=== PATIENT | male | born 1960 | race Caucasian/White ===

== ENCOUNTER → 2020-02-27 11:36 | Outpatient (BNVA) | payer OTHER, SELFPAY | PROVIDERS: PCP Physician Assistant; Visit Provider Urology | DX: N52.01 Erectile dysfunction due to arterial insufficiency (principal); N40.1 Benign prostatic hyperplasia with lower urinary tract symptoms; R39.12 Poor urinary stream; R35.1 Nocturia; N13.8 Other obstructive and reflux uropathy | CPT/HCPCS: Q3014 ==

== ENCOUNTER → 2020-10-22 10:08 | Outpatient (BNVA) | payer OTHER, SELFPAY | PROVIDERS: PCP Physician Assistant; Visit Provider Urology | DX: R35.1 Nocturia (principal); N40.1 Benign prostatic hyperplasia with lower urinary tract symptoms; N13.8 Other obstructive and reflux uropathy; E11.69 Type 2 diabetes mellitus with other specified complication | CPT/HCPCS: 51798; 99212 ==

== ENCOUNTER 2020-12-02 07:22 | Outpatient (REF) | payer OTHER, SELFPAY ==
--- NOTE | ~2020-12-02 | US_ITS ---
EXAMINATION: US ABDOMEN LIMITED CLINICAL INFORMATION: Right lower quadrant pain, rule out hernia. COMPARISON: Abdominal ultrasound of 01/16/2014 TECHNIQUE: Real-time imaging of the right upper quadrant abdominal viscera. FINDINGS: No hernia is appreciated by ultrasound. There are small right lower quadrant lymph nodes measuring 0.9 x 1 0.5 x 1 cm and 2.2 x 0.6 x 1.1 cm. Lymph nodes demonstrate normal ultrasound morphology and flow. No ascites is seen. US/US abdomen limited IMPRESSION: No hernia appreciated by ultrasound.
[2020-12-02 08:18] LABS: Hematocrit 42.1 % (42-52); Hemoglobin 14.2 g/dl (14.0-18.0); Mean Corpuscular HGB Conc 33.7 g/dl (31.0-36.0); Mean Corpuscular Hemoglobin 29.4 pg (27.0-33.0); Mean Corpuscular Volume 87.2 fL (80-98); Mean Platelet Volume 10.1 fL (9.4-12.4); Platelet Count 196 X10*3/uL (160-400); Red Blood Count 4.83 X10*6/uL (4.60-5.80); Red Cell Distribution Width 11.9 % (11.0-16.0); White Blood Count 8.6 X10*3/uL (4.8-10.8)
[2020-12-02 08:24] LABS: Estimated Average Glucose 126 mg/dL
[2020-12-02 08:48] LABS: Alanine Aminotransferase 22 U/L (0-40); Albumin Level 4.4 g/dL (3.5-5.0); Alkaline Phosphatase 70 U/L (39-117); Anion Gap 10 (12-20); Aspartate Amino Transferase 24 U/L (5-37); Bilirubin Total 0.6 mg/dL (0.0-1.0); Blood Urea Nitrogen 14 mg/dL (9-16); Calcium 9.3 mg/dL (8.4-10.2); Carbon Dioxide 28 mmol/L (22-29); Chloride 106 mmol/L (96-108); Cholesterol 217 mg/dL; Estimated Glomerular Filt Rate > 60; Glucose Fasting 116 mg/dL (60-99); HDL Cholesterol 28 mg/dL; LDL Cholesterol Calculated 159 mg/dl; Potassium 4.4 mmol/L (3.3-5.1); Sodium 140 mmol/L (135-145); Total Protein 7.4 g/dL (6.5-8.0); Triglycerides 154 mg/dL
[2020-12-02 09:09] LABS: TSH reflex Free T4 2.78 uIU/mL (0.32-4.0)
[2020-12-02 10:05] LABS: Prostate Specific Antigen Scr 0.46 ng/mL (<0.05-4.0)
== END 2020-12-02 07:23 | disposition home or self-care (01) ==
LOC: HO.US 07:22
PROVIDERS: PCP Physician Assistant; Visit Provider Physician Assistant
DX: Z12.5 Encounter for screening for malignant neoplasm of prostate (principal); R10.31 Right lower quadrant pain; I10 Essential (primary) hypertension
CPT/HCPCS: 36415; 76705; 80053; 80061; 83036; 84153; 84443; 85027

== ENCOUNTER 2021-03-16 09:27 | Emergency (ER) | payer OTHER, SELFPAY ==
[2021-03-16 09:55] VITALS: BP 164/95; PULSE 98; RESP 14; TEMP 37.1; O2SAT 94; BMI 29.0
--- NOTE | 2021-03-16 10:10 | ED_ITS ---
HPI - Dental/Oral General Chief complaint: Dental/Oral <Radha Little NP - Last Filed: 03/16/21 10:50> Stated complaint: Dental pain <Radha Little NP - Last Filed: 03/16/21 10:50> Time Seen by Provider: 03/16/21 10:02 <Radha Little NP - Last Filed: 03/16/21 10:50> Source: patient <Radha Little NP - Last Filed: 03/16/21 10:50> Mode of arrival: ambulatory <Radha Little NP - Last Filed: 03/16/21 10:50> Limitations: no limitations <Radha Little NP - Last Filed: 03/16/21 10:50> History of Present Illness HPI Narrative: 61-year-old male with a history of multiple sclerosis, hypertension, anxiety here with reports of left upper dental pain for 2 days after breaking a tooth. Patient tells me he has pain radiates up into the left side of his face. He denies any fevers, chills, difficulty breathing or swallowing. <Radha Little NP - Last Filed: 03/16/21 10:50> Related Data Home medications: Home Medications Medication Instructions Recorded Confirmed glatiramer 40 mg/mL subcutaneous 40 mg SUBCUT 3XW 01/04/20 12/16/20 syringe tizanidine 2 mg tablet 2 mg PO TID 10/22/20 12/16/20 hydroxyzine HCl 25 mg tablet 25 mg PO BEDTIME PRN tab 12/16/20 Previous Rx's Medication Instructions Recorded tadalafil 10 mg tablet 10 mg PO DAILY PRN 90 Days #30 tab 02/27/20 lisinopril 20 mg tablet 20 mg PO DAILY #90 tab 10/08/20 alfuzosin 10 mg tablet,extended 10 mg PO DAILY 90 Days #90 tab 10/23/20 release 24 hr amoxicillin 500 mg tablet 500 mg PO BID #20 tab 03/16/21 ibuprofen 600 mg tablet 600 mg PO Q8H PRN #20 tab 03/16/21 oxycodone 5 mg tablet 5 mg PO Q8H PRN #5 tab 03/16/21 <Radha Little NP - Last Filed: 03/16/21 10:50> Allergies/adverse reactions: Allergies Allergy/AdvReac Type Severity Reaction Status Date / Time Sulfa (Sulfonamide Allergy Unknown RASH Verified 12/16/20 14:11 Antibiotics) [Sulfa (Sulfonamides)] Sulfacet-R Allergy Unknown hives Verified 12/16/20 14:11 <Radha Little NP - Last Filed: 03/16/21 10:50> Review of Systems Review of Systems: Yes all other systems are reviewed and are negative <Radha Little NP - Last Filed: 03/16/21 10:50> Constitutional: Constitutional: Reports no additional constitutional compl aints, Denies body ache(s), Denies chills, Denies fever(s), Denies headache(s) and Denies weakness <Radha Little NP - Last Filed: 03/16/21 10:50> Eyes: Eyes: Reports no additional eye complaints and Denies change in vision <Radha Little NP - Last Filed: 03/16/21 10:50> ENT: Reports system reviewed and no additional complaints, except as documented, Reports dental pain, Denies dizziness, Denies headache(s), Denies nasal congestion, Denies nasal discharge and Denies neck pain <Radha Little NP - Last Filed: 03/16/21 10:50> Cardiovascular: Cardiovascular: Reports no additional cardiovascular complaints, Denies chest pain, Denies leg edema and Denies dyspnea <Radha Little NP - Last Filed: 03/16/21 10:50> Respiratory: Respiratory: Reports no additional respiratory complaints, Denies cough and Denies dyspnea <Radha Little NP - Last Filed: 03/16/21 10:50> Gastrointestinal: Gastrointestinal: Reports no additional gastrointestinal complaints, Denies abdominal pain, Denies diarrhea, Denies nausea and Denies vomiting <Radha Little NP - Last Filed: 03/16/21 10:50> Genitourinary: Genitourinary: Denies urinary incontinence <Radha Little NP - Last Filed: 03/16/21 10:50> Musculoskeletal: Musculoskeletal: Reports no additional musculoskeletal complaints, Denies back pain, Denies arthralgias, Denies joint swelling, Denies neck pain, Denies numbness and Denies tingling <Radha Little NP - Last Filed: 03/16/21 10:50> Integumentary/Breasts: Skin/Breast: Reports system reviewed and no additional complaints, except as docu and Denies rash <Radha Little NP - Last Filed: 03/16/21 10:50> Neurologic: Reports system reviewed and no additional complaints, except as documented, Denies Abnormal speech present, Denies dizziness, Denies headache(s), Denies numbness, Denies tingling and Denies weakness <Radha Little NP - Last Filed: 03/16/21 10:50> [facility]LY [facility] Past Medical History Attestation statement: The following information was validated with the patient. <Radha Little NP - Last Filed: 03/16/21 10:50> Source: old records reviewed and nursing notes reviewed <Radha Little NP - Last Filed: 03/16/21 10:50> Medical History: Medical History Bladder outlet obstruction BPH (benign prostatic hyperplasia) Diabetes mellitus Dysuria HTN (hypertension) Hyperlipidemia Nocturia Stress incontinence, male Weak urinary stream <Radha Little NP - Last Filed: 03/16/21 10:50> Surgical History: Surgical History History of appendectomy History of hernia repair History of removal of cyst <Radha Little NP - Last Filed: 03/16/21 10:50> Family History Family History: Family History Father Diabetes Mother No problems noted. Maternal Uncle Myocardial infarction Sister No problems noted. Son No problems noted. Son No problems noted. Daughter No problems noted. Brother No problems noted. Brother No problems noted. Brother No problems noted. 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 <Radha Little NP - Last Filed: 03/16/21 10:50> Physical Exam Vital Signs: Vital Signs: Last Vital Signs Temp 98.8 F 03/16/21 09:55 Pulse 98 03/16/21 09:55 Resp 14 03/16/21 09:55 BP 164/95 H 03/16/21 09:55 Pulse Ox 94 03/16/21 09:55 BMI result Body Mass Index 29.0 <Radha Little NP - Last Filed: 03/16/21 10:50> Vital Signs: Last Vital Signs Temp 98.8 F 03/16/21 09:55 Pulse 98 03/16/21 09:55 Resp 14 03/16/21 09:55 BP 164/95 H 03/16/21 09:55 Pulse Ox 94 03/16/21 09:55 BMI result Body Mass Index 29.0 <Jossue Funes MD - Last Filed: 03/18/21 06:48> Const: General: cooperative, healthy appearing, comfortable and no acute distress <Radha Little NP - Last Filed: 03/16/21 10:50> Orientation/consciousness: patient oriented x3 <Radha Little NP - Last Filed: 03/16/21 10:50> Limitations: no limitations <Radha Little NP - Last Filed: 03/16/21 10:50> HENMT: Other: No trismus <Radha Little NP - Last Filed: 03/16/21 10:50> Head: Yes normal to inspection <Radha Little NP - Last Filed: 03/16/21 10:50> Ears: hearing grossly normal bilaterally and TM's normal bilaterally <Radha Little NP - Last Filed: 03/16/21 10:50> General nose exam: Normal external nose present <Radha Little NP - Last Filed: 03/16/21 10:50> Face and sinus: Yes normal facial exam <Radha Little NP - Last Filed: 03/16/21 10:50> Mouth: Normal oral and palatal mucosa present <Radha Little NP - Last Filed: 03/16/21 10:50> Teeth image: 1. Broken tooth with exposed root Gum with erythema/swelling and tenderness. no fluctuance or induration <Radha Little NP - Last Filed: 03/16/21 10:50> Throat: Yes posterior oropharynx normal, Yes tonsils normal and Yes uvula midline <Radha Little NP - Last Filed: 03/16/21 10:50> Eyes: General: appearance normal, both eyes and all related structures <Radha Little NP - Last Filed: 03/16/21 10:50> Pupils: Equal, round and reactive pupils present <Radha Little NP - Last Filed: 03/16/21 10:50> Neck: Neck: Yes normal visual inspection, Yes full ROM, Yes no lymphadenopathy and Yes no meningeal signs <Radha Little NP - Last Filed: 03/16/21 10:50> Chest: Chest palpation & inspection: normal inspection of the chest <Radha Little NP - Last Filed: 03/16/21 10:50> Resp: Effort & Inspection: normal respiratory effort <Radha Little NP - Last Filed: 03/16/21 10:50> Auscultation: clear to auscultation bilaterally <Radha Little NP - Last Filed: 03/16/21 10:50> Cardio: Rate: regular rate <Radha Little NP - Last Filed: 03/16/21 10:50> Rhythm: regular rhythm <Radha Little NP - Last Filed: 03/16/21 10:50> Peripheral pulses: Peripheral pulses 2+ throughout <Radha Little NP - Last Filed: 03/16/21 10:50> GI: Inspection: Yes normal to inspection <Radha Little NP - Last Filed: 03/16/21 10:50> Palpation (GI): Soft to palpation and nontender <Radha Little NP - Last Filed: 03/16/21 10:50> Auscultation: normal bowel sounds <Radha Little NP - Last Filed: 03/16/21 10:50> Back/Spine/Pelvis: Thoracic/Lumbar Spine: thoracic and lumbar spine normal to inspection <Radha Little NP - Last Filed: 03/16/21 10:50> Skin: General skin exam: no rashes or lesions noted <Radha Little NP - Last Filed: 03/16/21 10:50> Neuro: General: patient oriented x3, no meningeal signs, no focal motor deficits and normal sensation to monofilament <Radha Little NP - Last Filed: 03/16/21 10:50> Cranial nerves: Yes Equal, round and reactive pupils present <Radha Little NP - Last Filed: 03/16/21 10:50> Cognition (Neuro): normal cognition <Radha Little NP - Last Filed: 03/16/21 10:50> Speech: No Abnormal speech present <Radha Little NP - Last Filed: 03/16/21 10:50> Gait exam (Neuro): Normal gait present <Radha Little NP - Last Filed: 03/16/21 10:50> Motor exam (neuro): 5/5 motor strength present throughout <Radha Little NP - Last Filed: 03/16/21 10:50> Extrem: General: Yes normal to inspection <Radha Little NP - Last Filed: 03/16/21 10:50> Course Course Course Narrative: 61-year-old here with reports of left upper dental pain after breaking a tooth 2 days ago. There is local swelling, erythema and tenderness to the gumline with no obvious abscess. No trismus. Will start patient on oral antibiotics and provide analgesia for home. Reviewed worrisome signs and symptoms of when to return to the emergency department. Comfortable discharge home. <Radha Little NP - Last Filed: 03/16/21 10:50> MDM - Dental/Oral Medical Records Attestation: I reviewed the patient's medical records. <Radha Little NP - Last Filed: 03/16/21 10:50> Lab Data Attestation: I reviewed the patient's lab results. <Radha Little NP - Last Filed: 03/16/21 10:50> Discharge Plan Discharge Clinical Impression: Toothache <Radha Little NP - Last Filed: 03/16/21 10:50> Patient Disposition: Home, Self-Care <Radha Little NP - Last Filed: 03/16/21 10:50> Instructions: Toothache (ED) <Radha Little NP - Last Filed: 03/16/21 10:50> Additional Instructions: Saltwater gargle Topical Orajel to the affected tooth Call your dentist for follow-up <Radha Little NP - Last Filed: 03/16/21 10:50> Prescriptions: New amoxicillin 500 mg tablet 500 mg PO BID Qty: 20 RF: 0 ibuprofen 600 mg tablet 600 mg PO Q8H PRN (Reason: pain) Qty: 20 RF: 0 oxycodone 5 mg tablet 5 mg PO Q8H PRN (Reason: pain) Qty: 5 RF: 0 No Action glatiramer 40 mg/mL syringe 40 mg subcut 3XW RF: 0 alfuzosin 10 mg tablet extended release 24 hr 10 mg PO DAILY 90 Days Qty: 90 RF: 2 lisinopril 20 mg tablet 20 mg PO DAILY Qty: 90 RF: 2 hydroxyzine HCl 25 mg tablet 25 mg PO BEDTIME PRN (Reason: for itch) RF: 0 tadalafil 10 mg tablet 10 mg PO DAILY PRN (Reason: sexual activity) 90 Days Qty: 30 RF: 0 tizanidine 2 mg tablet 2 mg PO TID RF: 0 <Radha Little NP - Last Filed: 03/16/21 10:50> Referrals: Simeon Sarkar PA-C [Primary Care Provider] - 2 days <Radha Little NP - Last Filed: 03/16/21 10:50> Interventions: ED Discharge Assessment Last Done: 03/16/21 10:27 <Radha Little NP - Last Filed: 03/16/21 10:50> Discharge Date/Time: 03/16/21 10:28 <Radha Little NP - Last Filed: 03/16/21 10:50>
== END 2021-03-16 10:28 | disposition home or self-care (01) ==
PROVIDERS: Emergency Provider Emergency Medicine; PCP Physician Assistant
DX: K08.89 Other specified disorders of teeth and supporting structures (principal); Z79.899 Other long term (current) drug therapy
CPT/HCPCS: 99283

== ENCOUNTER 2021-04-13 16:52 | Emergency (ER) | payer OTHER, SELFPAY ==
[2021-04-13 17:07] VITALS: BP 195/87; PULSE 80; RESP 18; TEMP 36.9; O2SAT 99; BMI 29.0
--- NOTE | 2021-04-13 18:07 | ED.DENTAL ---
HPI - Dental/Oral General Chief complaint: General Medical Stated complaint: tooth pain Time Seen by Provider: 04/13/21 18:04 Source: patient Mode of arrival: ambulatory Limitations: language barrier ([place]ican-speaking) History of Present Illness HPI Narrative: 61-year-old male with a past medical history of multiple sclerosis, hypertension, anxiety presenting here with left upper dental pain for the past few days worse today. Reports that he was seen here approximately 3 weeks ago and given some antibiotics and symptomatic treatment which helped his pain. 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 He has a follow-up appointment. He reports that he was given amoxicillin/ibuprofen oxycodone and that that provided symptomatic relief. He denies any other injuries complaints or concerns at this time. MD Complaint: tooth pain Onset (ago): day(s) Duration: worsening Severity: moderate Relieving factors: nothing Exacerbating factors: nothing Context: history of dental caries, trauma (mechanism) and poor dental care Treatment prior to arrival: other (See above) Related Data Home Medications Medication Instructions Recorded Confirmed glatiramer 40 mg/mL subcutaneous 40 mg SUBCUT 3XW 01/04/20 12/16/20 syringe tizanidine 2 mg tablet 2 mg PO TID 10/22/20 12/16/20 hydroxyzine HCl 25 mg tablet 25 mg PO BEDTIME PRN tab 12/16/20 Previous Rx's Medication Instructions Recorded tadalafil 10 mg tablet 10 mg PO DAILY PRN 90 Days #30 tab 02/27/20 lisinopril 20 mg tablet 20 mg PO DAILY #90 tab 10/08/20 alfuzosin 10 mg tablet,extended 10 mg PO DAILY 90 Days #90 tab 10/23/20 release 24 hr amoxicillin 500 mg tablet 500 mg PO BID #20 tab 03/16/21 ibuprofen 600 mg tablet 600 mg PO Q8H PRN #20 tab 03/16/21 oxycodone 5 mg tablet 5 mg PO Q8H PRN #5 tab 03/16/21 acetaminophen 500 mg tablet 1,000 mg PO QID PRN #14 tab 04/13/21 (Tylenol Extra Strength) amoxicillin 875 mg-potassium 1 tab PO BID 10 Days #20 tab 04/13/21 clavulanate 125 mg tablet chlorhexidine gluconate 0.12 % 15 ml BUCCAL BID #118 ml 04/13/21 mouthwash ibuprofen 800 mg tablet 800 mg PO Q8H PRN #14 tab 04/13/21 oxycodone 5 mg tablet 5 mg PO Q6H PRN #14 tab 04/13/21 Allergies Allergy/AdvReac Type Severity Reaction Status Date / Time Sulfa (Sulfonamide Allergy Unknown RASH Verified 12/16/20 14:11 Antibiotics) [Sulfa (Sulfonamides)] Sulfacet-R Allergy Unknown hives Verified 12/16/20 14:11 Review of Systems Review of Systems: Constitutional : No Fever, No Chills, No changes in PO intake, No difficulty speaking, no recent dental procedure, no heat or cold intolerance while eating, no recent face trauma, ENT/Mouth : + Dental pain, No Sore throat, No Jaw pain, No throat swelling, No swallowing difficulty, no change in voice, No facial swelling, no drooling, no trismus, no bleeding, no lacerations, no tongue swelling, gum swelling, Eyes: No Eye Pain, No periorbital Swelling Cardiovascular : No Chest Pain, No SOB Respiratory : No Cough, No Sputum, No Wheezing, No Smoke Exposure, No Dyspnea Gastrointestinal : No Nausea, No Vomiting, No Diarrhea Genitourinary : No Dysuria Musculoskeletal : No Myalgias Skin : No rash, no facial swelling or redness, Neuro : No Weakness, No Numbness, No Headache Yes all other systems are reviewed and are negative PMFSH Past Medical History Attestation statement: The following information was validated with the patient. Medical History Bladder outlet obstruction BPH (benign prostatic hyperplasia) Diabetes mellitus Dysuria HTN (hypertension) Hyperlipidemia Nocturia Stress incontinence, male Weak urinary stream Surgical History History of appendectomy History of hernia repair History of removal of cyst Family History Family History Father Diabetes Mother No problems noted. Maternal Uncle Myocardial infarction Sister No problems noted. Son No problems noted. Son No problems noted. Daughter No problems noted. Brother No problems noted. Brother No problems noted. Brother No problems noted. 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 Physical Exam Vital Signs: Vital Signs: Last Vital Signs Temp 98.5 F 04/13/21 17:07 Pulse 80 04/13/21 17:07 Resp 18 04/13/21 17:07 BP 195/87 H 04/13/21 17:07 Pulse Ox 99 04/13/21 17:07 BMI result Body Mass Index 29.0 vital signs have been reviewed as normal and appeared to be correct. Blood pressure normal. Heart rate normal. Respiration rate normal. Temperature normal. Oxygen saturation normal. Appearance: Alert. Oriented X3. No acute distress. Head: Normal external exam. Normocephalic. Atraumatic. Eyes: PERRLA. EOMI. Conjunctiva and sclera normal. Eyelids normal. ENT: EAC normal. TM's Normal. Pharynx normal. Uvula midline. Moist mucous membranes. No trismus noted. No drooling noted. No muffled voice noted. Dentition: Patient with poor dentition throughout with multiple old fractured teeth with multiple dental caries. Gingival within normal limits. No fluctuance. Not consistent with peritonsillar abscess. Not consistent with dental abscess. No salivary duct obstruction noted. Neck: Normal inspection. Neck supple. FROM. No adenopathy. Thyroid Normal. No meningeal signs. No neck mass noted. Trachea midline. CVS: Normal heart rate and rhythm. Heart sound normal. No murmurs noted. Pulses normal throughout. Respiratory: No respiratory distress. Painless inspiration. Breath sounds normal. No wheezes/rales/rhonchi noted. Chest nontender. No accessory muscle usage noted or decreased air movement noted. Back: Full range of motion noted. Skin: Skin warm and dry. Normal skin color. Normal skin turgor. No rashes/lesions/lacerations noted. Extremities:Extremities exhibit normal range of motion. Extremities nontender. Neuro: Oriented X 3. No motor deficit. No sensory deficit. Reflexes normal. Course Course Course Narrative: Patient with poor dentition. No obvious dental abscesses. Not consistent with peritonsillar abscess. Not consistent with pharyngeal abscess. Patient tolerating secretions well. No trismus/drooling/muffled voice. No stridor is noted. Will DC home with symptomatic treatment and antibiotics and instructions to follow-up with his dentist and to return if any new or worsening symptoms. Patient understands agrees with this plan. MDM - Dental/Oral Medical Records Attestation: I reviewed the patient's medical records. Discharge Plan Discharge Clinical Impression: Pain, dental Patient Disposition: Home, Self-Care Instructions: Toothache (ED) Prescriptions: New amoxicillin-pot clavulanate 875-125 mg tablet 1 tab PO BID 10 Days Qty: 20 0RF ibuprofen 800 mg tablet 800 mg PO Q8H PRN (Reason: pain) Qty: 14 0RF oxycodone 5 mg tablet 5 mg PO Q6H PRN (Reason: pain) Qty: 14 0RF chlorhexidine gluconate 0.12 % mouthwash 15 ml buccal BID Qty: 118 0RF Rx Instructions: Rinse and spit daily acetaminophen [Tylenol Extra Strength] 500 mg tablet 1,000 mg PO QID PRN (Reason: fever or pain) Qty: 14 0RF No Action glatiramer 40 mg/mL syringe 40 mg subcut 3XW 0RF Rx Instructions: administer doses at least 48 hours apart alfuzosin 10 mg tablet extended release 24 hr 10 mg PO DAILY 90 Days Qty: 90 2RF Rx Instructions: administer after the same meal each day amoxicillin 500 mg tablet 500 mg PO BID Qty: 20 0RF ibuprofen 600 mg tablet 600 mg PO Q8H PRN (Reason: pain) Qty: 20 0RF oxycodone 5 mg tablet 5 mg PO Q8H PRN (Reason: pain) Qty: 5 0RF lisinopril 20 mg tablet 20 mg PO DAILY Qty: 90 2RF hydroxyzine HCl 25 mg tablet 25 mg PO BEDTIME PRN (Reason: for itch) 0RF tadalafil 10 mg tablet 10 mg PO DAILY PRN (Reason: sexual activity) 90 Days Qty: 30 0RF Rx Instructions: use 60 min prior to activity tizanidine 2 mg tablet 2 mg PO TID 0RF Referrals: Simeon Sarkar PA-C [Primary Care Provider] - 2 days Print Language: [place]
== END 2021-04-13 18:20 | disposition home or self-care (01) ==
PROVIDERS: Emergency Provider Internal Medicine; PCP Physician Assistant
DX: K02.9 Dental caries, unspecified (principal); Z79.899 Other long term (current) drug therapy
CPT/HCPCS: 99283

== ENCOUNTER → 2021-04-25 08:35 | Outpatient (BNVA) | payer OTHER, SELFPAY | PROVIDERS: PCP Physician Assistant | DX: E11.69 Type 2 diabetes mellitus with other specified complication (principal); N52.1 Erectile dysfunction due to diseases classified elsewhere; R39.12 Poor urinary stream; G35 Multiple sclerosis | CPT/HCPCS: Q3014 ==

== ENCOUNTER → 2021-05-27 12:09 | Outpatient (BNVA) | payer OTHER, SELFPAY | PROVIDERS: PCP Physician Assistant; Visit Provider Urology | DX: N40.1 Benign prostatic hyperplasia with lower urinary tract symptoms (principal); N13.8 Other obstructive and reflux uropathy; E11.69 Type 2 diabetes mellitus with other specified complication; N52.1 Erectile dysfunction due to diseases classified elsewhere; Z79.899 Other long term (current) drug therapy | CPT/HCPCS: Q3014 ==

== ENCOUNTER → 2021-10-31 12:54 | Outpatient (BNVA) | payer OTHER, SELFPAY | PROVIDERS: PCP Physician Assistant; Visit Provider Urology | DX: D29.4 Benign neoplasm of scrotum (principal); E11.69 Type 2 diabetes mellitus with other specified complication; N52.1 Erectile dysfunction due to diseases classified elsewhere | CPT/HCPCS: 99212 ==

== ENCOUNTER 2022-04-26 09:48 | Emergency (ER) | payer OTHER, SELFPAY ==
[2022-04-26 09:59] VITALS: BP 188/72; PULSE 83; RESP 18; TEMP 36.8; O2SAT 98; BMI 29.0
--- NOTE | 2022-04-26 10:47 | ED.GENADULT ---
HPI - General Adult General Chief complaint: Back Pain/Injury Stated complaint: back pain, no inj Time Seen by Provider: 04/26/22 10:25 Source: patient Mode of arrival: ambulatory Limitations: no limitations History of Present Illness HPI narrative: 62 yold with pmh of MS, DM, HTN male presents to the ED lower back pain that is worse on movement. patient states having this back pain ever since he had a deep tissue massage of his back. patient states having symptoms for the past two weeks. patient denies any abdominal pain, nausa, vomitting, dysuria, hemautria, flank pain, urnary/bowel incontinencne, IV drug use, chest pain, shortness of breath, fever, or chills. patient denies any recent trauma. Related Data Home Medications Medication Instructions Recorded Confirmed glatiramer 40 mg/mL subcutaneous 40 mg subcut 3XW 01/04/20 10/31/21 syringe tizanidine 2 mg tablet 2 mg PO TID 10/22/20 10/31/21 meclizine 25 mg tablet 25 mg PO TID PRN dizziness 08/13/21 10/31/21 tadalafil 10 mg tablet 10 mg PO DAILY PRN 10/31/21 10/31/21 Previous Rx's Medication Instructions Recorded acetaminophen 500 mg tablet 1,000 mg PO QID PRN fever or pain 04/13/21 (Tylenol Extra Strength) #14 tabs chlorhexidine gluconate 0.12 % 15 ml buccal BID #118 mL 04/13/21 mouthwash ibuprofen 800 mg tablet 800 mg PO Q8H PRN pain #14 tabs 04/13/21 oxycodone 5 mg tablet 5 mg PO Q6H PRN pain #14 tabs 04/13/21 alfuzosin 10 mg tablet,extended 10 mg PO DAILY 90 days #90 tabs 05/27/21 release 24 hr amoxicillin 500 mg capsule 500 mg PO Q8H 7 days #21 caps 08/13/21 fluticasone propionate 50 1 spray intranasal BID 30 days #16 08/13/21 mcg/actuation nasal grams spray,suspension (Flonase Allergy Relief) sildenafil 100 mg tablet 100 mg PO DAILY 15 days #15 tabs 08/13/21 hydroxyzine HCl 25 mg tablet 25 mg PO BEDTIME PRN for itch #90 11/19/21 tabs lisinopril 20 mg tablet 20 mg PO DAILY #90 tabs 11/19/21 cetirizine 10 mg tablet 10 mg PO DAILY #30 tabs 02/13/22 cyclobenzaprine 10 mg tablet 10 mg PO BEDTIME PRN muscle spasm 04/26/22 10 days #10 tabs naproxen 500 mg tablet 500 mg PO BID PRN pain 7 days #14 04/26/22 tabs prednisone 20 mg tablet 40 mg PO DAILY 5 days #10 tabs 04/26/22 Allergies Allergy/AdvReac Type Severity Reaction Status Date / Time Sulfa (Sulfonamide Allergy Unknown RASH Verified 01/05/22 13:31 Antibiotics) [Sulfa (Sulfonamides)] sulfacetamide Allergy Unknown Hives Verified 03/20/22 12:53 [From Sulfacet-R] sulfur [From Sulfacet-R] Allergy Unknown Hives Verified 03/20/22 12:53 Review of Systems Review of Systems: back pain Yes all other systems are reviewed and are negative [facility] Past Medical History Medical History Bladder outlet obstruction BPH (benign prostatic hyperplasia) Diabetes mellitus Dysuria HTN (hypertension) Hyperlipidemia Nocturia Stress incontinence, male Weak urinary stream Surgical History History of appendectomy History of hernia repair History of removal of cyst Family History Family History Father Diabetes Mother No problems noted. Maternal Uncle Myocardial infarction Sister No problems noted. Son No problems noted. Son No problems noted. Daughter No problems noted. Brother No problems noted. Brother No problems noted. Brother No problems noted. 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 Cognitive needs: No Hearing needs: No Vision needs: No Physical Exam ED Vital Signs: Vital Signs - 24 hr 04/26/22 09:59 Temperature 98.2 F Pulse Rate 83 Respiratory Rate 18 Blood Pressure 188/72 H Pulse Oximetry 98 Oxygen Delivery Method Room Air BMI result Body Mass Index 29.0 Const General: cooperative, healthy appearing, comfortable, no acute distress, well developed, alert and awake Orientation/consciousness: oriented to place, oriented to time and patient oriented x3 [facility] Head: Yes normal to inspection, Yes No palpable skull fracture present, Yes normocephalic, Yes atraumatic and No abrasion Eyes General: appearance normal, both eyes and all related structures Neck Neck: Yes normal visual inspection, Yes full ROM, Yes no lymphadenopathy, Yes no meningeal signs, Yes trachea midline, Yes supple, No anterior neck swelling and No tender Chest Chest palpation & inspection: normal inspection of the chest and normal palpation of entire chest wall Resp Effort & Inspection: normal respiratory effort and able to speak in complete sentences Auscultation: clear to auscultation bilaterally Cardio Jugular venous distension: no JVD Heart sounds: S1 normal heart sound present and S2 normal heart sound present GI Inspection: Yes normal to inspection and No abdominal wall ecchymosis Palpation (GI): Soft to palpation, not firm, nontender, no guarding and not rigid General: No CVA tenderness and Yes no CVA tenderness Back/Spine/Pelvis Other: positive for back pain on range of motion. Back: no CVA tenderness, No CVA tenderness and back tenderness (negative for spine tenderness. positive for muscular lower back tenderness.) Skin General skin exam: no rashes or lesions noted and elasticity normal Neuro General: oriented to place, oriented to time, patient oriented x3, gait normal, tone normal, moves all extremities, Normal light touch and pain sensation, no meningeal signs, no focal motor deficits, CN's II-XI intact bilaterally and normal sensation to monofilament Extrem General: Yes normal to inspection and Yes full ROM Psych Appearance: grossly normal, well kempt and not disheveled Course Course Course Narrative: Patient well-appearing. Reevaluation(s) Reevaluation #1: Back pain is muscular no need for imaging. Patient denies any trauma and does not have any concerning symptoms for epidural abscess or cauda equinus syndrome. Patient has no or abdominal complaints. Patient is safe for discharge. Blood pressure elevated patient has history of high blood pressure. Patient does not have any neuro deficits. Patient will be discharged with steroids, pain medication, and muscle relaxer. Time: 10:56 Medical Decision Making Medical Decision Making MDM Narrative: 62-year-old male presents to ED for muscular back pain. Patient denies any recent trauma, urinary symptoms, abdominal symptoms, IV drug use, any urinary/bowel incontinence. Back pain is muscular will be discharged with pain meds, muscle relaxers steroids. Differential Diagnosis Differential Diagnoses: The differential diagnosis associated with the presentation includes (UTI, arthritis, fracture,) Prescription Management I considered prescription management with: Pain Medication Discharge Plan Discharge Clinical Impression: Back pain, Muscle spasm Patient Disposition: Home, Self-Care Instructions: Muscle Spasm (ED), Back Pain (ED), Heat Pack Application (ED) Additional Instructions: Return to ED for any dysuria, hematuria, fever, chills, worsening back pain, abdominal pain, nausea, vomiting, fever, chills, inability to walk, urinary/bowel incontinence, flank pain, or any other concerning symptoms. Please follow up wt PCP. Prescriptions: New prednisone 20 mg tablet 40 mg PO DAILY 5 Days Qty: 10 0RF naproxen 500 mg tablet 500 mg PO BID PRN (Reason: pain) 7 Days Qty: 14 0RF cyclobenzaprine 10 mg tablet 10 mg PO BEDTIME PRN (Reason: muscle spasm) 10 Days Qty: 10 0RF Rx Instructions: side effect is drowsiness. Do not take at work or while driving. No Action glatiramer 40 mg/mL syringe 40 mg subcut 3XW Rx Instructions: administer doses at least 48 hours apart alfuzosin 10 mg tablet extended release 24 hr 10 mg PO DAILY 90 Days Qty: 90 3RF Rx Instructions: administer after the same meal each day lisinopril 20 mg tablet 20 mg PO DAILY Qty: 90 2RF hydroxyzine HCl 25 mg tablet 25 mg PO BEDTIME PRN (Reason: for itch) Qty: 90 1RF cetirizine 10 mg tablet 10 mg PO DAILY Qty: 30 2RF ibuprofen 800 mg tablet 800 mg PO Q8H PRN (Reason: pain) Qty: 14 0RF oxycodone 5 mg tablet 5 mg PO Q6H PRN (Reason: pain) Qty: 14 0RF chlorhexidine gluconate 0.12 % mouthwash 15 ml buccal BID Qty: 118 0RF Rx Instructions: Rinse and spit daily acetaminophen [Tylenol Extra Strength] 500 mg tablet 1,000 mg PO QID PRN (Reason: fever or pain) Qty: 14 0RF meclizine 25 mg tablet 25 mg PO TID PRN (Reason: dizziness) fluticasone propionate [Flonase Allergy Relief] 50 mcg/actuation spray,suspension 1 spray intranasal BID 30 Days Qty: 16 1RF Rx Instructions: administer into each nostril amoxicillin 500 mg capsule 500 mg PO Q8H 7 Days Qty: 21 0RF sildenafil 100 mg tablet 100 mg PO DAILY 15 Days Qty: 15 0RF tizanidine 2 mg tablet 2 mg PO TID tadalafil 10 mg tablet 10 mg PO DAILY PRN Stand Alone Forms: Work/School Release Interventions: ED Discharge Assessment Last Done: 04/26/22 11:24 Discharge Date/Time: 04/26/22 11:24 Print Language: Azerbaijani
== END 2022-04-26 11:24 | disposition home or self-care (01) ==
PROVIDERS: Emergency Provider Emergency Medicine; PCP Physician Assistant
DX: M54.50 Low back pain, unspecified (principal); M62.838 Other muscle spasm; Z79.899 Other long term (current) drug therapy
CPT/HCPCS: 99282

== ENCOUNTER 2022-05-19 06:39 | Outpatient (REF) | payer OTHER, SELFPAY ==
[2022-05-19 08:07] LABS: Hematocrit 42.5 % (42.0-52.0); Hemoglobin 13.9 g/dl (14.0-18.0); Mean Corpuscular HGB Conc 32.7 g/dl (31.0-36.0); Mean Corpuscular Hemoglobin 28.7 pg (27.0-33.0); Mean Corpuscular Volume 87.8 fL (80.0-98.0); Mean Platelet Volume 10.2 fL (9.4-12.4); Platelet Count 196 X10*3/uL (160-400); Red Blood Count 4.84 X10*6/uL (4.60-5.80); Red Cell Distribution Width 12.3 % (11.0-16.0); White Blood Count 14.3 X10*3/uL (4.8-10.8)
[2022-05-19 09:46] LABS: Alanine Aminotransferase 41 U/L (0-40); Albumin Level 4.2 g/dL (3.5-5.0); Alkaline Phosphatase 84 U/L (39-117); Anion Gap 13 (12-20); Aspartate Amino Transferase 31 U/L (5-37); Bilirubin Total 0.3 mg/dL (0.0-1.0); Blood Urea Nitrogen 13 mg/dL (9-16); Carbon Dioxide 25 mmol/L (22-29); Chloride 107 mmol/L (96-108); Cholesterol 177 mg/dL; Estimated Glomerular Filt Rate > 60; Glucose Fasting 124 mg/dL (60-99); HDL Cholesterol 26 mg/dL; LDL Cholesterol Calculated 124 mg/dl; Potassium 4.3 mmol/L (3.3-5.1); Sodium 141 mmol/L (135-145); Total Protein 6.8 g/dL (6.5-8.0); Triglycerides 137 mg/dL
[2022-05-19 09:48] LABS: Prostate Specific Antigen Scr 1.28 ng/mL (<0.05-4.0); TSH reflex Free T4 2.56 uIU/mL (0.32-4.0)
[2022-05-19 09:59] LABS: Creatinine Urine 178.35 mg/dL
== END 2022-05-19 06:40 | disposition home or self-care (01) ==
LOC: HO.LAB 06:39
PROVIDERS: PCP Physician Assistant; Visit Provider Physician Assistant
DX: Z12.5 Encounter for screening for malignant neoplasm of prostate (principal); I10 Essential (primary) hypertension
CPT/HCPCS: 36415; 80053; 80061; 82043; 84153; 84443; 85027

== ENCOUNTER 2022-05-28 18:47 | Inpatient (IN) | payer OTHER, SELFPAY ==
--- NOTE | ~2022-05-28 | CT_ITS ---
EXAMINATION: CT ABDOMEN AND PELVIS WITHOUT CONTRAST CLINICAL INFORMATION: Lower abdominal pain COMPARISON: Abdominal ultrasound 12/02/2020 TECHNIQUE: Multidetector volumetric imaging was performed from the superior aspect of the liver through the pubic symphysis. Sagittal and coronal reformatted images were obtained on the technologist's workstation. This CT examination was performed using dose optimization techniques as appropriate, variously including the following: *Automated exposure control *Adjustment of mA and/or kV according to patient size (this includes techniques or standardized protocols for targeted exams where dose is matched to indication/reason for exam; i.e. extremities or head) *Use of iterative reconstruction technique DLP: 577 mGy-cm FINDINGS: LUNG BASES: Unremarkable. ABDOMINAL AND PELVIC WALL: Unremarkable. LIVER AND BILIARY TREE: Unremarkable. GALLBLADDER: Unremarkable. PANCREAS: Unremarkable. SPLEEN: Unremarkable. ADRENAL GLANDS: Unremarkable. KIDNEYS AND URETERS: Unremarkable. GASTROINTESTINAL TRACT: Small hiatal hernia. Colonic diverticulosis with colonic wall thickening and pericolonic inflammatory fat stranding surrounding the junctions of the sigmoid and descending colon compatible with acute diverticulitis. No extraluminal air to suggest perforation or pericolonic fluid collection to suggest abscess. Status post appendectomy. VASCULAR: Infrarenal abdominal aortic aneurysm measuring 3.5 cm x 2.8 cm. Atherosclerosis of the abdominal aorta. LYMPH NODES/PERITONEUM: No lymphadenopathy. FREE FLUID: None. BLADDER: Unremarkable. PELVIC VISCERA: Unremarkable. OSSEOUS STRUCTURES: Unremarkable. CT/CT abdomen pelvis wo IV con IMPRESSION: Acute uncomplicated diverticulitis involving the junction of the sigmoid and descending colon. Infrarenal abdominal aortic aneurysm measuring 3.5 cm. For abdominal aortic aneurysms measuring 3.5 cm to 3.9 cm recommend every 2 year follow-up imaging to assess stability.
[2022-05-28 19:07] VITALS: BP 150/81; PULSE 72; RESP 18; TEMP 36.8; O2SAT 97; BMI 29.0
--- NOTE | 2022-05-28 19:10 | ED_ITS ---
HPI - Abdominal Pain General Chief Complaint: Abdominal Pain <LINDSAY Beard - Last Filed: 05/28/22 19:11> Stated Complaint: abd pain x1 wk <LINDSAY Beard - Last Filed: 05/28/22 19:11> Time Seen by Provider: 05/28/22 20:23 <LINDSAY Beard - Last Filed: 05/28/22 19:11> Source: patient <Kelly Rodriguez MD - Last Filed: 05/28/22 21:15> Mode of arrival: ambulatory <Kelly Rodriguez MD - Last Filed: 05/28/22 21:15> History of Present Illness HPI narrative: 62-year-old male with history MS and he reports borderline diabetes who is had abdominal discomfort for approximately 1 week associated with nausea but he has continued to have flatus and bowel movements and reports chills. <Kelly Rodriguez MD - Last Filed: 05/28/22 21:15> Related Data Home Medications: Home Medications Medication Instructions Recorded Confirmed glatiramer 40 mg/mL subcutaneous 40 mg subcut 3XW 01/04/20 05/11/22 syringe tadalafil 10 mg tablet 10 mg PO DAILY PRN 10/31/21 05/11/22 Previous Rx's Medication Instructions Recorded alfuzosin 10 mg tablet,extended 10 mg PO DAILY 90 days #90 tabs 05/27/21 release 24 hr lisinopril 20 mg tablet 20 mg PO DAILY #90 tabs 11/19/21 naproxen 500 mg tablet 500 mg PO BID PRN pain 7 days #14 04/26/22 tabs cetirizine 10 mg tablet 10 mg PO DAILY 30 days #30 tabs 05/11/22 fluticasone propionate 50 1 spray intranasal BID 30 days #16 05/11/22 mcg/actuation nasal grams spray,suspension (Flonase Allergy Relief) hydroxyzine HCl 25 mg tablet 25 mg PO BEDTIME PRN for itch #90 05/11/22 tabs <LINDSAY Beard - Last Filed: 05/28/22 19:11> Allergies/Adverse Reactions: Allergies Allergy/AdvReac Type Severity Reaction Status Date / Time Sulfa (Sulfonamide Allergy Unknown RASH Verified 05/28/22 19:12 Antibiotics) [Sulfa (Sulfonamides)] sulfacetamide Allergy Unknown Hives Verified 05/28/22 19:12 [From Sulfacet-R] sulfur [From Sulfacet-R] Allergy Unknown Hives Verified 05/28/22 19:12 <LINDSAY Beard - Last Filed: 05/28/22 19:11> Review of Systems Review of Systems Pertinent positives and negatives as stated in HPI <Kelly Rodriguez MD - Last Filed: 05/28/22 21:15> PMFSH Past Medical History Source: nursing notes reviewed <Kelly Rodriguez MD - Last Filed: 05/28/22 21:15> Medical History: Medical History Bladder outlet obstruction BPH (benign prostatic hyperplasia) Diabetes mellitus Dysuria HTN (hypertension) Hyperlipidemia Nocturia Stress incontinence, male Weak urinary stream <LINDSAY Beard - Last Filed: 05/28/22 19:11> Surgical History: Surgical History History of appendectomy History of hernia repair History of removal of cyst <LINDSAY Beard - Last Filed: 05/28/22 19:11> Family History Family History: Family History Father Diabetes Mother No problems noted. Maternal Uncle Myocardial infarction Sister No problems noted. Son No problems noted. Son No problems noted. Daughter No problems noted. Brother No problems noted. Brother No problems noted. Brother No problems noted. 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 Cognitive needs: No Hearing needs: No Vision needs: No <LINDSAY Beard - Last Filed: 05/28/22 19:11> Physical Exam ED Vital Signs: Vital Signs - 24 hr 05/28/22 19:07 Temperature 98.2 F Pulse Rate 72 Respiratory Rate 18 Blood Pressure 150/81 H Pulse Oximetry 97 Oxygen Delivery Method Room Air BMI result Body Mass Index 29.0 <LINDSAY Beard - Last Filed: 05/28/22 19:11> Vital Signs - 24 hr 05/28/22 19:07 Temperature 98.2 F Pulse Rate 72 Respiratory Rate 18 Blood Pressure 150/81 H Pulse Oximetry 97 Oxygen Delivery Method Room Air BMI result Body Mass Index 29.0 VITAL SIGNS: Reviewed. GENERAL: Well developed, well nourished, in no acute distress. HEAD: Normocephalic/atraumatic EYES: PERRLA, EOMI EARS: Ext canals without abnormality NOSE: Nares patent bilateral OROPHARYNX: no oral lesions noted, posterior pharynx clear NECK: Supple, no adenopathy LUNGS: Normal breath sounds. No adventitious sounds or accessory muscle use. SpO2<97> CARDIOVASCULAR: Regular rate and rhythm without noted murmurs ABDOMEN: Soft, diffuse abd pain and maximal at LLQ with rebound, non-distended with bowel sounds. MUSCULOSKELETAL: No tenderness, deformities, or effusions noted on gross inspection. EXTREMITIES: No cyanosis, clubbing or edema. SKIN: Inspection of the skin reveals no rashes NEUROLOGIC: Alert and oriented x 4. Strength and sensation to light touch were grossly intact x 4. <Kelly Rodriguez MD - Last Filed: 05/28/22 21:15> Course Course Course Narrative: RME - 62 yo male with history of MS, HTN, vertigo, DM2, s/p appendectomy who presents to the ER for evaluation of lower abdominal pain x1 week. He is nauseated but not vomiting. No diarrhea or constipation. +pain with urination. No back pain. Tender LLQ in exam Plan: UA, labs, CT scan abd/pelvis <LINDSAY Beard - Last Filed: 05/28/22 19:11> Medical Decision Making Medical Decision Making [facility] Narrative: 2044: 62-year-old male with history and clinical presentation consistent with diverticulitis, will receive IV fluids, antibiotics, lactic acid and blood cultures. 2112: I discussed case with Dr. Ventura who accepts admission. <Kelly Rodriguez MD - Last Filed: 05/28/22 21:15> Differential Diagnosis Please see the discussion above <Kelly Rodriguez MD - Last Filed: 05/28/22 21:15> Lab Data Please see the discussion above <Kelly Rodriguez MD - Last Filed: 05/28/22 21:15> Result Diagrams: 05/28/22 19:38 05/28/22 19:38 <LINDSAY Beard - Last Filed: 05/28/22 19:11> Labs: Lab Results 05/28/22 05/28/22 05/28/22 Range/Units 19:36 19:38 19:38 WBC 21.0 H (4.8-10.8) X10*3/uL RBC 4.99 (4.60-5.80) X10*6/uL Hgb 14.1 (14.0-18.0) g/dl Hct 42.4 (42.0-52.0) % MCV 85.0 (80.0-98.0) fL MCH 28.3 (27.0-33.0) pg MCHC 33.3 (31.0-36.0) g/dl RDW 12.1 (11.0-16.0) % Plt Count 182 (160-400) X10*3/uL MPV 9.7 (9.4-12.4) fL Immature Gran % (Auto) 0.2 (0.0-0.4) % Neut % (Auto) 34.0 L (45-73) % Lymph % (Auto) 59.8 H (20-40) % [place] % (Auto) 4.7 (2-11) % Eos % (Auto) 1.0 (0-4) % Baso % (Auto) 0.3 (0-2) % Lymph # (Auto) 12.5 H (1.2-4.9) X10*3/uL [place] # (Auto) 1.0 (0.1-1.2) X10*3/uL Eos # (Auto) 0.2 (0.0-0.4) X10*3/uL Baso # (Auto) 0.1 (0.0-0.2) X10*3/uL Abs Immat Gran (auto) 0.04 H (0.00-0.03) X10*3/uL Absolute Neuts (auto) 7.1 (2.0-8.3) x10*3/uL Absolute Nucleated RBC 0.000 (0.0-0.012) X10*3/uL Nucleated RBC % (auto) 0.0 (0.0-0.2) /100WBC Smear Tech's Comments VERIFIED Sodium 139 (135-145) mmol/L Potassium 4.2 (3.3-5.1) mmol/L Chloride 102 (96-108) mmol/L Carbon Dioxide 27 (22-29) mmol/L Anion Gap 14 (12-20) BUN 14 (9-16) mg/dL Creatinine 0.94 (0.5-1.4) mg/dL Estim Creat Clear Calc 81.7 Estimated GFR > 60 Random Glucose 113 (60-115) mg/dL Calcium 9.3 (8.4-10.2) mg/dL Magnesium 1.9 (1.6-2.6) mg/dL Total Bilirubin 0.8 (0.0-1.0) mg/dL Direct Bilirubin 0.2 (0.0-0.5) mg/dL AST 33 (5-37) U/L ALT 33 (0-40) U/L Alkaline Phosphatase 80 (39-117) U/L Total Protein 7.3 (6.5-8.0) g/dL Albumin 4.5 (3.5-5.0) g/dL Urine Color Yellow Urine Appearance Clear Urine pH 7.0 (5.0-9.0) Ur Specific [place] 1.010 (1.005-1.025) Urine Protein Negative (Neg-Trace) mg/dL Urine Glucose (UA) Negative (Negative) mg/dL Urine Ketones Negative (Negative) mg/dL Urine Blood Negative (Negative) Urine Nitrite Negative (Negative) Ur Leukocyte Esterase Negative (Negative) <LINDSAY Beard - Last Filed: 05/28/22 19:11> Lab Results 05/28/22 05/28/22 05/28/22 Range/Units 19:36 19:38 19:38 WBC 21.0 H (4.8-10.8) X10*3/uL RBC 4.99 (4.60-5.80) X10*6/uL Hgb 14.1 (14.0-18.0) g/dl Hct 42.4 (42.0-52.0) % MCV 85.0 (80.0-98.0) fL MCH 28.3 (27.0-33.0) pg MCHC 33.3 (31.0-36.0) g/dl RDW 12.1 (11.0-16.0) % Plt Count 182 (160-400) X10*3/uL MPV 9.7 (9.4-12.4) fL Immature Gran % (Auto) 0.2 (0.0-0.4) % Neut % (Auto) 34.0 L (45-73) % Lymph % (Auto) 59.8 H (20-40) % [place] % (Auto) 4.7 (2-11) % Eos % (Auto) 1.0 (0-4) % Baso % (Auto) 0.3 (0-2) % Lymph # (Auto) 12.5 H (1.2-4.9) X10*3/uL [place] # (Auto) 1.0 (0.1-1.2) X10*3/uL Eos # (Auto) 0.2 (0.0-0.4) X10*3/uL Baso # (Auto) 0.1 (0.0-0.2) X10*3/uL Abs Immat Gran (auto) 0.04 H (0.00-0.03) X10*3/uL Absolute Neuts (auto) 7.1 (2.0-8.3) x10*3/uL Absolute Nucleated RBC 0.000 (0.0-0.012) X10*3/uL Nucleated RBC % (auto) 0.0 (0.0-0.2) /100WBC Smear Tech's Comments VERIFIED Sodium 139 (135-145) mmol/L Potassium 4.2 (3.3-5.1) mmol/L Chloride 102 (96-108) mmol/L Carbon Dioxide 27 (22-29) mmol/L Anion Gap 14 (12-20) BUN 14 (9-16) mg/dL Creatinine 0.94 (0.5-1.4) mg/dL Estim Creat Clear Calc 81.7 Estimated GFR > 60 Random Glucose 113 (60-115) mg/dL Calcium 9.3 (8.4-10.2) mg/dL Magnesium 1.9 (1.6-2.6) mg/dL Total Bilirubin 0.8 (0.0-1.0) mg/dL Direct Bilirubin 0.2 (0.0-0.5) mg/dL AST 33 (5-37) U/L ALT 33 (0-40) U/L Alkaline Phosphatase 80 (39-117) U/L Total Protein 7.3 (6.5-8.0) g/dL Albumin 4.5 (3.5-5.0) g/dL Urine Color Yellow Urine Appearance Clear Urine pH 7.0 (5.0-9.0) Ur Specific [place] 1.010 (1.005-1.025) Urine Protein Negative (Neg-Trace) mg/dL Urine Glucose (UA) Negative (Negative) mg/dL Urine Ketones Negative (Negative) mg/dL Urine Blood Negative (Negative) Urine Nitrite Negative (Negative) Ur Leukocyte Esterase Negative (Negative) <Kelly Rodriguez MD - Last Filed: 05/28/22 21:15> Radiology Impression Radiologist Impression: My interpretation is in agreement with radiology's impression of the imaging study. <Kelly Rodriguez MD - Last Filed: 05/28/22 21:15> Discharge Plan Discharge Clinical Impression: Diverticulitis <LINDSAY Beard - Last Filed: 05/28/22 19:11> Patient Disposition: Admitted As Inpatient <LINDSAY Beard - Last Filed: 05/28/22 19:11> Prescriptions: No Action glatiramer 40 mg/mL syringe 40 mg subcut 3XW Rx Instructions: administer doses at least 48 hours apart alfuzosin 10 mg tablet extended release 24 hr 10 mg PO DAILY 90 Days Qty: 90 3RF Rx Instructions: administer after the same meal each day lisinopril 20 mg tablet 20 mg PO DAILY Qty: 90 2RF naproxen 500 mg tablet 500 mg PO BID PRN (Reason: pain) 7 Days Qty: 14 0RF fluticasone propionate [Flonase Allergy Relief] 50 mcg/actuation spra y,suspension 1 spray intranasal BID 30 Days Qty: 16 1RF Rx Instructions: administer into each nostril cetirizine 10 mg tablet 10 mg PO DAILY 30 Days Qty: 30 6RF hydroxyzine HCl 25 mg tablet 25 mg PO BEDTIME PRN (Reason: for itch) Qty: 90 1RF tadalafil 10 mg tablet 10 mg PO DAILY PRN <LINDSAY Beard - Last Filed: 05/28/22 19:11>
[2022-05-28 19:44] LABS: Basophils Absolute Auto 0.1 X10*3/uL (0.0-0.2); Basophils Percent Auto 0.3 % (0-2); Eosinophils Absolute Auto 0.2 X10*3/uL (0.0-0.4); Hematocrit 42.4 % (42.0-52.0); Hemoglobin 14.1 g/dl (14.0-18.0); Imm Gran Abs Auto 0.04 X10*3/uL (0.00-0.03); Imm Gran Pct Auto 0.2 % (0.0-0.4); Lymphocytes Absolute Auto 12.5 X10*3/uL (1.2-4.9); Lymphocytes Percent Auto 59.8 % (20-40); MANUAL DIFF FLAG SCAN; Mean Corpuscular HGB Conc 33.3 g/dl (31.0-36.0); Mean Corpuscular Hemoglobin 28.3 pg (27.0-33.0); Mean Platelet Volume 9.7 fL (9.4-12.4); Monocytes Percent Auto 4.7 % (2-11); Neutrophils Absolute Auto 7.1 x10*3/uL (2.0-8.3); Platelet Count 182 X10*3/uL (160-400); Red Blood Count 4.99 X10*6/uL (4.60-5.80); Red Cell Distribution Width 12.1 % (11.0-16.0); SCAN SMEAR FLAG 1
[2022-05-28 19:45] LABS: Appearance Urine Clear; Color Urine Yellow; Glucose Urine UA Negative (Negative); Leukocyte Esterase Urine Negative (Negative); Nitrite Urine Negative (Negative); Urine Blood Negative (Negative); Urine Ketones Negative (Negative); Urine Protein Negative (Neg-Trace)
[2022-05-28 19:58] LABS: Alanine Aminotransferase 33 U/L (0-40); Albumin Level 4.5 g/dL (3.5-5.0); Alkaline Phosphatase 80 U/L (39-117); Anion Gap 14 (12-20); Aspartate Amino Transferase 33 U/L (5-37); Bilirubin Direct 0.2 mg/dL (0.0-0.5); Bilirubin Total 0.8 mg/dL (0.0-1.0); Blood Urea Nitrogen 14 mg/dL (9-16); Calcium 9.3 mg/dL (8.4-10.2); Carbon Dioxide 27 mmol/L (22-29); Chloride 102 mmol/L (96-108); Creatinine Clr Calc Pharmacy 81.7; Estimated Glomerular Filt Rate > 60; Glucose Random 113 mg/dL (60-115); Magnesium 1.9 mg/dL (1.6-2.6); Potassium 4.2 mmol/L (3.3-5.1); Sodium 139 mmol/L (135-145); Total Protein 7.3 g/dL (6.5-8.0)
[2022-05-28 20:12] LABS: SLIDE REVIEW VERIFIED
[2022-05-28] MEDS: 0.9 % Sodium Chloride 500 ML 999 ML IV (20:58)
[2022-05-28] MEDS: Piperacillin Sodium/Tazobactam 3.375 GM in 0.9 % Sodium Chloride 50 ML IV (21:36)
[2022-05-28] MEDS: fentaNYL citrate/PF 100 MCG/2 ML VIAL 25 MCG IVPUSH (21:36)
[2022-05-28 21:40] VITALS: BP 158/78; PULSE 62; RESP 18; TEMP 36.3; O2SAT 97
--- NOTE | 2022-05-28 21:45 | PHA.MEDREC ---
Pharmacy Consult ? Medication Reconciliation Pharmacy has completed the medication reconciliation. Safety Physician services used, pt with pictures of rx bottles on phone
[2022-05-28 22:20] VITALS: BP 149/73; PULSE 62; RESP 16; TEMP 36.9; O2SAT 98
[2022-05-28 22:23] LABS: COVID-19 Test Negative (Negative); IDNOW Serial# 9DB6401D
--- NOTE | 2022-05-28 22:32 | MHC.CM.PN ---
IMM 05/28. hospital staff pharmacist used as patient is Yoruba speaking. A&Ox4. Lives alone. Uses cane. Has nurse for MS injections 3 times/week. Wednesday, Wednesday and Wednesday. Thinks it's from insurance. Not sure what company. Pt has MS and gets Glatiramer Acetate injections. [employer] x3. Covid screening pending. HCP reviewed, completed, and signed. Copies given. Uploaded into [employer] and [facility] [employer]. HCP #1 Dmitry Bailey (son) [phone] and HCP #2 Elida Bailey (son ) [phone]. D/C plan is home with existing services. Pt states he will self transport. Can arrange transport if necessary. CM will follow for discharge planning needs.
--- NOTE | 2022-05-28 23:01 | PC.NURSE ---
3S called for report at this time, RN to call back this RN for reports when she is available.
--- NOTE | 2022-05-28 23:14 | PC.NURSE ---
Report given to 3S RN with no further questions at this time
[2022-05-28 23:17] VITALS: BP 157/82; PULSE 65; RESP 18; TEMP 37; O2SAT 98
[2022-05-28 23:39] VITALS: BMI 29.0
[2022-05-29] MEDS: 0.9 % Sodium Chloride 1,000 ML 100 ML IVCONT ×3 (00:04→20:34)
[2022-05-29] MEDS: 0.9 % Sodium Chloride Flush 3 ML SYRINGE IVFLUSH ×2 (00:04→15:26)
--- NOTE | 2022-05-29 00:31 | P.HPGS_ITS ---
History of Present Illness History of Present Illness Date of Service: 05/29/22 Chief complaint: abdominal pain Narrative: Chavo Bailey is a 62 year old male who has been having abdominal pain for the last week. it isn't getting better and has been getting worse. he denies any fever no nausea or vomiting. He has also been more constipated recently. He has had 2 colonoscopies in the past with polyp removed. he didnt know that he had diverticulosis. He has had pain like this before but not as severe an which has lasted one day and then better. complains of pain in his left side. no urinary symptoms. he has MS for almost 10 yrs but it is well controlled and he is followed by his doc in [facility]. Review of Systems Review of Systems: Yes all other systems are reviewed and are negative Neurologic: Denies Abnormal speech present [facility] Past Medical History Medical History Bladder outlet obstruction BPH (benign prostatic hyperplasia) Diabetes mellitus Dysuria HTN (hypertension) Hyperlipidemia Nocturia Stress incontinence, male Weak urinary stream Family History Family History Father Diabetes Mother No problems noted. Maternal Uncle Myocardial infarction Sister No problems noted. Son No problems noted. Son No problems noted. Daughter No problems noted. Brother No problems noted. Brother No problems noted. Brother No problems noted. Surgical History Surgical History History of appendectomy History of hernia repair History of removal of cyst Social History Social History Household Members: None Housing: Apartment Do you presently have visiting nurse or other home services: Yes Alcohol intake: never Patient Tobacco Use Status: Never used Tobacco Smoked in Last 30 Days: No e-Cigarette/Vaping Use: Never Used Second Hand Smoke Exposure: No Use of substances other than those prescribed or required for medical reasons: No Have you been hit, kicked, punched, or otherwise hurt by someone within the past year? If so, by whom?: No Do you feel safe in your current relationship?: Yes Is there a partner from a previous relationship who is making you feel unsafe now?: No Are you made to feel afraid or neglected: No [facility] Practices: buddhist Advance Directives: Yes Advance Directives on File: Yes Advance Directives Date on File: 05/28/22 Do you have thoughts of harming others: None Do you have a plan to hurt others: No Plan Recently lost weight without trying: No Eating poorly because of decreased appetite: No Nutrition Risks: Difficulty swallowing Poor oral hygiene: No service: No Current occupational status: retired 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 Cognitive needs: No Hearing needs: No Vision needs: No Meds Allergies Allergy/AdvReac Type Severity Reaction Status Date / Time Sulfa (Sulfonamide Allergy Unknown RASH Verified 05/28/22 19:12 Antibiotics) [Sulfa (Sulfonamides)] sulfacetamide Allergy Unknown Hives Verified 05/28/22 19:12 [From Sulfacet-R] sulfur [From Sulfacet-R] Allergy Unknown Hives Verified 05/28/22 19:12 Active Medications: Current Medications Famotidine (Famotidine/Pf 20 Mg/2 Ml Vial) 20 mg IVPUSH BID BRANDO Hydromorphone HCl (Hydromorphone Hcl 1 Mg/Ml Syringe) 1 mg IVPUSH RQ4H PRN; Protocol PRN Reason: Pain, Severe (Pain Scale 7-10) Sodium Chloride (Ns) 1,000 mls @ 100 mls/hr IVCONT .Q10H [facility] Last Admin: 05/29/22 00:04 Dose: 100 mls/hr Piperacillin Sod/Tazobactam (Sod 3.375 gm/ Sodium Chloride) 50 mls @ 100 mls/hr IV Q6H [facility]O Ondansetron HCl (Ondansetron Hcl 4 Mg/2 Ml Vial) 4 mg IVPUSH Q8H PRN PRN Reason: Nausea and Vomiting Pharmacy Consult (Consult Rx Perform Med Rec) 1 each MISCELLANE ONCE PRN PRN Reason: Consult order Sodium Chloride (0.9 % Sodium Chloride Flush 3 Ml Syringe) 3 ml IVFLUSH QSHIFT [facility] Last Admin: 05/29/22 00:04 Dose: 3 ml Home Medications Medication Instructions Recorded Confirmed Last Taken Type glatiramer 40 mg/mL subcutaneous 40 mg subcut MOWEFR 01/04/20 05/28/22 05/27/22 History syringe cholecalciferol (vitamin D3) 25 25 mcg PO DAILY 05/28/22 05/28/2205/28/23 History mcg (1,000 unit) tablet tizanidine 2 mg tablet 2 mg PO Q8H PRN muscle spasm 05/28/22 05/28/22 05/28/22 History vitamin B complex 1 cap PO DAILY 05/28/22 05/28/22 05/28/22 History Physical Exam Vital Signs: Vital Signs: Last Vital Signs Temp 98.6 F 05/28/22 23:17 Pulse 65 05/28/22 23:17 Resp 18 05/28/22 23:17 BP 157/82 H 05/28/22 23:17 Pulse Ox 98 05/28/22 23:17 O2 Del Method Room Air 05/28/22 23:17 BMI result Body Mass Index 29.0 Const: General: cooperative, healthy appearing, comfortable and no acute distress Nutritional Appearance: average body habitus Orientation/consciousness: oriented to person, oriented to place and oriented to time Limitations: no limitations HEENT: Head: Yes normal to inspection Eyes: General: appearance normal, both eyes and all related structures Chest: Chest palpation & inspection: normal inspection of the chest Resp: Effort & Inspection: normal respiratory effort and able to speak in complete sentences Auscultation: clear to auscultation bilaterally Cardio: Rate: regular rate Rhythm: regular rhythm GI: Other: soft nondistended tender with guarding left lower quadrant with mild rebound no difuse peritonitis active bowel sounds Skin: General skin exam: no rashes or lesions noted and no jaundice Neuro: General: oriented to person, oriented to place and oriented to time Cranial nerves: Yes CN's II-XII intact bilaterally Speech: No Abnormal speech present Motor exam (neuro): 5/5 motor strength present throughout Extrem: General: Yes normal to inspection and Yes full ROM Psych: Appearance: grossly normal Mental Status: mental status grossly normal Speech and movement: Normal speech and movement present Affect: normal affect Attitude: cooperative Thought process: Normal thought process present Insight: Good insight present (Psych) Judgement: Good judgement present (Psych) Results Results Labs: Short CBC 05/28/22 Range/Units 19:38 WBC 21.0 H (4.8-10.8) X10*3/uL Hgb 14.1 (14.0-18.0) g/dl Hct 42.4 (42.0-52.0) % Plt Count 182 (160-400) X10*3/uL BMP 05/28/22 19:38 Sodium 139 Potassium 4.2 Chloride 102 Carbon Dioxide 27 BUN 14 Creatinine 0.94 Calcium 9.3 Liver Function 05/28/22 Range/Units 19:38 Total Bilirubin 0.8 (0.0-1.0) mg/dL Direct Bilirubin 0.2 (0.0-0.5) mg/dL AST 33 (5-37) U/L ALT 33 (0-40) U/L Alkaline Phosphatase 80 (39-117) U/L Albumin 4.5 (3.5-5.0) g/dL Urine 05/28/22 Range/Units 19:36 Urine Color Yellow Urine Appearance Clear Urine pH 7.0 (5.0-9.0) Ur Specific Reading 1.010 (1.005-1.025) Urine Protein Negative (Neg-Trace) mg/dL Urine Glucose (UA) Negative (Negative) mg/dL Abdomen CT scan report/results: report reviewed and image reviewed CT scan - pelvis: report reviewed and image reviewed Additional studies: ct showing noncomplicated sigmoid diverticulitis Assessment and Plan (1) Diverticulitis: Status: Acute Plan 62 year old male with acute diverticulitis, left lower quad pain and elevated wbc. doing well on floor - plan to admit npo ivf iv zosyn started in er and will be continued. pt should do well conservative care and hopefully in 48 hrs be able to be dc home with po antibx bowel regimen to prevent constipation follow labs med consult in am to help with his MS meds/symptoms as needed Time Spent With Patient Time: Total time managing care of this patient today ____ minutes. Quality Stroke Does the patient have a stroke diagnosis?: No VTE Prior VTE?: No VTE Risk Level:: Surgical - low VTE Device Contraindication: N/A - Device Ordered VTE Drug Contraindication: Treatment Not Indicated Procedures Date of Service Date of Service: 05/29/22
[2022-05-29] MEDS: Famotidine/PF 20 MG/2 ML VIAL IVPUSH ×3 (00:34→20:35)
[2022-05-29] MEDS: HYDROmorphone HCl 1 MG/ML SYRINGE IVPUSH (00:38)
[2022-05-29] MEDS: Piperacillin Sodium/Tazobactam 3.375 GM in 0.9 % Sodium Chloride 50 ML IV ×4 (02:15→20:35)
[2022-05-29 03:32] VITALS: BP 148/75; PULSE 70; RESP 18; TEMP 36.5; O2SAT 97
[2022-05-29 06:04] LABS: Basophils Absolute Auto 0.1 X10*3/uL (0.0-0.2); Basophils Percent Auto 0.3 % (0-2); Eosinophils Absolute Auto 0.2 X10*3/uL (0.0-0.4); Hematocrit 40.2 % (42.0-52.0); Hemoglobin 13.3 g/dl (14.0-18.0); Imm Gran Abs Auto 0.03 X10*3/uL (0.00-0.03); Imm Gran Pct Auto 0.2 % (0.0-0.4); Lymphocytes Absolute Auto 11.3 X10*3/uL (1.2-4.9); Lymphocytes Percent Auto 61.5 % (20-40); MANUAL DIFF FLAG SCAN; Mean Corpuscular HGB Conc 33.1 g/dl (31.0-36.0); Mean Corpuscular Hemoglobin 28.5 pg (27.0-33.0); Mean Corpuscular Volume 86.1 fL (80.0-98.0); Mean Platelet Volume 10.1 fL (9.4-12.4); Monocytes Percent Auto 5.3 % (2-11); Neutrophils Absolute Auto 5.8 x10*3/uL (2.0-8.3); Neutrophils Percent Auto 31.7 % (45-73); Platelet Count 177 X10*3/uL (160-400); Red Blood Count 4.67 X10*6/uL (4.60-5.80); Red Cell Distribution Width 12.1 % (11.0-16.0); SCAN SMEAR FLAG 1; White Blood Count 18.3 X10*3/uL (4.8-10.8)
[2022-05-29 06:32] LABS: Anion Gap 13 (12-20); Blood Urea Nitrogen 13 mg/dL (9-16); Calcium 8.8 mg/dL (8.4-10.2); Carbon Dioxide 28 mmol/L (22-29); Chloride 105 mmol/L (96-108); Creatinine Clr Calc Pharmacy 77.6; Estimated Glomerular Filt Rate > 60; Glucose Random 102 mg/dL (60-115); Potassium 4.5 mmol/L (3.3-5.1); SLIDE REVIEW VERIFIED; Sodium 141 mmol/L (135-145)
--- NOTE | 2022-05-29 07:28 | PM.PNGS ---
Subjective Subjective Date of Service: 05/29/22 Interval history: Continues to have pain in the LLQ, some in the RLQ, but overall improved. No BM overnight. Physical Exam Vital Signs: Vital Signs: Last Vital Signs Temp 97.7 F 05/29/22 03:32 Pulse 70 05/29/22 03:32 Resp 18 05/29/22 03:32 BP 148/75 H 05/29/22 03:32 Pulse Ox 97 05/29/22 03:32 O2 Del Method Room Air 05/29/22 03:32 BMI result Body Mass Index 29.0 Const: General: comfortable and no acute distress Nutritional Appearance: well nourished Orientation/consciousness: patient oriented x3 Limitations: no limitations Resp: Effort & Inspection: normal respiratory effort, no audible wheezes and no cough GI: Inspection: Yes normal to inspection Palpation (GI): Soft to palpation, Tenderness to palpation present (GI) in the LLQ, no guarding and not rigid Percussion: Yes normal to percussion Auscultation: normal bowel sounds Skin: General skin exam: no rashes or lesions noted Neuro: General: patient oriented x3 Extrem: General: Yes no clubbing, cyanosis or edema Objective Data Active Medications Famotidine (Famotidine/Pf 20 Mg/2 Ml Vial) 20 mg IVPUSH BID [facility] Last Admin: 05/29/22 00:34 Dose: 20 mg Documented By: MAINE Hydromorphone HCl (Hydromorphone Hcl 1 Mg/Ml Syringe) 1 mg IVPUSH RQ4H PRN; Protocol PRN Reason: Pain, Severe (Pain Scale 7-10) Last Admin: 05/29/22 00:38 Dose: 1 mg Documented By: MAINE Sodium Chloride (Ns) 1,000 mls @ 100 mls/hr IVCONT .Q10H [facility] Last Admin: 05/29/22 00:04 Dose: 100 mls/hr Documented By: MAINE Piperacillin Sod/Tazobactam (Sod 3.375 gm/ Sodium Chloride) 50 mls @ 100 mls/hr IV Q6H [facility] Last Infusion: 05/29/22 02:46 Dose: 0 mls/hr Documented By: MAINE Lisinopril (Lisinopril 20 Mg Tablet) 20 mg PO DAILY [facility]; Protocol Ondansetron HCl (Ondansetron Hcl 4 Mg/2 Ml Vial) 4 mg IVPUSH Q8H PRN PRN Reason: Nausea and Vomiting Pharmacy Consult (Consult Rx Perform Med Rec) 1 each MISCELLANE ONCE PRN PRN Reason: Consult order Sodium Chloride (0.9 % Sodium Chloride Flush 3 Ml Syringe) 3 ml IVFLUSH QSHIFT [facility] Last Admin: 05/29/22 00:04 Dose: 3 ml Documented By: MAINE Labs 05/29/22 05:14 05/29/22 05:14 Labs: Laboratory Results - last 24 hr 05/28/22 05/28/22 05/28/22 19:36 19:38 19:38 MCV 85.0 MCH 28.3 MCHC 33.3 RDW 12.1 Plt Count 182 MPV 9.7 Immature Gran % (Auto) 0.2 Neut % (Auto) 34.0 L Lymph % (Auto) 59.8 H [place] % (Auto) 4.7 Eos % (Auto) 1.0 Baso % (Auto) 0.3 Lymph # (Auto) 12.5 H [place] # (Auto) 1.0 Eos # (Auto) 0.2 Baso # (Auto) 0.1 Abs Immat Gran (auto) 0.04 H Absolute Neuts (auto) 7.1 Absolute Nucleated RBC 0.000 Nucleated RBC % (auto) 0.0 Smear Tech's Comments VERIFIED Anion Gap 14 Estim Creat Clear Calc 81.7 Estimated GFR > 60 Random Glucose 113 Lactic Acid Calcium 9.3 Magnesium 1.9 Total Bilirubin 0.8 Direct Bilirubin 0.2 AST 33 ALT 33 Alkaline Phosphatase 80 Total Protein 7.3 Albumin 4.5 Urine Color Yellow Urine Appearance Clear Urine pH 7.0 Ur Specific [place] 1.010 Urine Protein Negative Urine Glucose (UA) Negative Urine Ketones Negative Urine Blood Negative Urine Nitrite Negative Ur Leukocyte Esterase Negative COVID-19 (ESTEFANY) COVID-19 Clin Com 05/28/22 05/28/22 05/29/22 20:56 21:57 05:14 MCV 86.1 MCH 28.5 MCHC 33.1 RDW 12.1 Plt Count 177 MPV 10.1 Immature Gran % (Auto) 0.2 Neut % (Auto) 31.7 L Lymph % (Auto) 61.5 H [place] % (Auto) 5.3 Eos % (Auto) 1.0 Baso % (Auto) 0.3 Lymph # (Auto) 11.3 H [place] # (Auto) 1.0 Eos # (Auto) 0.2 Baso # (Auto) 0.1 Abs Immat Gran (auto) 0.03 Absolute Neuts (auto) 5.8 Absolute Nucleated RBC 0.000 Nucleated RBC % (auto) 0.0 Smear Tech's Comments VERIFIED Anion Gap Estim Creat Clear Calc Estimated GFR Random Glucose Lactic Acid 1.0 Calcium Magnesium Total Bilirubin Direct Bilirubin AST ALT Alkaline Phosphatase Total Protein Albumin Urine Color Urine Appearance Urine pH Ur Specific [place] Urine Protein Urine Glucose (UA) Urine Ketones Urine Blood Urine Nitrite Ur Leukocyte Esterase COVID-19 (ESTEFANY) Negative COVID-19 Clin Com See Note 05/29/22 05:14 MCV MCH MCHC RDW Plt Count MPV Immature Gran % (Auto) Neut % (Auto) Lymph % (Auto) [place] % (Auto) Eos % (Auto) Baso % (Auto) Lymph # (Auto) [place] # (Auto) Eos # (Auto) Baso # (Auto) Abs Immat Gran (auto) Absolute Neuts (auto) Absolute Nucleated RBC Nucleated RBC % (auto) Smear Tech's Comments Anion Gap 13 Estim Creat Clear Calc 77.6 Estimated GFR > 60 Random Glucose 102 Lactic Acid Calcium 8.8 Magnesium Total Bilirubin Direct Bilirubin AST ALT Alkaline Phosphatase Total Protein Albumin Urine Color Urine Appearance Urine pH Ur Specific [place] Urine Protein Urine Glucose (UA) Urine Ketones Urine Blood Urine Nitrite Ur Leukocyte Esterase COVID-19 ([facility]ANY) COVID-19 Clin Com Procedures Date of Service Date of Service: 05/29/22 Progress Note: A&P Assessment and plan (1) Diverticulitis: Status: Acute Assessment and Plan: Patient with history of DM, MS, HTN admitted during the night with uncomplicated sigmoid diverticulitis found to have an elevated WBC of 21. This morning he is improved with decreased abdominal pain, shearing machine tender in the LLQ. WBC improved but still elevated. He reports a previous mild episode which resolved without antibiotics several years ago. Plan: clear liquid diet continue IV antibiotics Recheck labs in AM. (2) AAA (abdominal aortic aneurysm): Status: Acute Assessment and Plan: Noted to have 3.5 cm AAA, CT in 2 years recommended to document stability. Time Spent With Patient Time: Total time managing care of this patient today ____ minutes. No Severe Sepsis: No Severe Sepsis Quality Stroke Does the patient have a stroke diagnosis?: No VTE Prior VTE?: No VTE Risk Level:: Surgical - low VTE Device Contraindication: N/A - Device Ordered VTE Drug Contraindication: Treatment Not Indicated
[2022-05-29 07:42] VITALS: BP 175/90; PULSE 63; RESP 18; TEMP 37; O2SAT 97
[2022-05-29] MEDS: lisinopriL 20 MG TABLET PO (08:15)
[2022-05-29 09:28] VITALS: BP 131/78
--- NOTE | 2022-05-29 11:24 | MHC.CM.PN ---
Per MD rounds no discharge today. DP home with resumption of [facility] [employer] and SN. Patient will arrange for transportation home.
[2022-05-29 12:14] LABS: Glucose, Whole Blood 100 mg/dL (60-115)
[2022-05-29 15:35] VITALS: BP 157/75; PULSE 62; RESP 16; TEMP 36.4; O2SAT 98
[2022-05-29 16:45] LABS: Glucose, Whole Blood 135 mg/dL (60-115)
[2022-05-29 19:54] VITALS: BP 138/88; PULSE 68; RESP 16; TEMP 36.6; O2SAT 97
[2022-05-29 20:36] LABS: Glucose, Whole Blood 96 mg/dL (60-115)
[2022-05-29] MEDS: oxyCODONE HCl Immed Release 5 MG TABLET PO (20:41)
[2022-05-29] MEDS: Melatonin 3 MG TABLET 6 MG PO (21:57)
[2022-05-30] MEDS: Piperacillin Sodium/Tazobactam 3.375 GM in 0.9 % Sodium Chloride 50 ML IV ×3 (02:58→14:57)
[2022-05-30 02:59] VITALS: BP 139/70; PULSE 56; RESP 16; TEMP 35.8; O2SAT 97
[2022-05-30] MEDS: 0.9 % Sodium Chloride 1,000 ML 100 ML IVCONT (05:01)
[2022-05-30 06:07] LABS: Basophils Absolute Auto 0.1 X10*3/uL (0.0-0.2); Basophils Percent Auto 0.5 % (0-2); Eosinophils Absolute Auto 0.2 X10*3/uL (0.0-0.4); Eosinophils Percent Auto 1.7 % (0-4); Hematocrit 39.9 % (42.0-52.0); Imm Gran Abs Auto 0.03 X10*3/uL (0.00-0.03); Imm Gran Pct Auto 0.2 % (0.0-0.4); Lymphocytes Percent Auto 69.4 % (20-40); MANUAL DIFF FLAG SCAN; Mean Corpuscular HGB Conc 32.6 g/dl (31.0-36.0); Mean Corpuscular Hemoglobin 28.6 pg (27.0-33.0); Mean Corpuscular Volume 87.7 fL (80.0-98.0); Mean Platelet Volume 10.2 fL (9.4-12.4); Monocytes Absolute Auto 0.6 X10*3/uL (0.1-1.2); Monocytes Percent Auto 4.5 % (2-11); Neutrophils Absolute Auto 3.2 x10*3/uL (2.0-8.3); Neutrophils Percent Auto 23.7 % (45-73); Platelet Count 181 X10*3/uL (160-400); Red Blood Count 4.55 X10*6/uL (4.60-5.80); Red Cell Distribution Width 12.1 % (11.0-16.0); SCAN SMEAR FLAG 1; White Blood Count 13.6 X10*3/uL (4.8-10.8)
[2022-05-30 06:10] LABS: Lymphocytes Absolute Auto 9.4 X10*3/uL (1.2-4.9)
[2022-05-30 06:26] LABS: SLIDE REVIEW VERIFIED
--- NOTE | 2022-05-30 06:38 | PM.PNGS ---
Subjective Subjective Date of Service: 05/30/22 Interval history: tThe patient has marked improvement of his left lower quadrant abdominal symptoms. He tolerated liquids yesterday. Passing flatus. Out of bed and ambulated yesterday. White blood cell count down to 13 this a.m.. Physical Exam Vital Signs: Vital Signs: Last Vital Signs Temp 96.5 F L 05/30/22 02:59 Pulse 56 05/30/22 02:59 Resp 16 05/30/22 02:59 BP 139/70 05/30/22 02:59 Pulse Ox 97 05/30/22 02:59 O2 Del Method Room Air 05/30/22 02:59 BMI result Body Mass Index 29.0 GI: Other: Abdominal exam ;mild left lower quadrant localized tenderness. No evidence of guarding, rebound or rigidity. Objective Data Active Medications Famotidine (Famotidine/Pf 20 Mg/2 Ml Vial) 20 mg IVPUSH BID [facility] Last Admin: 05/29/22 20:35 Dose: 20 mg Documented By: CHARLENE Glucose (Glucose Gel 15 Gm Gel..Gram.) 15 gm PO Q15M PRN; Protocol PRN Reason: per Hypoglycemia Standing Ord. Hydromorphone HCl (Hydromorphone Hcl 1 Mg/Ml Syringe) 0.5 mg IVPUSH RQ4H PRN; Protocol PRN Reason: Pain, Severe (Pain Scale 7-10) Sodium Chloride (Ns) 1,000 mls @ 100 mls/hr IVCONT .Q10H [facility] Last Admin: 05/30/22 05:01 Dose: 100 mls/hr Documented By: CHARLENE Piperacillin Sod/Tazobactam (Sod 3.375 gm/ Sodium Chloride) 50 mls @ 100 mls/hr IV Q6H [facility] Last Infusion: 05/30/22 03:33 Dose: 0 mls/hr Documented By: CHARLENE Dextrose (D10) 250 mls @ 750 mls/hr IV Q15M PRN; Protocol PRN Reason: per Hypoglycemia Standing Ord. Insulin Human Lispro (Insulin Lispro 100 Unit/Ml 3 Ml Vial) 0 unit SUBCUT QIDACHS [facility]; Protocol Last Admin: 05/29/22 20:46 Dose: Not Given Documented By: CHARLENE Non-Admin Reason: No Insulin Coverage Lisinopril (Lisinopril 20 Mg Tablet) 20 mg PO DAILY [facility]; Protocol Last Admin: 05/29/22 08:15 Dose: 20 mg Documented By: JEANINE Melatonin (Melatonin 3 Mg Tablet) 6 mg PO BEDTIME PRN PRN Reason: Insomnia Last Admin: 05/29/22 21:57 Dose: 6 mg Documented By: CHARLENE Ondansetron HCl (Ondansetron Hcl 4 Mg/2 Ml Vial) 4 mg IVPUSH Q8H PRN PRN Reason: Nausea and Vomiting Oxycodone HCl (Oxycodone Hcl Immed Release 5 Mg Tablet) 5 mg PO Q4H PRN PRN Reason: Pain, Moderate (Pain Scale 4-6 Last Admin: 05/29/22 20:41 Dose: 5 mg Documented By: CHARLENE Oxycodone HCl (Oxycodone Hcl Immed Release 5 Mg Tablet) 10 mg PO Q4H PRN PRN Reason: Pain, Severe (Pain Scale 7-10) Pharmacy Consult (Consult Rx Perform Med Rec) 1 each MISCELLANE ONCE PRN PRN Reason: Consult order Sodium Chloride (0.9 % Sodium Chloride Flush 3 Ml Syringe) 3 ml IVFLUSH QSHIFT [facility] Last Admin: 05/29/22 20:39 Dose: Not Given Documented By: CHARLENE Non-Admin Reason: IV Running Tamsulosin HCl (Tamsulosin Hcl 0.4 Mg Capsule) 0.4 mg PO DAILY [facility] Labs 05/30/22 05:22 05/29/22 05:14 Labs: Laboratory Results - last 24 hr 05/28/22 05/29/22 05/29/22 19:38 12:09 16:25 MCV MCH MCHC RDW Plt Count MPV Immature Gran % (Auto) Neut % (Auto) Lymph % (Auto) [place] % (Auto) Eos % (Auto) Baso % (Auto) Lymph # (Auto) [place] # (Auto) Eos # (Auto) Baso # (Auto) Abs Immat Gran (auto) Absolute Neuts (auto) Absolute Nucleated RBC Nucleated RBC % (auto) Smear Tech's Comments Smear Path Review SEE NOTE POC Glucose 100 135 H 05/29/22 05/30/22 20:03 05:22 MCV 87.7 MCH 28.6 MCHC 32.6 RDW 12.1 Plt Count 181 MPV 10.2 Immature Gran % (Auto) 0.2 Neut % (Auto) 23.7 L Lymph % (Auto) 69.4 H [place] % (Auto) 4.5 Eos % (Auto) 1.7 Baso % (Auto) 0.5 Lymph # (Auto) 9.4 H [place] # (Auto) 0.6 Eos # (Auto) 0.2 Baso # (Auto) 0.1 Abs Immat Gran (auto) 0.03 Absolute Neuts (auto) 3.2 Absolute Nucleated RBC 0.000 Nucleated RBC % (auto) 0.0 Smear Tech's Comments VERIFIED Smear Path Review POC Glucose 96 Microbiology Microbiology Results: Microbiology 05/28/22 21:04 Blood Culture - Preliminary Blood - Venous No growth after 24 hours. 05/28/22 20:56 Blood Culture - Preliminary Blood - Venous No growth after 24 hours. Procedures Date of Service Date of Service: 05/30/22 Progress Note: A&P Assessment and plan (1) Diverticulitis: Status: Acute Plan Advanced diet as tolerated, encourage incentive spirometry, ambulate with assistance. If patient continues to improve, and feels up to it, consider discharge later this afternoon, With p.o. antibiotics and dietary instructions. Time Spent With Patient Time: Total time managing care of this patient today ____ minutes. Quality Stroke Does the patient have a stroke diagnosis?: No VTE Prior VTE?: No VTE Risk Level:: Surgical - low VTE Device Contraindication: N/A - Device Ordered VTE Drug Contraindication: Treatment Not Indicated
[2022-05-30 07:13] LABS: Glucose, Whole Blood 96 mg/dL (60-115)
[2022-05-30 07:17] VITALS: BP 138/76; PULSE 56; RESP 18; TEMP 36.7; O2SAT 97
[2022-05-30] MEDS: Famotidine/PF 20 MG/2 ML VIAL IVPUSH (07:36)
[2022-05-30] MEDS: lisinopriL 20 MG TABLET PO (07:36)
[2022-05-30] MEDS: 0.9 % Sodium Chloride Flush 3 ML SYRINGE IVFLUSH ×2 (07:40→14:59)
[2022-05-30 11:06] LABS: Glucose, Whole Blood 80 mg/dL (60-115)
[2022-05-30 15:08] VITALS: BP 170/88; PULSE 57; RESP 16; TEMP 36.4; O2SAT 100
[2022-05-30 16:25] VITALS: BP 167/81; PULSE 50
[2022-05-30 16:30] LABS: Glucose, Whole Blood 94 mg/dL (60-115)
--- NOTE | 2022-06-04 09:25 | PM.DS ---
DS: Providers Provider Date of Service: 05/30/22 Date of admission: 05/28/22 21:18 Primary care physician: Simeon Sarkar PA-C Attending physician on admission: Shelly Ventura Attending physician on discharge: Paul Anderson DS: Diagnosis Discharge Diagnosis (1) Diverticulitis: Status: Acute DS: Summary Hospital Course Hospital Course: HPI AT ADMISSION: Chavo Bailey is a 62 year old male who has been having abdominal pain for the last week. it isn't getting better and has been getting worse. he denies any fever no nausea or vomiting. He has also been more constipated recently. He has had 2 colonoscopies in the past with polyp removed. he didnt know that he had diverticulosis. He has had pain like this before but not as severe an which has lasted one day and then better. complains of pain in his left side. no urinary symptoms. He has MS for almost 10 yrs but it is well controlled and he is followed by his doc in [facility]. HOSPITAL COURSE: Patient was admitted to the surgical service for further treatment of acute diverticulitis, uncomplicated. He was continued on conservative measures of NPO status for bowel rest, IVF, IV zosyn and PRN analgesics for pain. Hospitalist consult was obtained for management of his medical comorbidities. He had an uncomplicated hospital course. His symptoms improved with nonoperative measures. His abdominal pain and tenderness decreased and WBC downtrended daily. His diet was advanced as tolerated. He remained afebrile. On the day of discharge, he had significant improvement of his abd pain and was tolerating a solid diet without worsening of his abd pain, nausea or vomiting. His abd was benign. He was discharged on 05/30/22 in stable condition on a course of PO Augmentin for 10 days. He is to follow up in the office with Dr. Anderson in 1 week. Of note, found to have 3.[address] abd/pelvis, CT in 2 years recommended to document stability. Status at Discharge Functional status at discharge: independent ambulation Overall status at discharge: patient is back to baseline Time Spent with Patient Time attestation: Total time managing care of this patient today ____ minutes. Discharge coordination time: Less than 30 minutes Quality: Safe Use of Opioids Does Pt have an Active Cancer Diagnosis on the Problem List?: No Quality: Stroke Does the patient have a stroke diagnosis?: No Physical Exam Vital Signs: Vital Signs: Last Vital Signs Temp 97.5 F 05/30/22 15:08 Pulse 50 05/30/22 16:25 Resp 16 05/30/22 15:08 BP 167/81 H 05/30/22 16:25 Pulse Ox 100 05/30/22 15:08 O2 Del Method Room Air 05/30/22 15:08 BMI result Body Mass Index 29.0 Const: General: comfortable, no acute distress and alert Orientation/consciousness: patient oriented x3 Resp: Effort & Inspection: normal respiratory effort GI: Inspection: No distended Palpation (GI): Soft to palpation, Tenderness to palpation present (GI) (mild localized LLQ tenderness), no guarding and not rigid Skin: General skin exam: no rashes or lesions noted Neuro: General: patient oriented x3 Discharge Plan Discharge Anticipated Discharge Date/Time: 05/31/22 12:37 Patient Disposition: Home, Self-Care Discharge Diagnosis: diverticulitis, AAA Referrals: Simeon Sarkar PA-C [Primary Care Provider] - 1 Week Paul Anderson MD [Physician] - 1 Week Discharge Medications: New amoxicillin-pot clavulanate [Augmentin] 500-125 mg tablet 1 tab PO BID Qty: 20 0RF Continued glatiramer 40 mg/mL syringe 40 mg subcut MOWEFR Rx Instructions: administer doses at least 48 hours apart alfuzosin 10 mg tablet extended release 24 hr 10 mg PO DAILY 90 Days Qty: 90 3RF Rx Instructions: administer after the same meal each day lisinopril 20 mg tablet 20 mg PO DAILY Qty: 90 2RF naproxen 500 mg tablet 500 mg PO BID PRN (Reason: pain) 7 Days Qty: 14 0RF tizanidine 2 mg tablet 2 mg PO Q8H PRN (Reason: muscle spasm) vitamin B complex Capsule 1 cap PO DAILY cholecalciferol (vitamin D3) 25 mcg (1,000 unit) Tablet 25 mcg PO DAILY cetirizine 10 mg tablet 10 mg PO DAILY 30 Days Qty: 30 6RF hydroxyzine HCl 25 mg tablet 25 mg PO BEDTIME PRN (Reason: for itch) Qty: 90 1RF No Action fluticasone propionate [Flonase Allergy Relief] 50 mcg/actuation spray,suspension 1 spray intranasal BID 30 Days Qty: 16 1RF Rx Instructions: administer into each nostril Discharge Orders: Discharge Order (Routine); Ordered 05/30/22 Ordered By: Mitul Zuniga Diet: Diabetic diet Activity on Discharge: As tolerated Stand Alone Forms: Patient Portal Discharge page Activity Restrictions/Additional Instructions: Follow up in office with Dr. Anderson in a week. ([phone]) Call Your Doctor If: ? ? -Your temperature exceeds 101.5? F? ? ? -You experience excessive pain or swelling ? ? -You have an unexpected reaction to medication ? ? -You experience continued vomiting/nausea Care Plan Goals: Resolution of abdominal pain. Return to baseline health and resume normal activities. Health Concerns: diabetes mellitus multiple sclerosis diverticulitis, uncomplicated AAA (new diagnosis) Plan of Treatment: supportive- bowel rest, IVF, IV abx transitioned to PO f/u with PCP, repeat CT scan for AAA 2 years Assessment: improved Discharge Date/Time: 05/30/22 19:15
== END 2022-05-30 19:15 | disposition home or self-care (01) | DRG 392 ==
LOC: HO.ED 21:15 → HO.EDOVER 21:34 → HO.S3 21:52
PROVIDERS: Physician Assistant; Physician Assistant Surgical; Admitting Provider Surgery; Emergency Provider Student in an Organized Health Care Education/Training Program; PCP Physician Assistant; Visit Provider Surgery
DX: K57.32 Diverticulitis of large intestine without perforation or abscess without bleeding (principal); G35 Multiple sclerosis; I71.40 Abdominal aortic aneurysm, without rupture, unspecified; I10 Essential (primary) hypertension; E11.9 Type 2 diabetes mellitus without complications; Z20.822 Contact with and (suspected) exposure to COVID-19; Z88.2 Allergy status to sulfonamides; Z79.51 Long term (current) use of inhaled steroids; Z79.899 Other long term (current) drug therapy
CPT/HCPCS: 36415; 74176; 80048; 80076; 81003; 82947; 83605; 83735; 85025; 87040; 87635; 99285; J1170; J2543; J3010

== ENCOUNTER 2022-06-04 07:46 | Outpatient (REF) | payer OTHER, SELFPAY ==
--- NOTE | ~2022-06-04 | XR_ITS ---
EXAMINATION: XR THORACOLUMBAR SPINE CLINICAL INFORMATION: Pain. COMPARISON: None available. TECHNIQUE: 3 views FINDINGS: The vertebral alignment is normal. No intrinsic bony abnormality. The disc heights and neural foramina are well maintained. The endplates and posterior elements are normal. No fracture or subluxation. There is diffuse ventral and lateral spondylosis. The surrounding prevertebral soft tissues are unremarkable. XR/XR thoracic spine 2V IMPRESSION: No compression fractures or subluxations are identified. The disc spaces are preserved. There is diffuse ventral and lateral spondylosis. The prevertebral soft tissues are normal. The foramina are patent.
== END 2022-06-04 07:47 | disposition home or self-care (01) ==
LOC: HO.XRAY 07:46
PROVIDERS: PCP Physician Assistant; Visit Provider Physician Assistant
DX: M54.6 Pain in thoracic spine (principal)
CPT/HCPCS: 72070

== ENCOUNTER → 2022-06-12 09:54 | Outpatient (BNVA) | payer OTHER, SELFPAY | PROVIDERS: PCP Physician Assistant; Visit Provider Surgery | DX: K57.92 Diverticulitis of intestine, part unspecified, without perforation or abscess without bleeding (principal) | CPT/HCPCS: 99212 ==

== ENCOUNTER 2022-08-17 20:37 | Emergency (ER) | payer OTHER, SELFPAY ==
--- NOTE | 2022-08-17 | ECG_ITS ---
Test Reason : ABD PAIN Blood Pressure : / mmHG Vent. Rate : 059 BPM Atrial Rate : 059 BPM P-R Int : 204 ms QRS Dur : 074 ms QT Int : 376 ms P-R-T Axes : 119 -25 -23 degrees QTc Int : 372 ms Sinus bradycardia Inferior infarct (cited on or before 17-AUG-2022) Abnormal ECG When compared with ECG of 24-FEB-2018 23:25, T wave inversion more evident in Inferior leads Referred By: Generic ED Physician Electronically Signed By:Giovanni Campo
--- NOTE | ~2022-08-17 | CT_ITS ---
EXAMINATION: CT ABDOMEN AND PELVIS WITH CONTRAST CLINICAL INFORMATION: History of diverticulitis and AAA now with abdominal pain COMPARISON: CT abdomen pelvis 05/28/2022 TECHNIQUE: Multidetector volumetric images were obtained from the superior aspect of the liver through the pubic symphysis following administration 85 mL of Omnipaque 350 intravenous contrast. Sagittal and coronal reformatted images were obtained on the technologist's workstation. Oral contrast: No This CT examination was performed using dose optimization techniques as appropriate, variously including the following: *Automated exposure control *Adjustment of mA and/or kV according to patient size (this includes techniques or standardized protocols for targeted exams where dose is matched to indication/reason for exam; i.e. extremities or head) *Use of iterative reconstruction technique DLP: 488 mGy-cm FINDINGS: LUNG BASES: The visualized lung bases are unremarkable. LIVER, GALLBLADDER, AND BILIARY TREE: The liver is normal in size, shape, and attenuation. No focal hepatic lesion or biliary ductal dilatation is present. The gallbladder is contracted but otherwise unremarkable with no evidence of radiopaque gallstones, gallbladder wall thickening, or obvious pericholecystic inflammatory changes. PANCREAS: Unremarkable. SPLEEN: Unremarkable. ADRENAL GLANDS: Unremarkable. KIDNEYS AND URETERS: The kidneys are normal in size, shape, and attenuation. No hydronephrosis, hydroureter, or calculi seen. No perinephric stranding. BLADDER: Unremarkable. GASTROINTESTINAL TRACT: Colonic diverticula are present. At the time of the prior study there was an area of acute diverticulitis seen at the junction of the descending colon and sigmoid which has nearly resolved. However, there is a new subtle area of diverticulitis seen with inflammatory changes surrounding a single diverticulum in the mid descending colon (3:52). The remainder of the colon is unremarkable. Small bowel is unremarkable. Patient status post appendectomy. ABDOMINAL WALL: No significant hernia is appreciated. LYMPH NODES: No retroperitoneal lymphadenopathy VASCULAR: 3.5 cm infrarenal AAA again noted and unchanged. PELVIC VISCERA: Mild to moderate BPH. Seminal vesicles normal. OSSEOUS STRUCTURES: Mild spondylitic changes are present spine. No bony destructive lesions. CT/CT abdomen pelvis w IV con IMPRESSION: 1. New area of uncomplicated diverticulitis in the mid descending colon. 2. Previously seen area of diverticulitis at the junction of the descending and sigmoid colon has nearly resolved. 3. Stable 3.5 cm infrarenal AAA. 4. Mild to moderate BPH. Fleischner guidelines were followed.
[2022-08-17 20:49] VITALS: BP 195/96; PULSE 68; RESP 18; TEMP 36.3; O2SAT 97; BMI 29.0
--- NOTE | 2022-08-17 20:49 | ED.ABDPAIN ---
HPI - Abdominal Pain General Chief Complaint: Abdominal Pain Stated Complaint: abd pain Time Seen by Provider: 08/17/22 21:17 Source: patient Mode of arrival: ambulatory Limitations: no limitations History of Present Illness HPI narrative: Patient with history of diverticulitis been having diffuse abdominal pain for last 3 days got worse today associated with nausea no vomiting does not feel hungry. Patient does have history of hypertension had not taken his medication today had a CT scan done in 06/14 which showed 3.5 cm aortic aneurysm with acute diverticulitis no fever no chills no urine symptoms Related Data Home Medications Medication Instructions Recorded Confirmed glatiramer 40 mg/mL subcutaneous 40 mg subcut MOWEFR 01/04/20 06/29/22 syringe cholecalciferol (vitamin D3) 25 25 mcg PO DAILY 05/28/22 06/29/22 mcg (1,000 unit) tablet tizanidine 2 mg tablet 2 mg PO Q8H PRN muscle spasm 05/28/22 06/29/22 vitamin B complex 1 cap PO DAILY 05/28/22 06/29/22 Previous Rx's Medication Instructions Recorded alfuzosin 10 mg tablet,extended 10 mg PO DAILY 90 days #90 tabs 05/27/21 release 24 hr cetirizine 10 mg tablet 10 mg PO DAILY 30 days #30 tabs 05/11/22 hydroxyzine HCl 25 mg tablet 25 mg PO BEDTIME PRN for itch #90 05/11/22 tabs fluticasone propionate 50 1 spray intranasal BID 30 days #16 06/03/22 mcg/actuation nasal grams spray,suspension (Flonase Allergy Relief) clotrimazole-betamethasone 1 1 appl topical BID 30 days #45 06/22/22 %-0.05 % topical cream grams lorazepam 0.5 mg tablet 0.5 mg PO DAILY PRN anxiety 5 days 06/22/22 #5 tabs naproxen 500 mg tablet,delayed 500 mg PO BID 15 days #30 tabs 06/22/22 release leg brace (Knee Support Brace) #1 ea 06/29/22 lisinopril 20 mg tablet 20 mg PO DAILY 90 days #90 tabs 06/29/22 miscellaneous medical supply 1 ea miscellaneous DAILY 99 days 06/29/22 #1 ea miscellaneous medical supply #1 ea 06/29/22 (Blood Pressure Cuff) tadalafil 20 mg tablet 20 mg PO DAILY PRN sexual activity 06/29/22 7 days #7 tabs ciprofloxacin HCl 500 mg tablet 500 mg PO BID #20 tabs 08/18/22 (Cipro) metronidazole 500 mg tablet 500 mg PO TID #30 tabs 08/18/22 tramadol 50 mg tablet 50 mg PO Q6H PRN pain #20 tabs 08/18/22 Allergies Allergy/AdvReac Type Severity Reaction Status Date / Time Sulfa (Sulfonamide Allergy Unknown RASH Verified 08/17/22 20:49 Antibiotics) [Sulfa (Sulfonamides)] sulfacetamide Allergy Unknown Hives Verified 08/17/22 20:49 [From Sulfacet-R] sulfur [From Sulfacet-R] Allergy Unknown Hives Verified 08/17/22 20:49 Review of Systems Review of Systems Yes all other systems are reviewed and are negative [facility] Past Medical History Medical History AAA (abdominal aortic aneurysm) Bladder outlet obstruction BPH (benign prostatic hyperplasia) Diabetes mellitus Dysuria HTN (hypertension) Hyperlipidemia Nocturia Stress incontinence, male Weak urinary stream Surgical History History of appendectomy History of hernia repair History of removal of cyst Family History Family History Father Diabetes Mother No problems noted. Maternal Uncle Myocardial infarction Sister No problems noted. Son No problems noted. Son No problems noted. Daughter No problems noted. Brother No problems noted. Brother No problems noted. Brother No problems noted. 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 Cognitive needs: No Hearing needs: No Vision needs: No Physical Exam ED Vital Signs: Vital Signs - 24 hr 08/17/22 20:49 08/17/22 21:18 08/17/22 21:51 Temperature 97.3 F 98.6 F 97.8 F Pulse Rate 68 66 66 Respiratory Rate 18 18 16 Blood Pressure 195/96 H 185/84 H 173/76 H Pulse Oximetry 97 97 98 Oxygen Delivery Method Room Air Room Air Room Air 08/18/22 00:00 08/18/22 02:00 Temperature 97.8 F 98.9 F Pulse Rate 74 51 Respiratory Rate 16 18 Blood Pressure 139/82 140/75 H Pulse Oximetry 97 97 Oxygen Delivery Method Room Air Room Air BMI result Body Mass Index 29.0 Appearance: Alert. Oriented X3. No acute distress. Eyes: No pallor or icterus ENT: Pharynx normal. Oral Mucosa moist Neck: Normal inspection. Neck supple. CVS: Normal heart rate and rhythm. Pulses normal. Respiratory: No respiratory distress. Equal air entry bilateral, no wheezing/rales/rhonchi Abdomen: Soft mild deep tenderness left lower quadrant without guarding or rebound tenderness Bowel sounds are present, no mass palpable, no CVA tenderness Skin: Skin warm and dry. Normal skin color. Normal skin turgor. Extremities: No lower extremity edema. No calf tenderness Neuro: Oriented X 3. No motor deficit. Course Course Course Narrative: RME - 62 y/o male with history of MS, hx appendectomy, infrarenal AAA 3.5 cm, diverticulitis in May requiring admission, DM2, vertigo, obesity, anxiety who presents to the ER for evaluation of 7/10 abdominal pain, worse in the LLQ. +nausea but no diarrhea or vomiting. BP 190s/90s in triage. Plan: lab workup, CT scan abd/pelvis w/ contrast Medical Decision Making Medical Decision Making [facility] Narrative: Patient with history of diverticulitis tenderness in left lower abdomen with leukocytosis of 21,000 likely patient has diverticulitis will get CT scan IV antibiotic and fluid Lab Data [facility] Lab Attestation statement: I reviewed the patient's lab results. 08/17/22 21:31 08/17/22 21:31 Labs: Lab Results 08/17/22 08/17/22 08/17/22 Range/Units 21:31 21:31 21:31 WBC 21.3 H (4.8-10.8) X10*3/uL RBC 4.66 (4.60-5.80) X10*6/uL Hgb 13.4 L (14.0-18.0) g/dl Hct 39.7 L (42.0-52.0) % MCV 85.2 (80.0-98.0) fL MCH 28.8 (27.0-33.0) pg MCHC 33.8 (31.0-36.0) g/dl RDW 11.9 (11.0-16.0) % Plt Count 175 (160-400) X10*3/uL MPV 9.9 (9.4-12.4) fL Immature Gran % (Auto) Cancelled Neut % (Auto) Cancelled Lymph % (Auto) Cancelled [place] % (Auto) Cancelled Eos % (Auto) Cancelled Baso % (Auto) Cancelled Lymph # (Auto) Cancelled [place] # (Auto) Cancelled Eos # (Auto) Cancelled Baso # (Auto) Cancelled Abs Immat Gran (auto) Cancelled Absolute Neuts (auto) Cancelled Absolute Nucleated RBC 0.000 (0.0-0.012) X10*3/uL Nucleated RBC % (auto) 0.0 (0.0-0.2) /100WBC Neutrophils % (Manual) 23 L (45-73) % Lymphocytes % (Manual) 71 H (20-40) % Monocytes % (Manual) 6 (2-11) % Abs Neuts (Manual) 4.9 (2.0-8.3) X10*3/uL Lymphocytes # (Manual) 15.1 H (1.2-4.9) X10*3/uL Monocytes # (Manual) 1.3 H (0.1-1.2) X10*3/uL Platelet Estimate NORMAL (NORMAL) Plt Morphology Comment NORMAL RBC Morphology NORMAL PT 12.0 (10.0-13.1) SEC INR 1.0 (0.9-1.1) APTT 29.7 (26.0-36.4) SEC Sodium 139 (135-145) mmol/L Potassium 4.1 (3.3-5.1) mmol/L Chloride 103 (96-108) mmol/L Carbon Dioxide 27 (22-29) mmol/L Anion Gap 13 (12-20) BUN 16 (9-16) mg/dL Creatinine 0.91 (0.5-1.4) mg/dL Estim Creat Clear Calc 84.4 Estimated GFR > 60 Random Glucose 116 H (60-115) mg/dL Lactic Acid (0.5-2.0) mmol/L Calcium 9.5 D (8.4-10.2) mg/dL Magnesium 2.2 (1.6-2.6) mg/dL Total Bilirubin 0.5 (0.0-1.0) mg/dL Direct Bilirubin 0.1 (0.0-0.5) mg/dL AST 20 (5-37) U/L ALT 19 (0-40) U/L Alkaline Phosphatase 77 (39-117) U/L Total Protein 7.4 (6.5-8.0) g/dL Albumin 4.5 (3.5-5.0) g/dL Urine Color Urine Appearance Urine pH (5.0-9.0) Ur Specific [place] (1.005-1.025) Urine Protein (Neg-Trace) mg/dL Urine Glucose (UA) (Negative) mg/dL Urine Ketones (Negative) mg/dL Urine Blood (Negative) Urine Nitrite (Negative) Ur Leukocyte Esterase (Negative) Urine RBC (0-2) /HPF Urine WBC (0-5) /HPF Ur Squamous Epith Cells (0-2) /HPF Urine Bacteria (None Seen) Hyaline Casts (0-2) /LPF 08/17/22 08/18/22 Range/Units 22:00 00:39 WBC (4.8-10.8) X10*3/uL RBC (4.60-5.80) X10*6/uL Hgb (14.0-18.0) g/dl Hct (42.0-52.0) % MCV (80.0-98.0) fL MCH (27.0-33.0) pg MCHC (31.0-36.0) g/dl RDW (11.0-16.0) % Plt Count (160-400) X10*3/uL MPV (9.4-12.4) fL Immature Gran % (Auto) Neut % (Auto) Lymph % (Auto) [place] % (Auto) Eos % (Auto) Baso % (Auto) Lymph # (Auto) [place] # (Auto) Eos # (Auto) Baso # (Auto) Abs Immat Gran (auto) Absolute Neuts (auto) Absolute Nucleated RBC (0.0-0.012) X10*3/uL Nucleated RBC % (auto) (0.0-0.2) /100WBC Neutrophils % (Manual) (45-73) % Lymphocytes % (Manual) (20-40) % Monocytes % (Manual) (2-11) % Abs Neuts (Manual) (2.0-8.3) X10*3/uL Lymphocytes # (Manual) (1.2-4.9) X10*3/uL Monocytes # (Manual) (0.1-1.2) X10*3/uL Platelet Estimate (NORMAL) Plt Morphology Comment RBC Morphology PT (10.0-13.1) SEC INR (0.9-1.1) APTT (26.0-36.4) SEC Sodium (135-145) mmol/L Potassium (3.3-5.1) mmol/L Chloride (96-108) mmol/L Carbon Dioxide (22-29) mmol/L Anion Gap (12-20) BUN (9-16) mg/dL Creatinine (0.5-1.4) mg/dL Estim Creat Clear Calc Estimated GFR Random Glucose (60-115) mg/dL Lactic Acid 0.7 (0.5-2.0) mmol/L Calcium (8.4-10.2) mg/dL Magnesium (1.6-2.6) mg/dL Total Bilirubin (0.0-1.0) mg/dL Direct Bilirubin (0.0-0.5) mg/dL AST (5-37) U/L ALT (0-40) U/L Alkaline Phosphatase (39-117) U/L Total Protein (6.5-8.0) g/dL Albumin (3.5-5.0) g/dL Urine Color Yellow Urine Appearance Clear Urine pH 7.0 (5.0-9.0) Ur Specific [place] 1.010 (1.005-1.025) Urine Protein Negative (Neg-Trace) mg/dL Urine Glucose (UA) Negative (Negative) mg/dL Urine Ketones Negative (Negative) mg/dL Urine Blood Negative (Negative) Urine Nitrite Negative (Negative) Ur Leukocyte Esterase Trace H (Negative) Urine RBC 0-2 (0-2) /HPF Urine WBC 0-5 (0-5) /HPF Ur Squamous Epith Cells 0-2 (0-2) /HPF Urine Bacteria None Seen (None Seen) Hyaline Casts 0-2 (0-2) /LPF Medications Administered Discontinued Medications Generic Name Dose Route Start Last Admin Trade Name Freq PRN Reason Stop Dose Admin Famotidine 20 mg 08/17/22 22:22 08/17/22 22:28 Famotidine/Pf 20 Mg/2 Ml Vial IVPUSH 08/17/22 22:23 20 mg ONCE ONE Administration Sodium Chloride 1,000 mls @ 999 mls/hr 08/17/22 22:22 08/17/22 22:28 Ns IV 08/17/22 23:22 999 mls/hr .Q1H1M ONE Administration Piperacillin Sod/Tazobactam 50 mls @ 100 mls/hr 08/17/22 23:30 08/18/22 00:43 Sod 3.375 gm/ Sodium Chloride IV 08/17/22 23:59 100 mls/hr ONCE ONE Administration Iohexol 85 ml 08/17/22 23:40 08/17/22 23:40 Iohexol 350 Mg/Ml 100 Ml Infus..Btl IV 08/17/22 23:41 85 ml ONCE ONE Administration Lisinopril 20 mg 08/17/22 22:22 08/17/22 22:28 Lisinopril 20 Mg Tablet PO 08/17/22 22:23 20 mg ONCE ONE Administration Protocol Ondansetron HCl 4 mg 08/17/22 22:22 08/17/22 22:28 Ondansetron Hcl 4 Mg/2 Ml Vial IVPUSH 08/17/22 22:23 4 mg ONCE ONE Administration Discharge Plan Discharge Clinical Impression: Acute diverticulitis Patient Disposition: Home, Self-Care Instructions: Diverticulitis (ED) Additional Instructions: Drink plenty of fluids Advance your diet slowly Antibiotic as prescribed Report to the ER if worsening the pain/vomiting/fever Beber mucho l?quido Avanza tu dieta lentamente Antibi?galo seg?n prescripci?n Informe a la rito de emergencias si empeora el dolor/v?mitos/fiebre Prescriptions: New ciprofloxacin HCl [Cipro] 500 mg tablet 500 mg PO BID Qty: 20 0RF metronidazole 500 mg tablet 500 mg PO TID Qty: 30 0RF tramadol 50 mg tablet 50 mg PO Q6H PRN (Reason: pain) Qty: 20 0RF No Action glatiramer 40 mg/mL syringe 40 mg subcut MOWEFR Rx Instructions: administer doses at least 48 hours apart alfuzosin 10 mg tablet extended release 24 hr 10 mg PO DAILY 90 Days Qty: 90 3RF Rx Instructions: administer after the same meal each day fluticasone propionate [Flonase Allergy Relief] 50 mcg/actuation spray,suspension 1 spray intranasal BID 30 Days Qty: 16 1RF Rx Instructions: administer into each nostril tizanidine 2 mg tablet 2 mg PO Q8H PRN (Reason: muscle spasm) vitamin B complex Capsule 1 cap PO DAILY cholecalciferol (vitamin D3) 25 mcg (1,000 unit) Tablet 25 mcg PO DAILY cetirizine 10 mg tablet 10 mg PO DAILY 30 Days Qty: 30 6RF hydroxyzine HCl 25 mg tablet 25 mg PO BEDTIME PRN (Reason: for itch) Qty: 90 1RF lisinopril 20 mg tablet 20 mg PO DAILY 90 Days Qty: 90 2RF (DME) [facility] See Rx Instructions .ROUTE .MEDSUPPLY Qty: 1 0RF Rx Instructions: As directed miscellaneous medical supply [facility] 1 ea miscellaneous DAILY 99 Days Qty: 1 0RF tadalafil 20 mg tablet 20 mg PO DAILY PRN (Reason: sexual activity) 7 Days Qty: 7 0RF (DME) Knee Support Brace Misc See Rx Instructions .Route Qty: 1 0RF Rx Instructions: As directed lorazepam 0.5 mg tablet 0.5 mg PO DAILY PRN (Reason: anxiety) 5 Days Qty: 5 0RF naproxen 500 mg tablet,delayed release (DR/EC) 500 mg PO BID 15 Days Qty: 30 0RF clotrimazole-betamethasone 1-0.05 % cream 1 appl topical BID 30 Days Qty: 45 0RF Interventions: ED Discharge Assessment Last Done: 08/18/22 02:54 Discharge Date/Time: 08/18/22 03:02 Print Language: Serbian
[2022-08-17 21:18] VITALS: BP 185/84; PULSE 66; RESP 18; TEMP 37; O2SAT 97
--- NOTE | 2022-08-17 21:35 | PC.NURSE ---
Patient arrived to ED from home to be evaluated for abdominal pain radiating into chest at times since yesterday. Patient also c/o nausea, no vomiting, no diarrhea. Patient has history of AAA. Patient is alert and oriented x3. Patient is able to make his needs known. Patient is afebrile, BP 185/88, P 67, RR 19, O2 Sat 97% RA. Patient reports he did not take Lisinopril 5 mg this morning. 20 G IV line established in R AC, labs drawn and sent to lab for processing. Patient placed on cardiac cath tech. Call lockhart placed within patient's reach.
[2022-08-17 21:43] LABS: Hematocrit 39.7 % (42.0-52.0); Hemoglobin 13.4 g/dl (14.0-18.0); Mean Corpuscular HGB Conc 33.8 g/dl (31.0-36.0); Mean Corpuscular Hemoglobin 28.8 pg (27.0-33.0); Mean Corpuscular Volume 85.2 fL (80.0-98.0); Mean Platelet Volume 9.9 fL (9.4-12.4); Platelet Count 175 X10*3/uL (160-400); Red Blood Count 4.66 X10*6/uL (4.60-5.80); Red Cell Distribution Width 11.9 % (11.0-16.0)
[2022-08-17 21:48] LABS: Partial Thromboplastin Time 29.7 SEC (26.0-36.4)
[2022-08-17 21:51] VITALS: BP 173/76; PULSE 66; RESP 16; TEMP 36.6; O2SAT 98
--- NOTE | 2022-08-17 22:04 | PC.NURSE ---
Patient ambulated annie the restroom independently with a steady gait. Urine specimen collected and sent to lab. Patient denies any chest pain at present. EKG performed by ELIE Mitchell. Dr. Sheikh reviewed results of EKG.
[2022-08-17 22:08] LABS: Alanine Aminotransferase 19 U/L (0-40); Albumin Level 4.5 g/dL (3.5-5.0); Alkaline Phosphatase 77 U/L (39-117); Anion Gap 13 (12-20); Aspartate Amino Transferase 20 U/L (5-37); Bilirubin Direct 0.1 mg/dL (0.0-0.5); Bilirubin Total 0.5 mg/dL (0.0-1.0); Blood Urea Nitrogen 16 mg/dL (9-16); Calcium 9.5 mg/dL (8.4-10.2); Carbon Dioxide 27 mmol/L (22-29); Chloride 103 mmol/L (96-108); Creatinine Clr Calc Pharmacy 84.4; Estimated Glomerular Filt Rate > 60; Glucose Random 116 mg/dL (60-115); Magnesium 2.2 mg/dL (1.6-2.6); Potassium 4.1 mmol/L (3.3-5.1); Sodium 139 mmol/L (135-145); Total Protein 7.4 g/dL (6.5-8.0)
[2022-08-17 22:10] LABS: Appearance Urine Clear; Color Urine Yellow; Glucose Urine UA Negative (Negative); Leukocyte Esterase Urine Trace (Negative); Nitrite Urine Negative (Negative); UMIC TRIGGER UACC YES; Urine Blood Negative (Negative); Urine Ketones Negative (Negative); Urine Protein Negative (Neg-Trace)
[2022-08-17 22:14] LABS: Bacteria Urine None Seen (None Seen); Hyaline Casts Urine 0-2 /LPF (0-2); RBC Urine 0-2 /HPF (0-2); Squamous Epithelial Cell Urine 0-2 /HPF (0-2); WBC Urine 0-5 /HPF (0-5)
[2022-08-17 22:23] LABS: WBC ABN SCTR FOR CBC 1
[2022-08-17] MEDS: Famotidine/PF 20 MG/2 ML VIAL IVPUSH (22:28)
[2022-08-17] MEDS: ondansetron HCL 4 MG/2 ML VIAL IVPUSH (22:28)
[2022-08-17] MEDS: lisinopriL 20 MG TABLET PO (22:28)
[2022-08-17] MEDS: 0.9 % Sodium Chloride 1,000 ML 999 ML IV (22:28)
[2022-08-17 23:09] LABS: Lymphocytes Percent Manual 71 % (20-40); Monocytes Percent Manual 6 % (2-11); Neutrophils Percent Manual 23 % (45-73)
[2022-08-17 23:10] LABS: Platelet Estimate NORMAL (NORMAL); RBC Morphology NORMAL
[2022-08-17 23:13] LABS: Lymphocytes Absolute Manual 15.1 X10*3/uL (1.2-4.9); Monocytes Absolute Manual 1.3 X10*3/uL (0.1-1.2); Neutrophils Absolute Manual 4.9 X10*3/uL (2.0-8.3); Platelet Morphology Comment NORMAL; White Blood Count 21.3 X10*3/uL (4.8-10.8)
[2022-08-17] MEDS: iohexoL 350 MG/ML 100 ML INFUS..BTL 85 ML IV (23:40)
[2022-08-18] VITALS: BP 139/82; PULSE 74; RESP 16; TEMP 36.6; O2SAT 97
[2022-08-18] MEDS: Piperacillin Sodium/Tazobactam 3.375 GM in 0.9 % Sodium Chloride 50 ML IV (00:43)
[2022-08-18 00:54] LABS: Lactic Acid 0.7 mmol/L (0.5-2.0)
[2022-08-18 02:00] VITALS: BP 140/75; PULSE 51; RESP 18; TEMP 37.2; O2SAT 97
== END 2022-08-18 03:02 | disposition home or self-care (01) ==
PROVIDERS: Physician Assistant; Emergency Provider Internal Medicine; PCP Physician Assistant
DX: K57.32 Diverticulitis of large intestine without perforation or abscess without bleeding (principal); E11.9 Type 2 diabetes mellitus without complications; I10 Essential (primary) hypertension; E78.5 Hyperlipidemia, unspecified
CPT/HCPCS: 36415; 74177; 80048; 80076; 81001; 83605; 83735; 85007; 85025; 85027; 85610; 85730; 87040; 93005; 96374; 96375; 99284; 99285; J2405; J2543; Q9967

== ENCOUNTER → 2022-08-27 09:10 | Outpatient (BNVA) | payer OTHER, SELFPAY | PROVIDERS: PCP Physician Assistant; Visit Provider Surgery | DX: K57.92 Diverticulitis of intestine, part unspecified, without perforation or abscess without bleeding (principal) | CPT/HCPCS: 99212 ==

== ENCOUNTER 2022-09-12 03:52 | Emergency (ER) | payer OTHER, SELFPAY ==
[2022-09-12 03:56] VITALS: BP 166/92; PULSE 74; RESP 16; TEMP 36.7; O2SAT 98; BMI 27.9
[2022-09-12 04:28] LABS: IDNOW Serial# 6674DD1D; Strep A Nucleic Acid Negative (Negative)
[2022-09-12 05:22] VITALS: BP 132/81; PULSE 68; RESP 16; TEMP 37.2; O2SAT 98
--- NOTE | 2022-09-12 06:57 | ED.GENADULT ---
HPI - General Adult General Chief complaint: General Medical Stated complaint: sore throat Time Seen by Provider: 09/12/22 06:40 Source: patient Mode of arrival: ambulatory Limitations: no limitations History of Present Illness HPI narrative: 62 year old female presents w/ sore throat, intermittent dry cough, clear rhinorrhea for over a week, patient reports he does not have any sick contacts. He denies difficulty speaking, changes in voice, trouble controlling secretions, difficulty opening mouth, chest pain, shortness of breath, nausea, vomiting, abdominal pain, fevers, chills Related Data Home Medications Medication Instructions Recorded Confirmed glatiramer 40 mg/mL subcutaneous 40 mg subcut MOWEFR 01/04/20 08/27/22 syringe cholecalciferol (vitamin D3) 25 25 mcg PO DAILY 05/28/22 08/27/22 mcg (1,000 unit) tablet tizanidine 2 mg tablet 2 mg PO Q8H PRN muscle spasm 05/28/22 08/27/22 vitamin B complex 1 cap PO DAILY 05/28/22 08/27/22 Previous Rx's Medication Instructions Recorded alfuzosin 10 mg tablet,extended 10 mg PO DAILY 90 days #90 tabs 05/27/21 release 24 hr cetirizine 10 mg tablet 10 mg PO DAILY 30 days #30 tabs 05/11/22 hydroxyzine HCl 25 mg tablet 25 mg PO BEDTIME PRN for itch #90 05/11/22 tabs fluticasone propionate 50 1 spray intranasal BID 30 days #16 06/03/22 mcg/actuation nasal grams spray,suspension (Flonase Allergy Relief) clotrimazole-betamethasone 1 1 appl topical BID 30 days #45 06/22/22 %-0.05 % topical cream grams lorazepam 0.5 mg tablet 0.5 mg PO DAILY PRN anxiety 5 days 06/22/22 #5 tabs naproxen 500 mg tablet,delayed 500 mg PO BID 15 days #30 tabs 06/22/22 release leg brace (Knee Support Brace) #1 ea 06/29/22 lisinopril 20 mg tablet 20 mg PO DAILY 90 days #90 tabs 06/29/22 miscellaneous medical supply 1 ea miscellaneous DAILY 99 days 06/29/22 #1 ea miscellaneous medical supply #1 ea 05/08/23 (Blood Pressure Cuff) tadalafil 20 mg tablet 20 mg PO DAILY PRN sexual activity 06/29/22 7 days #7 tabs ciprofloxacin HCl 500 mg tablet 500 mg PO BID #20 tabs 08/18/22 (Cipro) metronidazole 500 mg tablet 500 mg PO TID #30 tabs 08/18/22 tramadol 50 mg tablet 50 mg PO Q6H PRN pain #20 tabs 08/18/22 amoxicillin 875 mg-potassium 1 tab PO BID 10 days #20 tabs 09/12/22 clavulanate 125 mg tablet loratadine 10 mg tablet 10 mg PO DAILY 30 days #30 tabs 09/12/22 prednisone 20 mg tablet 40 mg PO DAILY 5 days #10 tabs 09/12/22 Allergies Allergy/AdvReac Type Severity Reaction Status Date / Time Sulfa (Sulfonamide Allergy Unknown RASH Verified 08/27/22 09:27 Antibiotics) [Sulfa (Sulfonamides)] sulfacetamide Allergy Unknown Hives Verified 08/27/22 09:27 [From Sulfacet-R] sulfur [From Sulfacet-R] Allergy Unknown Hives Verified 08/27/22 09:27 Review of Systems Review of Systems: Constitutional : No Weight loss, No Fever, No Chills, No Fatigue, No Malaise ENT/Mouth : + sore throat, No Rhinorrhea Eyes: No Eye Pain, No Swelling, No Redness Cardiovascular : No Chest Pain, No SOB, No Dyspnea on Exertion, No Orthopnea, No Edema, No Palpitations Respiratory : No Cough, No Sputum, No Wheezing Gastrointestinal : No Nausea, No Vomiting, No Diarrhea, No Constipation, No abdominal Pain, No Hematochezia, No Melena Genitourinary : No Dysuria, No Urinary Frequency, No Hematuria, Musculoskeletal : No joint pain, No Myalgias, No Joint Swelling Skin : No Skin Lesions, No rash Neuro : No Weakness, No Numbness, No Dizziness, No Headache Psych : No Anxiety/Panic, No Depression All other systems reviewed and are negative Yes all other systems are reviewed and are negative [facility] Past Medical History Attestation statement: The following information was validated with the patient. Source: old records reviewed and nursing notes reviewed Medical History AAA (abdominal aortic aneurysm) Bladder outlet obstruction BPH (benign prostatic hyperplasia) Diabetes mellitus Dysuria HTN (hypertension) Hyperlipidemia Nocturia Stress incontinence, male Weak urinary stream Surgical History History of appendectomy History of hernia repair History of removal of cyst Family History Family History Father Diabetes Mother No problems noted. Maternal Uncle Myocardial infarction Sister No problems noted. Son No problems noted. Son No problems noted. Daughter No problems noted. Brother No problems noted. Brother No problems noted. Brother No problems noted. 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 Cognitive needs: No Hearing needs: No Vision needs: No Physical Exam ED Vital Signs: Vital Signs - 24 hr 09/12/22 03:56 09/12/22 05:22 Temperature 98.1 F 98.9 F Pulse Rate 74 68 Respiratory Rate 16 16 Blood Pressure 166/92 H 132/81 Pulse Oximetry 98 98 Oxygen Delivery Method Room Air Room Air BMI result Body Mass Index 27.9 vss Appearance: Alert.? Oriented X3.? No acute distress.? Head: Normocephalic, atraumatic, no step-offs or deformities Eyes: Pupils equal, round and reactive to light.? ENT: Pharynx w/ errythema no edema, abscess, uvula midline, speaking in full sentences controlling secretions well. Small b/l sub mandibular adenopathy. No pain with manipulation of external ears bilaterally. No mastoid tenderness. Neck: Normal inspection.? Neck supple.? CVS: Normal heart rate and rhythm.? Pulses normal.? Respiratory: No respiratory distress.? Breath sounds normal.? Abdomen: Soft and nontender.? Skin: Skin warm and dry.? Normal skin color.? Normal skin turgor.? Extremities: No lower extremity edema.? No calf ttp. 5/5 strength to bilateral upper and lower extremities Neuro: Oriented X 3.? No motor deficit.? No sensory deficit. CN 2-12 intact Course Reevaluation(s) Reevaluation #1: Negative strep. Patient to be discharged home on Augmentin due to length of time of symptoms greater than a week. Will also send him home on loratadine for allergy like symptoms. Prednisone also be sent to the pharmacy. Educated patient on diagnosis and treatment plan, answered all question, patient verbalizes understanding. At this time patient will be discharged home, advised to return with new or worsening symptoms. Educated on worrisome signs and symptoms and when to return. At this time I feel comfortable discharge home. Time: 07:02 Medical Decision Making Medical Decision Making [facility] Narrative: 699 62 year old male presents w/ URI sx for over a week PE w/ Pharynx w/ errythema no edema, abscess, uvula midline, speaking in full sentences controlling secretions well. Small b/l sub mandibular adenopathy. No pain with manipulation of external ears bilaterally. No mastoid tenderness. Likely pharyngitis vs seasonal allergies. No signs of airway compromise, peritonsillar abscess, epiglottitis, retropharyngeal abscess. Patient well appearing. Unlikely anaphylaxis or acute allergic reaction. Plan at this time viral test. Differential Diagnosis Differential Diagnoses: The differential diagnosis associated with the presentation includes Likely pharyngitis vs seasonal allergies. No signs of airway compromise, peritonsillar abscess, epiglottitis, retropharyngeal abscess. Patient well appearing. Unlikely anaphylaxis or acute allergic reaction. Admission/Observation Consideration of admission/observation: Escalation of care including admission/observation considered not indicated Lab Data Labs: Lab Results 09/12/22 Range/Units 04:13 S. pyogenes GrpA BERENICE Negative (Negative) Core Measures AMI core measures followed: Yes Measure exclusions: not indicated Discharge Plan Discharge Clinical Impression: Pharyngitis Patient Disposition: Home, Self-Care Instructions: Pharyngitis (ED) Additional Instructions: Take your medications as prescribed. If you were prescribed antibiotics today, it is important that you take your medication to their entirety, do not skip any doses, do not finish them early. Follow-up with your primary care provider this week. Return to the emergency department with new or worsening symptoms. Such as fevers, chills, chest pain, shortness of breath, nausea, vomiting, dizziness, headache, vision changes, lethargy In case of emergency call 911 Prescriptions: New prednisone 20 mg tablet 40 mg PO DAILY 5 Days Qty: 10 0RF amoxicillin-pot clavulanate 875-125 mg tablet 1 tab PO BID 10 Days Qty: 20 0RF loratadine 10 mg tablet 10 mg PO DAILY 30 Days Qty: 30 0RF No Action glatiramer 40 mg/mL syringe 40 mg subcut MOWEFR Rx Instructions: administer doses at least 48 hours apart alfuzosin 10 mg tablet extended release 24 hr 10 mg PO DAILY 90 Days Qty: 90 3RF Rx Instructions: administer after the same meal each day fluticasone propionate [Flonase Allergy Relief] 50 mcg/actuation spray,suspension 1 spray intranasal BID 30 Days Qty: 16 1RF Rx Instructions: administer into each nostril ciprofloxacin HCl [Cipro] 500 mg tablet 500 mg PO BID Qty: 20 0RF metronidazole 500 mg tablet 500 mg PO TID Qty: 30 0RF tramadol 50 mg tablet 50 mg PO Q6H PRN (Reason: pain) Qty: 20 0RF tizanidine 2 mg tablet 2 mg PO Q8H PRN (Reason: muscle spasm) vitamin B complex Capsule 1 cap PO DAILY cholecalciferol (vitamin D3) 25 mcg (1,000 unit) Tablet 25 mcg PO DAILY cetirizine 10 mg tablet 10 mg PO DAILY 30 Days Qty: 30 6RF hydroxyzine HCl 25 mg tablet 25 mg PO BEDTIME PRN (Reason: for itch) Qty: 90 1RF lisinopril 20 mg tablet 20 mg PO DAILY 90 Days Qty: 90 2RF (DME) Blood Pressure Cuff [facility] See Rx Instructions .ROUTE .MEDSUPPLY Qty: 1 0RF Rx Instructions: As directed [facility] medical [facility] 1 ea miscellaneous DAILY 99 Days Qty: 1 0RF tadalafil 20 mg tablet 20 mg PO DAILY PRN (Reason: sexual activity) 7 Days Qty: 7 0RF (DME) Knee Support Brace Mis See Rx Instructions .Route Qty: 1 0RF Rx Instructions: As directed lorazepam 0.5 mg tablet 0.5 mg PO DAILY PRN (Reason: anxiety) 5 Days Qty: 5 0RF naproxen 500 mg tablet,delayed release (DR/EC) 500 mg PO BID 15 Days Qty: 30 0RF clotrimazole-betamethasone 1-0.05 % cream 1 appl topical BID 30 Days Qty: 45 0RF Referrals: Simeon Sarkar PA-C [Primary Care Provider] - 2 days
== END 2022-09-12 07:20 | disposition home or self-care (01) ==
PROVIDERS: Emergency Provider Emergency Medicine; PCP Physician Assistant
DX: J02.9 Acute pharyngitis, unspecified (principal); R05.9 Cough, unspecified; Z20.822 Contact with and (suspected) exposure to COVID-19
CPT/HCPCS: 87651; 99283

== ENCOUNTER 2022-10-05 12:48 | Outpatient (RCR) | payer OTHER, SELFPAY ==
--- NOTE | 2022-10-05 14:19 | MHC.PT.EP ---
[facility] [place] Office [place] Office [place] Office [address] Adrian Burnette [address] [phone] F: [phone] F: [phone] F: [phone] F: [phone] Physical Therapy Plan of Care Date of Evaluation: Date of Surgery: Diagnosis: RADICULOPATHY, THORACIC REGION Assessment: 62 YO MALE REF TO PT FOR THORACIC PAIN/ RADICULOPATHY S/P MID BACK DEEP TISSUE MASSAGE IN 05/2022. THE Pt STATES HE IS UNEMPLOYED DUE TO HAVING MS. 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 THE Pt HAS DECR POSTURE, DECR CERV AND TRUNK AROM, (+) THORACIC PS MM TISSUE TIGHTNESS, AND MID BACK PAIN. HE CURRENTLY DENIES RADICULAR SXS. FUNCTIONALLY, THE Pt STATES HE HAS PAIN WHILE PERF ALL ADLS. HE WOULD BENEFIT FROM BRIEF PT TO ADDRESS POSTURE, DEV HEP, AND ADDRESS PAIN MGMT. Frequency and Duration: The patient will be seen 2 x WK x 4 WKS Short Term Goals: *DECR Pt'S MID BACK PAIN TO 2-3/10 *IMPROVE FLEXIB IN PECTS/ ANT CHAIN *INCR Pt'S POSTURE, ESPEC W SITTING Usp Goals: *Pt INDEP HEP *Pt DEMON IMPROVED POSTURE/ BODY MECH W 3:3 SIMUL ADLs Treatment Plan: Modalities to reduce pain, spasms and effusion. Manual therapy to restore motion and function. Therapeutic exercise to improve strength and flexibility. Neuromuscular re-education for posture and balance. Therapeutic activities to return to functional activities of daily living. Electronically signed by: MERISSA WASHINGTON,PT Please sign and return to therapist. Thank you for your referral.
--- NOTE | 2022-10-22 07:21 | MHC.PT.DC ---
[facility] [place] Office [place] Office [place] Office [address] Adrian Burnette [address] [phone] F: [phone] F: [phone] F: [phone] F: [phone] Physical Therapy Discharge Report Diagnosis: RADICULOPATHY, THORACIC REGION Date of Surgery: Date of Evaluation: 10/05/22 Date of Discharge: 10/22/22 Treatments to Date: 1 Cancellations to Date: 0 No Shows to Date: 3 Discharge Status: Visit Non-compliance Discharge Summary: THE Pt DID NOT ATTEND SCHEDULED PT APPTS, AND , PER OUR DEPT ATTENDANCE POLICY, HE IS D/C THIS DATE. HE WOULD HAVE BENFITTED FROM A SHORT COURSE OF PT PER FINDINGS PER PT EVAL->62 YO MALE REF TO PT FOR THORACIC PAIN/ RADICULOPATHY S/P MID BACK DEEP TISSUE MASSAGE IN 05/2022. THE Pt STATES HE IS UNEMPLOYED DUE TO HAVING MS. 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 THE Pt HAS DECR POSTURE, DECR CERV AND TRUNK AROM, (+) THORACIC PS MM TISSUE TIGHTNESS, AND MID BACK PAIN. HE CURRENTLY DENIES RADICULAR SXS. FUNCTIONALLY, THE Pt STATES HE HAS PAIN WHILE PERF ALL ADLS. HE WOULD BENEFIT FROM BRIEF PT TO ADDRESS POSTURE, DEV HEP, AND ADDRESS PAIN MGMT. Electronically signed by: MERISSA WASHINGTON,PT Please sign and return to therapist. Thank you for your referral.
== END 2022-10-22 07:23 | disposition home or self-care (01) ==
LOC: HO.PT 12:48
PROVIDERS: PCP Physician Assistant; Visit Provider Physician Assistant
DX: M54.14 Radiculopathy, thoracic region (principal)
CPT/HCPCS: 97110; 97162

== ENCOUNTER 2022-11-06 14:04 | Outpatient (AMB) | payer OTHER, SELFPAY ==
[2022-11-06 14:05] VITALS: BP 118/68; PULSE 60; O2SAT 97; BMI 28.1
--- NOTE | 2022-11-06 14:05 | MHC.PC.OV ---
Vital Signs 11/06/22 14:05 Height 5 ft 6 in Weight 174 lb BMI 28.1 BP 118/68 Blood Pressure Location Lt brachial Position Sitting Pulse 60 Pulse Source Pulse Oximeter Temp Source Skin Pulse Oximetry (%) 97 Oxygen Delivery Method Room Air Intake Visit Reasons: testicular pain Intake Note: pt states testicular pain X5days History Teacher Required: No Allergies Sulfa (Sulfonamide Antibiotics) [Sulfa (Sulfonamides)] Allergy (Unknown, Verified 11/06/22 14:14) RASH sulfacetamide [From Sulfacet-R] Allergy (Unknown, Verified 11/06/22 14:14) Hives sulfur [From Sulfacet-R] Allergy (Unknown, Verified 11/06/22 14:14) Hives Medication List - Last Reconciled 11/06/22 by JOSE MARIA Langley alfuzosin ER 10 mg PO DAILY 90 days cetirizine 10 mg PO DAILY 30 days cholecalciferol (vitamin D3) 25 mcg PO DAILY clotrimazole-betamethasone 1-0.05 % 1 appl topical BID 30 days fluticasone propionate 50 mcg/actuation (Flonase Allergy Relief) 1 spray intranasal BID 30 days glatiramer 40 mg subcut MOWEFR hydroxyzine HCl 25 mg PO BEDTIME PRN leg brace (Knee Support Brace) As directed lisinopril 20 mg PO DAILY 90 days loratadine 10 mg PO DAILY 30 days lorazepam 0.5 mg PO DAILY PRN 5 days miscellaneous medical supply (Blood Pressure Cuff) As directed miscellaneous medical supply 1 ea miscellaneous DAILY 99 days tadalafil 20 mg PO DAILY PRN 7 days tizanidine 2 mg PO Q8H PRN tramadol 50 mg PO Q6H PRN vitamin B complex 1 cap PO DAILY Tobacco use date assessed: 11/06/22 Dental Screening Dental Screen Date: 11/06/22 HPI testicular pain HPI Details Patient is a 62-year-old male who presents today for an office visit due to left testicular pain for the past 4 days, patient of LINDSAY Sarkar. medical history significant for anxiety, BPH, hypertension, MS-followed by Neurology among others. Patient reports that he was jogging and maybe sitting for long time and then he woke up with left testicular pain. He reports that pain is better today, reports mild pain 1/10 scale left testicular pain only when moving. Does not take anything for pain. Denies STI exposure. Denies urinary symptoms. Denies testicular pain in the past. Denies right testicle pain. He is here for an evaluation. [facility] Medical History AAA (abdominal aortic aneurysm) Dysuria BPH (benign prostatic hyperplasia) HTN (hypertension) Hyperlipidemia Diabetes mellitus Bladder outlet obstruction Weak urinary stream Nocturia Stress incontinence, male Surgical History History of removal of cyst History of appendectomy History of hernia repair Family History Father Diabetes Mother No problems noted. Maternal Uncle Myocardial infarction Sister No problems noted. Son No problems noted. Son No problems noted. Daughter No problems noted. Brother No problems noted. Brother No problems noted. Brother No problems noted. 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 Cognitive needs: No Hearing needs: No Vision needs: No Questionnaire PHQ-9 Over the last 2 weeks, how often have you been bothered by any of the following problems? 1. Little interest or pleasure in doing things: not at all 2. Feeling down, depressed, or hopeless: not at all 3. Trouble falling or staying asleep, or sleeping too much: not at all 4. Feeling tired or having little energy: not at all 5. Poor appetite or overeating: not at all 6. Feeling bad about yourself - or that you are a failure or have let yourself or your family down: not at all 7. Trouble concentrating on things, such as reading the newspaper or watching television: not at all 8. Moving or speaking so slowly that other people could have noticed. Or the opposite - being so fidgety or restless that you have been moving around a lot more than usual: not at all 9. Thoughts that you would be better off or of hurting yourself in some way: not at all Total score: 0 Depression Screening Interpretation: Negative 06182 - PHQ-9 Billing: Yes Source: Developed by Drs. Kam Becker, Lucille Marsh, Trae Roy and colleagues, with an educational catalina from [facility]. Thrive Questionnaire Date Thrive assessed: 06/29/22 AUDIT C Alcohol Use Questionnaire (AUDIT-C) 1. How often do you have a drink containing alcohol?: Never Total Score: 0 Score Reviewed/Action Taken: No ADRIEN-7 AMB Questionnaire ADRIEN-7 Date ADRIEN - 7 assessed: 06/29/22 Feeling nervous, anxious, or on edge: 1 = Several days Not being able to stop or control worryin = Not at all Worrying too much about different things: 0 = Not at all Trouble relaxin = Not at all Being so restless that it is hard to sit still: 0 = Not at all Becoming easily annoyed or irritable: 0 = Not at all Feeling afraid as if something awful might happen: 0 = Not at all Total ADRIEN-7 score (0-4 normal; 5-9 mild; 10-14 moderate; 15-21 severe): 1 Source: Developed by Drs. Kam Becker, Lucille Marsh, Trae Roy and colleagues, with an educational catalina from [facility]. ADRIEN-7 Assessment Billing ADIREN-7 Assessment Tool: ADRIEN-7 Assessment 64922 Review of Systems Const Denies body aches, Denies chills, Denies fever(s) and Denies headache(s) Eyes Denies change in vision ENT Denies dizziness, Denies otalgia, Denies headache(s), Denies nasal discharge, Denies sinus pain and Denies sore throat Card Denies chest pain, Denies edema, Denies lightheadedness and Denies dyspnea Resp Denies cough, Denies dyspnea and Denies wheezing GI Denies abdominal pain, Denies constipation, Denies diarrhea, Denies nausea and Denies vomiting Reports as per HPI, Denies hematuria, Denies difficulty urinating, Denies dysuria, Denies flank pain and Reports testicular pain Musc Denies myalgias Skin/Breast Denies rash Neuro Denies dizziness and Denies headache(s) Aller/Immun Denies wheezing Physical exam (Primary Care) Vital Signs: Last Vital Signs Pulse 60 11/06/22 14:05 BP 118/68 11/06/22 14:05 Pulse Ox 97 11/06/22 14:05 Oxygen Delivery Method Room Air 11/06/22 14:05 BMI result Body Mass Index 28.1 Tobacco/Smoking Status: Tobacco use Status Tobacco use date assessed 11/06/22 11/06/22 14:07 Patient Tobacco Use Status Never used Tobacco 11/06/22 14:07 e-Cigarette/Vaping Use Never Used 11/06/22 14:07 PHQ-9: PHQ-9 Score PHQ-9: Total score 0 11/06/22 14:13 Depression Screening Interpretation: Negative Thrive Assessment: Date of Thrive Assessment Date Thrive assessed 06/29/22 11/06/22 14:07 Const General: cooperative and no acute distress Orientation/consciousness: patient oriented x3 HENMT Head: Yes normocephalic and Yes atraumatic Mouth: oropharynx normal and moist mucous membranes Throat: Yes posterior oropharynx normal Eyes General: appearance normal, both eyes and all related structures Neck Neck: Yes normal visual inspection and Yes full ROM Resp Effort & Inspection: normal respiratory effort and able to speak in complete sentences Auscultation: clear to auscultation bilaterally, no crackles, no rales, no rhonchi and no wheezes Cardio Rate: regular rate Rhythm: regular rhythm Heart sounds: S1 normal heart sound present and S2 normal heart sound present GI Auscultation: normal bowel sounds 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 Scrotum: scrotum normal, no ecchymosis, not edematous, not erythematous, testes descended bilaterally and no inguinal hernias (On left side) Testes: Testes normal, no masses, no testicular mass and no testicular tenderness Skin General skin exam: no rashes or lesions noted Neuro General: patient oriented x3 Gait exam (Neuro): Normal gait present Extrem General: Yes full ROM Assessment and Plan Assessment & Plan (1) Left testicular pain: Code(s): N50.812 - Left testicular pain Plan: Patient presents with left testicular pain for the past 4 days, pain is better today currently 1/10 scale only with movement. Physical exam with no acute findings. Will obtain urgent scrotum ultrasound. Signs and symptoms reviewed when to go to the emergency department. Patient agreed with the plan. Patient does not take anything for pain due to pain is not severe. Orders: Orders US scrotum Today N50.812 - Left testicular pain Coding Level of Care Code Est Pt Level 3 (34760) Diagnoses Left testicular pain N50.812 Additional Codes ADRIEN-7 Assessment Billing - ADRIEN-7 Assessment Tool: ADRIEN-7 Assessment [id number] ([id number])
== END 2022-11-06 14:31 | disposition home or self-care (01) ==
PROVIDERS: PCP Physician Assistant; Visit Provider Nurse Practitioner Family
DX: N50.812 Left testicular pain (principal)
CPT/HCPCS: 99213

== ENCOUNTER 2022-11-10 13:32 | Outpatient (REF) | payer OTHER, SELFPAY ==
--- NOTE | ~2022-11-10 | US_ITS ---
EXAMINATION: US SCROTUM CLINICAL INFORMATION: Left testicle pain. COMPARISON: None available. TECHNIQUE: A sonogram of the scrotum was performed assessing clark-scale appearance and color Doppler flow. Spectral Doppler analysis of the arterial and venous flow were performed in the testes bilaterally. FINDINGS: RIGHT: Right testicle measures 4.3 x 2 x 3 cm, volume 13 mL. No focal testicular parenchymal lesions are visualized. Spectral Doppler analysis of the arterial and venous flow is normal in the right testis. Right epididymal head is normal in size. 3 x 6 x 4 mm epididymal head cyst with septation. Small right hydrocele. No varicocele is seen. Right epididymal Doppler flow is normal. LEFT: Left testicle measures 4.5 x 2 x 2.6 cm, volume 12 mL. 2 x 3 x 3 cm simple appearing cyst in the superior left testicle. No other focal testicular parenchymal lesions are visualized. Spectral Doppler analysis of the arterial and venous flow is normal in the left testis. Left epididymal head is normal in size. No left hydrocele. Small left varicocele. Left epididymal Doppler flow is normal. US/US scrotum IMPRESSION: Left: 3 mm simple cyst in the superior testicle. Small varicocele. Right: Small epididymal head cyst. Small hydrocele.
== END 2022-11-10 13:33 | disposition home or self-care (01) ==
LOC: HO.US 13:32
PROVIDERS: PCP Physician Assistant; Visit Provider Nurse Practitioner Family
DX: N50.812 Left testicular pain (principal)
CPT/HCPCS: 76870

== ENCOUNTER 2023-01-29 14:01 | Outpatient (AMB) | payer OTHER, SELFPAY ==
--- NOTE | 2023-01-29 14:05 | MHC.OFFVIS ---
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 01/29/2023-- He was seen by me Dr. Wong on 10/31/2021 for LUTS. Patient has had an intermittent testicular pain. He states that his PCP has ordered a scrotal US. I have reviewed the scrotal US results from 11/10/2022 revealed a small 3 mm left testicle cyst and no testicular masses noted. Review of charts: Last visit: 10/31/21-- Chavo is a pleasant male. He is a patient Dr. Sarkar. 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 Current treatment includes alfusosin. Prior treatments include alpha blockers, flomax/tamsulosin retrograde ejaculation. Prostate Symptom Score Moderate (9-19), Bother 3. Symptoms include weak stream, nocturia (>2), and are progressing. Results from testing include renal/bladder us Yes date 02/21/2019 PVR 50 prostate size 25 Associated conditions - multiple sclerosis CAD No CVA No diabetes Yes elevated PSA No erectile dysfunction years hematuria No renal insufficiency No urge incontinence No urinary retention No urinary tract infection No psychiatric diagnosis No Testing at next visit will include bladder scan. Treatment plan continue with current medications Erectile dysfunction Good response to tadalafil daily 10 mg but had headaches Will moved to on demand 20-30 mg Background diabetes 01/29/2023: Evaluation today--UA--Leukocytes: negative; blood: negative; bladder scan PVR: 176 mL. 01/29/2023: Plan: Ordered alfusozin 10 mg. PSA screening test was ordered. Follow-up in 6 months. [facility] Medical History AAA (abdominal aortic aneurysm) Dysuria BPH (benign prostatic hyperplasia) HTN (hypertension) Hyperlipidemia Diabetes mellitus Bladder outlet obstruction Weak urinary stream Nocturia Stress incontinence, male Surgical History History of removal of cyst History of appendectomy History of hernia repair Family History Father Diabetes Mother No problems noted. Maternal Uncle Myocardial infarction Sister No problems noted. Son No problems noted. Son No problems noted. Daughter No problems noted. Brother No problems noted. Brother No problems noted. Brother No problems noted. 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 Cognitive needs: No Hearing needs: No Vision needs: No Review of Systems Const All systems reviewed & are unremarkable except as noted in HPI and below Reports no additional complaints Eyes Reports no additional complaints ENT Denies neck pain Card Denies leg edema Resp Denies cough GI Denies constipation Musc Reports no additional complaints and Denies neck pain Skin/Breast Denies rash and Denies unusual bruising Neuro Reports no additional complaints Psych Reports no additional complaints Endo Reports no additional complaints Benjamin/Lymph Reports no additional complaints Aller/Immun Reports no additional complaints Office Procedures Post Void Residual Post Residual Void Post Void Residual (PVR): 176 [id number] Void Residual by ultrasound Results AMB Urinalysis, Automated UA Leukoctes 0 Franco/uL Last Edit by CIARA Solomon on 01/29/23 14:36 UA Nitrite Negative Last Edit by CIARA Solomno on 01/29/23 14:36 UA Urobilinogen 0.2 mg/dL Last Edit by Jay Hernandez Maria C on 01/29/23 14:36 UA Protein 0 mg/dL Last Edit by Jay Hernandez [facility] on 01/29/23 14:36 UA pH 6.0 Last Edit by Jay Hernandez [facility] on 01/29/23 14:36 UA Blood 0 Obinna/uL Last Edit by Jay Hernandez [facility] on 01/29/23 14:36 UA Specific Glendo 1.010 Last Edit by Jay Hernandez A on 01/29/23 14:36 UA Ketone Negative Last Edit by Jay Hernandez [facility] on 01/29/23 14:36 UA Bilirubin 0 mg/dL Last Edit by Jay Hernandez [facility] on 01/29/23 14:36 UA Glucose 0 mg/dL Last Edit by Jay Hernandez [facility] on 01/29/23 14:36 Results Reviewed Results Reviewed: Laboratory Last Values Urine pH (Auto) 6.0 01/29/23 14:28 Specific Glendo (Auto) 1.010 01/29/23 14:28 Urine Protein (Auto) 0 mg/dL 01/29/23 14:28 Glucose (UA)(Auto) 0 mg/dL 01/29/23 14:28 Urine Ketones (Auto) Negative 01/29/23 14:28 Urine Blood (Auto) 0 Obinna/uL 01/29/23 14:28 Urine Nitrite (Auto) Negative 01/29/23 14:28 Urine Bilirubin (Auto) 0 mg/dL 01/29/23 14:28 Urine Urobilinogen (Auto) 0.2 mg/dL 01/29/23 14:28 Leukocyte Esterase (Auto) 0 Franco/uL 01/29/23 14:28 Date of Service: 11/10/22 EXAMINATION: US SCROTUM CLINICAL INFORMATION: Left testicle pain. COMPARISON: None available. FINDINGS: RIGHT: Right testicle measures 4.3 x 2 x 3 cm, volume 13 mL. No focal testicular parenchymal lesions are visualized. Spectral Doppler analysis of the arterial and venous flow is normal in the right testis. Right epididymal head is normal in size. 3 x 6 x 4 mm epididymal head cyst with septation. Small right hydrocele. No varicocele is seen. Right epididymal Doppler flow is normal. LEFT: Left testicle measures 4.5 x 2 x 2.6 cm, volume 12 mL. 2 x 3 x 3 cm simple appearing cyst in the superior left testicle. No other focal testicular parenchymal lesions are visualized. Spectral Doppler analysis of the arterial and venous flow is normal in the left testis. Left epididymal head is normal in size. No left hydrocele. Small left varicocele. Left epididymal Doppler flow is normal. IMPRESSION: Left: 3 mm simple cyst in the superior testicle. Small varicocele. Right: Small epididymal head cyst. Small hydrocele. Assessment & Plan Assessment & Plan (1) BPH w urinary obs/LUTS: Code(s): N40.1 - Benign prostatic hyperplasia with lower urinary tract symptoms; N13.8 - Other obstructive and reflux uropathy (2) BPH w urinary obs/LUTS: Code(s): N40.1 - Benign prostatic hyperplasia with lower urinary tract symptoms; N13.8 - Other obstructive and reflux uropathy Plan Ordered alfusozin 10 mg. PSA screening test was ordered. Follow-up in 6 months. Orders: Orders AMB Urinalysis Automated 01/29/23 Z13.9 - Encounter for screening, unspecified PSA,Total (Free>4and<10) 01/29/23 N40.1 - Benign prostatic hyperplasia with lower urinary tract symptoms, N13.8 - Other obstructive and reflux uropathy AMB Post Void Residual by ultrasound 01/29/23 N39.8 - Other specified disorders of urinary system Medications: Refilled alfuzosin ER administer after the same meal each day 10 mg PO DAILY 90 tabs 3RF 90 days N40.1 - Benign prostatic hyperplasia with lower urinary tract symptoms, N13.8 - Other obstructive and reflux uropathy Patient Instructions: The patient had an opportunity to ask questions regarding treatment plan. All questions were answered. Imaging, Laboratory studies and physical exam results were discussed and reviewed in detail. No major barriers to understanding were identified. The patient expressed understanding and agreement with the above treatment plan. The patient is aware they should contact our office by phone for worsening of their current condition or the appearance of new symptoms. Compliance is encouraged with any medications and followup testing that is ordered. It is a privilege to be allowed the opportunity to participate in the urologic care of your patient. If you have any questions or concerns regarding treatment for the above conditions please do not hesitate to contact me. The office telephone contact is [phone]. This note is constructed in part using voice recognition software. While every effort has been made to ensure accuracy brewery cellar worker errors may have been included. Yours sincerely, Nelda Mills MD Coding Level of Care Code Est Pt Level 4 (13918) Diagnoses BPH w urinary obs/LUTS N40.1; N13.8 CPT Codes Post Residual Void - PVR CPT Code: 47391-Mkzi Void Residual by ultrasound ([id number])
== END 2023-01-29 14:37 | disposition home or self-care (01) ==
PROVIDERS: PCP Physician Assistant; Visit Provider Urology
DX: N40.1 Benign prostatic hyperplasia with lower urinary tract symptoms (principal); N13.8 Other obstructive and reflux uropathy
CPT/HCPCS: 99214

== ENCOUNTER → 2023-01-29 14:01 | Outpatient (BNVA) | payer OTHER, SELFPAY | PROVIDERS: PCP Physician Assistant; Visit Provider Urology | DX: N40.1 Benign prostatic hyperplasia with lower urinary tract symptoms (principal); N13.8 Other obstructive and reflux uropathy | CPT/HCPCS: 51798; 81003; 99212 ==

== ENCOUNTER 2023-02-27 12:09 | Emergency (ER) | payer OTHER, SELFPAY | END 2023-02-27 13:54 | disposition left against medical advice (07) | PROVIDERS: Emergency Provider Emergency Medicine; PCP Physician Assistant | DX: M79.605 Pain in left leg (principal); Z53.21 Procedure and treatment not carried out due to patient leaving prior to being seen by health care provider ==

== ENCOUNTER 2023-03-04 10:04 | Outpatient (AMB) | payer OTHER, SELFPAY ==
[2023-03-04 10:09] VITALS: BP 116/64; PULSE 90; O2SAT 98; BMI 29.0
--- NOTE | 2023-03-04 10:09 | MHC.PC.OV ---
Vital Signs 03/04/23 10:09 Height 5 ft 6 in Weight 180 lb BMI 29.0 BP 116/64 Blood Pressure Location Lt brachial Position Sitting Pulse 90 Pulse Source Pulse Oximeter Pulse Oximetry (%) 98 Oxygen Delivery Method Room Air Intake Visit Reasons: f/u HTN Intake Note: The patient has returned for a follow-up regarding hypertension. Additionally, the patient reports experiencing sharp pain in the left leg, which hinders their ability to walk long distances. Room Service Food Server Required: No Accompanied by: Self / Same As Patient Allergies Sulfa (Sulfonamide Antibiotics) [Sulfa (Sulfonamides)] Allergy (Unknown, Verified 03/04/23 10:27) RASH sulfacetamide [From Sulfacet-R] Allergy (Unknown, Verified 03/04/23 10:27) Hives sulfur [From Sulfacet-R] Allergy (Unknown, Verified 03/04/23 10:27) Hives Medication List - Last Reconciled 03/04/23 by Simeon Sarkar PA-C alfuzosin ER 10 mg PO DAILY 90 days [bath tub seat As directed] cetirizine 10 mg PO DAILY 30 days cholecalciferol (vitamin D3) 25 mcg PO DAILY clotrimazole-betamethasone 1-0.05 % 1 appl topical BID 30 days fluticasone propionate 50 mcg/actuation (Flonase Allergy Relief) 1 spray intranasal BID 30 days food supplemt, lactose-reduced (Ensure High Protein oral liquid) 1 ea PO .daily 24 days glatiramer 40 mg subcut MOWEFR hydroxyzine HCl 25 mg PO BEDTIME PRN leg brace (Knee Support Brace) As directed lisinopril 20 mg PO DAILY 90 days loratadine 10 mg PO DAILY 30 days lorazepam 0.5 mg PO DAILY PRN 5 days miscellaneous medical supply (Blood Pressure Cuff) As directed miscellaneous medical supply 1 ea miscellaneous DAILY 99 days [shower wand As directed] tadalafil 20 mg PO DAILY PRN 7 days tizanidine 2 mg PO Q8H PRN tramadol 50 mg PO Q6H PRN vitamin B complex 1 cap PO DAILY Tobacco use date assessed: 03/04/23 Dental Screening Dental Screen Date: 03/04/23 Did you have a dental visit in the last 12 months?: Yes Did you have a dental problem in the last 6 months where you did not have access to dental care?: No Was dental information given to patient?: Patient has dentist HPI f/u HTN HPI Details Chavo is 63-year-old male here today for follow-up visit. Patient has a past medical history significant for MS, , essential hypertension, BPH, type 2 diabetes ectt.. Concerns--> he reports he has been having a sharp pain intermittently down his right leg causes him inability to walk long distances. Reports the original injury in July of 2022 while jogging felt a sharp pain in his and ankle in the right side. He now has the pain radiating from his ankle up past his knee into his lateral thigh. He has not had any evaluation till now. He continues to have pain only on exertion and lying down at night. ?CHRONIC MEDICAL CONDITIONS--> HTN: Blood pressure acceptable today in office . Has been not very compliant lisinopril.? He reports home readings have been 110s to 120 systolic.? Today blood pressure acceptable in office.? He reports he continues to be physically active jogging 3 times per week. Reports at home at home his blood pressure have been 120- 130s systolic. ? .. ? .. ? Diabetes type 2: Most recent A1c - 6.0 . Patient is currently has his diabetes diet controlled.? Most recent fasting blood sugars have been stable. He has not been taking any diabetic medication as he has been able to control his diabetes with lifestyle modifications. ? . ? .. ? M.S : Is followed by Neurology at [facility], gets a MRI- Brain q 6 month , patient does report having frustrations over at times having to work find and not being able to pronounce words. He believes this is secondary to his MS. Also reports having pain down his bilateral arms which he feels is muscular related to his MS.?? He continues on injection therapy for MS 3 times a week. [facility] Medical History AAA (abdominal aortic aneurysm) Dysuria BPH (benign prostatic hyperplasia) HTN (hypertension) Hyperlipidemia Diabetes mellitus Bladder outlet obstruction Weak urinary stream Nocturia Stress incontinence, male Surgical History History of removal of cyst History of appendectomy History of hernia repair Family History Father Diabetes Mother No problems noted. Maternal Uncle Myocardial infarction Sister No problems noted. Son No problems noted. Son No problems noted. Daughter No problems noted. Brother No problems noted. Brother No problems noted. Brother No problems noted. 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 Cognitive needs: No Hearing needs: No Vision needs: No Questionnaire PHQ-9 Over the last 2 weeks, how often have you been bothered by any of the following problems? 1. Little interest or pleasure in doing things: not at all 2. Feeling down, depressed, or hopeless: not at all 3. Trouble falling or staying asleep, or sleeping too much: not at all 4. Feeling tired or having little energy: not at all 5. Poor appetite or overeating: not at all 6. Feeling bad about yourself - or that you are a failure or have let yourself or your family down: not at all 7. Trouble concentrating on things, such as reading the newspaper or watching television: not at all 8. Moving or speaking so slowly that other people could have noticed. Or the opposite - being so fidgety or restless that you have been moving around a lot more than usual: not at all 9. Thoughts that you would be better off or of hurting yourself in some way: not at all Total score: 0 Depression Screening Interpretation: Negative Depression Screening Done: Yes 72457 - PHQ-9 Billing: Yes Source: Developed by Drs. Kam Becker, Lucille Marsh, Trae Roy and colleagues, with an educational catalina from [employer]. Thrive Questionnaire Date Thrive assessed: 03/04/23 I am a: Patient What is your living situation today?: I have a steady place to live Within the past 12 months, did the food you bought not last and you didn't have the money to get more?: Never true Within the past 12 months, did you worry whether your food would run out before you got money to buy more?: Never true Do you have trouble paying for medicines?: No Do you have trouble getting transportation to medical appointments?: No Do you have trouble paying your heating and electricity bill?: No Do you have trouble taking care of your child, family member or friend?: No Do you have trouble with day-to-day activities such as bathing, preparing meals, shopping, managing finances, etc.?: No Are you currently unemployed and looking for a job?: No Are you interested in more education?: No Please select the resources that you would like help with: None Currently or been in a relationship where the following occur: no concerns reported AUDIT C Alcohol Use Questionnaire (AUDIT-C) 1. How often do you have a drink containing alcohol?: Never Total Score: 0 Score Reviewed/Action Taken: No ADRIEN-7 AMB Questionnaire ADRIEN-7 Date ADRIEN - 7 assessed: 03/04/23 Feeling nervous, anxious, or on edge: 0 = Not at all Not being able to stop or control worryin = Not at all Worrying too much about different things: 0 = Not at all Trouble relaxin = Not at all Being so restless that it is hard to sit still: 0 = Not at all Becoming easily annoyed or irritable: 0 = Not at all Feeling afraid as if something awful might happen: 0 = Not at all Total ADRIEN-7 score (0-4 normal; 5-9 mild; 10-14 moderate; 15-21 severe): 0 Source: Developed by Drs. Kam Becker, Lucille Marsh, Trae Roy and colleagues, with an educational catalina from [employer]. ADRIEN-7 Assessment Billing ADRIEN-7 Assessment Tool: ADRIEN-7 Assessment 72455 Review of Systems Const Denies headache(s) Eyes Denies loss of vision ENT Denies vertigo, Denies dizziness, Denies headache(s) and Denies sore throat Card Denies chest pain, Denies leg edema and Denies lightheadedness Resp Denies cough, Denies hemoptysis and Denies wheezing GI Denies abdominal pain, Denies melena, Denies constipation, Denies diarrhea and Denies vomiting Denies dysuria, Denies urinary frequency and Denies urinary urgency Musc Denies arthralgias, Denies joint swelling, Denies numbness and Denies tingling Neuro Denies Abnormal speech present, Denies behavioral changes, Denies vertigo, Denies dizziness, Denies headache(s), Denies loss of vision, Denies memory loss, Denies numbness and Denies tingling Psych Denies anxiety, Denies behavioral changes, Denies depression, Denies memory loss and Denies panic attacks Benjamin/Lymph Denies easy bleeding and Denies easy bruising Aller/Immun Denies wheezing Physical exam (Primary Care) Vital Signs: Last Vital Signs Pulse 90 03/04/23 10:09 BP 116/64 03/04/23 10:09 Pulse Ox 98 03/04/23 10:09 Oxygen Delivery Method Room Air 03/04/23 10:09 BMI result Body Mass Index 29.0 Tobacco/Smoking Status: Tobacco use Status Tobacco use date assessed 03/04/23 03/04/23 10:21 Patient Tobacco Use Status Never used Tobacco 03/04/23 10:09 e-Cigarette/Vaping Use Never Used 03/04/23 10:09 PHQ-9: PHQ-9 Score PHQ-9: Total score 0 03/04/23 10:48 Depression Screening Interpretation: Negative Thrive Assessment: Date of Thrive Assessment Date Thrive assessed 03/04/23 03/04/23 10:11 Currently or been in a relationship where the following occur: no concerns reported Const General: healthy appearing, no acute distress, alert and awake Nutritional Appearance: well nourished Orientation/consciousness: oriented to person, oriented to place and oriented to time [facility] Ears: TM's normal bilaterally General nose exam: Normal nasal mucous membranes and turbinates present Eyes Conjunctivae: conjunctivae normal Sclerae: sclerae normal Pupils: Equal, round and reactive pupils present Neck Neck: Yes no lymphadenopathy and Yes no JVD Thyroid: Thyroid normal Carotids: no bruits Resp Effort & Inspection: normal respiratory effort and not tachypneic Auscultation: no crackles, no rales, no rhonchi and no wheezes Cardio Rate: regular rate Rhythm: regular rhythm Heart sounds: no murmurs and normal S1 and S2 GI Palpation (GI): Soft to palpation, nontender, no hepatomegaly and no splenomegaly Auscultation: normal bowel sounds Skin General skin exam: no rashes or lesions noted and dry skin Neuro General: oriented to person, oriented to place and oriented to time Cranial nerves: Yes Equal, round and reactive pupils present Speech: No Abnormal speech present Gait exam (Neuro): Normal gait present Motor exam (neuro): no tremor noted Extrem Right upper extremity: full ROM Left upper extremity: full ROM Right lower extremity: full ROM; no edema Left lower extremity: full ROM; no edema Psych Mental Status: mental status grossly normal Speech and movement: Normal speech and movement present Affect: normal affect Attitude: cooperative Thought process: Normal thought process present Assessment and Plan Assessment & Plan (1) HTN (hypertension): Code(s): I10 - Essential (primary) hypertension Qualifiers: Hypertension type: essential hypertension Qualified Code(s): I10 - Essential (primary) hypertension Plan: Patient's blood pressure acceptable today in office.. CONTINUE LISINOPRIL AT CURRENT DOSE. Goal blood pressure to be below 140/90 (2) ADRIEN (generalized anxiety disorder): Code(s): F41.1 - Generalized anxiety disorder Plan: Patient's ADRIEN-7 positive for mild anxiety which has been existing condition for him. Does use lorazepam on a very limited p.r.n. basis (3) Multiple sclerosis: Code(s): G35 - Multiple sclerosis Plan: Patient continues to follow MS specialist neurologist and does get treatments on a weekly basis. (4) DMII (diabetes mellitus, type 2): Code(s): E11.9 - Type 2 diabetes mellitus without complications Qualifiers: Diabetes mellitus complication status: with hyperglycemia Diabetes mellitus fci insulin use: without terminal operator use Qualified Code(s): E11.65 - Type 2 diabetes mellitus with hyperglycemia Plan: Patient's type 2 diabetes has been controlled with lifestyle modifications. Did have an A1c of 6.8 in 2019. Most recent fasting blood sugars are acceptable. Goal A1c to be below 7.0 (5) Erectile dysfunction associated with type 2 diabetes mellitus: Code(s): E11.69 - Type 2 diabetes mellitus with other specified complication; N52.1 - Erectile dysfunction due to diseases classified elsewhere Plan: Patient willing to try Cialis (6) Left Achilles tendinitis: Code(s): M76.62 - Achilles tendinitis, left leg Plan: Patient's signs and symptoms seems most consistent with a tendinitis. Physical exam fairly benign without any masses palpated- negative Anne's test. Do not believe x-ray will be helpful here Has been evident over the last 6 months and is only worse when physically active. In he will likely benefit from physical therapy. Will try for MRI of left lower extremity to evaluate for any partial tear of the Achilles tendon. (7) Strain of left quadriceps: Code(s): S76.112A - Strain of left quadriceps muscle, fascia and tendon, initial encounter Qualifiers: Encounter type: initial encounter Qualified Code(s): S76.112A - Strain of left quadriceps muscle, fascia and tendon, initial encounter (8) Allergic rhinitis: Code(s): J30.9 - Allergic rhinitis, unspecified Qualifiers: Allergic rhinitis seasonality: seasonal Allergic rhinitis trigger: other Qualified Code(s): J30.89 - Other allergic rhinitis Plan: Patient interested in trying a nasal spray. He does have allergic rhinitis during the wintertime. (9) Borderline high cholesterol: Code(s): E78.9 - Disorder of lipoprotein metabolism, unspecified Plan: Has a history of borderline high total cholesterol. Will continue to follow lipid panel with goal LDL to remain below 130 (10) Impaired glucose metabolism: Code(s): R73.09 - Other abnormal glucose Plan: Patient continues to have impaired fasting blood sugars. A1cs have been stable. Will continue to follow fasting blood sugar and A1c to ensure not in diabetic range. Orders: Orders Hemoglobin A1c Today E11.65 - Type 2 diabetes mellitus with hyperglycemia Complete Blood Count no Diff Today G35 - Multiple sclerosis Prostate Specific Antigen Scr Today G35 - Multiple sclerosis, Z12.5 - Encounter for screening for malignant neoplasm of prostate Lipid Panel Today E78.9 - Disorder of lipoprotein metabolism, unspecified Microalbumin, Random (w Creat) Today I10 - Essential (primary) hypertension Comprehensive [place]. Panel Fast Today I10 - Essential (primary) hypertension PT Evaluation and Treatment Today S76.112A - Strain of left quadriceps muscle, fascia and tendon, initial encounter MR lower leg LT wo con Today M76.62 - Achilles tendinitis, left leg Medications: New magnesium 250 mg PO DAILY 90 days 90 tabs 1RF S76.112A - Strain of left quadriceps muscle, fascia and tendon, initial encounter fluticasone propionate 50 mcg/actuation (Flonase Allergy Relief) administer into each nostril 1 spray intranasal BID 30 days 16 grams 3RF J30.89 - Other allergic rhinitis Refilled hydroxyzine HCl 25 mg PO BEDTIME PRN 90 tabs 1RF for itch F41.1 - Generalized anxiety disorder Discontinued tramadol Discontinued Reason: Doctor's Order 50 mg PO Q6H PRN 20 tabs 0RF pain Coding Level of Care Code Est Pt Level 4 (81073) Diagnoses Essential hypertension I10 Hypertension type: essential hypertension ADRIEN (generalized anxiety disorder) F41.1 Multiple sclerosis G35 Type 2 diabetes mellitus with hyperglycemia, without long-term current use of insulin E11.65 Diabetes mellitus complication status: with hyperglycemia Diabetes mellitus terminal operator insulin use: without terminal operator use Erectile dysfunction associated with type 2 diabetes mellitus E11.69; N52.1 Left Achilles tendinitis M76.62 Strain of left quadriceps, initial encounter S76.112A Encounter type: initial encounter Seasonal allergic rhinitis due to other allergic trigger J30.89 Allergic rhinitis seasonality: seasonal Allergic rhinitis trigger: other Borderline high cholesterol E78.9 Impaired glucose metabolism R73.09 Additional Codes ADRIEN-7 Assessment Billing - ADRIEN-7 Assessment Tool: ADRIEN-7 Assessment [id number] ([id number])
== END 2023-03-04 10:54 | disposition home or self-care (01) ==
PROVIDERS: PCP Physician Assistant; Visit Provider Physician Assistant
DX: I10 Essential (primary) hypertension (principal); G35 Multiple sclerosis; E11.65 Type 2 diabetes mellitus with hyperglycemia; E11.69 Type 2 diabetes mellitus with other specified complication; F41.1 Generalized anxiety disorder; N52.1 Erectile dysfunction due to diseases classified elsewhere; M76.62 Achilles tendinitis, left leg; S76.112A Strain of left quadriceps muscle, fascia and tendon, initial encounter; J30.89 Other allergic rhinitis; E78.9 Disorder of lipoprotein metabolism, unspecified; R73.09 Other abnormal glucose
CPT/HCPCS: 99214

== ENCOUNTER 2023-03-09 07:43 | Outpatient (REF) | payer OTHER, SELFPAY ==
[2023-03-09 09:33] LABS: Hematocrit 42.9 % (42.0-52.0); Hemoglobin 14.2 g/dl (14.0-18.0); Mean Corpuscular HGB Conc 33.1 g/dl (31.0-36.0); Mean Corpuscular Hemoglobin 28.8 pg (27.0-33.0); Mean Platelet Volume 10.2 fL (9.4-12.4); Platelet Count 172 X10*3/uL (160-400); Red Blood Count 4.93 X10*6/uL (4.60-5.80); Red Cell Distribution Width 12.5 % (11.0-16.0); White Blood Count 25.2 X10*3/uL (4.8-10.8)
[2023-03-09 09:50] LABS: Estimated Average Glucose 123 mg/dL; Hemoglobin A1c % 5.9 % (<6.0)
[2023-03-09 10:17] LABS: Alanine Aminotransferase 33 U/L (0-40); Albumin Level 4.5 g/dL (3.5-5.0); Alkaline Phosphatase 72 U/L (39-117); Anion Gap 14 (12-20); Aspartate Amino Transferase 25 U/L (5-37); Bilirubin Total 0.5 mg/dL (0.0-1.0); Blood Urea Nitrogen 17 mg/dL (9-16); Calcium 9.8 mg/dL (8.4-10.2); Carbon Dioxide 30 mmol/L (22-29); Chloride 104 mmol/L (96-108); Cholesterol 180 mg/dL (<200); Estimated Glomerular Filt Rate > 60; Glucose Fasting 117 mg/dL (60-99); HDL Cholesterol 26 mg/dL (>40); LDL Cholesterol Calculated 119 mg/dL (<100); Sodium 143 mmol/L (135-145); Total Protein 7.8 g/dL (6.5-8.0); Triglycerides 175 mg/dL (<150)
[2023-03-09 10:24] LABS: TSH reflex Free T4 2.73 uIU/mL (0.32-4.0)
[2023-03-09 10:29] LABS: Prostate Specific Antigen Scr 0.81 ng/mL (<0.05-4.0)
[2023-03-09 11:08] LABS: Creatinine Urine 161.66 mg/dL; Microalbum/Creatinine Ratio Ur 3.7 ug/mg cr (<30)
== END 2023-03-09 07:44 | disposition home or self-care (01) ==
LOC: HO.LAB 07:43
PROVIDERS: PCP Physician Assistant; Visit Provider Physician Assistant
DX: G35 Multiple sclerosis (principal); E11.65 Type 2 diabetes mellitus with hyperglycemia; I10 Essential (primary) hypertension; E78.9 Disorder of lipoprotein metabolism, unspecified; Z12.5 Encounter for screening for malignant neoplasm of prostate
CPT/HCPCS: 36415; 80053; 80061; 82043; 82570; 83036; 84153; 84443; 85027

== ENCOUNTER 2023-03-30 22:43 | Emergency (ER) | payer OTHER, SELFPAY ==
[2023-03-30 22:51] VITALS: BP 124/84; PULSE 74; RESP 18; TEMP 36.5; O2SAT 94; BMI 29.9
[2023-03-30 23:22] VITALS: BP 146/57; PULSE 77; RESP 18; O2SAT 96
== END 2023-03-31 02:07 | disposition left against medical advice (07) ==
PROVIDERS: Emergency Provider Emergency Medicine; PCP Physician Assistant
DX: M54.50 Low back pain, unspecified (principal)
CPT/HCPCS: 99281; 99282

== ENCOUNTER 2023-03-31 18:39 | Outpatient (REF) | payer OTHER, SELFPAY ==
--- NOTE | ~2023-03-31 | MR_ITS ---
EXAMINATION: MR LOWER LEG WITHOUT CONTRAST, LEFT CLINICAL INFORMATION: Left leg pain. Achilles tendinitis. COMPARISON: None. TECHNIQUE: Multisequence MR imaging of the left lower leg was obtained without contrast on a high-field strength scanner. FINDINGS: BONE: No abnormal marrow signal. No stress reaction, fracture, or avascular necrosis. No concerning lytic or blastic osseous lesion. MUSCLES/TENDONS: Mild thickening of the distal Achilles tendon with minimally increased T2 signal, consistent tendinosis. No transverse tendon tear or tendon retraction. Evaluation of the Achilles tendon distally is somewhat limited on large wiuzq-on-zikn imaging. Minimally increased T2 signal along the peroneal brevis and peroneal longus myotendinous junction just proximal to the lateral malleolus, which could represent a mild strain. No full-thickness transverse tendon tear or tendon retraction. No significant muscle edema or evidence of acute muscle strain. LIGAMENTS: Grossly intact left ankle ligaments; however, evaluation limited on large kejyg-yx-ydyq imaging. SOFT TISSUES: No abnormal soft tissue mass or fluid collection. MR/MR lower leg LT wo con IMPRESSION: 1. Mild distal Achilles tendinosis without a transverse tendon tear or tendon retraction. Evaluation of the Achilles tendon distally is somewhat limited on large mkbuq-[id number]-wrqs imaging. 2. Possible mild strain of the peroneal brevis and peroneal longus myotendinous junctions just proximal to the lateral malleolus. No full-thickness transverse tendon tear or tendon retraction. 3. No acute osseous abnormality.
== END 2023-03-31 18:40 | disposition home or self-care (01) ==
LOC: HO.MRI 18:39
PROVIDERS: PCP Physician Assistant; Visit Provider Physician Assistant
DX: M76.62 Achilles tendinitis, left leg (principal)
CPT/HCPCS: 73718

== ENCOUNTER 2023-05-30 00:13 | Emergency (ER) | payer OTHER, SELFPAY ==
[2023-05-30 00:37] VITALS: BP 146/71; PULSE 89; RESP 16; TEMP 36.9; O2SAT 97; BMI 29.0
== END 2023-05-30 02:10 | disposition left against medical advice (07) ==
PROVIDERS: Emergency Provider Emergency Medicine
DX: Z53.21 Procedure and treatment not carried out due to patient leaving prior to being seen by health care provider (principal); R10.9 Unspecified abdominal pain
CPT/HCPCS: 99281

== ENCOUNTER 2023-06-24 10:56 | Emergency (ER) | payer OTHER, SELFPAY ==
[2023-06-24 11:11] VITALS: BP 145/79; PULSE 75; RESP 16; TEMP 36.8; O2SAT 98; BMI 29.0
--- NOTE | 2023-06-24 11:18 | ED_ITS ---
HPI - Dental/Oral General Chief complaint: Dental/Oral Stated complaint: dental pain Time Seen by Provider: 06/24/23 11:16 Source: patient Mode of arrival: ambulatory Limitations: no limitations History of Present Illness HPI Narrative: Patient is a 63-year-old male with history of HTN, BPH, GERD presenting to the emergency department with complaint of right upper jaw pain for the past 3 days. Patient states that he has multiple extractions scheduled with his dentist to be performed under general anesthesia for tomorrow morning. He states that he wants to ensure he does not have a dental infection prior to this procedure. Denies any discharge or drainage from the area. Denies any fevers, chills, body aches. He has not taken any [id number] medications for his symptoms. MD Complaint: tooth pain Onset (ago): day(s) Duration: constant Severity: moderate Context: history of dental caries Treatment prior to arrival: none Related Data Home Medications ?Medication ?Instructions ?Recorded ?Confirmed glatiramer 40 mg/mL subcutaneous 40 mg subcut MOWEFR 01/04/20 03/04/23 syringe cholecalciferol (vitamin D3) 25 25 mcg PO DAILY 05/28/22 03/04/23 mcg (1,000 unit) tablet tizanidine 2 mg tablet 2 mg PO Q8H PRN muscle spasm 05/28/22 03/04/23 vitamin B complex 1 cap PO DAILY 05/28/22 03/04/23 Previous Rx's ?Medication ?Instructions ?Recorded fluticasone propionate 50 1 spray intranasal BID 30 days #16 06/03/22 mcg/actuation nasal grams spray,suspension (Flonase Allergy Relief) clotrimazole-betamethasone 1 1 appl topical BID 30 days #45 06/22/22 %-0.05 % topical cream grams lorazepam 0.5 mg tablet 0.5 mg PO DAILY PRN anxiety 5 days 06/22/22 #5 tabs leg brace (Knee Support Brace) #1 ea 06/29/22 miscellaneous medical supply 1 ea miscellaneous DAILY 99 days 06/29/22 #1 ea miscellaneous medical supply #1 ea 06/29/22 (Blood Pressure Cuff) tadalafil 20 mg tablet 20 mg PO DAILY PRN sexual activity 06/29/22 7 days #7 tabs loratadine 10 mg tablet 10 mg PO DAILY 30 days #30 tabs 09/12/22 bath tub seat #1 ea 11/27/22 shower wand #1 ea 11/27/22 food supplemt, lactose-reduced 1 ea PO .daily 24 days #5,688 mL 01/05/23 (Ensure High Protein oral liquid) alfuzosin 10 mg tablet,extended 10 mg PO DAILY 90 days #90 tabs 01/29/23 release 24 hr hydroxyzine HCl 25 mg tablet 25 mg PO BEDTIME PRN for itch #90 03/04/23 tabs magnesium 250 mg tablet 250 mg PO DAILY 90 days #90 tabs 03/04/23 cetirizine 10 mg tablet 10 mg PO DAILY 30 days #30 tabs 04/30/23 lisinopril 20 mg tablet 20 mg PO DAILY 90 days #90 tabs 05/28/23 fluticasone propionate 50 1 spray intranasal BID 30 days #16 06/01/23 mcg/actuation nasal grams spray,suspension (Flonase Allergy Relief) oxycodone 5 mg tablet 5 mg PO Q8H PRN severe pain (scale 06/24/23 score 7-10) #3 tabs Allergies Allergy/AdvReac Type Severity Reaction Status Date / Time Sulfa (Sulfonamide Allergy Unknown RASH Verified 06/24/23 11:12 Antibiotics) [Sulfa (Sulfonamides)] sulfacetamide Allergy Unknown Hives Verified 06/24/23 11:12 [From Sulfacet-R] sulfur [From Sulfacet-R] Allergy Unknown Hives Verified 06/24/23 11:12 Review of Systems 2 Review of Systems: As per HPI. Yes all other systems are reviewed and are negative Constitutional: Constitutional: Reports as per HPI [facility] Past Medical History Medical History AAA (abdominal aortic aneurysm) Dysuria BPH (benign prostatic hyperplasia) HTN (hypertension) Hyperlipidemia Diabetes mellitus Bladder outlet obstruction Weak urinary stream Nocturia Stress incontinence, male Surgical History History of removal of cyst History of appendectomy History of hernia repair Family History Family History Father Diabetes Mother No problems noted. Maternal Uncle Myocardial infarction Sister No problems noted. Son No problems noted. Son No problems noted. Daughter No problems noted. Brother No problems noted. Brother No problems noted. Brother No problems noted. 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 Cognitive needs: No Hearing needs: No Vision needs: No Physical Exam 2 Vital Signs: Vital Signs: Last Vital Signs Temp 98.2 F 06/24/23 11:11 Pulse 75 06/24/23 11:11 Resp 16 06/24/23 11:11 BP 145/79 H 06/24/23 11:11 Pulse Ox 98 06/24/23 11:11 O2 Del Method Room Air 06/24/23 11:11 BMI result Body Mass Index 29.0 Vital signs have been reviewed and appear to be correct. Blood pressure mildly elevated. Heart rate normal. Respiratory rate normal. Temperature normal. Oxygen saturation normal. Const: General: cooperative, healthy appearing and no acute distress O rientation/consciousness: oriented to person, oriented to place, oriented to time and patient oriented x3 Limitations: no limitations HEENT: Head: Yes normocephalic and Yes atraumatic Ears: external ears normal General nose exam: Normal external nose present Face and sinus: Yes face symmetric Mouth: oropharynx normal and moist mucous membranes Teeth and gingiva: poor dentition Teeth image: 1. edentulous in area of #1/2, area nontender, no erythema, edema, fluctuance, or drainage Throat: Yes uvula midline Eyes: Pupils: Equal, round and reactive pupils present Neck: Neck: Yes normal visual inspection, Yes full ROM, Yes no lymphadenopathy and Yes supple Resp: Effort & Inspection: normal respiratory effort and able to speak in complete sentences Auscultation: clear to auscultation bilaterally Cardio: Rate: regular rate Rhythm: regular rhythm Heart sounds: S1 normal heart sound present and S2 normal heart sound present Skin: General skin exam: elasticity normal and turgor normal Neuro: General: oriented to person, oriented to place, oriented to time, patient oriented x3, moves all extremities, no focal motor deficits and CN's II- XI intact bilaterally Cranial nerves: Yes Equal, round and reactive pupils present Cognition (Neuro): normal cognition Extrem: General: Yes full ROM, Yes no pedal edema and Yes no calf tenderness Psych: Mental Status: mental status grossly normal Affect: normal affect Thought process: Normal thought process present Medical Decision Making Medical Decision Making MDM Narrative: Patient is a 63-year-old male with history of HTN, BPH, GERD presenting to the emergency department with complaint of right upper jaw pain for the past 3 days. On exam patient is awake, A+Ox3, VS WNL, afebrile, normal neurological exam without focal deficits, physical exam findings as above. Given reported symptoms and physical exam findings, initial differential includes dental pain, dental infection, dental abscess. Physical exam not consistent with abscess or infection. Patient informed of this and then requested pain medication. No concerns on review of [employer]. Advised patient alternate Tylenol and ibuprofen, will prescribe 3 tabs of oxycodone for severe pain to get patient through until procedure tomorrow morning. Discussed with patient that he can also swish with warm salt water several times daily. Instructed patient to keep appointment. Return precautions discussed at bedside. Patient verbalized understanding of and agreement with plan. Differential Diagnosis Differential Diagnoses: The differential diagnosis associated with the presentation includes As per MDM. External Record Review External record reviewed: Inpatient record, Office record and Outpatient record Prescription Management I considered prescription management with: Pain Medication Discharge Plan Discharge Clinical Impression: Dental infection Patient Disposition: Home, Self-Care Instructions: Toothache (ED) Additional Instructions: You were evaluated in the emergency department today for dental infection. Your physical exam did not show evidence of infection. You are being prescribed 3 tabs of pain medicine for severe pain. We recommend that you also take Tylenol and ibuprofen per package instructions as needed for discomfort. You can also swish warm salt water in your mouth several times daily. Please keep your previously scheduled appointment with your dentist for tomorrow. Return to the emergency department if you develop discharge or drainage from the area, difficulty swallowing, fever or any other concerning symptoms. Prescriptions: New oxycodone 5 mg tablet 5 mg PO Q8H PRN (Reason: severe pain (scale score 7-10)) Qty: 3 0RF Rx Instructions: Partial Fill upon patient request. No Action glatiramer 40 mg/mL syringe 40 mg subcut MOWEFR Rx Instructions: administer doses at least 48 hours apart fluticasone propionate [Flonase Allergy Relief] 50 mcg/actuation spray,suspension 1 spray intranasal BID 30 Days Qty: 16 1RF Rx Instructions: administer into each nostril (DME) bath tub seat See Rx Instructions .Route .MEDSUPPLY Qty: 1 0RF Rx Instructions: As directed ([facility]) shower wand See Rx Instructions .Route .MEDSUPPLY Qty: 1 0RF Rx Instructions: As directed Ensure High Protein Liquid 1 ea PO .daily 24 Days Qty: 5688 0RF cetirizine 10 mg tablet 10 mg PO DAILY 30 Days Qty: 30 6RF lisinopril 20 mg tablet 20 mg PO DAILY 90 Days Qty: 90 1RF fluticasone propionate [Flonase Allergy Relief] 50 mcg/actuation spray,suspension 1 spray intranasal BID 30 Days Qty: 16 1RF Rx Instructions: administer into each nostril tizanidine 2 mg tablet 2 mg PO Q8H PRN (Reason: muscle spasm) vitamin B complex Capsule 1 cap PO DAILY cholecalciferol (vitamin D3) 25 mcg (1,000 unit) Tablet 25 mcg PO DAILY loratadine 10 mg tablet 10 mg PO DAILY 30 Days Qty: 30 0RF (DME) Blood Pressure Cuff [facility] See Rx Instructions .ROUTE .MEDSUPPLY Qty: 1 0RF Rx Instructions: As directed [facility] miscellaneous DAILY 99 Days Qty: 1 0RF tadalafil 20 mg tablet 20 mg PO DAILY PRN (Reason: sexual activity) 7 Days Qty: 7 0RF (DME) Knee Support Brace [facility] [place] See Rx Instructions .Route Qty: 1 0RF Rx Instructions: As directed hydroxyzine HCl 25 mg tablet 25 mg PO BEDTIME PRN (Reason: for itch) Qty: 90 1RF magnesium 250 mg tablet 250 mg PO DAILY 90 Days Qty: 90 1RF lorazepam 0.5 mg tablet 0.5 mg PO DAILY PRN (Reason: anxiety) 5 Days Qty: 5 0RF clotrimazole-betamethasone 1-0.05 % cream 1 appl topical BID 30 Days Qty: 45 0RF alfuzosin 10 mg tablet extended release 24 hr 10 mg PO DAILY 90 Days Qty: 90 3RF Rx Instructions: administer after the same meal each day Print Language: Pakistani
[2023-06-24 11:48] VITALS: BP 145/79; PULSE 75; RESP 16; TEMP 36.8; O2SAT 98
== END 2023-06-24 11:49 | disposition home or self-care (01) ==
PROVIDERS: Emergency Provider Emergency Medicine; PCP Physician Assistant
DX: K04.7 Periapical abscess without sinus (principal)
CPT/HCPCS: 99282; 99283

== ENCOUNTER 2023-07-06 10:48 | Outpatient (AMB) | payer OTHER, SELFPAY ==
--- NOTE | 2023-07-06 10:58 | A.OFFPC_ITS ---
Vital Signs 07/06/23 10:59 Height 5 ft 6 in Weight 183 lb 6 oz BMI 29.6 BP 122/70 Blood Pressure Location Lt brachial Position Sitting Pulse 69 Pulse Source Pulse Oximeter Pulse Oximetry (%) 99 Oxygen Delivery Method Room Air Intake Visit Reasons: f/u HTN Intake Note: Patient is here to follow up on HTN, DM. Complain of stomach pain since 07/04/23 Sign Language Translator Required: No Picker And Packer: Not Required per policy Accompanied by: Self / Same As Patient Allergies Sulfa (Sulfonamide Antibiotics) [Sulfa (Sulfonamides)] Allergy (Unknown, Verified 07/06/23 17:42) RASH sulfacetamide [From Sulfacet-R] Allergy (Unknown, Verified 07/06/23 17:42) Hives sulfur [From Sulfacet-R] Allergy (Unknown, Verified 07/06/23 17:42) Hives Medication List - Last Reconciled 07/06/23 by Simeon Sarkar PA-C alfuzosin ER 10 mg PO DAILY 90 days [bath tub seat As directed] cetirizine 10 mg PO DAILY 30 days cholecalciferol (vitamin D3) 25 mcg PO DAILY clotrimazole-betamethasone 1-0.05 % 1 appl topical BID 30 days fluticasone propionate 50 mcg/actuation (Flonase Allergy Relief) 1 spray intranasal BID 30 days food supplemt, lactose-reduced (Ensure High Protein oral liquid) 1 ea PO .daily 24 days glatiramer 40 mg subcut MOWEFR hydroxyzine HCl 25 mg PO BEDTIME PRN leg brace (Knee Support Brace) As directed lisinopril 20 mg PO DAILY 90 days loratadine 10 mg PO DAILY 30 days lorazepam 0.5 mg PO DAILY PRN 5 days magnesium 250 mg PO DAILY 90 days miscellaneous medical supply (Blood Pressure Cuff) As directed miscellaneous medical supply 1 ea miscellaneous DAILY 99 days oxycodone 5 mg PO Q8H PRN [shower wand As directed] tadalafil 20 mg PO DAILY PRN 7 days tizanidine 2 mg PO Q8H PRN vitamin B complex 1 cap PO DAILY Tobacco use date assessed: 07/06/23 Dental Screening Dental Screen Date: 03/04/23 HPI f/u HTN HPI Details Chavo is 63-year-old male here today for follow-up visit. Patient has a past medical history significant for MS, , essential hypertension, BPH, type 2 diabetes ectt.. Concerns--> he reports over the last 3 days having a lower abdominal pain. He reports the pain is worse when urinating and then released 5 minutes later. He has had similar symptoms in the past and was diagnosed with diverticulitis. He otherwise denies any fevers or chills. No diarrhea or vomiting. He is concerned about this abdominal pain as he was admitted for similar symptoms last year in July of 2022. ?CHRONIC MEDICAL CONDITIONS--> HTN: Blood pressure acceptable today in office . Has been not very compliant lisinopril.? He reports home readings have been 110s to 120 systolic.? Today blood pressure acceptable in office.? He reports he continues to be physically active jogging 3 times per week. Reports at home at home his blood pressure have been 120- 130s systolic. ?? ?Concerns--> reports over the last 3 days having lower abd pain. ? .. ? Diabetes type 2: Today's A1c at 7.1 . Patient has been trying to control his diabetes with lifestyle and dietary modifications.? He does admit to being a little more inactive due to his left calf issue.. We did discuss perhaps starting metformin though he would like to hold off and work more on lifestyle. ? . ? .. ? M.Chaz : Is followed by Neurology at [facility], gets a MRI- Brain q 6 month , patient does report having frustrations over at times having to work find and not being able to pronounce words. He believes this is secondary to his MS. Also reports having pain down his bilateral arms which he feels is muscular related to his MS.?? He continues on injection therapy for MS 3 times a week. Laboratory Tests 05/30/22 08/17/22 03/09/23 05:22 21:31 08:03 WBC 13.6 H 21.3 H 25.2 H Creatinine 1.03 Fasting Glucose 117 H Hemoglobin A1c % 5.9 [facility] Medical History (Updated 07/07/23 @ 02:11 by Danielle Ruano CNP) AAA (abdominal aortic aneurysm) Dysuria BPH (benign prostatic hyperplasia) HTN (hypertension) Hyperlipidemia Diabetes mellitus Bladder outlet obstruction Weak urinary stream Nocturia Stress incontinence, male Surgical History History of dental surgery History of removal of cyst History of appendectomy History of hernia repair Family History Father Diabetes Mother No problems noted. Maternal Uncle Myocardial infarction Sister No problems noted. Son No problems noted. Son No problems noted. Daughter No problems noted. Brother No problems noted. Brother No problems noted. Brother No problems noted. 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 Cognitive needs: No Hearing needs: No Vision needs: No Questionnaire Thrive Questionnaire Date Thrive assessed: 03/04/23 ADRIEN-7 AMB Questionnaire ADRIEN-7 Date ADRIEN - 7 assessed: 03/04/23 Source: Developed by Drs. Kam Becker, Lucille Marsh, Trae Roy and colleagues, with an educational catalina from [employer]. Review of Systems Const Denies headache(s) Eyes Denies loss of vision ENT Denies vertigo, Denies dizziness, Denies headache(s) and Denies sore throat Card Denies chest pain, Denies leg edema and Denies lightheadedness Resp Denies cough, Denies hemoptysis and Denies wheezing GI Reports abdominal pain, Denies melena, Denies constipation, Denies diarrhea and Denies vomiting Denies dysuria, Denies urinary frequency and Denies urinary urgency Musc Denies arthralgias, Denies joint swelling, Denies numbness and Denies tingling Neuro Denies Abnormal speech present, Denies behavioral changes, Denies vertigo, Denies dizziness, Denies headache(s), Denies loss of vision, Denies memory loss, Denies numbness and Denies tingling Psych Denies anxiety, Denies behavioral changes, Denies depression, Denies memory loss and Denies panic attacks Benjamin/Lymph Denies easy bleeding and Denies easy bruising Aller/Immun Denies wheezing Physical exam (Primary Care) Vital Signs: Last Vital Signs Pulse 69 07/06/23 10:59 BP 122/70 07/06/23 10:59 Pulse Ox 99 07/06/23 10:59 Oxygen Delivery Method Room Air 07/06/23 10:59 BMI result Body Mass Index 29.6 Tobacco/Smoking Status: Tobacco use Status Tobacco use date assessed 07/06/23 07/06/23 11:08 Patient Tobacco Use Status Never used Tobacco 07/06/23 11:08 e-Cigarette/Vaping Use Never Used 07/06/23 11:08 Thrive Assessment: Date of Thrive Assessment Date Thrive assessed 03/04/23 07/06/23 11:08 Const General: healthy appearing, no acute distress, alert and awake Nutritional Appearance: well nourished Orientation/consciousness: oriented to person, oriented to place and oriented to time HENMT Ears: TM's normal bilaterally General nose exam: Normal nasal mucous membranes and turbinates present Eyes Conjunctivae: conjunctivae normal Sclerae: sclerae normal Pupils: Equal, round and reactive pupils present Neck Neck: Yes no lymphadenopathy and Yes no JVD Thyroid: Thyroid normal Carotids: no bruits Resp Effort & Inspection: normal respiratory effort and not tachypneic Auscultation: no crackles, no rales, no rhonchi and no wheezes Cardio Rate: regular rate Rhythm: regular rhythm Heart sounds: no murmurs and normal S1 and S2 GI Palpation (GI): Soft to palpation, nontender, no hepatomegaly and no splenomegaly Auscultation: normal bowel sounds Skin General skin exam: no rashes or lesions noted and dry skin Neuro General: oriented to person, oriented to place and oriented to time Cranial nerves: Yes Equal, round and reactive pupils present Speech: No Abnormal speech present Gait exam (Neuro): Normal gait present Motor exam (neuro): no tremor noted Extrem Right upper extremity: full ROM Left upper extremity: full ROM Right lower extremity: full ROM; no edema Left lower extremity: full ROM; no edema Psych Mental Status: mental status grossly normal Speech and movement: Normal speech and movement present Affect: normal affect Attitude: cooperative Thought process: Normal thought process present Results AMB Hemoglobin A1c AMB Hemoglobin A1c 7.1 % Last Edit by CIARA Headley on 07/06/23 11:09 Results Reviewed Results Reviewed: Laboratory Last Values Hgb A1c (Clinic) 7.1 % (4.0-6.0) H 07/06/23 10:57 Assessment and Plan Assessment & Plan (1) HTN (hypertension): Code(s): I10 - Essential (primary) hypertension Qualifiers: Hypertension type: essential hypertension Qualified Code(s): I10 - Essential (primary) hypertension Plan: Patient's blood pressure acceptable today in office.. CONTINUE LISINOPRIL AT CURRENT DOSE. Goal blood pressure to be below 140/90 (2) Colitis: Code(s): K52.9 - Noninfective gastroenteritis and colitis, unspecified Plan: Patient reports a 3 day history of lower pelvic abdominal pain. He does report when he urinates the pain gets worse and it subsides. Does have a history diverticulitis to which he reports these are similar symptoms. Will empirically treat with Augmentin. Will send for nonfasting labs evaluate for leukocytosis. (3) ADRIEN (generalized anxiety disorder): Code(s): F41.1 - Generalized anxiety disorder Plan: Patient's ADRIEN-7 positive for mild anxiety which has been existing condition for him. Does use lorazepam on a very limited p.r.n. basis (4) Multiple sclerosis: Code(s): G35 - Multiple sclerosis Plan: Patient continues to follow MS specialist neurologist and does get MS treatments . (5) DMII (diabetes mellitus, type 2): Code(s): E11.9 - Type 2 diabetes mellitus without complications Qualifiers: Diabetes mellitus complication status: with hyperglycemia Diabetes mellitus snf insulin use: without snf use Qualified Code(s): E11.65 - Type 2 diabetes mellitus with hyperglycemia Plan: Patient's type 2 diabetes suboptimally controlled with A1c today is 7.1. He does report he has not been as physically active as he usually does. We did discuss starting metformin though he would like to hold off of work on lifestyle and dietary modifications. . Goal A1c to be below 7.0 (6) Borderline high cholesterol: Code(s): E78.9 - Disorder of lipoprotein metabolism, unspecified Plan: Has a history of borderline high total cholesterol. Will continue to follow lipid panel with goal LDL to remain below 130 Orders: Orders AMB Hemoglobin A1c 07/06/23 E11.65 - Type 2 diabetes mellitus with hyperglycemia Basic Metabolic Panel 07/06/23 K52.9 - Noninfective gastroenteritis and colitis, unspecified Complete Blood Count no Diff 07/06/23 K52.9 - Noninfective gastroenteritis and colitis, unspecified UA CC w/rflx Micro + Cult 07/06/23 R30.0 - Dysuria Lipid Panel 3 Months E78.9 - Disorder of lipoprotein metabolism, unspecified Complete Blood Count no Diff 3 Months E11. - Type 2 diabetes mellitus with hyperglycemia Comprehensive [place]. Panel Fast 3 Months - Type 2 diabetes mellitus with hyperglycemia Hemoglobin A1c 3 Months . - Type 2 diabetes mellitus with hyperglycemia Medications: New amoxicillin-pot clavulanate 875-125 mg 1 tab PO BID 10 days 20 tabs 0RF K52.9 - Noninfective gastroenteritis and colitis, unspecified Refilled hydroxyzine HCl 25 mg PO BEDTIME PRN 90 tabs 1RF for itch F41.1 - Generalized anxiety disorder Patient Instructions: Goals: A1c to be below 7.0. :Barriers: Adherence to healthy eating habits and physical activity. Coding Level of Care Code Est Pt Level 4 (56381) Diagnoses Essential hypertension I10 Hypertension type: essential hypertension Colitis K52.9 ADRIEN (generalized anxiety disorder) F41.1 Multiple sclerosis G35 Type 2 diabetes mellitus with hyperglycemia, without long-term current use of insulin Diabetes mellitus complication status: with hyperglycemia Diabetes mellitus snf insulin use: without snf use Borderline high cholesterol E78.9
[2023-07-06 10:59] VITALS: BP 122/70; PULSE 69; O2SAT 99; BMI 29.6
== END 2023-07-06 11:32 | disposition home or self-care (01) ==
PROVIDERS: PCP Physician Assistant; Visit Provider Physician Assistant
DX: E11.65 Type 2 diabetes mellitus with hyperglycemia (principal)
CPT/HCPCS: 83036; 99214

== ENCOUNTER 2023-07-06 11:42 | Outpatient (REF) | payer OTHER, SELFPAY ==
[2023-07-06 12:11] LABS: Hematocrit 42.5 % (42.0-52.0); Mean Corpuscular HGB Conc 32.9 g/dl (31.0-36.0); Mean Corpuscular Hemoglobin 28.4 pg (27.0-33.0); Mean Corpuscular Volume 86.2 fL (80.0-98.0); Mean Platelet Volume 9.6 fL (9.4-12.4); Platelet Count 182 X10*3/uL (160-400); Red Blood Count 4.93 X10*6/uL (4.60-5.80); Red Cell Distribution Width 12.5 % (11.0-16.0)
[2023-07-06 12:43] LABS: Anion Gap 14 (12-20); Blood Urea Nitrogen 13 mg/dL (9-16); Calcium 9.3 mg/dL (8.4-10.2); Carbon Dioxide 26 mmol/L (22-29); Chloride 103 mmol/L (96-108); Estimated Glomerular Filt Rate > 60; Glucose Random 100 mg/dL (60-115); Potassium 4.3 mmol/L (3.3-5.1); Sodium 139 mmol/L (135-145)
[2023-07-06 13:28] LABS: Appearance Urine Clear; Color Urine Yellow; Glucose Urine UA Negative (Negative); Leukocyte Esterase Urine Negative (Negative); Nitrite Urine Negative (Negative); PH 5.5 (5.0-9.0); Specific Gravity - Urine 1.015 (1.005-1.025); Urine Blood Negative (Negative); Urine Ketones Negative (Negative); Urine Protein Negative (Neg-Trace)
== END 2023-07-06 11:43 | disposition home or self-care (01) ==
LOC: HO.LAB 11:42
PROVIDERS: PCP Physician Assistant; Visit Provider Physician Assistant
DX: Z13.89 Encounter for screening for other disorder (principal)
CPT/HCPCS: 36415; 80048; 81003; 85027

== ENCOUNTER 2023-07-06 16:01 | Inpatient (IN) | payer OTHER, SELFPAY ==
--- NOTE | ~2023-07-06 | CT_ITS ---
EXAMINATION: CT ABDOMEN AND PELVIS WITH CONTRAST CLINICAL INFORMATION: Abdominal pain. History of diverticulitis. COMPARISON: 08/17/2022 TECHNIQUE: Multidetector volumetric images were obtained from the superior aspect of the liver through the pubic symphysis following administration 85 mL of Omnipaque 350 intravenous contrast. Sagittal and coronal reformatted images were obtained on the technologist's workstation. Oral contrast: No This CT examination was performed using dose optimization techniques as appropriate, variously including the following: *Automated exposure control *Adjustment of mA and/or kV according to patient size (this includes techniques or standardized protocols for targeted exams where dose is matched to indication/reason for exam; i.e. extremities or head) *Use of iterative reconstruction technique DLP: 510 mGy-cm FINDINGS: LUNG BASES: No pulmonary consolidation or pleural effusion. There is atherosclerotic calcification of coronary arteries and of partially visualized thoracic aorta. HEPATOBILIARY: Liver has normal size, shape, and attenuation. Gallbladder has a normal appearance. No dilated bile ducts. PANCREAS: No edema, pancreatic ductal dilatation or mass. SPLEEN: Normal. ADRENAL GLANDS: Normal. KIDNEYS AND URETERS: Kidneys have normal size and cortical thickness. No perinephric fluid collection, urolithiasis or hydroureteronephrosis. BLADDER: Normal. BOWEL AND PERITONEUM: No dilated bowel loops. Status post appendectomy. Multiple diverticula of the colon. There is mild haziness of the fat around a thick-walled diverticulum of the sigmoid colon. No bowel perforation or abscess. ABDOMINAL WALL: Unremarkable. VASCULATURE: There is atherosclerotic calcification of the abdominal aorta and iliac arteries. The infrarenal abdominal aorta measures up to 3.3 cm AP diameter (as measured on axial images). The standard recommendation is imaging follow-up every 3 years to ensure stability of an aneurysm of this size. LYMPH NODES: No pathologic sized lymph nodes in the abdomen or pelvis. No inguinal lymphadenopathy. PELVIC VISCERA: Prostate gland measures approximately 4.5 x 3.5 x 4.4 cm. MUSCULOSKELETAL: Multilevel osteophyte and/or enthesophyte formation of the thoracolumbar spine. Mild osteoarthrosis of the hips. No acute or suspicious osseous abnormality. CT/CT abdomen pelvis w IV con IMPRESSION: * Mild diverticulitis of the sigmoid colon. No bowel perforation or abscess. 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 Mild aneurysmal dilatation of the infrarenal abdominal aorta (3.3 cm AP diameter).
[2023-07-06 17:35] VITALS: BP 145/79; PULSE 63; RESP 18; TEMP 36.6; O2SAT 99; BMI 29.0
--- NOTE | 2023-07-06 17:47 | ED.GENADULT ---
HPI - General Adult General Chief complaint: Abdominal Pain Stated complaint: stomach pain Time Seen by Provider: 07/06/23 18:02 Source: patient Mode of arrival: ambulatory Limitations: no limitations History of Present Illness HPI narrative: patient is a 63-year-old male who presents to the emergency department for evaluation of abdominal pain with onset 07/04/2023 at 20:00 while lying down. Pain was felt diffusely throughout the abdomen. Reports that upon getting up to urinate noticed increase in pain throughout the abdomen as well as nausea. Denies any diarrhea, constipation, vomiting, hematochezia, melena. Reports that he went to his primary care doctor's office today for evaluation, had blood work obtained in was called back stating that he had a critical blood cell count indicating an infection and a prescription for Augmentin was sent to his pharmacy. He is unable to tell me why the antibiotic was sent. Per nursing triage, he has a history of diverticulitis, and Augmentin was called in by PCP due to this. Denies fevers, chills, urogenital symptoms. Related Data Home Medications ?Medication ?Instructions ?Recorded ?Confirmed glatiramer 40 mg/mL subcutaneous 40 mg subcut MOWEFR 01/04/20 07/06/23 syringe cholecalciferol (vitamin D3) 25 25 mcg PO DAILY 05/28/22 07/06/23 mcg (1,000 unit) tablet tizanidine 2 mg tablet 2 mg PO Q8H PRN muscle spasm 05/28/22 07/06/23 vitamin B complex 1 cap PO DAILY 05/28/22 07/06/23 Previous Rx's ?Medication ?Instructions ?Recorded clotrimazole-betamethasone 1 1 appl topical BID 30 days #45 06/22/22 %-0.05 % topical cream grams lorazepam 0.5 mg tablet 0.5 mg PO DAILY PRN anxiety 5 days 06/22/22 #5 tabs leg brace (Knee Support Brace) #1 ea 06/29/22 miscellaneous medical supply 1 ea miscellaneous DAILY 99 days 06/29/22 #1 ea miscellaneous medical supply #1 ea 06/29/22 (Blood Pressure Cuff) tadalafil 20 mg tablet 20 mg PO DAILY PRN sexual activity 06/29/22 7 days #7 tabs loratadine 10 mg tablet 10 mg PO DAILY 30 days #30 tabs 09/12/22 bath tub seat #1 ea 11/27/22 shower wand #1 ea 11/27/22 food supplemt, lactose-reduced 1 ea PO .daily 24 days #5,688 mL 01/05/23 (Ensure High Protein oral liquid) alfuzosin 10 mg tablet,extended 10 mg PO DAILY 90 days #90 tabs 01/29/23 release 24 hr magnesium 250 mg tablet 250 mg PO DAILY 90 days #90 tabs 03/04/23 cetirizine 10 mg tablet 10 mg PO DAILY 30 days #30 tabs 04/30/23 lisinopril 20 mg tablet 20 mg PO DAILY 90 days #90 tabs 05/28/23 fluticasone propionate 50 1 spray intranasal BID 30 days #16 06/01/23 mcg/actuation nasal grams spray,suspension (Flonase Allergy Relief) oxycodone 5 mg tablet 5 mg PO Q8H PRN severe pain (scale 06/24/23 score 7-10) #3 tabs amoxicillin 875 mg-potassium 1 tab PO BID 10 days #20 tabs 07/06/23 clavulanate 125 mg tablet hydroxyzine HCl 25 mg tablet 25 mg PO BEDTIME PRN for itch #90 07/06/23 tabs Allergies Allergy/AdvReac Type Severity Reaction Status Date / Time Sulfa (Sulfonamide Allergy Unknown RASH Verified 07/06/23 17:42 Antibiotics) [Sulfa (Sulfonamides)] sulfacetamide Allergy Unknown Hives Verified 07/06/23 17:42 [From Sulfacet-R] sulfur [From Sulfacet-R] Allergy Unknown Hives Verified 07/06/23 17:42 Review of Systems Review of Systems: Yes all other systems are reviewed and are negative [facility] Past Medical History Attestation statement: The following information was validated with the patient. Source: old records reviewed Medical History (Updated 07/07/23 @ 02:11 by Danielle Ruano CNP) AAA (abdominal aortic aneurysm) Dysuria BPH (benign prostatic hyperplasia) HTN (hypertension) Hyperlipidemia Diabetes mellitus Bladder outlet obstruction Weak urinary stream Nocturia Stress incontinence, male Surgical History History of dental surgery History of removal of cyst History of appendectomy History of hernia repair Family History Family History Father Diabetes Mother No problems noted. Maternal Uncle Myocardial infarction Sister No problems noted. Son No problems noted. Son No problems noted. Daughter No problems noted. Brother No problems noted. Brother No problems noted. Brother No problems noted. Social History Social History Household Members: None Housing: Apartment Do you presently have visiting nurse or other home services: Yes Alcohol intake: former Patient Tobacco Use Status: Never used Tobacco Smoked in Last 30 Days: No e-Cigarette/Vaping Use: Never Used Second Hand Smoke Exposure: No Use of substances other than those prescribed or required for medical reasons: No Advance Directives: Yes Advance Directives on File: Yes Advance Directives Date on File: 05/28/22 Do you have a plan to hurt others: No Plan Nutrition Risks: No Nutritional Risk service: No Current occupational status: retired 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 Cognitive needs: No Hearing needs: No Vision needs: No Physical Exam ED Vital Signs: Vital Signs - 24 hr 07/06/23 17:35 07/06/23 18:04 07/06/23 22:28 Temperature 97.9 F 97.4 F 97.5 F Pulse Rate 63 68 60 Respiratory Rate 18 18 16 Blood Pressure 145/79 H 168/86 H 156/70 H Pulse Oximetry 99 96 96 Oxygen Delivery Method Room Air Room Air Room Air BMI result Body Mass Index 29.0 Appearance: Alert.?Oriented to person, place and time. No acute distress.?Normal affect. Eyes: Pupils equal, round and reactive to light.? ENT: Pharynx normal.?? Neck: Normal inspection.? Neck supple.?? CVS: Heart sounds normal. Normal heart rate and rhythm.? Pulses normal.?? Respiratory: No respiratory distress.? Lung sounds clear to auscultation bilaterally?? Abdomen: Soft With diffuse lower abdominal tenderness upon palpation. No rebound tenderness at McBurney's point.. Normoactive bowel sounds. No pulsatile mass.?? Skin: Skin warm and dry.? Normal skin color.? Extremities: No lower extremity edema.? Neuro: Moves all extremities spontaneously. Sensation intact bilaterally. Ambulates with normal steady gait. Course Course Course Narrative: RME: Triage done by LINDSAY Ng. Patient presents to ED for abdominal pain with known history of diverticulitis. White blood cell count [id number]. Patient usually runs high but highly unusual. Positive for generalized abdominal tenderness. Lactic blood culture CT scan ordered. We discussed with nurse charge. Medications Administered Generic Name Dose Route Start Last Admin Trade Name Freq PRN Reason Stop Dose Admin Metronidazole 500 mg in 100 mls @ 100 mls/hr 07/07/23 06:00 07/07/23 05:42 Flagyl IV 100 mls/hr Q8H BRANDO Administration Lactated Ringer's 1,000 mls @ 100 mls/hr 07/06/23 23:15 07/07/23 00:00 Lr IVCONT 100 mls/hr .Q10H BRANDO Administration Sodium Chloride 3 ml 07/07/23 00:00 07/07/23 07:24 0.9 % Sodium Chloride Flush 3 Ml Syringe IVFLUSH Not Given QSHIFT BRANDO Discontinued Medications Generic Name Dose Route Start Last Admin Trade Name Freq PRN Reason Stop Dose Admin Sodium Chloride 1,000 mls @ 999 mls/hr 07/06/23 17:45 07/06/23 20:00 Ns IV 07/06/23 18:45 Infused .Q1H1M STA Infusion Ceftriaxone Sodium 1 gm/ 50 mls @ 100 mls/hr 07/06/23 20:40 07/06/23 21:21 Sodium Chloride IV 07/06/23 21:09 Infused ONCE ONE Infusion Metronidazole 500 mg in 100 mls @ 100 mls/hr 07/06/23 22:12 07/06/23 23:30 Flagyl IV 07/06/23 23:11 Infused ONCE ONE Infusion Iohexol 100 ml 07/06/23 18:45 07/06/23 18:45 Iohexol 350 Mg/Ml 100 Ml Infus..Btl IV 07/06/23 18:46 85 ml ONCE ONE Administration Morphine Sulfate 3 mg 07/06/23 23:03 07/06/23 23:59 Morphine Sulfate 4 Mg/Ml Cartridge IVPUSH 07/06/23 23:04 3 mg ONCE STA Administration Protocol Medical Decision Making Medical Decision Making MDM Narrative: Patient is a 63-year-old male with past medical history of AAA, multiple sclerosis following at [facility] and q.6 month MRI of the brain, hypertension, BPH, type 2 diabetes currently dietary / lifestyle controlled presenting to emergency department for evaluation of abdominal pain as per HPI. Outpatient leukocytosis of 31, critical result and patient was advised to come to the emergency department. On exam he has diffuse lower abdominal tenderness upon palpation. Concerning for diverticulitis, colitis, obstruction, appendicitis. Will obtain CBC to evaluate for leukocytosis/ anemia, CMP and lipase to evaluate for abnormal electrolytes /abnormal renal function/ abnormal hepatic/biliary function, CT of the abdomen and pelvis, and Urinalysis. blood cultures ordered, he is afebrile without tachycardia, no hypotension. Declines pain medication at this time. Of note, patient was previously taking Copaxone; immune modulator but stopped taking this in February of 2023. He reports that on 06/25/2023 he had a 5 root canals performed, has had normal anticipated healing, states that he completed his course of antibiotics that was prescribed. He denies any dental pain, pain to the floor of the mouth, neck pain, difficulty swallowing, painful swallowing, chest pain. He states that he was told by his doctor when blood work was done before the extractions, that his blood counts were elevated, but he states they did not seem concerned. He denies being on any steroids recently. Differential Diagnosis Differential Diagnoses: The differential diagnosis associated with the presentation includes ( See narrative above) Admission/Observation Consideration of admission/observation: Escalation of care including admission/observation considered ( see narrative above and course narrative for further detail) Consult Healthcare Provider Management of the patient was discussed with: Hospitalist Admitted to medicine service, Dr. Josemanuel Can Lab Data MDM Lab Attestation statement: I reviewed the patient's lab results. leukocytosis 34,0000 w/ left shift (prior elevations of 21,000 in 2022 and 25,000 in February of 2023, do not have the most recent values as he described), no sepsis criteria. No electrolyte derangement. No CHELY. LFTs and lipase within normal range. Urinalysis without evidence of infection or microscopic hematuria 07/07/23 04:09 07/07/23 04:09 Labs: Lab Results 07/06/23 07/06/23 Range/Units 17:56 19:23 WBC 34.0 H* (4.8-10.8) X10*3/uL RBC 5.08 (4.60-5.80) X10*6/uL Hgb 14.4 (14.0-18.0) g/dl Hct 43.2 (42.0-52.0) % MCV 85.0 (80.0-98.0) fL MCH 28.3 (27.0-33.0) pg MCHC 33.3 (31.0-36.0) g/dl RDW 12.5 (11.0-16.0) % Plt Count 186 (160-400) X10*3/uL MPV 9.7 (9.4-12.4) fL Immature Gran % (Auto) 0.3 (0.0-0.4) % Neut % (Auto) 17.7 L (45-73) % Lymph % (Auto) 78.6 H (20-40) % [place] % (Auto) 2.3 (2-11) % Eos % (Auto) 0.7 (0-4) % Baso % (Auto) 0.4 (0-2) % Lymph # (Auto) 26.8 H (1.2-4.9) X10*3/uL [place] # (Auto) 0.8 (0.1-1.2) X10*3/uL Eos # (Auto) 0.2 (0.0-0.4) X10*3/uL Baso # (Auto) 0.1 (0.0-0.2) X10*3/uL Abs Immat Gran (auto) 0.09 H (0.00-0.03) X10*3/uL Absolute Neuts (auto) 6.0 (2.0-8.3) x10*3/uL Absolute Nucleated RBC 0.000 (0.0-0.012) X10*3/uL Nucleated RBC % (auto) 0.0 (0.0-0.2) /100WBC Smear Tech's Comments VERIFIED Sodium 137 (135-145) mmol/L Potassium 4.4 (3.3-5.1) mmol/L Chloride 102 (96-108) mmol/L Carbon Dioxide 24 (22-29) mmol/L Anion Gap 15 (12-20) BUN 13 (9-16) mg/dL Creatinine 0.85 (0.5-1.4) mg/dL Estim Creat Clear Calc 89.2 Estimated GFR > 60 Random Glucose 110 (60-115) mg/dL Calcium 9.8 (8.4-10.2) mg/dL Total Bilirubin 0.4 (0.0-1.0) mg/dL AST 25 (5-37) U/L ALT 33 (0-40) U/L Alkaline Phosphatase 76 (39-117) U/L Total Protein 8.0 (6.5-8.0) g/dL Albumin 4.7 (3.5-5.0) g/dL Lipase 21 (8-78) U/L Urine Color Yellow Urine Appearance Clear Urine pH 7.0 (5.0-9.0) Ur Specific [place] 1.020 (1.005-1.025) Urine Protein Negative (Neg-Trace) mg/dL Urine Glucose (UA) Negative (Negative) mg/dL Urine Ketones Negative (Negative) mg/dL Urine Blood Negative (Negative) Urine Nitrite Negative (Negative) Ur Leukocyte Esterase Negative (Negative) Urine RBC 0-2 (0-2) /HPF Urine WBC 0-5 (0-5) /HPF Ur Squamous Epith Cells 0-2 (0-2) /HPF Urine Bacteria None Seen (None Seen) Hyaline Casts 0-2 (0-2) /LPF Radiology Impression Discussion of test interpretation with radiology: I have reviewed the radiologist's reading. Radiologist Impression: CT/CT abdomen pelvis w IV con IMPRESSION: * Mild diverticulitis of the sigmoid colon. No bowel perforation or abscess. 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 Mild aneurysmal dilatation of the infrarenal abdominal aorta External Record Review External record reviewed: Outpatient record Discharge Plan Discharge Clinical Impression: Diverticulitis Patient Disposition: Admitted As Inpatient
[2023-07-06 18:04] VITALS: BP 168/86; PULSE 68; RESP 18; TEMP 36.3; O2SAT 96
[2023-07-06 18:07] LABS: Basophils Absolute Auto 0.1 X10*3/uL (0.0-0.2); Basophils Percent Auto 0.4 % (0-2); Eosinophils Absolute Auto 0.2 X10*3/uL (0.0-0.4); Eosinophils Percent Auto 0.7 % (0-4); Hematocrit 43.2 % (42.0-52.0); Hemoglobin 14.4 g/dl (14.0-18.0); Imm Gran Abs Auto 0.09 X10*3/uL (0.00-0.03); Imm Gran Pct Auto 0.3 % (0.0-0.4); Lymphocytes Percent Auto 78.6 % (20-40); MANUAL DIFF FLAG SCAN; Mean Corpuscular HGB Conc 33.3 g/dl (31.0-36.0); Mean Corpuscular Hemoglobin 28.3 pg (27.0-33.0); Mean Platelet Volume 9.7 fL (9.4-12.4); Monocytes Absolute Auto 0.8 X10*3/uL (0.1-1.2); Monocytes Percent Auto 2.3 % (2-11); Neutrophils Percent Auto 17.7 % (45-73); Platelet Count 186 X10*3/uL (160-400); Red Blood Count 5.08 X10*6/uL (4.60-5.80); Red Cell Distribution Width 12.5 % (11.0-16.0); SCAN SMEAR FLAG 1
[2023-07-06] MEDS: 0.9 % Sodium Chloride 1,000 ML 999 ML IV (18:13)
[2023-07-06 18:14] LABS: Lymphocytes Absolute Auto 26.8 X10*3/uL (1.2-4.9)
[2023-07-06 18:18] LABS: Alanine Aminotransferase 33 U/L (0-40); Albumin Level 4.7 g/dL (3.5-5.0); Alkaline Phosphatase 76 U/L (39-117); Anion Gap 15 (12-20); Aspartate Amino Transferase 25 U/L (5-37); Bilirubin Total 0.4 mg/dL (0.0-1.0); Blood Urea Nitrogen 13 mg/dL (9-16); Calcium 9.8 mg/dL (8.4-10.2); Carbon Dioxide 24 mmol/L (22-29); Chloride 102 mmol/L (96-108); Creatinine Clr Calc Pharmacy 89.2; Estimated Glomerular Filt Rate > 60; Glucose Random 110 mg/dL (60-115); Potassium 4.4 mmol/L (3.3-5.1); Sodium 137 mmol/L (135-145)
--- NOTE | 2023-07-06 18:19 | PC.NURSE ---
Pt presents to ED from home, reports generalized ABD pain since Wednesday. Describes as aching and sharp, 8/10, all over. Pt has hx of similar episodes in past, was hospitalized last year for diverticulitis. Went to PCP today and had blood drawn, found to have a high WBC and sent to ED. Reports nausea, no vomiting or diarrhea, denies fevers or cough. Alert and oriented, breathing even and unlabored, skin warm and dry. VSS. ABD soft, non-distended, tender.
[2023-07-06] MEDS: iohexoL 350 MG/ML 100 ML INFUS..BTL IV (18:45)
[2023-07-06 18:51] LABS: Lipase 21 U/L (8-78)
[2023-07-06 19:40] LABS: Appearance Urine Clear; Color Urine Yellow; Glucose Urine UA Negative (Negative); Leukocyte Esterase Urine Negative (Negative); Nitrite Urine Negative (Negative); Urine Blood Negative (Negative); Urine Ketones Negative (Negative); Urine Protein Negative (Neg-Trace)
[2023-07-06 19:45] LABS: Bacteria Urine None Seen (None Seen); Hyaline Casts Urine 0-2 /LPF (0-2); RBC Urine 0-2 /HPF (0-2); Squamous Epithelial Cell Urine 0-2 /HPF (0-2); WBC Urine 0-5 /HPF (0-5)
[2023-07-06 20:30] LABS: SLIDE REVIEW VERIFIED
[2023-07-06] MEDS: cefTRIAXone sodium 1 GM in 0.9 % Sodium Chloride 50 ML IV (20:46)
--- NOTE | 2023-07-06 20:48 | PC.NURSE ---
abx administered per provider order. ED provider bedside speaking w/ pt in regards to CT results. pt aware of plan of care moving forward.
[2023-07-06 22:28] VITALS: BP 156/70; PULSE 60; RESP 16; TEMP 36.4; O2SAT 96
[2023-07-06] MEDS: metroNIDAZOLE/NS 500 MG/100 ML PIGGYBACK 100 MG IV (22:29)
--- NOTE | 2023-07-06 22:31 | PC.NURSE ---
vss and up to date. abx administered per provider order. pt c/o 5/1bd pain/requesting medication. provider notified/aware.
--- NOTE | 2023-07-06 23:39 | P.HPHOSP_ITS ---
History of Present Illness Date of Service: 07/06/23 Attending physician on admission: Nury Can Chief Complaint: Abdominal pain Chavo Bailey is a very pleasant 63 years old man with past medical history significant essential hypertension, BPH, AAA and MS presents to the emergency department complaining of abdominal pain that started today. He denied associated nausea, vomiting, diarrhea or constipation. He also denies fevers. He was evaluated by his primary care physician and was advised to come to the ED for further evaluation. Patient also denies headache, palpitations, dizziness, chest pain, shortness on breath or cough. He did not report any acute urinary symptoms. Denied alcohol abuse, tobacco smoking or illicit drug use. Abdominal surgery history is remarkable for right hernia repair and appendectomy. He had an event of acute diverticulitis last year. In the ED he was found to have stable vital signs. Blood workup was remarkable for WBC count of 34.0. Hemoglobin and platelets are normal. There are no electrolyte imbalances. Renal function and LFTs are normal. UA is normal. Abdomen pelvis CT scan with IV contrast showed mild diverticulitis of the sigmoid colon without perforation or abscesses. ED tx: Ceftriaxone 1 g IV, NS 1 L bolus. Review of Systems 2 Review of Systems: All 12 systems were reviewed and normal except as noted in HPI. [facility] Medical History (Updated 07/06/23 @ 23:55 by Nury Can MD) AAA (abdominal aortic aneurysm) Dysuria BPH (benign prostatic hyperplasia) HTN (hypertension) Hyperlipidemia Diabetes mellitus Bladder outlet obstruction Weak urinary stream Nocturia Stress incontinence, male Family History Father Diabetes Mother No problems noted. Maternal Uncle Myocardial infarction Sister No problems noted. Son No problems noted. Son No problems noted. Daughter No problems noted. Brother No problems noted. Brother No problems noted. Brother No problems noted. Surgical History History of dental surgery History of removal of cyst History of appendectomy History of hernia repair Social History Household Members: None Housing: Apartment Do you presently have visiting nurse or other home services: Yes Alcohol intake: former Patient Tobacco Use Status: Never used Tobacco Smoked in Last 30 Days: No e-Cigarette/Vaping Use: Never Used Second Hand Smoke Exposure: No Use of substances other than those prescribed or required for medical reasons: No Advance Directives: Yes Advance Directives on File: Yes Advance Directives Date on File: 05/28/22 Do you have a plan to hurt others: No Plan service: No Current occupational status: retired 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 Cognitive needs: No Hearing needs: No Vision needs: No Meds Allergies Allergy/AdvReac Type Severity Reaction Status Date / Time Sulfa (Sulfonamide Allergy Unknown RASH Verified 07/06/23 17:42 Antibiotics) [Sulfa (Sulfonamides)] sulfacetamide Allergy Unknown Hives Verified 07/06/23 17:42 [From Sulfacet-R] sulfur [From Sulfacet-R] Allergy Unknown Hives Verified 07/06/23 17:42 Active Medications: Current Medications Acetaminophen (Acetaminophen 325 Mg Tablet) 650 mg PO Q6H PRN PRN Reason: Fever, Headache, Pain 1-3 Calcium Carbonate (Calcium Carbonate 750 Mg Tab.Chew) 750 mg PO Q6H PRN PRN Reason: Heartburn Ceftriaxone Sodium 1 gm/ (Sodium Chloride) 50 mls @ 100 mls/hr IV Q24H BRANDO Metronidazole (Flagyl) 500 mg in 100 mls @ 100 mls/hr IV Q8H BRANDO Lactated Ringer's (Lr) 1,000 mls @ 100 mls/hr IVCONT .Q10H BRANDO Magnesium Hydroxide (Milk Of Magnesia 30 Ml Oral.Susp) 30 ml PO DAILY PRN PRN Reason: Constipation Melatonin (Melatonin 3 Mg Tablet) 6 mg PO BEDTIME PRN PRN Reason: Insomnia Morphine Sulfate (Morphine Sulfate 4 Mg/Ml Cartridge) 3 mg IVPUSH Q3H PRN; Protocol PRN Reason: Pain, Severe (Pain Scale 7-10) Polyethylene Glycol (Polyethylene Glycol 3350 17 Gm Powd.Pack) 17 gm PO DAILY PRN PRN Reason: Constipation Sodium Chloride (0.9 % Sodium Chloride Flush 3 Ml Syringe) 3 ml IVFLUSH QSHIFT BRANDO Home Medications ?Medication ?Instructions ?Recorded ?Confirmed ?Last Taken ?Type glatiramer 40 mg/mL subcutaneous 40 mg subcut MOWEFR 01/04/20 07/06/23 05/27/22 History syringe cholecalciferol (vitamin D3) 25 25 mcg PO DAILY 05/28/22 07/06/23 05/28/22 History mcg (1,000 unit) tablet tizanidine 2 mg tablet 2 mg PO Q8H PRN muscle spasm 05/28/22 07/06/23 05/28/22 History vitamin B complex 1 cap PO DAILY 05/28/22 07/06/23 05/28/22 History Physical Exam 2 Vital Signs and Narrative: Vital Signs: Last Vital Signs Temp 97.5 F 07/06/23 22:28 Pulse 60 07/06/23 22:28 Resp 16 07/06/23 22:28 BP 156/70 H 07/06/23 22:28 Pulse Ox 96 07/06/23 22:28 O2 Del Method Room Air 07/06/23 22:28 BMI result Body Mass Index 29.0 Constitutional - Awake and Alert, No apparent distress. Pleasant. Cooperative. Afebrile HEENT - PERRL, EOMI. Normal sclerae. Moist oral mucosa Heart - S1S2, RRR. Lungs - Normal lung expansion, Normal respiratory effort, No respiratory distress, CTA bilaterally Abdomen - Not distended. Increased bowel sounds. Left lower quadrant tenderness to palpation. No rebound or guarding Extremities - no calf tenderness bilaterally, no swelling Musculoskeletal - Normal inspection, normal ROM Skin - Warm/Dry. No jaundice. Neurological - Alert & oriented x3. No focal weakness grossly noted Psychological - Appropriate affect Results Labs 07/06/23 17:56 07/06/23 17:56 Labs: Laboratory Results - last 24 hr 07/06/23 07/06/23 17:56 19:23 MCV 85.0 MCH 28.3 MCHC 33.3 RDW 12.5 Plt Count 186 MPV 9.7 Immature Gran % (Auto) 0.3 Neut % (Auto) 17.7 L Lymph % (Auto) 78.6 H [place] % (Auto) 2.3 Eos % (Auto) 0.7 Baso % (Auto) 0.4 Lymph # (Auto) 26.8 H [place] # (Auto) 0.8 Eos # (Auto) 0.2 Baso # (Auto) 0.1 Abs Immat Gran (auto) 0.09 H Absolute Neuts (auto) 6.0 Absolute Nucleated RBC 0.000 Nucleated RBC % (auto) 0.0 Smear Tech's Comments VERIFIED Anion Gap 15 Estim Creat Clear Calc 89.2 Estimated GFR > 60 Random Glucose 110 Calcium 9.8 Total Bilirubin 0.4 AST 25 ALT 33 Alkaline Phosphatase 76 Total Protein 8.0 Albumin 4.7 Lipase 21 Urine Color Yellow Urine Appearance Clear Urine pH 7.0 Ur Specific [place] 1.020 Urine Protein Negative Urine Glucose (UA) Negative Urine Ketones Negative Urine Blood Negative Urine Nitrite Negative Ur Leukocyte Esterase Negative Urine RBC 0-2 Urine WBC 0-5 Ur Squamous Epith Cells 0-2 Urine Bacteria None Seen Hyaline Casts 0-2 Imaging Radiologist's Impressions: Impressions Abdomen/Pelvis CT 07/06/23 18:55 IMPRESSION: * Mild diverticulitis of the sigmoid colon. No bowel perforation or abscess. 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 Mild aneurysmal dilatation of the infrarenal abdominal aorta (3.3 cm AP diameter). Assessment and Plan (1) Acute diverticulitis: Status: Acute (2) AAA (abdominal aortic aneurysm): Qualifiers: Abdominal aorta location: unspecified Presence of rupture: without rupture Qualified Code(s): I71.40 - Abdominal aortic aneurysm, without rupture, unspecified Status: Acute (3) Multiple sclerosis: Status: Acute (4) HTN (hypertension): Qualifiers: Hypertension type: essential hypertension Qualified Code(s): I10 - Essential (primary) hypertension Status: Acute Plan Chavo Bailey is a 63 y/o man admitted with: * Acute diverticulitis. Admit to hospitalist service. Liquid diet for now then advance as tolerated. Start IV fluids Start treatment with Flagyl 500 mg IV Q 8 hours and continue ceftriaxone 1 g IV daily. Pain control with morphine as needed. Blood cultures obtained -will follow results. Surgery consult for further recommendations. * Leukocytosis. No sepsis criteria. Secondary to above. Continue to monitor * Essential hypertension. Continue lisinopril. * BPH. Continue alfuzosin or alternative. * MS. No symptoms reported. Has gotten glatiramer IV. * AAA. Continue follow as an outpatient. Code status: Full DVT prophylaxis: SCDs. Early ambulation. Patient will need hospitalization for at least 2 midnights for acute diverticulitis management in the setting of immunocompromise patient (hx of MS) with IV antibiotic therapy. Quality Stroke Does the patient have a stroke diagnosis?: No VTE Prior VTE?: No VTE Risk Level:: Medical - moderate - high VTE Device Contraindication: N/A - Device Ordered VTE Drug Contraindication: N/A - Med Ordered
[2023-07-06 23:45] VITALS: BP 162/79; PULSE 58; RESP 16; TEMP 36.4; O2SAT 98
[2023-07-06] MEDS: Morphine Sulfate 4 MG/ML CARTRIDGE 3 MG IVPUSH (23:59)
[2023-07-07] MEDS: 0.9 % Sodium Chloride Flush 3 ML SYRINGE IVFLUSH
[2023-07-07 05:33] LABS: Basophils Absolute Auto 0.1 X10*3/uL (0.0-0.2); Basophils Percent Auto 0.4 % (0-2); Eosinophils Absolute Auto 0.3 X10*3/uL (0.0-0.4); Eosinophils Percent Auto 0.8 % (0-4); Hematocrit 41.8 % (42.0-52.0); Imm Gran Abs Auto 0.07 X10*3/uL (0.00-0.03); Imm Gran Pct Auto 0.2 % (0.0-0.4); Lymphocytes Absolute Auto 27.4 X10*3/uL (1.2-4.9); Lymphocytes Percent Auto 80.9 % (20-40); MANUAL DIFF FLAG SCAN; Mean Corpuscular HGB Conc 33.5 g/dl (31.0-36.0); Mean Corpuscular Hemoglobin 28.5 pg (27.0-33.0); Mean Platelet Volume 9.9 fL (9.4-12.4); Monocytes Absolute Auto 0.8 X10*3/uL (0.1-1.2); Monocytes Percent Auto 2.4 % (2-11); NRBC Pct Auto 0.1 /100WBC (0.0-0.2); Neutrophils Absolute Auto 5.2 x10*3/uL (2.0-8.3); Neutrophils Percent Auto 15.3 % (45-73); Platelet Count 189 X10*3/uL (160-400); Red Blood Count 4.92 X10*6/uL (4.60-5.80); Red Cell Distribution Width 12.4 % (11.0-16.0); SCAN SMEAR FLAG 1
[2023-07-07] MEDS: metroNIDAZOLE/NS 500 MG/100 ML PIGGYBACK 100 MG IV ×3 (05:42→20:45)
[2023-07-07 05:48] LABS: Alanine Aminotransferase 30 U/L (0-40); Albumin Level 4.2 g/dL (3.5-5.0); Alkaline Phosphatase 68 U/L (39-117); Anion Gap 15 (12-20); Aspartate Amino Transferase 24 U/L (5-37); Bilirubin Total 0.6 mg/dL (0.0-1.0); Blood Urea Nitrogen 12 mg/dL (9-16); Calcium 9.3 mg/dL (8.4-10.2); Carbon Dioxide 22 mmol/L (22-29); Chloride 106 mmol/L (96-108); Creatinine Clr Calc Pharmacy 85.2; Estimated Glomerular Filt Rate > 60; Glucose Random 104 mg/dL (60-115); Potassium 4.4 mmol/L (3.3-5.1); Sodium 139 mmol/L (135-145); Total Protein 7.1 g/dL (6.5-8.0)
--- NOTE | 2023-07-07 05:50 | PC.NURSE ---
Critical result received: WBC 33.9 [place] text sent to Dr. Abernathy. No new orders at this time. Monitoring is ongoing.
[2023-07-07 05:53] VITALS: BP 183/88; PULSE 61; RESP 16; TEMP 36.7; O2SAT 97
[2023-07-07 05:54] LABS: SLIDE REVIEW VERIFIED; White Blood Count 33.9 X10*3/uL (4.8-10.8)
--- NOTE | 2023-07-07 08:14 | P.CONGS_ITS ---
History of Present Illness Consult details Consult date: 07/07/23 Narrative: Patient is a 63-year-old male whom I know from the past from prior bout of diverticulitis who presents here with a recurrent episode of left lower quadrant pain over the last 2 days time. He states his symptoms are similar to the was prior episode a few months ago which required hospitalization. Patient has had colonoscopies in the past and is due for 1. He denies any other associated GI issues or complaints; no nausea, vomiting, diarrhea or stool changes. Chart was reviewed and patient evaluated PMF Past Medical History Medical History (Updated 07/07/23 @ 02:11 by Danielle Ruano CNP) AAA (abdominal aortic aneurysm) Dysuria BPH (benign prostatic hyperplasia) HTN (hypertension) Hyperlipidemia Diabetes mellitus Bladder outlet obstruction Weak urinary stream Nocturia Stress incontinence, male Family History Family History Father Diabetes Mother No problems noted. Maternal Uncle Myocardial infarction Sister No problems noted. Son No problems noted. Son No problems noted. Daughter No problems noted. Brother No problems noted. Brother No problems noted. Brother No problems noted. Surgical History Surgical History History of dental surgery History of removal of cyst History of appendectomy History of hernia repair Social History Social History Household Members: None Housing: Apartment Do you presently have visiting nurse or other home services: Yes Alcohol intake: former Patient Tobacco Use Status: Never used Tobacco Smoked in Last 30 Days: No e-Cigarette/Vaping Use: Never Used Second Hand Smoke Exposure: No Use of substances other than those prescribed or required for medical reasons: No Advance Directives: Yes Advance Directives on File: Yes Advance Directives Date on File: 05/28/22 Do you have a plan to hurt others: No Plan Nutrition Risks: No Nutritional Risk service: No Current occupational status: retired 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 Cognitive needs: No Hearing needs: No Vision needs: No Meds Allergies Allergy/AdvReac Type Severity Reaction Status Date / Time Sulfa (Sulfonamide Allergy Unknown RASH Verified 07/06/23 17:42 Antibiotics) [Sulfa (Sulfonamides)] sulfacetamide Allergy Unknown Hives Verified 07/06/23 17:42 [From Sulfacet-R] sulfur [From Sulfacet-R] Allergy Unknown Hives Verified 07/06/23 17:42 Active Medications: Current Medications Acetaminophen (Acetaminophen 325 Mg Tablet) 650 mg PO Q6H PRN PRN Reason: Fever, Headache, Pain 1-3 Calcium Carbonate (Calcium Carbonate 750 Mg Tab.Chew) 750 mg PO Q6H PRN PRN Reason: Heartburn Ceftriaxone Sodium 1 gm/ (Sodium Chloride) 50 mls @ 100 mls/hr IV Q24H [facility] Metronidazole (Flagyl) 500 mg in 100 mls @ 100 mls/hr IV Q8H [facility] Last Admin: 07/07/23 05:42 Dose: 100 mls/hr Lactated Ringer's (Lr) 1,000 mls @ 100 mls/hr IVCONT .Q10H [facility] Last Admin: 07/07/23 00:00 Dose: 100 mls/hr Magnesium Hydroxide (Milk Of Magnesia 30 Ml Oral.Susp) 30 ml PO DAILY PRN PRN Reason: Constipation Melatonin (Melatonin 3 Mg Tablet) 6 mg PO BEDTIME PRN PRN Reason: Insomnia Morphine Sulfate (Morphine Sulfate 4 Mg/Ml Cartridge) 3 mg IVPUSH Q3H PRN; Protocol PRN Reason: Pain, Severe (Pain Scale 7-10) Polyethylene Glycol (Polyethylene Glycol 3350 17 Gm Powd.Pack) 17 gm PO DAILY PRN PRN Reason: Constipation Sodium Chloride (0.9 % Sodium Chloride Flush 3 Ml Syringe) 3 ml IVFLUSH QSHIFT [facility] Last Admin: 07/07/23 07:24 Dose: Not Given Home Medications ?Medication ?Instructions ?Recorded ?Confirmed ?Last Taken ?Type glatiramer 40 mg/mL subcutaneous 40 mg subcut MOWEFR 01/04/20 07/06/23 05/27/22 History syringe cholecalciferol (vitamin D3) 25 25 mcg PO DAILY 05/28/22 07/06/23 05/28/22 History mcg (1,000 unit) tablet tizanidine 2 mg tablet 2 mg PO Q8H PRN muscle spasm 05/28/22 07/06/23 05/28/22 History vitamin B complex 1 cap PO DAILY 05/28/22 07/06/23 05/28/22 History Physical Exam 2 Vital Signs: Vital Signs: Last Vital Signs Temp 98.1 F 07/07/23 05:53 Pulse 61 07/07/23 05:53 Resp 16 07/07/23 05:53 BP 183/88 H 07/07/23 05:53 Pulse Ox 97 07/07/23 05:53 O2 Del Method Room Air 07/07/23 05:53 BMI result Body Mass Index 29.0 GI: Other: Abdominal exam is most noteworthy for localized left lower quadrant tenderness but without evidence of guarding, rebound, rigidity. Results Labs 07/07/23 04:09 07/07/23 04:09 Labs: Abnormal lab results 07/06/23 07/07/23 Range/Units 17:56 04:09 WBC 34.0 H* 33.9 H* (4.8-10.8) X10*3/uL Hct 41.8 L (42.0-52.0) % Neut % (Auto) 17.7 L 15.3 L (45-73) % Lymph % (Auto) 78.6 H 80.9 H (20-40) % Lymph # (Auto) 26.8 H 27.4 H (1.2-4.9) X10*3/uL Abs Immat Gran (auto) 0.09 H 0.07 H (0.00-0.03) X10*3/uL Absolute Nucleated RBC 0.020 H (0.0-0.012) X10*3/uL Short CBC 07/06/23 07/07/23 Range/Units 17:56 04:09 WBC 34.0 H* 33.9 H* (4.8-10.8) X10*3/uL Hgb 14.4 14.0 (14.0-18.0) g/dl Hct 43.2 41.8 L (42.0-52.0) % Plt Count 186 189 (160-400) X10*3/uL BMP 07/06/23 07/07/23 17:56 04:09 Sodium 137 139 Potassium 4.4 4.4 Chloride 102 106 Carbon Dioxide 24 22 BUN 13 12 Creatinine 0.85 0.89 Calcium 9.8 9.3 Liver Function 07/06/23 07/07/23 Range/Units 17:56 04:09 Total Bilirubin 0.4 0.6 (0.0-1.0) mg/dL AST 25 24 (5-37) U/L ALT 33 30 (0-40) U/L Alkaline Phosphatase 76 68 (39-117) U/L Albumin 4.7 4.2 (3.5-5.0) g/dL Urine 07/06/23 Range/Units 19:23 Urine Color Yellow Urine Appearance Clear Urine pH 7.0 (5.0-9.0) Ur Specific [place] 1.020 (1.005-1.025) Urine Protein Negative (Neg-Trace) mg/dL Urine Glucose (UA) Negative (Negative) mg/dL All other labs normal. Assessment and Plan (1) Diverticulitis: Status: Acute Plan CT scan consistent with mild diverticulitis. Patient is being admitted to the medical service for restorative measures including IV hydration, IV analgesics and IV antibiotics along with serial labs and exams. Patient has a significant leukocytosis which will be followed. Procedures Date of Service Date of Service: 07/07/23
--- NOTE | 2023-07-07 09:55 | PC.NURSE ---
Pt reports LAC IV is uncomfortable (+blood return, flushing well). Pt given option to have IV removed and placed somewhere else more comfortable - pt accepted. New IV placed to right forearm.
[2023-07-07] MEDS: Lactated Ringers 1,000 ML 100 ML IVCONT ×3 (10:25→20:44)
--- NOTE | 2023-07-07 11:25 | PHA.MEDREC ---
Pharmacy Consult ? Medication Reconciliation Pharmacy has completed the medication reconciliation. spoke with patient and family member over the phone to confirm medications. He reports that he just recently finished a course of amox/clav from mouth surgery (started on the 3rd for a 7 DS) and he currently has another prescription for a 10 day supply of it as well which he has the bottle with him here in the hospital however he has not started taking it yet.
--- NOTE | 2023-07-07 11:55 | PC.NURSE ---
Pt ambulatory to the BR with a steady gait.
--- NOTE | 2023-07-07 12:18 | MHC.CM.PN ---
Addendum entered by Nica Ornelas 07/07/23 12:19: Patient has a history of MS. Original Note: Met with patient in regards to discharge planning. Patient lives alone, uses a cane for mobility and is suupposed to have a NEWSPAPER COPY EDITOR through [facility]. Patient has been having trouble finding someone to be his NEWSPAPER COPY EDITOR. No additional services anticipated to be needed because patient is not homebound. PCP verified. Copy of HCP verified to be on file. IMM explained and signed. Patient will drive himself home when medically stable. Continue to monitor for d/c needs.
--- NOTE | 2023-07-07 12:49 | HO.PM.IMPN ---
Subjective Subjective Date of Service: 07/07/23 Review of Systems Follow up diverticultis no abd pain, vomiting or diarrhea Physical Exam Vital Signs: Vital Signs: Last Vital Signs Temp 98.1 F 07/07/23 05:53 Pulse 61 07/07/23 05:53 Resp 16 07/07/23 05:53 BP 183/88 H 07/07/23 05:53 Pulse Ox 97 07/07/23 05:53 O2 Del Method Room Air 07/07/23 05:53 BMI result Body Mass Index 29.0 Appearing in no acute distress lung sounds are clear to auscultation heart regular rate rhythm, clear S1, S2 positive bowel sounds, abdomen is soft, nontender neuro patient is alert x3, no focal deficits Objective Data Active Medications Acetaminophen (Acetaminophen 325 Mg Tablet) 650 mg PO Q6H PRN PRN Reason: Fever, Headache, Pain 1-3 Calcium Carbonate (Calcium Carbonate 750 Mg Tab.Chew) 750 mg PO Q6H PRN PRN Reason: Heartburn Ceftriaxone Sodium 1 gm/ (Sodium Chloride) 50 mls @ 100 mls/hr IV Q24H [facility] Metronidazole (Flagyl) 500 mg in 100 mls @ 100 mls/hr IV Q8H [facility] Last Infusion: 07/07/23 06:42 Dose: Infused Documented By: YUSRA Lactated Ringer's (Lr) 1,000 mls @ 100 mls/hr IVCONT .Q10H [facility] Last Admin: 07/07/23 10:25 Dose: 100 mls/hr Documented By: YUSRA Magnesium Hydroxide (Milk Of Magnesia 30 Ml Oral.Susp) 30 ml PO DAILY PRN PRN Reason: Constipation Melatonin (Melatonin 3 Mg Tablet) 6 mg PO BEDTIME PRN PRN Reason: Insomnia Morphine Sulfate (Morphine Sulfate 4 Mg/Ml Cartridge) 3 mg IVPUSH Q3H PRN; Protocol PRN Reason: Pain, Severe (Pain Scale 7-10) Polyethylene Glycol (Polyethylene Glycol 3350 17 Gm Powd.Pack) 17 gm PO DAILY PRN PRN Reason: Constipation Sodium Chloride (0.9 % Sodium Chloride Flush 3 Ml Syringe) 3 ml IVFLUSH QSHIFT [facility] Last Admin: 07/07/23 07:24 Dose: Not Given Documented By: YUSRA Non-Admin Reason: IV Running Labs 07/07/23 04:09 07/07/23 04:09 Labs: Laboratory Results - last 24 hr 07/06/23 07/06/23 07/07/23 17:56 19:23 04:09 MCV 85.0 85.0 MCH 28.3 28.5 MCHC 33.3 33.5 RDW 12.5 12.4 Plt Count 186 189 MPV 9.7 9.9 Immature Gran % (Auto) 0.3 0.2 Neut % (Auto) 17.7 L 15.3 L Lymph % (Auto) 78.6 H 80.9 H [place] % (Auto) 2.3 2.4 Eos % (Auto) 0.7 0.8 Baso % (Auto) 0.4 0.4 Lymph # (Auto) 26.8 H 27.4 H [place] # (Auto) 0.8 0.8 Eos # (Auto) 0.2 0.3 Baso # (Auto) 0.1 0.1 Abs Immat Gran (auto) 0.09 H 0.07 H Absolute Neuts (auto) 6.0 5.2 Absolute Nucleated RBC 0.000 0.020 H Nucleated RBC % (auto) 0.0 0.1 Smear Tech's Comments VERIFIED VERIFIED Anion Gap 15 15 Estim Creat Clear Calc 89.2 85.2 Estimated GFR > 60 > 60 Random Glucose 110 104 Calcium 9.8 9.3 Total Bilirubin 0.4 0.6 AST 25 24 ALT 33 30 Alkaline Phosphatase 76 68 Total Protein 8.0 7.1 Albumin 4.7 4.2 Lipase 21 Urine Color Yellow Urine Appearance Clear Urine pH 7.0 Ur Specific [place] 1.020 Urine Protein Negative Urine Glucose (UA) Negative Urine Ketones Negative Urine Blood Negative Urine Nitrite Negative Ur Leukocyte Esterase Negative Urine RBC 0-2 Urine WBC 0-5 Ur Squamous Epith Cells 0-2 Urine Bacteria None Seen Hyaline Casts 0-2 Assessment and Plan (1) Diverticulitis: Status: Acute Plan 63-year-old man admitted with acute diverticulitis Acute diverticulitis IV fluids Rocephin and Flagyl Pain management Seen by General surgery, no need for surgical intervention at this time Follow blood cultures Leukocytosis/lymphocytosis No sepsis, likely secondary to diverticulitis and abnormal peripheral smear Concern for lymphoproliferative disorder (CLL) Discussed with Hematology> blood flow cytometry, serum immunofixation, LDH and beta 2 microglobulin level has been submitted. He can follow up o/p with hematology Hypertension Continue lisinopril BPH Continue home medication or alternative History of multiple sclerosis No symptoms of exacerbation DVT prophylaxis with heparin Full code Continue hospitalization for treatment of view diverticulitis requiring IV antibiotics and specialty consultation Quality Stroke Does the patient have a stroke diagnosis?: No VTE Prior VTE?: No VTE Risk Level:: Medical - moderate - high VTE Device Contraindication: N/A - Device Ordered VTE Drug Contraindication: N/A - Med Ordered
--- NOTE | 2023-07-07 13:03 | P.CNHO_ITS ---
Subjective - Subjective Chief complaint: Abdominal pain Patient: new to practice Consult date: 07/07/23 Primary Care Provider: Simeon Sarkar PA-C HPI - Consult Narrative Reason for consult: Leukocytosis/lymphocytosis Narrative: Chavo Bailey is a 63 year old male who is currently admitted for acute diverticulitis and noted to have gradually progressive lymphocytosis. Pathology review showed lymphocytosis suggestive of lymphoproliferative disorder such as CLL. Patient has been aware of elevated white count in the recent months. He denies any constitutional symptoms such as fever, chills, night sweats or unexplained weight loss. He denies any significant lymphadenopathy or recent or recurrent infections. He has history of multiple sclerosis, recently was taken off medications because it has been stable for many years. His main issue appears to be her recurrent hospitalizations for acute diverticulitis. This is being managed conservatively. He has never been diagnosed with any cancer. Family history of cancer in a nephew. Review of Systems - Constitutional Reports as per HPI, Denies fatigue, Denies lack of energy, Denies malaise, Denies weakness - Cardiovascular Reports no additional cardiovascular complaints - Respiratory Reports no additional respiratory complaints - Gastrointestinal Reports no additional gastrointestinal complaints [facility] Medical History: Medical History (Last Updated 07/06/23 @ 23:55 by Nury Can MD) AAA (abdominal aortic aneurysm) Bladder outlet obstruction BPH (benign prostatic hyperplasia) Diabetes mellitus Dysuria HTN (hypertension) Hyperlipidemia Nocturia Stress incontinence, male Weak urinary stream Family History: Family History (Last Reviewed 07/06/23 @ 10:58 by CIARA Headley) Father Diabetes Mother No problems noted. Maternal Uncle Myocardial infarction Sister No problems noted. Son No problems noted. Son No problems noted. Daughter No problems noted. Brother No problems noted. Brother No problems noted. Brother No problems noted. Surgical History: Surgical History (Last Reviewed 07/06/23 @ 20:04 by Danielle Ruano CNP) History of appendectomy History of dental surgery History of hernia repair History of removal of cyst Social History: Social History (Last Reviewed 07/06/23 @ 10:58 by CIARA Headley) Living Situation History: Household Members: Significant Other Housing: Apartment Do you presently have visiting nurse or other home services: No Alcohol History Details: 1. How often do you have a drink containing alcohol?: a. Never 3. How often do you have six or more drinks on one occasion?: a. Never AUDIT-C Alcohol total score: 0 Tobacco History: Patient Tobacco Use Status: Never used Tobacco Smoked in Last 30 Days: No e-Cigarette/Vaping Use: Never Used Second Hand Smoke Exposure: No Substance Use History: Use of substances other than those prescribed or required for medical reasons : No Domestic Abuse History: Have you been hit, kicked, punched, or otherwise hurt by someone within the past year? If so, by whom?: No Do you feel safe in your current relationship?: Yes Is there a partner from a previous relationship who is making you feel unsafe now?: No Are you made to feel afraid or neglected: No Advance Directives: Advance Directives: Yes Advance Directives on File: Yes Advance Directives Date on File: 05/28/22 Homicidal Assessment: Do you have a plan to hurt others: No Plan Nutrition Assessment: Recently lost weight without trying: No Eating poorly because of decreased appetite: No Nutrition Risks: No Nutritional Risk Poor oral hygiene: No Occupation Assessmet: service: No Current occupational status: retired 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 Home Medications and Allergies Current Medications: Current Medications Acetaminophen (Acetaminophen 325 Mg Tablet) 650 mg PO Q6H PRN PRN Reason: Fever, Headache, Pain 1-3 Calcium Carbonate (Calcium Carbonate 750 Mg Tab.Chew) 750 mg PO Q6H PRN PRN Reason: Heartburn Heparin Sodium (Porcine) (Heparin Sodium,Porcine 5,000 Unit/Ml Vial) 5,000 unit SUBCUT Q12H [facility] Ceftriaxone Sodium 1 gm/ (Sodium Chloride) 50 mls @ 100 mls/hr IV Q24H [facility] Metronidazole (Flagyl) 500 mg in 100 mls @ 100 mls/hr IV Q8H [facility] Last Infusion: 07/07/23 06:42 Dose: Infused Lactated Ringer's (Lr) 1,000 mls @ 100 mls/hr IVCONT .Q10H [facility] Last Admin: 07/07/23 10:25 Dose: 100 mls/hr Magnesium Hydroxide (Milk Of Magnesia 30 Ml Oral.Susp) 30 ml PO DAILY PRN PRN Reason: Constipation Melatonin (Melatonin 3 Mg Tablet) 6 mg PO BEDTIME PRN PRN Reason: Insomnia Morphine Sulfate (Morphine Sulfate 4 Mg/Ml Cartridge) 3 mg IVPUSH Q3H PRN; Protocol PRN Reason: Pain, Severe (Pain Scale 7-10) Polyethylene Glycol (Polyethylene Glycol 3350 17 Gm Powd.Pack) 17 gm PO DAILY PRN PRN Reason: Constipation Sodium Chloride (0.9 % Sodium Chloride Flush 3 Ml Syringe) 3 ml IVFLUSH QSHIFT [facility] Last Admin: 07/07/23 07:24 Dose: Not Given Home Medications ?Medication ?Instructions ?Recorded ?Confirmed ?Type cholecalciferol (vitamin D3) 25 25 mcg PO DAILY 05/28/22 07/07/23 History mcg (1,000 unit) tablet tizanidine 2 mg tablet 2 mg PO Q8H PRN muscle spasm 05/28/22 07/07/23 History vitamin B complex 1 cap PO DAILY 05/28/22 07/07/23 History chlorhexidine gluconate 0.12 % 15 ml PO BID 07/07/23 07/07/23 History mouthwash fluticasone propionate 50 1 spray intranasal BID PRN Allergy 07/07/23 07/07/23 History mcg/actuation nasal Symptoms spray,suspension (Flonase Allergy Relief) multivitamin 1 tab PO DAILY 07/07/23 07/07/23 History Allergies Allergy/AdvReac Type Severity Reaction Status Date / Time Sulfa (Sulfonamide Allergy Unknown RASH Verified 07/06/23 17:42 Antibiotics) [Sulfa (Sulfonamides)] sulfacetamide Allergy Unknown Hives Verified 07/06/23 17:42 [From Sulfacet-R] sulfur [From Sulfacet-R] Allergy Unknown Hives Verified 07/06/23 17:42 Physical Exam Vital signs: Vital Signs Temp 98.1 F 07/07/23 05:53 Pulse 61 07/07/23 05:53 Resp 16 07/07/23 05:53 BP 183/88 H 07/07/23 05:53 Pulse Ox 97 07/07/23 05:53 O2 Del Method Room Air 07/07/23 05:53 Intake & Output 07/06/23 07/07/23 07/07/23 18:59 06:59 18:59 Intake Total 1250 / 1250 1000 / 1000 Output Total 0 / 0 Balance 1250 / 1250 1000 / 1000 Urine Output (Average ml/kg/hr) 0.00 0.00 Intake: Intake, Oral Amount 0 / 0 Intake, IV Amount 1250 / 1250 1000 / 1000 0.9 % Sodium Chloride 1,000 ml 1000 / 1000 @ 999 mls/hr IV .Q1H1M [facility] Rx#: [id number] cefTRIAXone sodium 1 gm In 0.9 50 / 50 % Sodium Chloride 50 ml @ 100 mls/hr IV ONCE ONE Rx#: [id number] metroNIDAZOLE/NS 500 mg In 100 200 / 200 ml @ 100 mls/hr IV Q8H [facility] Rx#: [id number] Lactated Ringers 1,000 ml @ 100 1000 / 1000 mls/hr IVCONT .Q10H [facility] Rx#: [id number] Output: Output, Urine Amount 0 / 0 Other: Number of Unmeasured Voids 1 Urine Bathroom Last Bowel Movement 07/06/23 Weight 81.6 kg Weight 81.6 kg - Constitutional Present: no acute distress, average body habitus - Routine HEENT Exam Head: Present: normal inspection Eye: Present: EOMI, PERRL - Routine Neck Exam Present: supple. Absent: lymphadenopathy - Routine Respiratory Exam Present: CTAB. Absent: accessory muscle use, wheezes - Routine Cardiovascular Exam Cardiovascular: Present: RRR, S1, S2 - Routine Abdominal Exam Present: soft - Routine Extremities Exam Present: pulses intact Hem/Onc Consult Result - Labs CBC & Chem 7: 07/07/23 04:09 07/07/23 04:09 Labs: Short CBC 07/06/23 07/07/23 Range/Units 17:56 04:09 WBC 34.0 H* 33.9 H* (4.8-10.8) X10*3/uL Hgb 14.4 14.0 (14.0-18.0) g/dl Hct 43.2 41.8 L (42.0-52.0) % Plt Count 186 189 (160-400) X10*3/uL BMP 07/06/23 07/07/23 17:56 04:09 Sodium 137 139 Potassium 4.4 4.4 Chloride 102 106 Carbon Dioxide 24 22 BUN 13 12 Creatinine 0.85 0.89 Calcium 9.8 9.3 Liver Function 07/06/23 07/07/23 Range/Units 17:56 04:09 Total Bilirubin 0.4 0.6 (0.0-1.0) mg/dL AST 25 24 (5-37) U/L ALT 33 30 (0-40) U/L Alkaline Phosphatase 76 68 (39-117) U/L Albumin 4.7 4.2 (3.5-5.0) g/dL Urine 07/06/23 Range/Units 19:23 Urine Color Yellow Urine Appearance Clear Urine pH 7.0 (5.0-9.0) Ur Specific [place] 1.020 (1.005-1.025) Urine Protein Negative (Neg-Trace) mg/dL Urine Glucose (UA) Negative (Negative) mg/dL Assessment and Plan Patient Active problem list reviewed?: Yes (1) Lymphocytosis Status: Chronic Assessment and plan: 1. This is a 63-year-old male with past medical history significant for multiple sclerosis and hypertension who is admitted for recurrent mild acute diverticulitis. Was noted to have elevated WBC count with predominantly lymphocytosis. He is mature appearing cells, no anemia or thrombocytopenia. He probably has CLL, chronic lymphocytic leukemia. On exam, he does not have hepatosplenomegaly or lymphadenopathy. CT abdomen/pelvis was also negative for any abdominal lymphadenopathy or hepatosplenomegaly. He does not have any constitutional symptoms. He has no history of recurrent infections. He is up-to-date with cancer screening tests. He is not a smoker, he does not consume alcohol. Further blood work with blood flow cytometry, serum immunofixation, LDH and beta 2 microglobulin level has been submitted. 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 I have recommended that he follow-up with Hematology upon discharge from the hospital. Thank you for this referral. - Time Spent With Patient Time Spent with Patient (in minutes): 20
[2023-07-07 13:35] LABS: Lactate Dehydrogenase 155 U/L (118-273)
[2023-07-07 16:11] VITALS: BP 176/87; PULSE 66; RESP 16; TEMP 36.8; O2SAT 98
--- NOTE | 2023-07-07 16:14 | MHC.EDTECH ---
THIS PCT ASSUMED CARE OF PATIENT ,VITALS TAKEN .
[2023-07-07 19:21] VITALS: BP 192/88; PULSE 62; RESP 20; TEMP 36.2; O2SAT 97
[2023-07-07] MEDS: cefTRIAXone sodium 1 GM in 0.9 % Sodium Chloride 50 ML IV (20:44)
[2023-07-07] MEDS: Melatonin 3 MG TABLET 6 MG PO (20:45)
[2023-07-07] MEDS: hydrOXYzine HCL 25 MG TABLET PO (20:45)
--- NOTE | 2023-07-07 22:02 | CONS_ITS ---
DATE OF SERVICE: 07/07/2023 REFERRING PHYSICIAN: Emilee Ricketts NP REASON FOR CONSULTATION: Diverticulitis. HISTORY OF PRESENT ILLNESS: The patient is a pleasant 63-year-old man, who was admitted to the hospital after presenting to the emergency room yesterday with abdominal pain. This began the day of admission. There were no fevers or chills. The pain was generalized across the lower abdomen with localization later to the left lower quadrant. He saw his primary care provider, who asked him to come to the emergency department. He denies any upper GI symptoms. He has had diverticulitis in the past. He was evaluated in the emergency department, showing a markedly elevated white blood cell count of 34, and CT scanning of the abdomen and pelvis showed diverticulitis without perforation or abscess. The patient states he has undergone colonoscopy, but believes this was about 10 years ago in [place]. PAST MEDICAL HISTORY: 1. Diabetes mellitus. 2. Hypertension. 3. Hyperlipidemia. 4. BPH with lower urinary tract symptoms. 5. Abdominal aortic aneurysm. 6. Diverticulitis as above. CURRENT MEDICATIONS: His current medication list is reviewed in the chart. ALLERGIES: THERE ARE MULTIPLE MEDICATION ALLERGIES THAT ARE REVIEWED. FAMILY HISTORY: This is reviewed with the patient and is noncontributory. SOCIAL HISTORY: There is no current tobacco, alcohol, or substance abuse. 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 REVIEW OF SYSTEMS: SKIN: No pruritus. HEENT: Negative. CARDIOPULMONARY: He denies shortness of breath or chest pain. GASTROINTESTINAL: As above. GENITOURINARY: Negative. NEUROPSYCHIATRIC: Negative. PHYSICAL EXAMINATION: GENERAL: Shows a pleasant male, in no acute distress. VITAL SIGNS: Reviewed in the electronic medical record and are stable. SKIN: Anicteric. HEENT: Shows no scleral icterus. NECK: Without lymphadenopathy or thyromegaly. LUNGS: Clear. HEART: Shows a regular rate and rhythm. S1, S2. No murmur. ABDOMEN: Soft without focal masses or tenderness. Bowel sounds are present. No organomegaly is noted. EXTREMITIES: Without edema. LABORATORY DATA AND IMAGING STUDIES: Reviewed. IMPRESSION: Diverticulitis. This appears consistent with an acute uncomplicated episode of diverticulitis. He is currently receiving antibiotic therapy and I would recommend this be continued. If he has worsening symptoms, I would obtain repeat CT scanning. He has been seen in consultation by General Surgery. After his diverticulitis episode is resolved, he should undergo colonoscopy. I have discussed this with him including risks and benefits. Thanks for asking me to see him. I will follow him in the hospital with you. MD LAKIA Richards/SHABBIR / [phone]
[2023-07-08] MEDS: Lactated Ringers 1,000 ML 100 ML IVCONT (00:43)
[2023-07-08 03:24] VITALS: BP 145/77; PULSE 55; RESP 20; TEMP 36.8; O2SAT 97
[2023-07-08] MEDS: metroNIDAZOLE/NS 500 MG/100 ML PIGGYBACK 100 MG IV ×3 (05:33→20:38)
[2023-07-08 07:01] LABS: Anion Gap 13 (12-20); Blood Urea Nitrogen 9 mg/dL (9-16); Carbon Dioxide 25 mmol/L (22-29); Chloride 105 mmol/L (96-108); Creatinine Clr Calc Pharmacy 80.6; Estimated Glomerular Filt Rate > 60; Glucose Random 111 mg/dL (60-115); Potassium 4.2 mmol/L (3.3-5.1); Sodium 139 mmol/L (135-145)
[2023-07-08 07:12] VITALS: BP 153/77; PULSE 58; RESP 18; TEMP 36.1; O2SAT 96
[2023-07-08 08:12] LABS: Glucose, Whole Blood 121 mg/dL (60-115)
[2023-07-08] MEDS: Magnesium Oxide 400 MG TABLET 200 MG PO (08:46)
[2023-07-08] MEDS: Multivitamin TABLET 1 TAB PO (08:46)
[2023-07-08] MEDS: Cholecalciferol (Vitamin D3) 25 MCG TABLET PO (08:47)
[2023-07-08] MEDS: lisinopriL 20 MG TABLET PO (08:47)
[2023-07-08] MEDS: Tamsulosin HCL 0.4 MG CAPSULE PO (08:47)
[2023-07-08] MEDS: Loratadine 10 MG TABLET PO (08:47)
[2023-07-08] MEDS: 0.9 % Sodium Chloride Flush 3 ML SYRINGE IVFLUSH (08:47)
[2023-07-08 10:59] LABS: Glucose, Whole Blood 134 mg/dL (60-115)
[2023-07-08 15:57] VITALS: BP 149/74; PULSE 57; RESP 16; TEMP 36.6; O2SAT 97
[2023-07-08 16:18] LABS: Glucose, Whole Blood 101 mg/dL (60-115)
--- NOTE | 2023-07-08 17:05 | HO.PM.IMPN ---
Subjective Subjective Date of Service: 07/08/23 Interval History: Seen and examined this morning Follow-up for diverticulitis Still with some mild left lower quadrant abdominal pain but overall improving No fever, no chills Review of Systems Review of Systems: Yes all other systems are reviewed and are negative Constitutional Constitutional: Denies fever(s) Cardiovascular Cardiovascular: Denies chest pain and Denies dyspnea Respiratory Respiratory: Denies dyspnea Gastrointestinal Gastrointestinal: Denies abdominal pain Physical Exam Vital Signs: Vital Signs: Last Vital Signs Temp 97.9 F 07/08/23 15:57 Pulse 57 07/08/23 15:57 Resp 16 07/08/23 15:57 BP 149/74 H 07/08/23 15:57 Pulse Ox 97 07/08/23 15:57 O2 Del Method Room Air 07/08/23 15:57 BMI result Body Mass Index 29.0 Const: General: cooperative, comfortable, no acute distress, alert and awake Orientation/consciousness: patient oriented x3 Resp: Effort & Inspection: normal respiratory effort, able to speak in complete sentences, no respiratory distress and no use of accessory muscles Cardio: Rate: regular rate GI: Other: Mild tenderness left lower quadrant Inspection: No distended Palpation (GI): Soft to palpation Neuro: General: patient oriented x3, moves all extremities and CN's II-XI intact bilaterally Objective Data Active Medications Acetaminophen (Acetaminophen 325 Mg Tablet) 650 mg PO Q6H PRN PRN Reason: Fever, Headache, Pain 1-3 Calcium Carbonate (Calcium Carbonate 750 Mg Tab.Chew) 750 mg PO Q6H PRN PRN Reason: Heartburn Glucose (Glucose Gel 15 Gm Gel..Gram.) 15 gm PO Q15M PRN; Protocol PRN Reason: per Hypoglycemia Standing Ord. Heparin Sodium (Porcine) (Heparin Sodium,Porcine 5,000 Unit/Ml Vial) 5,000 unit SUBCUT Q12H [facility] Last Admin: 07/08/23 12:41 Dose: Not Given Documented By: CARSON Non-Admin Reason: Patient Refused Hydroxyzine HCl (Hydroxyzine Hcl 25 Mg Tablet) 25 mg PO BEDTIME PRN PRN Reason: for itch Last Admin: 07/07/23 20:45 Dose: 25 mg Documented By: LISET Ceftriaxone Sodium 1 gm/ (Sodium Chloride) 50 mls @ 100 mls/hr IV Q24H [facility] Last Infusion: 07/07/23 21:42 Dose: Infused Documented By: LISET Metronidazole (Flagyl) 500 mg in 100 mls @ 100 mls/hr IV Q8H [facility] Last Admin: 07/08/23 15:15 Dose: 100 mls/hr Documented By: SOLEDAD Dextrose (D10) 250 mls @ 750 mls/hr IV Q15M PRN; Protocol PRN Reason: per Hypoglycemia Standing Ord. Lisinopril (Lisinopril 20 Mg Tablet) 20 mg PO DAILY [facility]; Protocol Last Admin: 07/08/23 08:47 Dose: 20 mg Documented By: CARSON Loratadine (Loratadine 10 Mg Tablet) 10 mg PO DAILY [facility] Last Admin: 07/08/23 08:47 Dose: 10 mg Documented By: CARSON Magnesium Hydroxide (Milk Of Magnesia 30 Ml Oral.Susp) 30 ml PO DAILY PRN PRN Reason: Constipation Magnesium Oxide (Magnesium Oxide 400 Mg Tablet) 200 mg PO DAILY [facility] Last Admin: 07/08/23 08:46 Dose: 200 mg Documented By: CARSON Melatonin (Melatonin 3 Mg Tablet) 6 mg PO BEDTIME PRN PRN Reason: Insomnia Last Admin: 07/07/23 20:45 Dose: 6 mg Documented By: ILSET Morphine Sulfate (Morphine Sulfate 4 Mg/Ml Cartridge) 3 mg IVPUSH Q3H PRN; Protocol PRN Reason: Pain, Severe (Pain Scale 7-10) Multivitamins/Vitamin C (Multivitamin Tablet) 1 tab PO DAILY [facility] Last Admin: 07/08/23 08:46 Dose: 1 tab Documented By: CARSON Polyethylene Glycol (Polyethylene Glycol 3350 17 Gm Powd.Pack) 17 gm PO DAILY PRN PRN Reason: Constipation Sodium Chloride (0.9 % Sodium Chloride Flush 3 Ml Syringe) 3 ml IVFLUSH QSHIFT [facility] Last Admin: 07/08/23 15:18 Dose: Not Given Documented By: SOLEDAD Non-Admin Reason: IV Running Tamsulosin HCl (Tamsulosin Hcl 0.4 Mg Capsule) 0.4 mg PO DAILY [facility] Last Admin: 07/08/23 08:47 Dose: 0.4 mg Documented By: CARSON Tizanidine HCl (Tizanidine Hcl 4 Mg Tablet) 2 mg PO Q8H PRN PRN Reason: muscle spasm Vitamin D (Cholecalciferol (Vitamin D3) 25 Mcg Tablet) 25 mcg PO DAILY [facility] Last Admin: 07/08/23 08:47 Dose: 25 mcg Documented By: CARSON Labs 07/07/23 04:09 07/08/23 06:12 Labs: Laboratory Results - last 24 hr 07/06/23 07/08/23 07/08/23 19:23 06:12 08:09 Anion Gap 13 Estim Creat Clear Calc 80.6 Estimated GFR > 60 POC Glucose 121 H Random Glucose 111 Calcium 9.0 Urine Immunofixation SEE NOTE 07/08/23 07/08/23 10:54 16:13 Anion Gap Estim Creat Clear Calc Estimated GFR POC Glucose 134 H 101 Random Glucose Calcium Urine Immunofixation Microbiology Microbiology Results: Microbiology 07/06/23 18:12 Blood Culture - Preliminary Blood - Venous No growth after 24 hours. 07/06/23 17:56 Blood Culture - Preliminary Blood - Venous No growth after 24 hours. Assessment and Plan (1) Diverticulitis: Status: Acute (2) Lymphocytosis: Status: Chronic Plan 63-year-old man admitted with acute diverticulitis Acute diverticulitis Rocephin and Flagyl Pain management Seen by General surgery, no need for surgical intervention at this time seen by GI - recommend outpatient colonoscopy after this bout of diverticulitis resolves blood cultures negative to date will advance diet Leukocytosis/lymphocytosis No sepsis, likely secondary to diverticulitis and abnormal peripheral smear Concern for lymphoproliferative disorder (CLL) Discussed with Hematology> blood flow cytometry, serum immunofixation, LDH and beta 2 microglobulin level has been submitted. He can follow up o/p with hematology Hypertension Continue lisinopril BPH Continue flomax History of multiple sclerosis No symptoms of exacerbation DVT prophylaxis with heparin Full code Continue hospitalization for treatment of view diverticulitis requiring IV antibiotics and specialty consultation Quality Stroke Does the patient have a stroke diagnosis?: No VTE Prior VTE?: No VTE Risk Level:: Medical - moderate - high VTE Device Contraindication: N/A - Device Ordered VTE Drug Contraindication: N/A - Med Ordered
[2023-07-08 19:50] LABS: Glucose, Whole Blood 156 mg/dL (60-115)
[2023-07-08 20:00] VITALS: BP 168/84; PULSE 59; RESP 20; TEMP 36.6; O2SAT 95
[2023-07-08] MEDS: Melatonin 3 MG TABLET 6 MG PO (20:34)
[2023-07-08] MEDS: hydrOXYzine HCL 25 MG TABLET PO (20:34)
[2023-07-08] MEDS: Acetaminophen 325 MG TABLET 650 MG PO (20:36)
[2023-07-08] MEDS: cefTRIAXone sodium 1 GM in 0.9 % Sodium Chloride 50 ML IV (20:36)
[2023-07-09 04:00] VITALS: BP 136/72; PULSE 57; RESP 16; TEMP 36.4; O2SAT 95
[2023-07-09] MEDS: metroNIDAZOLE/NS 500 MG/100 ML PIGGYBACK 100 MG IV (05:07)
--- NOTE | 2023-07-09 05:57 | PC.NURSE ---
Pt AOx4, able to make needs known, pleasant, and cooperative. Pt ambulates in room independently. He did c/o a headache around HS, tylenol given w/good effect per pt. Pt uses urinal, urine is clear yellow. Safety maintained throughout shift.
[2023-07-09 07:12] VITALS: BP 140/74; PULSE 59; RESP 18; TEMP 36.1; O2SAT 96
[2023-07-09 07:37] LABS: Glucose, Whole Blood 119 mg/dL (60-115)
[2023-07-09] MEDS: lisinopriL 20 MG TABLET PO (09:01)
[2023-07-09] MEDS: 0.9 % Sodium Chloride Flush 3 ML SYRINGE IVFLUSH (09:01)
[2023-07-09] MEDS: Magnesium Oxide 400 MG TABLET 200 MG PO (09:02)
[2023-07-09] MEDS: Loratadine 10 MG TABLET PO (09:03)
[2023-07-09] MEDS: Cholecalciferol (Vitamin D3) 25 MCG TABLET PO (09:03)
[2023-07-09] MEDS: Tamsulosin HCL 0.4 MG CAPSULE PO (09:03)
[2023-07-09] MEDS: Multivitamin TABLET 1 TAB PO (09:03)
[2023-07-09] MEDS: Acetaminophen 325 MG TABLET 650 MG PO (09:03)
--- NOTE | 2023-07-09 09:06 | PM.PNGS ---
Subjective Subjective Date of Service: 07/09/23 Interval history: Patient's diverticular left lower quadrant abdominal symptoms improving. Passing flatus and stool. Tolerating solid diet. Physical Exam Vital Signs: Vital Signs: Last Vital Signs Temp 96.9 F 07/09/23 07:12 Pulse 59 07/09/23 07:12 Resp 18 07/09/23 07:12 BP 140/74 H 07/09/23 07:12 Pulse Ox 96 07/09/23 07:12 O2 Del Method Room Air 07/09/23 07:12 BMI result Body Mass Index 29.0 GI: Other: Abdomen is soft. Left lower quadrant tenderness markedly improved. No evidence of any guarding, rebound, or rigidity. Objective Data Active Medications Acetaminophen (Acetaminophen 325 Mg Tablet) 650 mg PO Q6H PRN PRN Reason: Fever, Headache, Pain 1-3 Last Admin: 07/09/23 09:03 Dose: 650 mg Documented By: MONFETE Calcium Carbonate (Calcium Carbonate 750 Mg Tab.Chew) 750 mg PO Q6H PRN PRN Reason: Heartburn Glucose (Glucose Gel 15 Gm Gel..Gram.) 15 gm PO Q15M PRN; Protocol PRN Reason: per Hypoglycemia Standing Ord. Heparin Sodium (Porcine) (Heparin Sodium,Porcine 5,000 Unit/Ml Vial) 5,000 unit SUBCUT Q12H [facility] Last Admin: 07/09/23 00:21 Dose: Not Given Documented By: TIMMY Non-Admin Reason: Patient Refused Hydroxyzine HCl (Hydroxyzine Hcl 25 Mg Tablet) 25 mg PO BEDTIME PRN PRN Reason: for itch Last Admin: 07/08/23 20:34 Dose: 25 mg Documented By: TIMMY Ceftriaxone Sodium 1 gm/ (Sodium Chloride) 50 mls @ 100 mls/hr IV Q24H [facility] Last Infusion: 07/08/23 21:10 Dose: Infused Documented By: TIMMY Metronidazole (Flagyl) 500 mg in 100 mls @ 100 mls/hr IV Q8H [facility] Last Infusion: 07/09/23 06:15 Dose: Infused Documented By: TIMMY Dextrose (D10) 250 mls @ 750 mls/hr IV Q15M PRN; Protocol PRN Reason: per Hypoglycemia Standing Ord. Lisinopril (Lisinopril 20 Mg Tablet) 20 mg PO DAILY [facility]; Protocol Last Admin: 07/09/23 09:01 Dose: 20 mg Documented By: CARSON Loratadine (Loratadine 10 Mg Tablet) 10 mg PO DAILY [facility] Last Admin: 07/09/23 09:03 Dose: 10 mg Documented By: CARSON Magnesium Hydroxide (Milk Of Magnesia 30 Ml Oral.Susp) 30 ml PO DAILY PRN PRN Reason: Constipation Magnesium Oxide (Magnesium Oxide 400 Mg Tablet) 200 mg PO DAILY [facility] Last Admin: 07/09/23 09:02 Dose: 200 mg Documented By: CARSON Melatonin (Melatonin 3 Mg Tablet) 6 mg PO BEDTIME PRN PRN Reason: Insomnia Last Admin: 07/08/23 20:34 Dose: 6 mg Documented By: TIMMY Morphine Sulfate (Morphine Sulfate 4 Mg/Ml Cartridge) 3 mg IVPUSH Q3H PRN; Protocol PRN Reason: Pain, Severe (Pain Scale 7-10) Multivitamins/Vitamin C (Multivitamin Tablet) 1 tab PO DAILY [facility] Last Admin: 07/09/23 09:03 Dose: 1 tab Documented By: CARSON Polyethylene Glycol (Polyethylene Glycol 3350 17 Gm Powd.Pack) 17 gm PO DAILY PRN PRN Reason: Constipation Sodium Chloride (0.9 % Sodium Chloride Flush 3 Ml Syringe) 3 ml IVFLUSH QSHIFT [facility] Last Admin: 07/09/23 09:01 Dose: 3 ml Documented By: CARSON Tamsulosin HCl (Tamsulosin Hcl 0.4 Mg Capsule) 0.4 mg PO DAILY [facility] Last Admin: 07/09/23 09:03 Dose: 0.4 mg Documented By: CARSON Tizanidine HCl (Tizanidine Hcl 4 Mg Tablet) 2 mg PO Q8H PRN PRN Reason: muscle spasm Vitamin D (Cholecalciferol (Vitamin D3) 25 Mcg Tablet) 25 mcg PO DAILY [facility] Last Admin: 07/09/23 09:03 Dose: 25 mcg Documented By: CARSON Labs 07/07/23 04:09 07/08/23 06:12 Labs: Laboratory Results - last 24 hr 07/06/23 07/08/23 07/08/23 19:23 10:54 16:13 POC Glucose 134 H 101 Urine Immunofixation SEE NOTE 07/08/23 07/09/23 19:46 07:33 POC Glucose 156 H 119 H Urine Immunofixation Microbiology Microbiology Results: Microbiology 07/06/23 18:12 Blood Culture - Preliminary Blood - Venous No growth after 48 hours. 07/06/23 17:56 Blood Culture - Preliminary Blood - Venous No growth after 48 hours. Procedures Date of Service Date of Service: 07/09/23 Progress Note: A&P Assessment and plan (1) Diverticulitis: Status: Acute Plan Improving diverticulitis. Will see patient in office for follow-up. All questions answered. Time Spent With Patient Time: Total time managing care of this patient today ____ minutes. Quality Stroke Does the patient have a stroke diagnosis?: No VTE Prior VTE?: No VTE Risk Level:: Medical - moderate - high VTE Device Contraindication: N/A - Device Ordered VTE Drug Contraindication: N/A - Med Ordered
--- NOTE | 2023-07-09 10:47 | MHC.CM.PN ---
PER HOSPITALIST PT TO BE MEDICALLY CLEARED FOR DC HOME SELF CARE W/PT WILL SELF TXFR
[2023-07-09 11:29] LABS: Glucose, Whole Blood 192 mg/dL (60-115)
--- NOTE | 2023-07-09 11:52 | PM.DS ---
DS: Providers Provider Date of Service: 07/09/23 Date of admission: 07/06/23 23:04 Date of discharge: 07/09/23 Primary care physician: Simeon Sarkar PA-C Consults: 07/06/23 23:47 Consult to General Surgery Routine Consulting Provider: [facility] [facility] Reason for consultation: Diverticulitis Has provider been notified: No 07/07/23 09:00 Consult to Hematology / Oncology Routine Consulting Provider: Mae Chavez Reason for consultation: smear concerning for lymphoproliferative disorder 07/07/23 14:41 Consult to Gastroenterology Routine Consulting Provider: Rick Medel Reason for consultation: diverticulitis Attending physician on discharge: Moe Wilkins Discharging clinician: Ofelia Jaramillo DS: Diagnosis Discharge Diagnosis (1) Diverticulitis: Status: Acute (2) Lymphocytosis: Status: Chronic DS: Summary Hospital Course Hospital Course: From H&P on the day of admission Chavo Bailey is a very pleasant 63 years old man with past medical history significant essential hypertension, BPH, AAA and MS presents to the emergency department complaining of abdominal pain that started today. He denied associated nausea, vomiting, diarrhea or constipation. He also denies fevers. He was evaluated by his primary care physician and was advised to come to the ED for further evaluation. Patient also denies headache, palpitations, dizziness, chest pain, shortness on breath or cough. He did not report any acute urinary symptoms. Denied alcohol abuse, tobacco smoking or illicit drug use. Abdominal surgery history is remarkable for right hernia repair and appendectomy. He had an event of acute diverticulitis last year. In the ED he was found to have stable vital signs. Blood workup was remarkable for WBC count of 34.0. Hemoglobin and platelets are normal. There are no electrolyte imbalances. Renal function and LFTs are normal. UA is normal. Abdomen pelvis CT scan with IV contrast showed mild diverticulitis of the sigmoid colon without perforation or abscesses. ED tx: Ceftriaxone 1 g IV, NS 1 L bolus Acute diverticulitis Treated with IV Rocephin and Flagyl. Seen by General surgery, no need for surgical intervention at this time. seen by GI - recommend outpatient colonoscopy after this bout of diverticulitis resolves Patient has remained afebrile, abdominal pain has improved, his diet was advanced and he is currently tolerating a regular diet is acceptable for discharge home. Recommend to continue bland diet until pain resolves. Recommend to continue 7 more days of oral antibiotics, Augmentin as previously prescribed by his PCP prior to hospitalization. Leukocytosis/lymphocytosis No sepsis, likely secondary to abnormal peripheral smear Concern for lymphoproliferative disorder (CLL) seen by Hematology> blood flow cytometry, serum immunofixation, LDH and beta 2 microglobulin level has been submitted. Outpatient follow-up with Hematology recommended Hyperglycemia Hemoglobin A1c 7.0. Defer management to outpatient provider after discussion with patient and his at the bedside. was previously on metformin. Patient will follow up with PCP Time Attestation Discharge Coordination Time (in mins): 36 Quality: Safe Use of Opioids Does Pt have an Active Cancer Diagnosis on the Problem List?: No Quality: Stroke Does the patient have a stroke diagnosis?: No Physical Exam Vital Signs: Vital Signs: Last Vital Signs Temp 96.9 F 07/09/23 07:12 Pulse 59 07/09/23 07:12 Resp 18 07/09/23 07:12 BP 140/74 H 07/09/23 07:12 Pulse Ox 96 07/09/23 07:12 O2 Del Method Room Air 07/09/23 07:12 BMI result Body Mass Index 29.0 Const: General: cooperative, comfortable, no acute distress, alert and awake Orientation/consciousness: patient oriented x3 Resp: Effort & Inspection: normal respiratory effort, able to speak in complete sentences, no respiratory distress and no use of accessory muscles Cardio: Rate: regular rate GI: Inspection: No distended Palpation (GI): Soft to palpation Neuro: General: patient oriented x3, moves all extremities and CN's II-XI intact bilaterally DS: Data Data Completed and Pending Labs on day of discharge: Laboratory Results - last 24 hr 07/06/23 07/08/23 07/08/23 19:23 16:13 19:46 POC Glucose 101 156 H Urine Immunofixation SEE NOTE 07/09/23 07/09/23 07:33 11:20 POC Glucose 119 H 192 H Urine Immunofixation Preliminary micro results at discharge 07/06/23 18:12 Blood Culture - Preliminary Blood - Venous No growth after 48 hours. 07/06/23 17:56 Blood Culture - Preliminary Blood - Venous No growth after 48 hours. Discharge Plan Discharge Anticipated Discharge Date/Time: 07/09/23 11:39 Patient Disposition: Home, Self-Care Discharge Diagnosis: Acute diverticulitis Lymphocytosis Referrals: Mae Chavez MD [Physician] - 1 Week Simeon Sarkar PA-C [Primary Care Provider] - 1 Week Mitul Zuniga MD [Physician] - 1 Week Discharge Medications: Continued (DME) bath tub seat See Rx Instructions .Route .MEDSUPPLY Qty: 1 0RF Rx Instructions: As directed (DME) shower wand See Rx Instructions .Route .MEDSUPPLY Qty: 1 0RF Rx Instructions: As directed cetirizine 10 mg tablet 10 mg PO DAILY 30 Days Qty: 30 6RF lisinopril 20 mg tablet 20 mg PO DAILY 90 Days Qty: 90 1RF multivitamin Tablet 1 tab PO DAILY chlorhexidine gluconate 0.12 % mouthwash 15 ml PO BID Rx Instructions: RINSE MOUTH WITH 15ML (1 CAPFUL) FOR 30 SECONDS IN MORNING AND EVENING AFTER BRUSHING, THEN SPIT fluticasone propionate [Flonase Allergy Relief] 50 mcg/actuation spray,suspension 1 spray intranasal BID PRN (Reason: Allergy Symptoms) Rx Instructions: administer into each nostril tizanidine 2 mg tablet 2 mg PO Q8H PRN (Reason: muscle spasm) vitamin B complex Capsule 1 cap PO DAILY cholecalciferol (vitamin D3) 25 mcg (1,000 unit) Tablet 25 mcg PO DAILY (DME) Blood Pressure Cuff Misc See Rx Instructions .ROUTE .MEDSUPPLY Qty: 1 0RF Rx Instructions: As directed (DME) Knee Support Brace Misc See Rx Instructions .Route Qty: 1 0RF Rx Instructions: As directed magnesium 250 mg tablet 250 mg PO DAILY 90 Days Qty: 90 1RF amoxicillin-pot clavulanate 875-125 mg tablet 1 tab PO BID 10 Days Qty: 20 0RF hydroxyzine HCl 25 mg tablet 25 mg PO BEDTIME PRN (Reason: for itch) Qty: 90 1RF alfuzosin 10 mg tablet extended release 24 hr 10 mg PO DAILY 90 Days Qty: 90 3RF Rx Instructions: administer after the same meal each day Discharge Orders: Discharge Order (Routine); Ordered 07/09/23 Ordered By: Ofelia Jaramillo Activity on Discharge: As tolerated Stand Alone Forms: Patient Portal Discharge page Print Language: Chinese Care Plan Goals: See below Health Concerns: Acute uncomplicated diverticulitis Lymphocytosis Plan of Treatment: Complete 7 more days of Augmentin Continue bland diet until pain resolves Recommend outpatient follow-up with GI for repeat colonoscopy Recommend outpatient follow-up with General surgery due to recurrent diverticulitis Recommend outpatient follow-up with Hematology/Oncology for close monitoring of lymphocytosis/follow-up lab results Call to schedule follow-up appointment with PCP to discuss blood sugar monitoring/control, Hba1c 7.0 Assessment: See discharge summary
== END 2023-07-09 14:09 | disposition home or self-care (01) | DRG 392 ==
LOC: HO.ED 20:39 → HO.EDOVER 23:39 → HO.IMC 07-07 17:53
PROVIDERS: Internal Medicine; Nurse Practitioner Acute Care; Nurse Practitioner Family; Physician Assistant; Admitting Provider Internal Medicine; Emergency Provider Emergency Medicine; PCP Physician Assistant; Visit Provider Physician Assistant Medical
DX: K57.32 Diverticulitis of large intestine without perforation or abscess without bleeding (principal); N13.8 Other obstructive and reflux uropathy; C91.10 Chronic lymphocytic leukemia of B-cell type not having achieved remission; N40.1 Benign prostatic hyperplasia with lower urinary tract symptoms; G35 Multiple sclerosis; E11.65 Type 2 diabetes mellitus with hyperglycemia; I10 Essential (primary) hypertension; I71.40 Abdominal aortic aneurysm, without rupture, unspecified; Z79.899 Other long term (current) drug therapy
CPT/HCPCS: 36415; 74177; 80048; 80053; 81001; 81003; 82232; 82947; 83615; 83690; 85025; 85027; 86335; 87040; 88184; 88185; 99285; J0696; J1836; J2270; J7120; Q9967

== ENCOUNTER → 2023-07-06 23:04 | Outpatient (BNV) | payer OTHER, SELFPAY | PROVIDERS: Admitting Provider Internal Medicine; Emergency Provider Emergency Medicine; PCP Physician Assistant; Visit Provider Internal Medicine | DX: K57.92 Diverticulitis of intestine, part unspecified, without perforation or abscess without bleeding (principal); I71.40 Abdominal aortic aneurysm, without rupture, unspecified; G35 Multiple sclerosis; I10 Essential (primary) hypertension | CPT/HCPCS: 99223; 99232; 99239 ==

== ENCOUNTER → 2023-07-06 23:04 | Outpatient (BNV) | payer OTHER, SELFPAY | PROVIDERS: Admitting Provider Internal Medicine; Emergency Provider Emergency Medicine; PCP Physician Assistant; Visit Provider Internal Medicine | DX: D72.820 Lymphocytosis (symptomatic) (principal) | CPT/HCPCS: 99222 ==

== ENCOUNTER → 2023-07-06 23:04 | Outpatient (BNV) | payer OTHER, SELFPAY | PROVIDERS: Admitting Provider Internal Medicine; Emergency Provider Emergency Medicine; PCP Physician Assistant; Visit Provider Surgery | DX: K57.92 Diverticulitis of intestine, part unspecified, without perforation or abscess without bleeding (principal) | CPT/HCPCS: 99222; 99232 ==

== ENCOUNTER → 2023-07-13 10:03 | Outpatient (BNV) | payer OTHER, SELFPAY | PROVIDERS: PCP Physician Assistant; Visit Provider Internal Medicine | DX: C91.90 Lymphoid leukemia, unspecified not having achieved remission (principal) | CPT/HCPCS: 99214; 99215; G2211 ==

== ENCOUNTER 2023-07-15 14:13 | Outpatient (AMB) | payer OTHER, SELFPAY ==
[2023-07-15 14:27] VITALS: BP 104/60; PULSE 89; O2SAT 96
--- NOTE | 2023-07-15 14:27 | MHC.PC.OV ---
Vital Signs 07/15/23 14:27 Height 5 ft 6 in Weight 186 lb BMI 30.0 BP 104/60 Blood Pressure Location Lt brachial Position Sitting Pulse 89 Pulse Source Pulse Oximeter Pulse Oximetry (%) 96 Oxygen Delivery Method Room Air Intake Visit Reasons: [facility] [place] cute diverticulitis/Lymphocytosis Career Coach Required: No Accompanied by: Self / Same As Patient Allergies Sulfa (Sulfonamide Antibiotics) [Sulfa (Sulfonamides)] Allergy (Unknown, Verified 07/15/23 14:46) RASH sulfacetamide [From Sulfacet-R] Allergy (Unknown, Verified 07/15/23 14:46) Hives sulfur [From Sulfacet-R] Allergy (Unknown, Verified 07/15/23 14:46) Hives Medication List - Last Reconciled 07/15/23 by Simeon Sarkar PA-C alfuzosin ER 10 mg PO DAILY 90 days amoxicillin-pot clavulanate 875-125 mg 1 tab PO BID 10 days [bath tub seat As directed] cetirizine 10 mg PO DAILY 30 days chlorhexidine gluconate 0.12% 15 mL PO BID cholecalciferol (vitamin D3) 25 mcg PO DAILY fluticasone propionate 50 mcg/actuation (Flonase Allergy Relief) 1 spray intranasal BID PRN hydroxyzine HCl 25 mg PO BEDTIME PRN leg brace (Knee Support Brace) As directed lisinopril 20 mg PO DAILY 90 days magnesium 250 mg PO DAILY 90 days miscellaneous medical supply (Blood Pressure Cuff) As directed multivitamin 1 tab PO DAILY [shower wand As directed] tizanidine 2 mg PO Q8H PRN vitamin B complex 1 cap PO DAILY Tobacco use date assessed: 07/06/23 Dental Screening Dental Screen Date: 03/04/23 HPI [facility] [place] 5cute diverticulitis/Lymphocytosis HPI Details Chavo is 63-year-old male here today for hospital discharge follow-up. Patient has a past medical history significant for MS, , essential hypertension, BPH, type 2 diabetes ectt.. Patient recently admitted to hospital for acute abdominal pain. CT positive for diverticulitis flare. Patient was treated with IV fluids Rocephin and Flagyl. General surgeon evaluated no need for surgical intervention though did need GI recommended outpatient colonoscopy. Also during his hospitalization he was noted to have elevated white blood cell count and an abnormal peripheral smear (smudge cells) which was consistent with CLL. Will be following up with Hematology in September Otherwise currently feeling better and has less lower pain. Continues on p.o. antibiotics for now. Has follow-up with general surgeon on Jul 20 2023. Laboratory Tests 05/26/18 10/06/19 12/02/20 10:29 07:20 07:40 WBC 14.1 H 8.1 8.6 05/19/22 05/28/22 03/09/23 06:50 19:38 08:03 WBC 14.3 H 21.0 H 25.2 H 07/06/23 07/06/23 07/13/23 11:56 17:56 11:06 WBC 31.0 H* 34.0 H* 29.8 H [facility] Medical History (Updated 07/15/23 @ 15:09 by Simeon Sarkar PA-C) Multiple sclerosis HTN (hypertension) AAA (abdominal aortic aneurysm) Dysuria BPH (benign prostatic hyperplasia) HTN (hypertension) Hyperlipidemia Diabetes mellitus Bladder outlet obstruction Weak urinary stream Nocturia Stress incontinence, male Surgical History History of dental surgery History of removal of cyst History of appendectomy History of hernia repair Family History Father Diabetes Mother No problems noted. Maternal Uncle Myocardial infarction Sister No problems noted. Son No problems noted. Son No problems noted. Daughter No problems noted. Brother No problems noted. Brother No problems noted. Brother No problems noted. 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 Cognitive needs: No Hearing needs: No Vision needs: No Questionnaire Thrive Questionnaire Date Thrive assessed: 07/07/23 ADRIEN-7 AMB Questionnaire ADRIEN-7 Date ADRIEN - 7 assessed: 03/04/23 Source: Developed by Drs. Kam Becker, Lucille Marsh, Trae Roy and colleagues, with an educational catalina from [employer]. Review of Systems Const Denies headache(s) Eyes Denies loss of vision ENT Denies vertigo, Denies dizziness, Denies headache(s) and Denies sore throat Card Denies chest pain, Denies leg edema and Denies lightheadedness Resp Denies cough, Denies hemoptysis and Denies wheezing GI Denies abdominal pain, Denies melena, Denies constipation, Denies diarrhea and Denies vomiting Denies dysuria, Denies urinary frequency and Denies urinary urgency Musc Denies arthralgias, Denies joint swelling, Denies numbness and Denies tingling Neuro Denies Abnormal speech present, Denies behavioral changes, Denies vertigo, Denies dizziness, Denies headache(s), Denies loss of vision, Denies memory loss, Denies numbness and Denies tingling Psych Denies anxiety, Denies behavioral changes, Denies depression, Denies memory loss and Denies panic attacks Benjamin/Lymph Denies easy bleeding and Denies easy bruising Aller/Immun Denies wheezing Physical exam (Primary Care) Vital Signs: Last Vital Signs Pulse 89 07/15/23 14:27 BP 104/60 07/15/23 14:27 Pulse Ox 96 07/15/23 14:27 Oxygen Delivery Method Room Air 07/15/23 14:27 BMI result Body Mass Index 30.0 Tobacco/Smoking Status: Tobacco use Status Tobacco use date assessed 07/06/23 07/15/23 14:32 Patient Tobacco Use Status Never used Tobacco 07/15/23 14:32 e-Cigarette/Vaping Use Never Used 07/15/23 14:32 Thrive Assessment: Date of Thrive Assessment Date Thrive assessed 07/07/23 07/15/23 14:32 Const General: healthy appearing, no acute distress, alert and awake Nutritional Appearance: well nourished Orientation/consciousness: oriented to person, oriented to place and oriented to time HENMT Ears: TM's normal bilaterally General nose exam: Normal nasal mucous membranes and turbinates present Eyes Conjunctivae: conjunctivae normal Sclerae: sclerae normal Pupils: Equal, round and reactive pupils present Neck Neck: Yes no lymphadenopathy and Yes no JVD Thyroid: Thyroid normal Carotids: no bruits Resp Effort & Inspection: normal respiratory effort and not tachypneic Auscultation: no crackles, no rales, no rhonchi and no wheezes Cardio Rate: regular rate Rhythm: regular rhythm Heart sounds: no murmurs and normal S1 and S2 GI Palpation (GI): Soft to palpation, nontender, no hepatomegaly and no splenomegaly Auscultation: normal bowel sounds Skin General skin exam: no rashes or lesions noted and dry skin Neuro General: oriented to person, oriented to place and oriented to time Cranial nerves: Yes Equal, round and reactive pupils present Speech: No Abnormal speech present Gait exam (Neuro): Normal gait present Motor exam (neuro): no tremor noted Extrem Right upper extremity: full ROM Left upper extremity: full ROM Right lower extremity: full ROM; no edema Left lower extremity: full ROM; no edema Psych Mental Status: mental status grossly normal Speech and movement: Normal speech and movement present Affect: normal affect Attitude: cooperative Thought process: Normal thought process present Immunizations pneumoc 20-danny conj-dip cr(PF) 0.5 mL IM syringe Performing Provider: Simeon Sarkar PA-C Performing Location: [facility] Administered by: ANASTASIA Edward on 07/15/23 15:04 Dose Route Admin Location Dispensed Lot Number Expiration Date NDC Senior Quantity Surveyor 0.5 mL IM Right Deltoid 0.5 mL [id number] 06/22/24 [id number] [email or web address] VIS Given Date VIS Provided VIS Publication Date 07/15/23 Single Vaccine 21 Eligibility Eligibility Date Funding Source Not [facility] Eligible 07/15/23 Private Assessment and Plan Assessment & Plan (1) Hospital discharge follow-up: Code(s): Z09 - Encounter for follow-up examination after completed treatment for conditions other than malignant neoplasm (2) Colitis: Code(s): K52.9 - Noninfective gastroenteritis and colitis, unspecified Plan: As per HPI, doing better and having less abdominal pain. Still on oral antibiotics at this time. Has upcoming appointment with general surgeon for diverticulitis follow-up. (3) DMII (diabetes mellitus, type 2): Code(s): E11.9 - Type 2 diabetes mellitus without complications Qualifiers: Diabetes mellitus complication status: with hyperglycemia Diabetes mellitus chcf insulin use: without watermelon harvesting supervisor use Qualified Code(s): E11.65 - Type 2 diabetes mellitus with hyperglycemia Plan: Patient's type 2 diabetes suboptimally controlled with most recent A1c at 7.1. He does report he has not been as physically active as he usually does. We did discuss starting metformin though he would like to hold off of work on lifestyle and dietary modifications. . Goal A1c to be below 7.0 (4) CLL (chronic lymphocytic leukemia): Code(s): C91.10 - Chronic lymphocytic leukemia of B-cell type not having achieved remission Plan: Has had elevated white blood cell count for over a year now. Peripheral smear showing multiple smudge cells. Leukocytosis thought to be due to his MS treatment infusions. Peripheral blood smear showing smudge cells consistent with CLL. Will continue to follow hematology. Orders: Orders Pneumococcal 20 Immunization Today Z23 - Encounter for immunization Coding Level of Care Code Est Pt Level 4 (26711) Diagnoses Hospital discharge follow-up Z09 Colitis K52.9 Type 2 diabetes mellitus with hyperglycemia, without long-term current use of insulin E11.65 Diabetes mellitus complication status: with hyperglycemia Diabetes mellitus watermelon harvesting supervisor insulin use: without chcf use CLL (chronic lymphocytic leukemia) C91.10
== END 2023-07-15 15:10 | disposition home or self-care (01) ==
PROVIDERS: PCP Physician Assistant; Visit Provider Physician Assistant
DX: Z09 Encounter for follow-up examination after completed treatment for conditions other than malignant neoplasm (principal); K52.9 Noninfective gastroenteritis and colitis, unspecified; E11.65 Type 2 diabetes mellitus with hyperglycemia; C91.10 Chronic lymphocytic leukemia of B-cell type not having achieved remission; Z23 Encounter for immunization
CPT/HCPCS: 90471; 90677; 99214

== ENCOUNTER 2023-07-23 11:04 | Outpatient (AMB) | payer OTHER, SELFPAY ==
--- NOTE | 2023-07-23 11:07 | A.OFFVIS_ITS ---
Vital Signs 07/23/23 11:17 Height 5 ft 6 in Weight 184 lb 2 oz BMI 29.7 BP 129/66 Blood Pressure Location Lt brachial Position Sitting Pulse 85 Intake Visit Reasons: ER follow up diverticuliitis Intake Note: Patient is seen in office for follow up visit, following on diverticulitis. Pt c/o: was in the ED due to left abdomen pain, denies n/v/d/c, was told his WBC was high and is still waiting on more results ER: 07/06/23 L.OV:08/27/22 Law Enforcement Director Required: No Accompanied by: Family/Other Allergies Sulfa (Sulfonamide Antibiotics) [Sulfa (Sulfonamides)] Allergy (Unknown, Verified 07/23/23 11:14) RASH sulfacetamide [From Sulfacet-R] Allergy (Unknown, Verified 07/23/23 11:14) Hives sulfur [From Sulfacet-R] Allergy (Unknown, Verified 07/23/23 11:14) Hives Medication List - Last Reconciled 07/23/23 by Paul Anderson MD alfuzosin ER 10 mg PO DAILY 90 days [bath tub seat As directed] cetirizine 10 mg PO DAILY 30 days cholecalciferol (vitamin D3) 25 mcg PO DAILY fluticasone propionate 50 mcg/actuation (Flonase Allergy Relief) 1 spray intranasal BID PRN hydroxyzine HCl 25 mg PO BEDTIME PRN leg brace (Knee Support Brace) As directed lisinopril 20 mg PO DAILY 90 days magnesium 250 mg PO DAILY 90 days miscellaneous medical supply (Blood Pressure Cuff) As directed multivitamin 1 tab PO DAILY [shower wand As directed] tizanidine 2 mg PO Q8H PRN vitamin B complex 1 cap PO DAILY HPI Comments Details: 63-year-old male patient previously evaluated for diverticulitis returning following a recent evaluation in the emergency department on 07/06/2023. He re ported some pain in the left lower quadrant similar to previous episodes of diverticulitis. A CT abdomen and pelvis was performed which confirmed an area of mild inflammation without evidence of perforation or abscess. He did have an elevated WBC however has a known history of CLL. Currently returns for follow- up examination. He denies any abdominal pain and reports eating a restricted diet avoiding seeds and skins. He denies any fever, chills, diarrhea or constipation. His abdominal symptoms have essentially resolved. [facility] Medical History Multiple sclerosis HTN (hypertension) AAA (abdominal aortic aneurysm) Dysuria BPH (benign prostatic hyperplasia) HTN (hypertension) Hyperlipidemia Diabetes mellitus Bladder outlet obstruction Weak urinary stream Nocturia Stress incontinence, male Surgical History History of dental surgery History of removal of cyst History of appendectomy History of hernia repair Family History Father Diabetes Mother No problems noted. Maternal Uncle Myocardial infarction Sister No problems noted. Son No problems noted. Son No problems noted. Daughter No problems noted. Brother No problems noted. Brother No problems noted. Brother No problems noted. 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 Cognitive needs: No Hearing needs: No Vision needs: No Review of Systems Const All systems reviewed & are unremarkable except as noted in HPI and below Physical Exam Vital Signs: Last Vital Signs Pulse 85 07/23/23 11:17 BP 129/66 07/23/23 11:17 BMI result Body Mass Index 29.7 Const General: no acute distress Nutritional Appearance: well nourished Orientation/consciousness: patient oriented x3 Limitations: no limitations Resp Effort & Inspection: normal respiratory effort GI Inspection: Yes normal to inspection Palpation (GI): Soft to palpation, nontender and no guarding Skin General skin exam: no rashes or lesions noted Neuro General: patient oriented x3 Extrem General: No edema Assessment & Plan Assessment & Plan (1) Acute diverticulitis: Code(s): K57.92 - Diverticulitis of intestine, part unspecified, without perforation or abscess without bleeding Category: Medical Plan 63-year-old male patient with a previous history of diverticulitis now returning after recent flare-up requiring hospital admission. He now reports feeling much improved with no further abdominal pain, fever or chills. He is eating well and denies any diarrhea or constipation. We discussed foods to avoid for diverticulitis. We also discussed surgical options including hand assisted sigmoid colectomy should the symptoms persist. As his symptoms have now resolved no surgical intervention is recommended. He should follow up as n eeded. Coding Level of Care Code Est Pt Level 3 (96929) Diagnoses Acute diverticulitis K57.92
[2023-07-23 11:17] VITALS: BP 129/66; PULSE 85; BMI 29.7
== END 2023-07-23 11:27 | disposition home or self-care (01) ==
PROVIDERS: PCP Physician Assistant; Visit Provider Surgery
DX: K57.92 Diverticulitis of intestine, part unspecified, without perforation or abscess without bleeding (principal)
CPT/HCPCS: 99213

== ENCOUNTER → 2023-07-23 11:04 | Outpatient (BNVA) | payer OTHER, SELFPAY | PROVIDERS: PCP Physician Assistant; Visit Provider Surgery | DX: K57.92 Diverticulitis of intestine, part unspecified, without perforation or abscess without bleeding (principal) | CPT/HCPCS: 99212 ==

== ENCOUNTER 2023-08-02 09:26 | Outpatient (AMB) | payer OTHER, SELFPAY ==
--- NOTE | 2023-08-02 09:40 | A.OFFVIS_ITS ---
Intake Visit Reasons: 6 month follow up/ PSA Intake Note: Patient is present for a follow-up on PSA Results: Current Medication alfuzosin Allergies to Antibiotic- No Known Allergies Blood Thinner- None PVR, 35 mL Rn Midwife Required: No Accompanied by: Self / Same As Patient Allergies Sulfa (Sulfonamide Antibiotics) [Sulfa (Sulfonamides)] Allergy (Unknown, Verified 07/23/23 11:14) RASH sulfacetamide [From Sulfacet-R] Allergy (Unknown, Verified 07/23/23 11:14) Hives sulfur [From Sulfacet-R] Allergy (Unknown, Verified 07/23/23 11:14) Hives Medication List - Last Reconciled 08/02/23 by Nelda Mills MD [bath tub seat As directed] cetirizine 10 mg PO DAILY 30 days cholecalciferol (vitamin D3) 25 mcg PO DAILY fluticasone propionate 50 mcg/actuation (Flonase Allergy Relief) 1 spray intranasal BID PRN hydroxyzine HCl 25 mg PO BEDTIME PRN leg brace (Knee Support Brace) As directed lisinopril 20 mg PO DAILY 90 days magnesium 250 mg PO DAILY 90 days miscellaneous medical supply (Blood Pressure Cuff) As directed multivitamin 1 tab PO DAILY [shower wand As directed] tamsulosin (Flomax) 0.4 mg PO BEDTIME tizanidine 2 mg PO Q8H PRN vitamin B complex 1 cap PO DAILY HPI Comments Details: 08/02/23--Chavo is a 63-year-old male who presents today to the office for a follow-up. He is here for 6 month follow-up. He was last seen by me in the office 01/29/2023. He is prescribed alfuzosin for obstructive lower urinary tract symptoms. Significant past medical history multiple sclerosis (2012) and diabetes. He states he was recently in the hospital at [facility] and treated for diverticulitis. A CT scan abdomen and pelvis with IV contrast was done during that time on , which I reviewed urinary tract was within normal limits. The patient states sometimes he has trouble urinating he feels like his bladder is full and it takes a while for the urine to come out. He denies dysuria or gross hematuria. Urinalysis-leukocytes negative, blood negative. Bladder scan PVR 35 mL. Review of lab work, PSA 03/09/23--0.81. Will trial Flomax to replace alfuzosin. Review of chart: 01/29/2023--He was seen by me Dr. Wong on 10/31/2021 for LUTS. Patient has had an intermittent testicular pain. He states that his PCP has ordered a scrotal US. I have reviewed the scrotal US results from 11/10/2022 revealed a small 3 mm left testicle cyst and no testicular masses noted. 01/29/2023: Evaluation today--UA--Leukocytes: negative; blood: negative; bladder scan PVR: 176 mL. Plan: Ordered alfusozin 10 mg. PSA screening test was ordered. Follow-up in 6 months. 10/31/21--Seen by Dr. 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 Prostate Symptom Score Moderate (9-19), Bother 3. Symptoms include weak stream, nocturia (>2), and are progressing. Results from testing include renal/bladder us-- date 02/21/2019 Associated conditions - multiple sclerosis, DM [facility] Medical History Multiple sclerosis HTN (hypertension) AAA (abdominal aortic aneurysm) Dysuria BPH (benign prostatic hyperplasia) HTN (hypertension) Hyperlipidemia Diabetes mellitus Bladder outlet obstruction Weak urinary stream Nocturia Stress incontinence, male Surgical History History of dental surgery History of removal of cyst History of appendectomy History of hernia repair Family History Father Diabetes Mother No problems noted. Maternal Uncle Myocardial infarction Sister No problems noted. Son No problems noted. Son No problems noted. Daughter No problems noted. Brother No problems noted. Brother No problems noted. Brother No problems noted. 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 Cognitive needs: No Hearing needs: No Vision needs: No Review of Systems Const All systems reviewed & are unremarkable except as noted in HPI and below Reports no additional complaints Eyes Reports no additional complaints ENT Reports no additional complaints Card Reports no additional complaints Resp Reports no additional complaints GI Reports no additional complaints Reports as per HPI Musc Reports no additional complaints Skin/Breast Reports system reviewed and no additional complaints, except as documented Neuro Reports no additional complaints Psych Reports no additional complaints Endo Reports no additional complaints Benjamin/Lymph Reports no additional complaints Aller/Immun Reports no additional complaints Office Procedures Post Void Residual Post Residual Void Post Void Residual (PVR): 35 [id number] Void Residual by ultrasound Results AMB Urinalysis, Automated UA Leukoctes 0 Franco/uL Last Edit by CIARA Solomon on 08/02/23 09:55 UA Nitrite Negative Last Edit by CIARA Solomon on 08/02/23 09:55 UA Urobilinogen 0.2 mg/dL Last Edit by CIARA Solomon on 08/02/23 09:5 5 UA Protein 0 mg/dL Last Edit by CIARA Solomon on 08/02/23 09:55 UA pH 6.0 Last Edit by CIARA Solomon on 08/02/23 09:55 UA Blood 0 Obinna/uL Last Edit by CIARA Solomon on 08/02/23 09:55 UA Specific Power 1.005 Last Edit by CIARA Solomon on 08/02/23 09: 55 UA Ketone Negative Last Edit by CIARA Solomon on 08/02/23 09:55 UA Bilirubin 0 mg/dL Last Edit by CIARA Solomon on 08/02/23 09:55 UA Glucose 0 mg/dL Last Edit by CIARA Solomon on 08/02/23 09:55 Results Reviewed Results Reviewed: Date of Service: 07/06/23 EXAMINATION: CT ABDOMEN AND PELVIS WITH CONTRAST CLINICAL INFORMATION: Abdominal pain. History of diverticulitis. COMPARISON: 08/17/2022 TECHNIQUE: Multidetector volumetric images were obtained from the superior aspect of the liver through the pubic symphysis following administration 85 mL of Omnipaque 350 intravenous contrast. Sagittal and coronal reformatted images were obtained on the technologist's workstation. Oral contrast: No FINDINGS: LUNG BASES: No pulmonary consolidation or pleural effusion. There is atherosclerotic calcification of coronary arteries and of partially visualized thoracic aorta. HEPATOBILIARY: Liver has normal size, shape, and attenuation. Gallbladder has a normal appearance. No dilated bile ducts. PANCREAS: No edema, pancreatic ductal dilatation or mass. SPLEEN: Normal. ADRENAL GLANDS: Normal. KIDNEYS AND URETERS: Kidneys have normal size and cortical thickness. No perinephric fluid collection, urolithiasis or hydroureteronephrosis. BLADDER: Normal. BOWEL AND PERITONEUM: No dilated bowel loops. Status post appendectomy. Multiple diverticula of the colon. There is mild haziness of the fat around a thick-walled diverticulum of the sigmoid colon. No bowel perforation or abscess. ABDOMINAL WALL: Unremarkable. VASCULATURE: There is atherosclerotic calcification of the abdominal aorta and iliac arteries. The infrarenal abdominal aorta measures up to 3.3 cm AP diameter (as measured on axial images). The standard recommendation is imaging follow-up every 3 years to ensure stability of an aneurysm of this size. LYMPH NODES: No pathologic sized lymph nodes in the abdomen or pelvis. No inguinal lymphadenopathy. PELVIC VISCERA: Prostate gland measures approximately 4.5 x 3.5 x 4.4 cm. MUSCULOSKELETAL: Multilevel osteophyte and/or enthesophyte formation of the thoracolumbar spine. Mild osteoarthrosis of the hips. No acute or suspicious osseous abnormality. IMPRESSION: * Mild diverticulitis of the sigmoid colon. No bowel perforation or abscess. 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 Mild aneurysmal dilatation of the infrarenal abdominal aorta (3.3 cm AP diameter). Date of Service: 11/10/22 EXAMINATION: US SCROTUM CLINICAL INFORMATION: Left testicle pain. COMPARISON: None available. FINDINGS: RIGHT: Right testicle measures 4.3 x 2 x 3 cm, volume 13 mL. No focal testicular parenchymal lesions are visualized. Spectral Doppler analysis of the arterial and venous flow is normal in the right testis. Right epididymal head is normal in size. 3 x 6 x 4 mm epididymal head cyst with septation. Small right hydrocele. No varicocele is seen. Right epididymal Doppler flow is normal. LEFT: Left testicle measures 4.5 x 2 x 2.6 cm, volume 12 mL. 2 x 3 x 3 cm simple appearing cyst in the superior left testicle. No other focal testicular parenchymal lesions are visualized. Spectral Doppler analysis of the arterial and venous flow is normal in the left testis. Left epididymal head is normal in size. No left hydrocele. Small left varicocele. Left epididymal Doppler flow is normal. IMPRESSION: Left: 3 mm simple cyst in the superior testicle. Small varicocele. Right: Small epididymal head cyst. Small hydrocele. Assessment & Plan Assessment & Plan (1) BPH w urinary obs/LUTS: Code(s): N40.1 - Benign prostatic hyperplasia with lower urinary tract symptoms; N13.8 - Other obstructive and reflux uropathy Category: Surgical (2) BPH w urinary obs/LUTS: Code(s): N40.1 - Benign prostatic hyperplasia with lower urinary tract symptoms; N13.8 - Other obstructive and reflux uropathy Category: Surgical Plan Flomax 0.4 mg daily to replace alfuzosin. Follow-up in 6 months Orders: Orders AMB Urinalysis Automated Today Z13.9 - Encounter for screening, unspecified AMB Post Void Residual by ultrasound Today N39.8 - Other specified disorders of urinary system Medications: New tamsulosin (Flomax) to replace alfuzosin 0.4 mg PO BEDTIME 90 caps 2RF Discontinued alfuzosin ER administer after the same meal each day Discontinued Reason: Doctor's Order 10 mg PO DAILY 90 days 90 tabs 3RF N13.8 - Other obstructive and reflux uropathy, N40.1 - Benign prostatic hyperplasia with lower urinary tract symptoms Patient Instructions: The patient had an opportunity to ask questions regarding treatment plan. The patient expressed understanding and agreement with the above treatment plan. The patient is aware they should contact our office by phone for worsening of their current condition or the appearance of new symptoms. Compliance is encouraged with any medications and followup testing that is ordered. It is a privilege to be allowed the opportunity to participate in the urologic care of your patient. If you have any questions or concerns regarding treatment for the above conditions please do not hesitate to contact me. The office telephone contact is [phone]. This note is constructed in part using voice recognition software. While every effort has been made to ensure accuracy ceramics teacher errors may have been included. Yours sincerely, Nelda Mills MD Coding Level of Care Code Est Pt Level 4 (48575) Diagnoses BPH w urinary obs/LUTS N40.1; N13.8 CPT Codes Post Residual Void - PVR CPT Code: 66296-Dfuy Void Residual by ultrasound ([id number])
== END 2023-08-02 10:13 | disposition home or self-care (01) ==
PROVIDERS: PCP Physician Assistant; Visit Provider Urology
DX: N40.1 Benign prostatic hyperplasia with lower urinary tract symptoms (principal); N13.8 Other obstructive and reflux uropathy; Z13.9 Encounter for screening, unspecified
CPT/HCPCS: 99214

== ENCOUNTER → 2023-08-02 09:26 | Outpatient (BNVA) | payer OTHER, SELFPAY | PROVIDERS: PCP Physician Assistant; Visit Provider Urology | DX: N40.1 Benign prostatic hyperplasia with lower urinary tract symptoms (principal); N13.8 Other obstructive and reflux uropathy | CPT/HCPCS: 51798; 81003; 99212 ==

== ENCOUNTER 2023-09-18 04:50 | Emergency (ER) | payer OTHER, SELFPAY ==
[2023-09-18 04:54] VITALS: BP 163/70; PULSE 75; RESP 18; TEMP 36.6; O2SAT 97; BMI 29.2
--- NOTE | 2023-09-18 05:18 | ED_ITS ---
HPI - General Adult General Chief complaint: Upper Respiratory Symptoms Stated complaint: throat pain Time Seen by Provider: 09/18/23 05:02 Source: patient Mode of arrival: ambulatory Limitations: language barrier History of Present Illness ED Provider: Dr. Jose Shoemaker HPI narrative: 63-year-old male who presents emergency department for evaluation of sore throat which started after he had a dental procedure on 09/16/2023 (2 days prior). Patient states that he has pain with swallowing. He also states that he was having pain in his left jaw. He denied fever or chills. He denied rhinorrhea so breath. Patient took 1 Augmentin and 600 mg of ibuprofen prior to coming to the emergency department. He also states that 2 weeks prior he was bit in the right thumb by a dog. He be lieves that the dog was less than 1 years old and the dog did not have his rabies vaccinations. He states that his friend brought the dog over but the dog did not belong to his friend. He states that he can not locate the dog . The patient was now concerned that he might have been exposed to rabies. Related Data Home Medications ?Medication ?Instructions ?Recorded ?Confirmed cholecalciferol (vitamin D3) 25 25 mcg PO DAILY 05/28/22 08/02/23 mcg (1,000 unit) tablet tizanidine 2 mg tablet 2 mg PO Q8H PRN muscle spasm 05/28/22 08/02/23 vitamin B complex 1 cap PO DAILY 05/28/22 08/02/23 fluticasone propionate 50 1 spray intranasal BID PRN Allergy 07/07/23 08/02/23 mcg/actuation nasal Symptoms spray,suspension (Flonase Allergy Relief) multivitamin 1 tab PO DAILY 07/07/23 08/02/23 Previous Rx's ?Medication ?Instructions ?Recorded leg brace (Knee Support Brace) #1 ea 06/29/22 miscellaneous medical supply #1 ea 06/29/22 (Blood Pressure Cuff) bath tub seat #1 ea 11/27/22 shower wand #1 ea 11/27/22 cetirizine 10 mg tablet 10 mg PO DAILY 30 days #30 tabs 04/30/23 lisinopril 20 mg tablet 20 mg PO DAILY 90 days #90 tabs 05/28/23 hydroxyzine HCl 25 mg tablet 25 mg PO BEDTIME PRN for itch #90 07/06/23 tabs tamsulosin 0.4 mg capsule (Flomax) 0.4 mg PO BEDTIME #90 caps 08/02/23 magnesium 250 mg tablet 250 mg PO DAILY 90 days #90 tabs 09/06/23 penicillin V potassium 500 mg 500 mg PO TID 10 days #30 tabs 09/18/23 tablet Allergies Allergy/AdvReac Type Severity Reaction Status Date / Time Sulfa (Sulfonamide Allergy Unknown RASH Verified 09/18/23 05:01 Antibiotics) [Sulfa (Sulfonamides)] sulfacetamide Allergy Unknown Hives Verified 09/18/23 05:01 [From Sulfacet-R] sulfur [From Sulfacet-R] Allergy Unknown Hives Verified 09/18/23 05:01 Review of Systems Review of Systems: Yes all other systems are reviewed and are negative [facility] Past Medical History Medical History Multiple sclerosis HTN (hypertension) AAA (abdominal aortic aneurysm) Dysuria BPH (benign prostatic hyperplasia) HTN (hypertension) Hyperlipidemia Diabetes mellitus Bladder outlet obstruction Weak urinary stream Nocturia Stress incontinence, male Surgical History History of dental surgery History of removal of cyst History of appendectomy History of hernia repair Family History Family History Father Diabetes Mother No problems noted. Maternal Uncle Myocardial infarction Sister No problems noted. Son No problems noted. Son No problems noted. Daughter No problems noted. Brother No problems noted. Brother No problems noted. Brother No problems noted. 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 Cognitive needs: No Hearing needs: No Vision needs: No Physical Exam ED Vital Signs: Vital Signs - 24 hr 09/18/23 04:54 Temperature 97.8 F Pulse Rate 75 Respiratory Rate 18 Blood Pressure 163/70 H Pulse Oximetry 97 Oxygen Delivery Method Room Air BMI result Body Mass Index 29.2 Vital signs revealed an elevated blood pressure of 163/70 Exam: General: Awake, alert in no distress Head: Normocephalic, atraumatic EENT: PERRL, Lids normal, sclera normal, conjunctiva normal, nose normal , ears normal, throat with posterior erythema but no exudates Neck: Supple, no adenopathy Lung: breath sounds symmetric, no wheezing, rales or rhonchi Chest: symmetric movement, nontender Heart: regular rate and rhythm, normal S1, S2 no murmurs or rubs Abdomen: soft, non-tender, nondistended, normal bowel sounds Back: no vertebral tenderness, no CVAT Extremities: Patient has right thumb along the ulnar aspect Neuro: Awake, alert, oriented, normal speech, cranial nerves intact, moves all extremities symmetrically Psych: Pleasant, cooperative Medical Decision Making Medical Decision Making MDM Narrative: 63-year-old male who presents emergency department for evaluation of sore throat x2 days and rabies exposure from a dog bite to the right thumb 2 weeks prior. The patient believes that the dog was not vaccinated and the patient does not have access to the dog dog's comber fixer. Vital signs revealed an elevated blood pressure. Physical exam revealed small bite wound to the right thumb which is healing. Throat exam revealed posterior erythema with no exudates. Differential diagnosis: ?Includes but is not limited to rabies exposure/contact, streptococcal pharyngitis, viral pharyngitis, tonsillitis, electrolyte abnormalities, anemia Following evaluation was ordered: Rapid strep, COVID-19, RSV, influenza Patient was initially treated with the following: Rabies vaccine, rabies immunoglobulin 20 units per kg Course: 05:53 My interpretation patient's laboratory evaluation as follows: Rapid strep was negative. COVID-19, influenza and RSV were negative The patient's posterior erythema and throat pain pain be secondary to viral pharyngitis versus tonsillitis. Given his CLL, he is at high-risk for bacterial infections therefore he will be started on penicillin 500 mg 4 times a day for 10 days I did discuss rabies exposure/contact and the risks of from not being vaccinated and the patient did agree to getting rabies vaccine and rabies immunoglobulin. The patient will need to follow-up with make to get the last 3 rabies vaccinations on day 3, 7 and 14 Admission/Observation Consideration of admission/observation: Escalation of care including admission/observation considered Lab Data MDM Lab Attestation statement: I reviewed the patient's lab results. Labs: Lab Results 09/18/23 Range/Units 05:06 S. pyogenes GrpA BERENICE Negative (Negative) Prescription Management I considered prescription management with: Antibiotic Discharge Plan Discharge Clinical Impression: Acute tonsillitis, Exposure to rabies Patient Disposition: Home, Self-Care Instructions: Tonsillitis (ED) Additional Instructions: Your COVID-19, RSV and influenza tests were negative Your test for strep throat was negative as well. Take penicillin 500 mg pills, 1 pill 3 times a day for 10 days. ?Finish the full 10 days of this prescription. Continue taking your ibuprofen as prescribed on your bottle You received the rabies immunoglobulin shots in the emergency department. This medication gives you immediate immunity against rabies You received your 1st rabies vaccination here in the emergency department. In order to continue to have immunity against rabies you need to get 3 more rabies shots from our infusion clinic on 09/21/2023, 09/25/2023 and 10/02/2023. The infusion clinic will call you help set up these rabies vaccinations. Follow-up with your doctor in 2 days. Please return to the emergency department if your symptoms get worse or if you develop any symptoms that are concerning to you. Prescriptions: New penicillin V potassium 500 mg tablet 500 mg PO TID 10 Days Qty: 30 0RF No Action (DME) bath tub seat See Rx Instructions .Route .MEDSUPPLY Qty: 1 0RF Rx Instructions: As directed (DME) shower wand See Rx Instructions .Route .MEDSUPPLY Qty: 1 0RF Rx Instructions: As directed cetirizine 10 mg tablet 10 mg PO DAILY 30 Days Qty: 30 6RF lisinopril 20 mg tablet 20 mg PO DAILY 90 Days Qty: 90 1RF magnesium 250 mg tablet 250 mg PO DAILY 90 Days Qty: 90 1RF multivitamin Tablet 1 tab PO DAILY fluticasone propionate [Flonase Allergy Relief] 50 mcg/actuation spray,suspension 1 spray intranasal BID PRN (Reason: Allergy Symptoms) Rx Instructions: administer into each nostril tizanidine 2 mg tablet 2 mg PO Q8H PRN (Reason: muscle spasm) vitamin B complex Capsule 1 cap PO DAILY cholecalciferol (vitamin D3) 25 mcg (1,000 unit) Tablet 25 mcg PO DAILY (DME) Blood Pressure Cuff Misc See Rx Instructions .ROUTE .MEDSUPPLY Qty: 1 0RF Rx Instructions: As directed (DME) Knee Support Brace Misc See Rx Instructions .Route Qty: 1 0RF Rx Instructions: As directed hydroxyzine HCl 25 mg tablet 25 mg PO BEDTIME PRN (Reason: for itch) Qty: 90 1RF tamsulosin [Flomax] 0.4 mg capsule 0.4 mg PO BEDTIME Qty: 90 2RF Rx Instructions: to replace alfuzosin Print Language: [place]
[2023-09-18 05:26] LABS: IDNOW Serial# 08D9AD1C; Strep A Nucleic Acid Negative (Negative)
[2023-09-18 05:49] LABS: Influenza A PCR NEGATIVE (Negative); Influenza B PCR NEGATIVE (Negative); Resp Syncy Virus RNA Qual PCR NEGATIVE (Negative); SARS COV2 PCR INHOUSE NEGATIVE (Negative)
[2023-09-18 06:21] VITALS: BP 164/93; PULSE 81; RESP 18; TEMP 36.7; O2SAT 97
[2023-09-18] MEDS: Rabies Vaccine, Human Diploid (Imovax) 1 ML VIAL IM (06:24)
[2023-09-18] MEDS: Rabies Immune Globulin/PF 900 UNIT/3 ML VIAL 1640.48 UNIT IM (06:24)
[2023-09-18] MEDS: Penicillin V Potassium 250 MG TABLET 500 MG PO (06:33)
[2023-09-18 06:46] VITALS: BP 164/93; PULSE 81; RESP 18; TEMP 36.7; O2SAT 97
== END 2023-09-18 06:46 | disposition home or self-care (01) ==
PROVIDERS: Emergency Provider Emergency Medicine Emergency Medical Services; PCP Physician Assistant
DX: J03.90 Acute tonsillitis, unspecified (principal); Z20.3 Contact with and (suspected) exposure to rabies; Z03.818 Encounter for observation for suspected exposure to other biological agents ruled out; Z29.14 Encounter for prophylactic rabies immune globulin; Z79.899 Other long term (current) drug therapy; Z23 Encounter for immunization
CPT/HCPCS: 0241U; 87651; 90375; 90471; 90675; 96372; 99284

== ENCOUNTER 2023-10-01 10:15 | Outpatient (RCR) | payer OTHER, SELFPAY ==
[2023-09-21 09:59] VITALS: BP 153/76; PULSE 74; RESP 14; TEMP 36.6; O2SAT 98
[2023-09-21] MEDS: Rabies Vaccine, Human Diploid (Imovax) 1 ML VIAL IM (10:08)
[2023-09-24 12:34] VITALS: BP 128/61; PULSE 69; RESP 18; TEMP 36.8; O2SAT 97
[2023-09-24] MEDS: Rabies Vaccine, Human Diploid (Imovax) 1 ML VIAL IM (12:38)
[2023-10-01 10:08] VITALS: BP 154/84; PULSE 73; RESP 18; TEMP 36.1
[2023-10-01] MEDS: Rabies Vaccine, Human Diploid (Imovax) 1 ML VIAL IM (10:13)
== END 2023-10-01 10:21 | disposition home or self-care (01) ==
LOC: HO.INF 10:15
PROVIDERS: Visit Provider Physician Assistant
DX: Z20.3 Contact with and (suspected) exposure to rabies (principal)
CPT/HCPCS: 90471; 90675

== ENCOUNTER 2023-10-13 08:56 | Outpatient (AMB) | payer OTHER, SELFPAY ==
[2023-10-13 09:03] VITALS: BP 130/72; PULSE 79; O2SAT 96; BMI 29.0
--- NOTE | 2023-10-13 09:03 | MHC.PC.OV ---
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: No Allergies Sulfa (Sulfonamide Antibiotics) [Sulfa (Sulfonamides)] Allergy (Unknown, Verified 10/13/23 09:31) RASH sulfacetamide [From Sulfacet-R] Allergy (Unknown, Verified 10/13/23 09:31) Hives sulfur [From Sulfacet-R] Allergy (Unknown, Verified 10/13/23 09:31) Hives Medication List - Last Reconciled 10/13/23 by Simeon Sarkar PA-C [bath tub seat As directed] cetirizine 10 mg PO DAILY 30 days cholecalciferol (vitamin D3) 25 mcg PO DAILY fluticasone propionate 50 mcg/actuation (Flonase Allergy Relief) 1 spray intranasal BID PRN hydroxyzine HCl 25 mg PO BEDTIME PRN leg brace (Knee Support Brace) As directed lisinopril 20 mg PO DAILY 90 days magnesium 250 mg PO DAILY 90 days miscellaneous medical supply (Blood Pressure Cuff) As directed multivitamin 1 tab PO DAILY penicillin V potassium 500 mg PO TID 10 days [shower wand As directed] tamsulosin (Flomax) 0.4 mg PO BEDTIME tizanidine 2 mg PO Q8H PRN vitamin B complex 1 cap PO DAILY Tobacco use date assessed: 07/06/23 Dental Screening Dental Screen Date: 03/04/23 HPI f/u DMII HPI Details Chavo is 63-year-old male here today for follow-up visit. Patient has a past medical history significant for MS, , essential hypertension, BPH, type 2 diabetes, CLL .. CLL: Recent diagnosis of CLL now followed by Hematology. . ?CHRONIC MEDICAL CONDITIONS--> HTN: Blood pressure acceptable today in office . Has been not very compliant lisinopril.? He reports home readings have been 110s to 120 systolic.? Today blood pressure acceptable in office.? He reports he continues to be physically active jogging 3 times per week. Reports at home at home his blood pressure have been 120- 130s systolic. ?? ?Concerns--> reports over the last 3 days having lower abd pain. ? .. ? Diabetes type 2: Today's A1c at 5.7 from 7.1. . Patient has been trying to control his diabetes with lifestyle and dietary modifications.? He does admit to being a little more inactive due to his left calf issue.. ? . ? .. ? M.S : Is followed by Neurology at [facility] (Dr. Hagen) , gets a MRI- Brain q 6 month , patient does report having frustrations over at times having to work find and not being able to pronounce words. He believes this is secondary to his MS. Also reports having pain down his bilateral arms which he feels is muscular related to his MS.?? Was on MS medication though had bad reaction . Laboratory Tests 03/09/23 07/06/23 07/07/23 08:03 11:56 04:09 WBC 25.2 H 31.0 H* 33.9 H* POC Glucose Hgb A1c (Clinic) 07/09/23 07/13/23 10/13/23 11:20 11:06 09:05 WBC 29.8 H POC Glucose 192 H Hgb A1c (Clinic) 5.7 PFSH Medical History Multiple sclerosis HTN (hypertension) AAA (abdominal aortic aneurysm) Dysuria BPH (benign prostatic hyperplasia) HTN (hypertension) Hyperlipidemia Diabetes mellitus Bladder outlet obstruction Weak urinary stream Nocturia Stress incontinence, male Surgical History History of dental surgery History of removal of cyst History of appendectomy History of hernia repair Family History Father Diabetes Mother No problems noted. Maternal Uncle Myocardial infarction Sister No problems noted. Son No problems noted. Son No problems noted. Daughter No problems noted. Brother No problems noted. Brother No problems noted. Brother No problems noted. 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 Cognitive needs: No Hearing needs: No Vision needs: No Questionnaire Thrive Questionnaire Date Thrive assessed: 07/07/23 AUDIT C Alcohol Use Questionnaire (AUDIT-C) 1. How often do you have a drink containing alcohol?: Never 3. How often do you have six or more drinks on one occasion?: Never Total Score: 0 Score Reviewed/Action Taken: No ADRIEN-7 AMB Questionnaire ADRIEN-7 Date ADRIEN - 7 assessed: 03/04/23 Source: Developed by Drs. Kam Becker, Lucille Marsh, Trae Roy and colleagues, with an educational catalina from [employer]. Review of Systems Const Denies headache(s) Eyes Denies loss of vision ENT Denies vertigo, Denies dizziness, Denies headache(s) and Denies sore throat Card Denies chest pain, Denies leg edema and Denies lightheadedness Resp Denies cough, Denies hemoptysis and Denies wheezing GI Denies abdominal pain, Denies melena, Denies constipation, Denies diarrhea and Denies vomiting Denies dysuria, Denies urinary frequency and Denies urinary urgency Musc Denies arthralgias, Denies joint swelling, Denies numbness and Denies tingling Neuro Denies Abnormal speech present, Denies behavioral changes, Denies vertigo, Denies dizziness, Denies headache(s), Denies loss of vision, Denies memory loss, Denies numbness and Denies tingling Psych Denies anxiety, Denies behavioral changes, Denies depression, Denies memory loss and Denies panic attacks Benjamin/Lymph Denies easy bleeding and Denies easy bruising Aller/Immun Denies wheezing Physical exam (Primary Care) Vital Signs: Last Vital Signs Pulse 79 10/13/23 09:03 BP 130/72 10/13/23 09:03 Pulse Ox 96 10/13/23 09:03 Oxygen Delivery Method Room Air 10/13/23 09:03 BMI result Body Mass Index 29.0 Tobacco/Smoking Status: Tobacco use Status Tobacco use date assessed 07/06/23 10/13/23 09:04 Patient Tobacco Use Status Never used Tobacco 10/13/23 09:04 e-Cigarette/Vaping Use Never Used 10/13/23 09:04 Thrive Assessment: Date of Thrive Assessment Date Thrive assessed 07/07/23 10/13/23 09:04 Const General: healthy appearing, no acute distress, alert and awake Nutritional Appearance: well nourished Orientation/consciousness: oriented to person, oriented to place and oriented to time HENMT Ears: TM's normal bilaterally General nose exam: Normal nasal mucous membranes and turbinates present Eyes Conjunctivae: conjunctivae normal Sclerae: sclerae normal Pupils: Equal, round and reactive pupils present Neck Neck: Yes no lymphadenopathy and Yes no JVD Thyroid: Thyroid normal Carotids: no bruits Resp Effort & Inspection: normal respiratory effort and not tachypneic Auscultation: no crackles, no rales, no rhonchi and no wheezes Cardio Rate: regular rate Rhythm: regular rhythm Heart sounds: no murmurs and normal S1 and S2 GI Palpation (GI): Soft to palpation, nontender, no hepatomegaly and no splenomegaly Auscultation: normal bowel sounds Skin General skin exam: no rashes or lesions noted and dry skin Neuro General: oriented to person, oriented to place and oriented to time Cranial nerves: Yes Equal, round and reactive pupils present Speech: No Abnormal speech present Gait exam (Neuro): Normal gait present Motor exam (neuro): no tremor noted Extrem Right upper extremity: full ROM Left upper extremity: full ROM Right lower extremity: full ROM; no edema Left lower extremity: full ROM; no edema Psych Mental Status: mental status grossly normal Speech and movement: Normal speech and movement present Affect: normal affect Attitude: cooperative Thought process: Normal thought process present Results AMB Hemoglobin A1c AMB Hemoglobin A1c 5.7 % Last Edit by CIARA Jones on 10/13/23 09:23 Results Reviewed Results Reviewed: Laboratory Last Values Hgb A1c (Clinic) 5.7 % (4.0-6.0) 10/13/23 09:05 Assessment and Plan Assessment & Plan (1) DMII (diabetes mellitus, type 2): Code(s): E11.9 - Type 2 diabetes mellitus without complications Qualifiers: Diabetes mellitus skilled nursing insulin use: without skilled nursing use Diabetes mellitus complication status: with hyperglycemia Qualified Code(s): E11.65 - Type 2 diabetes mellitus with hyperglycemia Plan: Patient's type 2 diabetes now well controlled without medication. Today's A1c of 5.7 from 7.1. He reports he has been following a diabetic diet and being more physically active. . Goal A1c to be below 7.0 (2) CLL (chronic lymphocytic leukemia): Code(s): C91.10 - Chronic lymphocytic leukemia of B-cell type not having achieved remission Plan: Has had elevated white blood cell count for over a year now. Peripheral smear showing multiple smudge cells. He has follow-up with Hematology and continue being followed. (3) HTN (hypertension): Code(s): I10 - Essential (primary) hypertension Qualifiers: Hypertension type: essential hypertension Qualified Code(s): I10 - Essential (primary) hypertension Plan: Patient's blood pressure acceptable today in office.. CONTINUE LISINOPRIL AT CURRENT DOSE. Goal blood pressure to be below 140/90 (4) Multiple sclerosis: Code(s): G35 - Multiple sclerosis Plan: Patient continues to follow MS specialist neurologist and is getting surveillance MRIs. He was on MS medication treatment though had reactions to the medication. (5) Borderline high cholesterol: Code(s): E78.9 - Disorder of lipoprotein metabolism, unspecified Plan: Has a history of borderline high total cholesterol. Will continue to follow lipid panel with goal LDL to remain below 130 Orders: Orders AMB Hemoglobin A1c Today E11.65 - Type 2 diabetes mellitus with hyperglycemia Medications: Refilled hydroxyzine HCl 25 mg PO BEDTIME PRN 90 tabs 1RF for itch F41.1 - Generalized anxiety disorder Patient Instructions: Goal: A1c to remain below 7.0, blood pressure remain below 140/90. Barriers: Adherence to physical activity and healthy eating habits. 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
== END 2023-10-13 09:50 | disposition home or self-care (01) ==
PROVIDERS: PCP Physician Assistant; Visit Provider Physician Assistant
DX: E11.65 Type 2 diabetes mellitus with hyperglycemia (principal); C91.10 Chronic lymphocytic leukemia of B-cell type not having achieved remission; I10 Essential (primary) hypertension; G35 Multiple sclerosis; E78.9 Disorder of lipoprotein metabolism, unspecified
CPT/HCPCS: 83036; 99214

== ENCOUNTER 2023-11-04 19:27 | Emergency (ER) | payer OTHER, SELFPAY ==
--- NOTE | ~2023-11-04 | CT_ITS ---
EXAMINATION: CT HEAD WITHOUT CONTRAST CT FACIAL BONES WITHOUT CONTRAST CT CERVICAL SPINE WITHOUT CONTRAST CLINICAL INFORMATION: Fall. Pain. COMPARISON: None available. TECHNIQUE: Imaging was performed from the skull base to vertex without intravenous administration of contrast. In addition, helical noncontrast CT imaging was acquired through the cervical spine and facial bones and source images were reviewed along with axial reconstructions and sagittal and coronal MPRs. This CT examination was performed using dose optimization techniques as appropriate, variously including the following: *Automated exposure control. *Adjustment of mA and/or kV according to patient size (this includes techniques or standardized protocols for targeted exams where dose is matched to indication/reason for exam; i.e. extremities or head). *Use of iterative reconstruction technique. DLP: 1471 mGy-cm FINDINGS: Head: There is no evidence of acute intracranial hemorrhage or edematous territorial infarction. Ordonez-white matter differentiation is preserved. Lacunar infarct of the left salgado radiata. Scattered and partially confluent hypoattenuation in the periventricular and deep white matter are consistent with moderate microangiopathy. Proportional prominence of the ventricles and sulcal spaces without evidence of obstructive hydrocephalus. No abnormal mass effect or midline shift. No extra-axial fluid collections. No acute soft tissue or osseous abnormalities. Maxillofacial Bones: No evidence of maxillofacial bone fractures. The zygomatic arches remain intact. No nasal bone fracture. The nasal septum remains midline. No evidence of mandibular or maxillary fracture. The mandibular condyles remain well-seated in their respective temporal articular grooves. Normal appearance of the intraconal and extraconal fat. No evidence of traumatic injury to the extraocular musculature or globes. Mild mucosal thickening of the paranasal sinuses. The mastoid air cells and middle ear cavities are clear. No layering fluid collections. Cervical Spine: The atlantooccipital and atlantoaxial articulations remain well aligned. Straightening of the normal cervical lordosis. Moderate degenerative arthropathy at the atlantodental articulation. Otherwise, there is anatomic alignment of the vertebral bodies and posterior elements. No evidence of acute fracture or subluxation. The vertebral body heights and disc spaces are maintained. Exuberant bridging anterior osteophytosis at C2-T3. Partial ossification of the posterior longitudinal ligament from C4-C6. There appears to be at least mild spinal canal stenosis from C4-C6. Hyperostotic left facet joint arthropathy at T2-T3 leads to severe neural foraminal stenosis at this level. Hyperostotic arthropathy of the T3 and T4 costovertebral articulations. There is no prevertebral soft tissue swelling. The thyroid gland and remaining cervical soft tissues are within normal limits. The lung apices demonstrate no abnormalities. CT/CT cervical spine wo IV con IMPRESSION: 1. No evidence of acute intracranial hemorrhage or edematous territorial infarction. 2. No evidence of acute fracture or traumatic subluxation of the cervical spine. 3. No evidence of acute fracture of the maxillofacial bones. 4. Moderate underlying microangiopathy and generalized cerebral volume loss. 5. Advanced multilevel degenerative spondyloarthropathy of the cervical spine. There appears to be at least mild spinal canal stenosis from C4-C6. Electronically signed by: Lakhwinder Bean DO 11/04/2023 11:18 PM EDT
--- NOTE | ~2023-11-04 | XR_ITS ---
EXAMINATION: XR LUMBOSACRAL SPINE CLINICAL INFORMATION: Full COMPARISON: None available. TECHNIQUE: Three views of the lumbosacral spine. FINDINGS: Vertebral body heights are preserved. Mild intervertebral disc space narrowing with osteophytosis. Aortic atherosclerotic calcifications. Alignment is intact. XR/XR lumbar spine 2-3V IMPRESSION: Mild degenerative changes of the lumbar spine. Electronically signed by: Jessica Chand MD 11/04/2023 11:23 PM EDT
[2023-11-04 20:17] VITALS: BP 164/87; PULSE 82; RESP 18; TEMP 36.7; O2SAT 95; BMI 29.0
--- NOTE | 2023-11-04 20:24 | ED.GENADULT ---
HPI - General Adult General Chief complaint: Fall Stated complaint: fell right ear pain/lwr back pain Time Seen by Provider: 11/04/23 21:31 Source: patient Mode of arrival: ambulatory Limitations: no limitations History of Present Illness ED Provider: Dr. Darshana Smith HPI narrative: Patient comes to the emergency room by private vehicle, complaining of a fall. Patient states that around 18:00 this evening, patient took a shower, while he was getting dressed, patient tripped, hit the right side of his head against the wall, his ear hit a frame on the wall and sustained a laceration to the right earlobe. Patient states that his did not lose consciousness, not on blood thinners. Patient states that what hurts him the most is his lower back in the lumbar region. Related Data Home Medications ?Medication ?Instructions ?Recorded ?Confirmed cholecalciferol (vitamin D3) 25 25 mcg PO DAILY 05/28/22 10/14/23 mcg (1,000 unit) tablet tizanidine 2 mg tablet 2 mg PO Q8H PRN muscle spasm 05/28/22 10/14/23 vitamin B complex 1 cap PO DAILY 05/28/22 10/14/23 fluticasone propionate 50 1 spray intranasal BID PRN Allergy 07/07/23 10/14/23 mcg/actuation nasal Symptoms spray,suspension (Flonase Allergy Relief) multivitamin 1 tab PO DAILY 07/07/23 10/14/23 Previous Rx's ?Medication ?Instructions ?Recorded leg brace (Knee Support Brace) #1 ea 06/29/22 miscellaneous medical supply #1 ea 06/29/22 (Blood Pressure Cuff) bath tub seat #1 ea 11/27/22 shower wand #1 ea 11/27/22 cetirizine 10 mg tablet 10 mg PO DAILY 30 days #30 tabs 04/30/23 lisinopril 20 mg tablet 20 mg PO DAILY 90 days #90 tabs 05/28/23 tamsulosin 0.4 mg capsule (Flomax) 0.4 mg PO BEDTIME #90 caps 08/02/23 magnesium 250 mg tablet 250 mg PO DAILY 90 days #90 tabs 09/06/23 penicillin V potassium 500 mg 500 mg PO TID 10 days #30 tabs 09/18/23 tablet hydroxyzine HCl 25 mg tablet 25 mg PO BEDTIME PRN for itch #90 10/13/23 tabs cyclobenzaprine 5 mg tablet 5 mg PO TID PRN muscle spasm #14 11/04/23 tabs ibuprofen 600 mg tablet 600 mg PO TID PRN pain #20 tabs 11/04/23 oxycodone 5 mg tablet 5 mg PO BID PRN pain #7 tabs 11/04/23 Allergies Allergy/AdvReac Type Severity Reaction Status Date / Time Sulfa (Sulfonamide Allergy Unknown RASH Verified 11/04/23 20:19 Antibiotics) [Sulfa (Sulfonamides)] sulfacetamide Allergy Unknown Hives Verified 11/04/23 20:19 [From Sulfacet-R] sulfur [From Sulfacet-R] Allergy Unknown Hives Verified 11/04/23 20:19 Review of Systems Review of Systems: Constitutional : No Weight loss, No Fever, No Chills, No Night Sweats, No Fatigue, No Malaise ENT/Mouth : No Hearing loss, No Ear Pain, No Nasal Congestion, No Sinus Pain, No Hoarseness, No sore throat, No Rhinorrhea, No Swallowing Difficulty Eyes: No Eye Pain, No Swelling, No Redness, No Foreign Body, No Discharge, No Vision Changes Cardiovascular : No Chest Pain, No SOB, No Dyspnea on Exertion, No Orthopnea, No Edema, No Palpitations Respiratory : No Cough, No Sputum, No Wheezing, No Smoke Exposure, No Dyspnea Gastrointestinal : No Nausea, No Vomiting, No Diarrhea, No Constipation, No abdominal Pain, No Hematochezia, No Melena Genitourinary : no irregular bleeding, No Dysuria, No Urinary Frequency, No Hematuria, No Urinary Incontinence, No Urgency, No Flank Pain, No Urinary Flow Changes, No Hesitancy Musculoskeletal : Complaining of lower back pain, No Myalgias, No Joint Swelling Skin : Complaining of a laceration to the right earlobe Neuro : No Weakness, No Numbness, No Paresthesias, No Loss of Consciousness, No Dizziness, No Headache Psych : No Anxiety/Panic, No Depression, No SI/HI/AH/VH, No Social Issues, Heme/Lymph: No Bruising, No Bleeding,No Lymphadenopathy Endocrine : No Polyuria, No Polydipsia, No Temperature Intolerance PMFSH Past Medical History Medical History Multiple sclerosis HTN (hypertension) AAA (abdominal aortic aneurysm) Dysuria BPH (benign prostatic hyperplasia) HTN (hypertension) Hyperlipidemia Diabetes mellitus Bladder outlet obstruction Weak urinary stream Nocturia Stress incontinence, male Surgical History History of dental surgery History of removal of cyst History of appendectomy History of hernia repair Family History Family History Father Diabetes Mother No problems noted. Maternal Uncle Myocardial infarction Sister No problems noted. Son No problems noted. Son No problems noted. Daughter No problems noted. Brother No problems noted. Brother No problems noted. Brother No problems noted. 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 Cognitive needs: No Hearing needs: No Vision needs: No Physical Exam ED Vital Signs: Vital Signs - 24 hr 11/04/23 20:17 11/04/23 22:07 11/04/23 23:41 Temperature 98.1 F 98.8 F 98.3 F Pulse Rate 82 64 66 Respiratory Rate 18 14 18 Blood Pressure 164/87 H 177/83 H 169/85 H Pulse Oximetry 95 96 98 Oxygen Delivery Method Room Air Room Air Room Air BMI result Body Mass Index 29.0 Const Other: Appearance: Alert. Oriented X3. No acute distress. Eyes: Pupils equal, round and reactive to light. ENT: Pharynx normal. In the right earlobe, there is a 1.5 cm laceration actively bleeding. underneath the 1st laceration, there is a 0.5 cm superficial laceration Neck: Normal inspection. Neck supple. No lymph nodes noted. No crepitus CVS: Normal heart rate and rhythm. Pulses normal. Normal S1 and S2 Respiratory: No respiratory distress. Breath sounds normal. No Wheezing. No rales Abdomen: Soft and nontender. No rigidity. No distention. Back: Pain to palpation on the paraspinal muscles, no lumbar spine tenderness on palpation. Only with movement Skin: Skin warm and dry. Normal skin color. Normal skin turgor. Extremities: No lower extremity edema. No Lacerations. No Rash Neuro: Oriented X 3. No motor deficit. No sensory deficit. Moving all extremities. No slurred speech. CN 2 through 12 grossly intact Psych: calm, cooperative, normal affect Course Course Course Narrative: RME: DOne by LINDSAY Gonzalez. 63-year-old male presents to ED for for evaluation of fall the patient had headache right ear laceration, jaw pain, low back pain after falling while putting his pants on. Patient not on any blood thinner. Physical exam positive for right earlobe laceration abrasion. Negative for any neuro deficits. Images ordered. Medications Administered Discontinued Medications Generic Name Dose Route Start Last Admin Trade Name Freq PRN Reason Stop Dose Admin Oxycodone HCl 5 mg 11/04/23 21:58 11/04/23 22:11 Oxycodone Hcl Immed Release 5 Mg Tablet PO 11/04/23 21:59 5 mg ONCE ONE Administration Procedures Laceration Laceration 1: Site: other ([place]) Side (If applicable): right Size (cm): 1.5 Description: linear Depth: simple, single layer Local Anesthetic: lidocaine 1% Amount of anesthesia used (mL): 3 Skin layer closed with: nylon Size (cm): 5-0 Number of sutures: 3 Technique: simple, interrupted Medical Decision Making Medical Decision Making [facility] Narrative: -laceration closed with 3 stitches Second smaller laceration was glued My interpretation of x-rays of the lumbar spine: No obvious abnormality. My interpretation of CT scan of the head cervical spine and facial bones no obvious abnormality. Patient was given a dose of oxycodone 5 mg. Differential Diagnosis Differential Diagnoses: The differential diagnosis associated with the presentation includes (Laceration, contusion, concussion, intracranial bleed, cervical spine injury, lumbar compression fracture) Admission/Observation Consideration of admission/observation: Escalation of care including admission/observation considered (Given patient's mechanism of injury, pain level and comorbidities, observation was considered) Independent Interpretation I performed an independent interpretation of an: Plain X-Ray and CT Scan Radiology Impression Discussion of test interpretation with radiology: I have reviewed the radiologist's reading. Radiologist Impression: Head: There is no evidence of acute intracranial hemorrhage or edematous territorial infarction. Ordonez-white matter differentiation is preserved. Lacunar infarct of the left salgado radiata. Scattered and partially confluent hypoattenuation in the periventricular and deep white matter are consistent with moderate microangiopathy. Proportional prominence of the ventricles and sulcal spaces without evidence of obstructive hydrocephalus. No abnormal mass effect or midline shift. No extra-axial fluid collections. No acute soft tissue or osseous abnormalities. Maxillofacial Bones: No evidence of maxillofacial bone fractures. The zygomatic arches remain intact. No nasal bone fracture. The nasal septum remains midline. No evidence of mandibular or maxillary fracture. The mandibular condyles remain well-seated in their respective temporal articular grooves. Normal appearance of the intraconal and extraconal fat. No evidence of traumatic injury to the extraocular musculature or globes. Mild mucosal thickening of the paranasal sinuses. The mastoid air cells and middle ear cavities are clear. No layering fluid collections. Cervical Spine: The atlantooccipital and atlantoaxial articulations remain well aligned. Straightening of the normal cervical lordosis. Moderate degenerative arthropathy at the atlantodental articulation. Otherwise, there is anatomic alignment of the vertebral bodies and posterior elements. No evidence of acute fracture or subluxation. The vertebral body heights and disc spaces are maintained. Exuberant bridging anterior osteophytosis at C2-T3. Partial ossification of the posterior longitudinal ligament from C4-C6. There appears to be at least mild spinal canal stenosis from C4-C6. Hyperostotic left facet joint arthropathy at T2-T3 leads to severe neural foraminal stenosis at this level. Hyperostotic arthropathy of the T3 and T4 costovertebral articulations. There is no prevertebral soft tissue swelling. The thyroid gland and remaining cervical soft tissues are within normal limits. The lung apices demonstrate no abnormalities. CT/CT head/brain wo IV con IMPRESSION: 1. No evidence of acute intracranial hemorrhage or edematous territorial infarction. 2. No evidence of acute fracture or traumatic subluxation of the cervical spine. 3. No evidence of acute fracture of the maxillofacial bones. 4. Moderate underlying microangiopathy and generalized cerebral volume loss. 5. Advanced multilevel degenerative spondyloarthropathy of the cervical spine. There appears to be at least mild spinal canal stenosis from C4-C6. Vertebral body heights are preserved. Mild intervertebral disc space narrowing with osteophytosis. Aortic atherosclerotic calcifications. Alignment is intact. XR/XR lumbar spine 2-3V IMPRESSION: Mild degenerative changes of the lumbar spine. Critical Care Time Critical Care Time Critical Care Time: Yes Total Critical Care Time: 35 Attestation: I have personally provided critical care time. Time includes review of lab data, radiology results, discussion with consultants, and monitoring for potential decompensation. Intervention performed as documented. Discharge Plan Discharge Clinical Impression: Laceration of earlobe, Fall, Multiple contusions Patient Disposition: Home, Self-Care Instructions: Care For Your Stitches (ED), Laceration (ED), Fall Prevention (ED) Additional Instructions: Please follow-up with your primary care physician tomorrow. If you have any worsening or new symptoms, please return to the emergency room or call 911 Prescriptions: New oxycodone 5 mg tablet 5 mg PO BID PRN (Reason: pain) Qty: 7 0RF Rx Instructions: Partial Fill upon patient request. cyclobenzaprine 5 mg tablet 5 mg PO TID PRN (Reason: muscle spasm) Qty: 14 0RF ibuprofen 600 mg tablet 600 mg PO TID PRN (Reason: pain) Qty: 20 0RF No Action (DME) bath tub seat See Rx Instructions .Route .MEDSUPPLY Qty: 1 0RF Rx Instructions: As directed (DME) shower wand See Rx Instructions .Route .MEDSUPPLY Qty: 1 0RF Rx Instructions: As directed cetirizine 10 mg tablet 10 mg PO DAILY 30 Days Qty: 30 6RF lisinopril 20 mg tablet 20 mg PO DAILY 90 Days Qty: 90 1RF magnesium 250 mg tablet 250 mg PO DAILY 90 Days Qty: 90 1RF multivitamin Tablet 1 tab PO DAILY fluticasone propionate [Flonase Allergy Relief] 50 mcg/actuation spray,suspension 1 spray intranasal BID PRN (Reason: Allergy Symptoms) Rx Instructions: administer into each nostril penicillin V potassium 500 mg tablet 500 mg PO TID 10 Days Qty: 30 0RF tizanidine 2 mg tablet 2 mg PO Q8H PRN (Reason: muscle spasm) vitamin B complex Capsule 1 cap PO DAILY cholecalciferol (vitamin D3) 25 mcg (1,000 unit) Tablet 25 mcg PO DAILY (DME) Blood Pressure Cuff Misc See Rx Instructions .ROUTE .MEDSUPPLY Qty: 1 0RF Rx Instructions: As directed (DME) Knee Support Brace Misc See Rx Instructions .Route Qty: 1 0RF Rx Instructions: As directed hydroxyzine HCl 25 mg tablet 25 mg PO BEDTIME PRN (Reason: for itch) Qty: 90 1RF tamsulosin [Flomax] 0.4 mg capsule 0.4 mg PO BEDTIME Qty: 90 2RF Rx Instructions: to replace alfuzosin Print Language: Welsh
--- NOTE | 2023-11-04 21:29 | PC.NURSE ---
pt from home, a&ox4, respirations even and unlabored. pt reports falling in his bathroom today, pt reports his two dogs were looking at him when he tripped and fell and hit his right side on the counter. pt noted to have laceration to the earlobe, this RN cleaned earlobe, bleeding noted to be controlled. pt reporting left sided lower back pain at this time. pt able to ambulate with steady gait. pt denies blood thinners.
[2023-11-04 22:07] VITALS: BP 177/83; PULSE 64; RESP 14; TEMP 37.1; O2SAT 96
[2023-11-04] MEDS: oxyCODONE HCl Immed Release 5 MG TABLET PO (22:11)
[2023-11-04 23:41] VITALS: BP 169/85; PULSE 66; RESP 18; TEMP 36.8; O2SAT 98
--- NOTE | 2023-11-04 23:42 | MHC.EDTECH ---
This tech took over care of patient at 2300,hourly rounds and vitals completed,BP elevate RN made aware,call lockhart in reach
[2023-11-05 00:24] VITALS: BP 169/85; PULSE 66; RESP 18; TEMP 36.8; O2SAT 98
== END 2023-11-05 00:24 | disposition home or self-care (01) ==
PROVIDERS: Emergency Provider Emergency Medicine; PCP Physician Assistant
DX: S01.311A Laceration without foreign body of right ear, initial encounter (principal); S30.0XXA Contusion of lower back and pelvis, initial encounter; M54.50 Low back pain, unspecified; M54.2 Cervicalgia; R51.9 Headache, unspecified; W18.2XXA Fall in (into) shower or empty bathtub, initial encounter; Y93.E1 Activity, personal bathing and showering; Y92.091 Bathroom in other non-institutional residence as the place of occurrence of the external cause; Y99.8 Other external cause status
CPT/HCPCS: 12013; 70450; 70486; 72100; 72125; 99284

== ENCOUNTER 2023-11-16 11:32 | Outpatient (AMB) | payer OTHER, SELFPAY ==
--- NOTE | 2023-11-16 11:33 | A.OFFPC_ITS ---
Vital Signs 11/16/23 11:34 Height 5 ft 6 in Weight 186 lb BMI 30.0 BP 152/70 H Blood Pressure Location Lt brachial Position Sitting Pulse 77 Pulse Source Pulse Oximeter Pulse Oximetry (%) 98 Oxygen Delivery Method Room Air Intake Visit Reasons: [facility] ED F/U-suture removal of the ear Intake Note: Patient is here to follow-up after a visit the emergency department at [facility] on 02/14 Allergies Sulfa (Sulfonamide Antibiotics) [Sulfa (Sulfonamides)] Allergy (Unknown, Verified 11/16/23 11:34) RASH sulfacetamide [From Sulfacet-R] Allergy (Unknown, Verified 11/16/23 11:34) Hives sulfur [From Sulfacet-R] Allergy (Unknown, Verified 11/16/23 11:34) Hives Medication List - Last Reconciled 11/16/23 by Alicia Kelsey PA-C [bath tub seat As directed] cetirizine 10 mg PO DAILY 30 days cholecalciferol (vitamin D3) 25 mcg PO DAILY cyclobenzaprine 5 mg PO TID PRN fluticasone propionate 50 mcg/actuation (Flonase Allergy Relief) 1 spray intranasal BID PRN hydroxyzine HCl 25 mg PO BEDTIME PRN ibuprofen 600 mg PO TID PRN leg brace (Knee Support Brace) As directed lisinopril 20 mg PO DAILY 90 days magnesium 250 mg PO DAILY 90 days miscellaneous medical supply (Blood Pressure Cuff) As directed multivitamin 1 tab PO DAILY oxycodone 5 mg PO BID PRN penicillin V potassium 500 mg PO TID 10 days [shower wand As directed] tamsulosin (Flomax) 0.4 mg PO BEDTIME tizanidine 2 mg PO Q8H PRN vitamin B complex 1 cap PO DAILY Tobacco use date assessed: 07/06/23 Dental Screening Dental Screen Date: 03/04/23 HPI [facility] ED F/U-suture removal of the ear HPI Details 63 year old male with past history of MS , essential hypertension, BPH, type 2 diabetes, and new diagnosis of CLL coming in for hospital follow up. Patient was seen in the emergency room after a fall while getting out of the shower in which he sustained a laceration of the right earlobe which was closed with [address] and x-rays were negative and patient was given a single dose of oxycodone 5 mg. Today he tells us his back pain has significantly improved but is still using the muscle relaxer as needed for pain at night. He denies any fevers or pain/bleeding from the right ear laceration. [facility] Medical History Multiple sclerosis HTN (hypertension) AAA (abdominal aortic aneurysm) Dysuria BPH (benign prostatic hyperplasia) HTN (hypertension) Hyperlipidemia Diabetes mellitus Bladder outlet obstruction Weak urinary stream Nocturia Stress incontinence, male Surgical History History of dental surgery History of removal of cyst History of appendectomy History of hernia repair Family History Father Diabetes Mother No problems noted. Maternal Uncle Myocardial infarction Sister No problems noted. Son No problems noted. Son No problems noted. Daughter No problems noted. Brother No problems noted. Brother No problems noted. Brother No problems noted. 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 Cognitive needs: No Hearing needs: No Vision needs: No Questionnaire Thrive Questionnaire Date Thrive assessed: 07/07/23 AUDIT C Alcohol Use Questionnaire (AUDIT-C) 1. How often do you have a drink containing alcohol?: Never 3. How often do you have six or more drinks on one occasion?: Never Total Score: 0 Score Reviewed/Action Taken: No ADRIEN-7 AMB Questionnaire ADRIEN-7 Date ADRIEN - 7 assessed: 03/04/23 Source: Developed by Drs. Kam Becker, Lucille Marsh, Trae Roy and colleagues, with an educational catalina from [employer]. Review of Systems Const Denies chills and Denies fever(s) Eyes Reports no additional complaints ENT Denies ear discharge and Denies otalgia Card Denies chest pain, Denies lightheadedness and Denies dyspnea Resp Denies dyspnea GI Reports no additional complaints Musc Details: Low back pain Physical exam (Primary Care) Vital Signs: Oxygen Delivery Method Room Air 11/16/23 11:34 BMI result Body Mass Index 30.0 Tobacco/Smoking Status: Tobacco use Status Tobacco use date assessed 07/06/23 11/05/23 18:20 Patient Tobacco Use Status Never used Tobacco 11/05/23 18:20 e-Cigarette/Vaping Use Never Used 11/05/23 18:20 Thrive Assessment: Date of Thrive Assessment Date Thrive assessed 07/07/23 11/05/23 18:20 Const General: cooperative, healthy appearing, comfortable and no acute distress Orientation/consciousness: patient oriented x3 HENMT Other: Well-healed laceration of the right ear with 3 intact sutures Head: Yes normocephalic Ears: hearing grossly normal bilaterally General nose exam: Normal external nose present Eyes General: appearance normal, both eyes and all related structures Conjunctivae: conjunctivae normal Neck Neck: Yes full ROM and Yes no lymphadenopathy Resp Effort & Inspection: normal respiratory effort Auscultation: clear to auscultation bilaterally, no crackles, no rales, no rhonchi and no wheezes Cardio Rate: regular rate Rhythm: regular rhythm Back/Spine/Pelvis Other: Mild tenderness to palpation over right paraspinal muscle Skin General skin exam: no rashes or lesions noted Neuro General: patient oriented x3 Gait exam (Neuro): Normal gait present Extrem General: Yes normal to inspection, Yes full ROM and No edema Psych Affect: normal affect Attitude: cooperative Insight: Good insight present (Psych) Judgement: Good judgement present (Psych) Assessment and Plan Assessment & Plan (1) Low back pain: Code(s): M54.50 - Low back pain, unspecified Plan: Patient does still continue to have very mild low back pain primarily at night when he is trying to sleep. Refilled muscle relaxer at this time and we will referral to physical therapy. (2) Laceration of earlobe: Code(s): S01.319A - Laceration without foreign body of unspecified ear, initial encounter Plan: Laceration is clean dry and intact sutures were successfully remove and no wound dehiscence on exam. Patient tolerated this procedure well without complication. Plan This note was constructed using voice recognition software. While every effort has been made to ensure accuracy and keg raiser, still areas may have been included sometimes these areas may affect the content or meeting of the given symptoms. Total time spent caring for the patient today was 30 minutes. This includes time spent before the visit reviewing the chart, time spent during the visit, and time spent after the visit and documentation. Orders: Orders PT Evaluation and Treatment Today M54.50 - Low back pain, unspecified PT Evaluation and Treatment Today M76.62 - Achilles tendinitis, left leg, S76.112A - Strain of left quadriceps muscle, fascia and tendon, initial encounter Medications: Refilled cyclobenzaprine 5 mg PO TID PRN 14 tabs 0RF muscle spasm Coding Level of Care Code Est Pt Level 3 (09920) Diagnoses Low back pain M54.50 Laceration of earlobe S01.319A
[2023-11-16 11:34] VITALS: BP 152/70; PULSE 77; O2SAT 98
== END 2023-11-16 12:16 | disposition home or self-care (01) ==
PROVIDERS: PCP Physician Assistant
DX: M54.50 Low back pain, unspecified (principal); S01.319A Laceration without foreign body of unspecified ear, initial encounter

== ENCOUNTER → 2023-11-16 11:32 | Outpatient (BNVA) | payer OTHER, SELFPAY | PROVIDERS: PCP Physician Assistant | DX: Z48.02 Encounter for removal of sutures (principal); S01.311D Laceration without foreign body of right ear, subsequent encounter; M54.50 Low back pain, unspecified; M76.62 Achilles tendinitis, left leg | CPT/HCPCS: 99212 ==

== ENCOUNTER 2024-02-03 09:26 | Outpatient (AMB) | payer OTHER, SELFPAY ==
--- NOTE | 2024-02-03 05:38 | A.OFFVIS_ITS ---
Intake Visit Reasons: 6m follow up/PVR Intake Note: Patient is present for 6 months follow up PVR Urology Med: Tamsulosin Antibiotic Allergy: Sulfa Blood Thinner: None Last PVR: 35ml's Todays PVR: 48mls Patient Symptoms: Community Development Manager Required: No Allergies Sulfa (Sulfonamide Antibiotics) [Sulfa (Sulfonamides)] Allergy (Unknown, Verified 02/03/24 10:31) RASH sulfacetamide [From Sulfacet-R] Allergy (Unknown, Verified 02/03/24 10:31) Hives sulfur [From Sulfacet-R] Allergy (Unknown, Verified 02/03/24 10:31) Hives HPI Comments Details: 02/03/2024--Chavo is here for follow-up, He was seen laspablo on 08/02/23 he is prescribed tamsulosin to replace alfuzosin or obstructive lower urinary tract symptoms. Significant past medical history multiple sclerosis (2012) and diabetes. 08/02/23--Chavo is a 63-year-old male who presents today to the office for a follow-up. He is here for 6 month follow-up. He was last seen by me in the office 01/29/2023. He is prescribed alfuzosin for obstructive lower urinary tract symptoms. Significant past medical history multiple sclerosis (2012) and diabetes. He states he was recently in the hospital at [facility] and treated for diverticulitis. A CT scan abdomen and pelvis with IV contrast was done during that time on , which I reviewed urinary tract was within normal limits. The patient states sometimes he has trouble urinating he feels like his bladder is full and it takes a while for the urine to come out. He denies dysuria or gross hematuria. Urinalysis-leukocytes negative, blood negative. Bladder scan PVR 35 mL. Review of lab work, PSA 03/09/23--0.81. Will trial Flomax to replace alfuzosin. Review of chart: 01/29/2023--He was seen by me Dr. Wong on 10/31/2021 for LUTS. Patient has had an intermittent testicular pain. He states that his PCP has ordered a scrotal US. I have reviewed the scrotal US results from 11/10/2022 revealed a small 3 mm left testicle cyst and no testicular masses noted. 01/29/2023: Evaluation today--UA--Leukocytes: negative; blood: negative; bladder scan PVR: 176 mL. Plan: Ordered alfusozin 10 mg. PSA screening test was ordered. Follow-up in 6 months. 10/31/21--Seen by Dr. 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 Prostate Symptom Score Moderate (9-19), Bother 3. Symptoms include weak stream, nocturia (>2), and are progressing. Results from testing include renal/bladder us-- date 02/21/2019 Associated conditions - multiple sclerosis, DM PFSH Medical History Multiple sclerosis HTN (hypertension) AAA (abdominal aortic aneurysm) Dysuria BPH (benign prostatic hyperplasia) HTN (hypertension) Hyperlipidemia Diabetes mellitus Bladder outlet obstruction Weak urinary stream Nocturia Stress incontinence, male Surgical History History of dental surgery History of removal of cyst History of appendectomy History of hernia repair Family History Father Diabetes Mother No problems noted. Maternal Uncle Myocardial infarction Sister No problems noted. Son No problems noted. Son No problems noted. Daughter No problems noted. Brother No problems noted. Brother No problems noted. Brother No problems noted. 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 Cognitive needs: No Hearing needs: No Vision needs: No Review of Systems Const All systems reviewed & are unremarkable except as noted in HPI and below Reports no additional complaints Eyes Reports no additional complaints ENT Reports no additional complaints Card Reports no additional complaints Resp Reports no additional complaints GI Reports no additional complaints Reports as per HPI Musc Reports no additional complaints Skin/Breast Reports system reviewed and no additional complaints, except as documented Neuro Reports no additional complaints Psych Reports no additional complaints Endo Reports no additional complaints Benjamin/Lymph Reports no additional complaints Aller/Immun Reports no additional complaints Office Procedures Post Void Residual Post Residual Void Post Void Residual (PVR): [id number] Void Residual by ultrasound Results AMB Urinalysis, Automated UA Leukoctes 0 Franco/uL Last Edit by Mena Sherman CMA on 02/03/24 10:31 UA Nitrite Negative Last Edit by Mena Sherman, SECTION MAINTAINER on 02/03/24 10:31 UA Urobilinogen 0.2 mg/dL Last Edit by Mena Sherman, SECTION MAINTAINER on 02/03/24 10:3 1 UA Protein 0 mg/dL Last Edit by Mena Shermna, SECTION MAINTAINER on 02/03/24 10:31 UA pH 6.0 Last Edit by Mena Sherman, SECTION MAINTAINER on 02/03/24 10:31 UA Blood 0 Obin[place]/uL Last Edit by Mena Sherman, SECTION MAINTAINER on 02/03/24 10:31 UA Specific [place] 1.020 Last Edit by Mena Sherman, SECTION MAINTAINER on 02/03/24 10: 31 UA Ketone Negative Last Edit by Mena Sherman, SECTION MAINTAINER on 02/03/24 10:31 UA Bilirubin 0 mg/dL Last Edit by Mena Sherman, SECTION MAINTAINER on 02/03/24 10:31 UA Glucose 0 mg/dL Last Edit by Mena Sherman, SECTION MAINTAINER on 02/03/24 10:31 Results Reviewed Results Reviewed: Laboratory Last Values Urine pH (Auto) 6.0 02/03/24 10:30 Specific [place] (Auto) 1.020 02/03/24 10:30 Urine Protein (Auto) 0 mg/dL 02/03/24 10:30 Glucose (UA)(Auto) 0 mg/dL 02/03/24 10:30 Urine Ketones (Auto) Negative 02/03/24 10:30 Urine Blood (Auto) 0 [place]/uL 02/03/24 10:30 Urine Nitrite (Auto) Negative 02/03/24 10:30 Urine Bilirubin (Auto) 0 mg/dL 02/03/24 10:30 Urine Urobilinogen (Auto) 0.2 mg/dL 02/03/24 10:30 Leukocyte Esterase (Auto) 0 Franco/uL 02/03/24 10:30 Date of Service: 07/06/23 EXAMINATION: CT ABDOMEN AND PELVIS WITH CONTRAST CLINICAL INFORMATION: Abdominal pain. History of diverticulitis. COMPARISON: 08/17/2022 TECHNIQUE: Multidetector volumetric images were obtained from the superior aspect of the liver through the pubic symphysis following administration 85 mL of Omnipaque 350 intravenous contrast. Sagittal and coronal reformatted images were obtained on the technologist's workstation. Oral contrast: No FINDINGS: LUNG BASES: No pulmonary consolidation or pleural effusion. There is atherosclerotic calcification of coronary arteries and of partially visualized thoracic aorta. HEPATOBILIARY: Liver has normal size, shape, and attenuation. Gallbladder has a normal appearance. No dilated bile ducts. PANCREAS: No edema, pancreatic ductal dilatation or mass. SPLEEN: Normal. ADRENAL GLANDS: Normal. KIDNEYS AND URETERS: Kidneys have normal size and cortical thickness. No perinephric fluid collection, urolithiasis or hydroureteronephrosis. BLADDER: Normal. BOWEL AND PERITONEUM: No dilated bowel loops. Status post appendectomy. Multiple diverticula of the colon. There is mild haziness of the fat around a thick-walled diverticulum of the sigmoid colon. No bowel perforation or abscess. ABDOMINAL WALL: Unremarkable. VASCULATURE: There is atherosclerotic calcification of the abdominal aorta and iliac arteries. The infrarenal abdominal aorta measures up to 3.3 cm AP diameter (as measured on axial images). The standard recommendation is imaging follow-up every 3 years to ensure stability of an aneurysm of this size. LYMPH NODES: No pathologic sized lymph nodes in the abdomen or pelvis. No inguinal lymphadenopathy. PELVIC VISCERA: Prostate gland measures approximately 4.5 x 3.5 x 4.4 cm. MUSCULOSKELETAL: Multilevel osteophyte and/or enthesophyte formation of the thoracolumbar spine. Mild osteoarthrosis of the hips. No acute or suspicious osseous abnormality. IMPRESSION: * Mild diverticulitis of the sigmoid colon. No bowel perforation or abscess. 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 Mild aneurysmal dilatation of the infrarenal abdominal aorta (3.3 cm AP diameter). Date of Service: 11/10/22 EXAMINATION: US SCROTUM CLINICAL INFORMATION: Left testicle pain. COMPARISON: None available. FINDINGS: RIGHT: Right testicle measures 4.3 x 2 x 3 cm, volume 13 mL. No focal testicular parenchymal lesions are visualized. Spectral Doppler analysis of the arterial and venous flow is normal in the right testis. Right epididymal head is normal in size. 3 x 6 x 4 mm epididymal head cyst with septation. Small right hydrocele. No varicocele is seen. Right epididymal Doppler flow is normal. LEFT: Left testicle measures 4.5 x 2 x 2.6 cm, volume 12 mL. 2 x 3 x 3 cm simple appearing cyst in the superior left testicle. No other focal testicular parenchymal lesions are visualized. Spectral Doppler analysis of the arterial and venous flow is normal in the left testis. Left epididymal head is normal in size. No left hydrocele. Small left varicocele. Left epididymal Doppler flow is normal. IMPRESSION: Left: 3 mm simple cyst in the superior testicle. Small varicocele. Right: Small epididymal head cyst. Small hydrocele. Assessment & Plan Assessment & Plan (1) BPH w urinary obs/LUTS: Code(s): N40.1 - Benign prostatic hyperplasia with lower urinary tract symptoms; N13.8 - Other obstructive and reflux uropathy Category: Surgical (2) BPH w urinary obs/LUTS: Code(s): N40.1 - Benign prostatic hyperplasia with lower urinary tract symptoms; N13.8 - Other obstructive and reflux uropathy Category: Surgical Plan Flomax 0.4 mg daily to replace alfuzosin. Follow-up in 6 months Orders: Orders AMB Urinalysis Automated Today Z13.9 - Encounter for screening, unspecified AMB Post Void Residual by ultrasound Today N40.0 - Benign prostatic hyperplasia without lower urinary tract symptoms Patient Instructions: The patient had an opportunity to ask questions regarding treatment plan. The patient expressed understanding and agreement with the above treatment plan. The patient is aware they should contact our office by phone for worsening of their current condition or the appearance of new symptoms. Compliance is encouraged with any medications and followup testing that is ordered. It is a privilege to be allowed the opportunity to participate in the urologic care of your patient. If you have any questions or concerns regarding treatment for the above conditions please do not hesitate to contact me. The office telephone contact is [phone]. This note is constructed in part using voice recognition software. While every effort has been made to ensure accuracy hot car operator errors may have been included. Yours sincerely, Nelda Mills MD Coding Diagnoses BPH w urinary obs/LUTS N40.1; N13.8 CPT Codes Post Residual Void - PVR CPT Code: 70554-[id number] Void Residual by ultrasound ([id number])
== END 2024-02-03 10:27 | disposition home or self-care (01) ==
PROVIDERS: PCP Physician Assistant; Visit Provider Urology
DX: Z13.9 Encounter for screening, unspecified (principal)

== ENCOUNTER → 2024-02-03 09:26 | Outpatient (BNVA) | payer OTHER, SELFPAY | PROVIDERS: PCP Physician Assistant; Visit Provider Urology | DX: N40.1 Benign prostatic hyperplasia with lower urinary tract symptoms (principal); N13.8 Other obstructive and reflux uropathy | CPT/HCPCS: 51798; 81003; 99212 ==

== ENCOUNTER 2024-02-10 07:34 | Outpatient (AMB) | payer OTHER, SELFPAY ==
--- NOTE | 2024-02-10 07:52 | A.OFFPC_ITS ---
Vital Signs 02/10/24 07:55 Height 5 ft 6 in Weight 187 lb BMI 30.2 BP 132/76 Blood Pressure Location Lt brachial Position Sitting Pulse 82 Pulse Source Pulse Oximeter Pulse Oximetry (%) 97 Oxygen Delivery Method Room Air Intake Visit Reasons: ANNUAL Intake Note: Patient here for an annual physical exam Christian Counselor Required: No Accompanied by: Self / Same As Patient Allergies Sulfa (Sulfonamide Antibiotics) [Sulfa (Sulfonamides)] Allergy (Unknown, Verified 02/10/24 08:05) RASH sulfacetamide [From Sulfacet-R] Allergy (Unknown, Verified 02/10/24 08:05) Hives sulfur [From Sulfacet-R] Allergy (Unknown, Verified 02/10/24 08:05) Hives Medication List - Last Reconciled 02/10/24 by Simeon Sarkar PA-C alfuzosin ER 10 mg PO DAILY [bath tub seat As directed] cetirizine 10 mg PO DAILY 30 days cholecalciferol (vitamin D3) 25 mcg PO DAILY cyclobenzaprine 5 mg PO TID PRN fluticasone propionate 50 mcg/actuation (Flonase Allergy Relief) 1 spray intranasal BID PRN hydroxyzine HCl 25 mg PO BEDTIME PRN ibuprofen 600 mg PO TID PRN leg brace (Knee Support Brace) As directed lisinopril 20 mg PO DAILY 90 days magnesium 250 mg PO DAILY 90 days miscellaneous medical supply (Blood Pressure Cuff) As directed multivitamin 1 tab PO DAILY oxycodone 5 mg PO BID PRN [shower wand As directed] tizanidine 2 mg PO Q8H PRN vitamin B complex 1 cap PO DAILY Tobacco use date assessed: 07/06/23 Fall risk assessment: No Falls in past year Last assessed Fall Risk: 02/10/24 Dental Screening Dental Screen Date: 02/10/24 Did you have a dental visit in the last 12 months?: Yes Did you have a dental problem in the last 6 months where you did not have access to dental care?: No Was dental information given to patient?: Patient has dentist HPI ANNUAL HPI Details Chavo is 63-year-old male here today for follow-up visit. Patient has a past medical history significant for MS, , essential hypertension, BPH, type 2 diabetes, CLL .. CLL: Recent diagnosis of CLL now followed by Hematology. . ?CHRONIC MEDICAL CONDITIONS--> HTN: Blood pressure acceptable today in office . Has been not very compliant lisinopril.? He reports home readings have been 110s to 120 systolic.? Today blood pressure acceptable in office.? He reports he continues to be physically active jogging 3 times per week. Reports at home at home his blood pressure have been 120- 130s systolic. ?? ?Concerns--> reports over the last 3 days having lower abd pain. ? .. ? Diabetes type 2: Today's A1c at 5.7 from 7.1. . Patient has been trying to control his diabetes with lifestyle and dietary modifications.? He does admit to being a little more inactive due to his left calf issue.. ? . ? .. ? M.S : Is followed by Neurology at [facility] (Dr. Hagen) , gets a MRI- Brain q 6 month , patient does report having frustrations over at times having to work find and not being able to pronounce words. He believes this is secondary to his MS. Also reports having pain down his bilateral arms which he feels is muscular related to his MS.?? Was on MS medication though had bad reaction . Vaccines:? Up-to-date with COVID vaccine, up-to-date with flu vaccine, needs tetanus vaccine, considering Shingrex Colonoscopy:? Patient had colonoscopy 2016 showing 2 hyperplastic polyps repeat 10 years. [facility] Medical History Multiple sclerosis HTN (hypertension) AAA (abdominal aortic aneurysm) Dysuria BPH (benign prostatic hyperplasia) HTN (hypertension) Hyperlipidemia Diabetes mellitus Bladder outlet obstruction Weak urinary stream Nocturia Stress incontinence, male Surgical History History of dental surgery History of removal of cyst History of appendectomy History of hernia repair Family History Father Diabetes Mother No problems noted. Maternal Uncle Myocardial infarction Sister No problems noted. Son No problems noted. Son No problems noted. Daughter No problems noted. Brother No problems noted. Brother No problems noted. Brother No problems noted. 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 Cognitive needs: No Hearing needs: No Vision needs: No Questionnaire Thrive Questionnaire Date Thrive assessed: 07/07/23 ADRIEN-7 AMB Questionnaire ADRIEN-7 Date ADRIEN - 7 assessed: 03/04/23 Source: Developed by Drs. Kam Becker, Lucille Marsh, Trae Roy and colleagues, with an educational catalina from [employer]. Physical exam (Primary Care) Vital Signs: Last Vital Signs Pulse 82 02/10/24 07:55 BP 132/76 02/10/24 07:55 Pulse Ox 97 02/10/24 07:55 Oxygen Delivery Method Room Air 02/10/24 07:55 BMI result Body Mass Index 30.2 Tobacco/Smoking Status: Tobacco use Status Tobacco use date assessed 07/06/23 02/10/24 07:55 Patient Tobacco Use Status Never used Tobacco 02/10/24 07:55 e-Cigarette/Vaping Use Never Used 02/10/24 07:55 Thrive Assessment: Date of Thrive Assessment Date Thrive assessed 07/07/23 02/10/24 07:55 Office Procedures Flu Questionnaire Does the patient have a severe egg allergy?: No Immunizations Fluarix Triv [id number] (PF) 45 mcg (15 mcg x 3)/0.5 mL IM syringe Performing Provider: Simeon Sarkar PA-C Performing Location: [facility] [place] [facility] Documented (not given) by: CIARA Sahu on 02/10/24 08:00 Reason Not Given: Patient Refused Coding Diagnoses Annual physical exam Z00.00 Type 2 diabetes mellitus with hyperglycemia, without long-term current use of insulin E11.65 Diabetes mellitus terminal system operator insulin use: without terminal system operator use Diabetes mellitus complication status: with hyperglycemia CLL (chronic lymphocytic leukemia) C91.10 Borderline high cholesterol E78.9 Assessment & Plan Assessment & Plan (1) Annual physical exam: Code(s): Z00.00 - Encounter for general adult medical examination without abnormal findings Category: Medical Plan: As per HPI (2) DMII (diabetes mellitus, type 2): Code(s): E11.9 - Type 2 diabetes mellitus without complications Category: Medical Qualifiers: Diabetes mellitus usp insulin use: without usp use Diabetes mellitus complication status: with hyperglycemia Qualified Code(s): E11.65 - Type 2 diabetes mellitus with hyperglycemia Plan: Patient's type 2 diabetes has been well controlled with lifestyle and dietary modifications. A1c is to remain below 7.0. (3) CLL (chronic lymphocytic leukemia): Code(s): C91.10 - Chronic lymphocytic leukemia of B-cell type not having achieved remission Category: Medical Plan: Patient continues to follow Hematology (4) Borderline high cholesterol: Code(s): E78.9 - Disorder of lipoprotein metabolism, unspecified Category: Medical Orders: Orders Influenza [id number] Immunization Today Z23 - Encounter for immunization Comprehensive Clifford. Panel Fast Today E11.65 - Type 2 diabetes mellitus with hyperglycemia Lipid Panel Today E78.9 - Disorder of lipoprotein metabolism, unspecified Hemoglobin A1c Today E11.65 - Type 2 diabetes mellitus with hyperglycemia Complete Blood Count no Diff Today E11.65 - Type 2 diabetes mellitus with hyperglycemia Medications: Refilled hydroxyzine HCl 25 mg PO BEDTIME PRN 90 tabs 1RF for itch F41.1 - Generalized anxiety disorder lisinopril 20 mg PO DAILY 90 days 90 tabs 1RF I10 - Essential (primary) hypertension
[2024-02-10 07:55] VITALS: BP 132/76; PULSE 82; O2SAT 97; BMI 30.2
== END 2024-02-10 08:25 | disposition home or self-care (01) ==
PROVIDERS: PCP Physician Assistant; Visit Provider Physician Assistant
DX: Z23 Encounter for immunization (principal)

== ENCOUNTER → 2024-02-10 07:34 | Outpatient (BNVA) | payer OTHER, SELFPAY | PROVIDERS: PCP Physician Assistant; Visit Provider Physician Assistant | DX: Z00.00 Encounter for general adult medical examination without abnormal findings (principal); G35 Multiple sclerosis; I10 Essential (primary) hypertension; N40.0 Benign prostatic hyperplasia without lower urinary tract symptoms; E11.9 Type 2 diabetes mellitus without complications; C91.10 Chronic lymphocytic leukemia of B-cell type not having achieved remission; E11.65 Type 2 diabetes mellitus with hyperglycemia; E78.9 Disorder of lipoprotein metabolism, unspecified; F41.1 Generalized anxiety disorder; Z28.21 Immunization not carried out because of patient refusal | CPT/HCPCS: 90471; 99396 ==

== ENCOUNTER 2024-04-16 12:41 | Emergency (ER) | payer OTHER, SELFPAY ==
--- NOTE | ~2024-04-16 | CT_ITS ---
CLINICAL HISTORY: abd pain, left sided. History of diverticulitis CT abdomen and pelvis with contrast Comparison: CT - CT ABDOMEN PELVIS W IV CON - 07/06/23 18:38 EDT Findings: The lung bases are clear. The liver is hypodense. Remaining abdominal organs are unremarkable. There are no calcified gallstones. 3.5 cm aneurysm of the infrarenal abdominal aorta without change. There is colonic diverticulosis without diverticulitis. No bowel edema or dilatation. Mildly enlarged prostate gland. Unremarkable urinary bladder. Prior appendectomy. No acute fracture. IMPRESSION: 1. There is colonic diverticulosis without diverticulitis. 2. Fatty infiltration of the liver. 3. 3.5 cm aneurysm of the infrarenal abdominal aorta without change. This document has been electronically signed by: Brittany Ovalle MD on 04/16/2024 18:04:55
[2024-04-16 13:18] VITALS: BP 144/99; PULSE 89; RESP 18; TEMP 36.8; O2SAT 97; BMI 31.6
--- NOTE | 2024-04-16 13:30 | ED.ABDPAIN ---
HPI - Abdominal Pain General Chief Complaint: Abdominal Pain Stated Complaint: stomach pain Time Seen by Provider: 04/16/24 14:52 Related Data Home Medications ?Medication ?Instructions ?Recorded ?Confirmed cholecalciferol (vitamin D3) 25 25 mcg PO DAILY 05/28/22 02/10/24 mcg (1,000 unit) tablet tizanidine 2 mg tablet 2 mg PO Q8H PRN muscle spasm 05/28/22 02/10/24 vitamin B complex 1 cap PO DAILY 05/28/22 02/10/24 fluticasone propionate 50 1 spray intranasal BID PRN Allergy 07/07/23 02/10/24 mcg/actuation nasal Symptoms spray,suspension (Flonase Allergy Relief) multivitamin 1 tab PO DAILY 07/07/23 02/10/24 Previous Rx's ?Medication ?Instructions ?Recorded leg brace (Knee Support Brace) #1 ea 06/29/22 miscellaneous medical supply #1 ea 06/29/22 (Blood Pressure Cuff) bath tub seat #1 ea 11/27/22 shower wand #1 ea 11/27/22 cetirizine 10 mg tablet 10 mg PO DAILY 30 days #30 tabs 04/30/23 oxycodone 5 mg tablet 5 mg PO BID PRN pain #7 tabs 11/04/23 cyclobenzaprine 5 mg tablet 5 mg PO TID PRN muscle spasm #14 11/16/23 tabs alfuzosin 10 mg tablet,extended 10 mg PO DAILY #90 tabs 02/07/24 release 24 hr hydroxyzine HCl 25 mg tablet 25 mg PO BEDTIME PRN for itch #90 02/10/24 tabs lisinopril 20 mg tablet 20 mg PO DAILY 90 days #90 tabs 02/10/24 ibuprofen 600 mg tablet 600 mg PO TID PRN pain #20 tabs 03/13/24 magnesium 250 mg tablet 250 mg PO DAILY 90 days #90 tabs 04/03/24 Allergies Allergy/AdvReac Type Severity Reaction Status Date / Time Sulfa (Sulfonamide Allergy Unknown RASH Verified 04/16/24 13:20 Antibiotics) [Sulfa (Sulfonamides)] sulfacetamide Allergy Unknown Hives Verified 04/16/24 13:20 [From Sulfacet-R] sulfur [From Sulfacet-R] Allergy Unknown Hives Verified 04/16/24 13:20 [facility] Past Medical History Medical History Multiple sclerosis Colitis HTN (hypertension) AAA (abdominal aortic aneurysm) Dysuria BPH (benign prostatic hyperplasia) HTN (hypertension) Hyperlipidemia Diabetes mellitus Bladder outlet obstruction Weak urinary stream Nocturia Stress incontinence, male Surgical History History of dental surgery History of removal of cyst History of appendectomy History of hernia repair Family History Family History Father Diabetes Mother No problems noted. Maternal Uncle Myocardial infarction Sister No problems noted. Son No problems noted. Son No problems noted. Daughter No problems noted. Brother No problems noted. Brother No problems noted. Brother No problems noted. 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 Cognitive needs: No Hearing needs: No Vision needs: No Physical Exam ED Vital Signs: Vital Signs - 24 hr 04/16/24 13:18 04/16/24 15:26 04/16/24 18:08 Temperature 98.2 F 98.4 F 98.2 F Pulse Rate 89 68 68 Respiratory Rate 18 16 16 Blood Pressure 144/99 H 165/79 H 177/85 H Pulse Oximetry 97 98 98 Oxygen Delivery Method Room Air Room Air Room Air BMI result Body Mass Index 31.6 Course Course Course Narrative: This is an RME performed by Nate Ruano CNP: Additional HPI, ROS, PE not included below will be deferred to primary provider. Patient is a 64-year-old male with past medical history of multiple sclerosis, hypertension, AAA, BPH, hyperlipidemia, diabetes, diverticulitis who presents emergency department for evaluation. He admits over the past 4 days he has been having abdominal pain primarily left-sided with associated nausea but no vomiting. He reports that he attempted to take a few pills of amoxicillin 500 mg that he had left over from a previous infection unclear how much he has taken. Unchanged symptoms. Plan: Serum labs, urinalysis, viral serologies Reevaluation(s) Reevaluation #1: See additional note dated 04/16/[address] Russell Medical Decision Making Lab Data 04/16/24 13:54 04/16/24 13:54 Labs: Lab Results 04/16/24 04/16/24 04/16/24 Range/Units 13:54 15:10 15:33 WBC 40.6 H* (4.8-10.8) X10*3/uL RBC 5.11 (4.60-5.80) X10*6/uL Hgb 14.8 (14.0-18.0) g/dl Hct 43.2 (42.0-52.0) % MCV 84.5 (80.0-98.0) fL MCH 29.0 (27.0-33.0) pg MCHC 34.3 (31.0-36.0) g/dl RDW 12.3 (11.0-16.0) % Plt Count 178 (160-400) X10*3/uL MPV 9.8 (9.4-12.4) fL Immature Gran % (Auto) Cancelled Neut % (Auto) Cancelled Lymph % (Auto) Cancelled Cascade % (Auto) Cancelled Eos % (Auto) Cancelled Baso % (Auto) Cancelled Lymph # (Auto) Cancelled Cascade # (Auto) Cancelled Eos # (Auto) Cancelled Baso # (Auto) Cancelled Abs Immat Gran (auto) Cancelled Absolute Neuts (auto) Cancelled Absolute Nucleated RBC 0.000 (0.0-0.012) X10*3/uL Nucleated RBC % (auto) 0.0 (0.0-0.2) /100WBC Neutrophils % (Manual) 16 L (45-73) % Band Neutrophils % 0 L (3-5) % Lymphocytes % (Manual) 84 H (20-40) % Abs Neuts (Manual) 6.5 (2.0-8.3) X10*3/uL Lymphocytes # (Manual) 34.1 H (1.2-4.9) X10*3/uL Smudge Cells PRESENT Platelet Estimate NORMAL (NORMAL) Plt Morphology Comment NORMAL RBC Morphology NORMAL Sodium 140 (135-145) mmol/L Potassium 4.7 (3.3-5.1) mmol/L Chloride 104 (96-108) mmol/L Carbon Dioxide 26 (22-29) mmol/L Anion Gap 15 (12-20) BUN 12 (9-16) mg/dL Creatinine 0.97 (0.5-1.4) mg/dL Estim Creat Clear Calc 80.3 Estimated GFR > 60 Random Glucose 127 H (60-115) mg/dL Lactic Acid 1.1 (0.5-2.0) mmol/L Calcium 9.9 (8.4-10.2) mg/dL Magnesium 2.1 (1.6-2.6) mg/dL Total Bilirubin 0.6 (0.0-1.0) mg/dL AST 58 H (5-37) U/L ALT 110 H (0-40) U/L Alkaline Phosphatase 81 (39-117) U/L Total Protein 8.1 H (6.5-8.0) g/dL Albumin 4.6 (3.5-5.0) g/dL Lipase 21 (8-78) U/L Urine Color Yellow Urine Appearance Clear Urine pH 5.5 (5.0-9.0) Ur Specific [place] 1.015 (1.005-1.025) Urine Protein Negative (Neg-Trace) mg/dL Urine Glucose (UA) Negative (Negative) mg/dL Urine Ketones Negative (Negative) mg/dL Urine Blood Negative (Negative) Urine Nitrite Negative (Negative) Ur Leukocyte Esterase Negative (Negative) Influenza Type A (PCR) NEGATIVE (Negative) Influenza Type B (PCR) NEGATIVE (Negative) RSV RNA Qual (PCR) NEGATIVE (Negative) SARS-CoV-2 RNA (RT-PCR) NEGATIVE (Negative) Medications Administered Discontinued Medications Generic Name Dose Route Start Last Admin Trade Name Freq PRN Reason Stop Dose Admin Sodium Chloride 1,000 mls @ 999 mls/hr 04/16/24 16:00 04/16/24 16:11 Ns IV 04/16/24 17:00 999 mls/hr .Q1H1M BRANDO Administration Ampicillin Sodium/Sulbactam 100 mls @ 200 mls/hr 04/16/24 15:59 04/16/24 16:11 Sodium 3 gm/ Sodium Chloride IV 04/16/24 16:28 200 mls/hr ONCE ONE Administration Iohexol 100 ml 04/16/24 16:41 04/16/24 16:41 Iohexol 350 Mg/Ml 100 Ml Infus..Btl IV 04/16/24 16:42 85 ml ONCE ONE Administration Discharge Plan Discharge Clinical Impression: Abdominal pain Patient Disposition: Home, Self-Care Instructions: Abdominal Pain (ED) Prescriptions: No Action (DME) bath tub seat See Rx Instructions .Route .MEDSUPPLY Qty: 1 0RF Rx Instructions: As directed (DME) shower wand See Rx Instructions .Route .MEDSUPPLY Qty: 1 0RF Rx Instructions: As directed cetirizine 10 mg tablet 10 mg PO DAILY 30 Days Qty: 30 6RF ibuprofen 600 mg tablet 600 mg PO TID PRN (Reason: pain) Qty: 20 0RF magnesium 250 mg tablet 250 mg PO DAILY 90 Days Qty: 90 3RF multivitamin Tablet 1 tab PO DAILY fluticasone propionate [Flonase Allergy Relief] 50 mcg/actuation spray,suspension 1 spray intranasal BID PRN (Reason: Allergy Symptoms) Rx Instructions: administer into each nostril oxycodone 5 mg tablet 5 mg PO BID PRN (Reason: pain) Qty: 7 0RF Rx Instructions: Partial Fill upon patient request. tizanidine 2 mg tablet 2 mg PO Q8H PRN (Reason: muscle spasm) vitamin B complex Capsule 1 cap PO DAILY cholecalciferol (vitamin D3) 25 mcg (1,000 unit) Tablet 25 mcg PO DAILY (DME) Blood Pressure Cuff Misc See Rx Instructions .ROUTE .MEDSUPPLY Qty: 1 0RF Rx Instructions: As directed (DME) Knee Support Brace Misc See Rx Instructions .Route Qty: 1 0RF Rx Instructions: As directed hydroxyzine HCl 25 mg tablet 25 mg PO BEDTIME PRN (Reason: for itch) Qty: 90 1RF lisinopril 20 mg tablet 20 mg PO DAILY 90 Days Qty: 90 1RF alfuzosin 10 mg tablet extended release 24 hr 10 mg PO DAILY Qty: 90 2RF Rx Instructions: administer after the same meal each day cyclobenzaprine 5 mg tablet 5 mg PO TID PRN (Reason: muscle spasm) Qty: 14 0RF Referrals: Simeon Sarkar PA-C [Primary Care Provider] - 04/18/24 Print Language: Sami
[2024-04-16 13:59] LABS: Hematocrit 43.2 % (42.0-52.0); Hemoglobin 14.8 g/dl (14.0-18.0); Mean Corpuscular HGB Conc 34.3 g/dl (31.0-36.0); Mean Corpuscular Volume 84.5 fL (80.0-98.0); Mean Platelet Volume 9.8 fL (9.4-12.4); Platelet Count 178 X10*3/uL (160-400); Red Blood Count 5.11 X10*6/uL (4.60-5.80); Red Cell Distribution Width 12.3 % (11.0-16.0)
[2024-04-16 14:00] LABS: WBC ABN SCTR FOR CBC 1
[2024-04-16 14:02] LABS: White Blood Count 40.6 X10*3/uL (4.8-10.8)
[2024-04-16 14:16] LABS: Alanine Aminotransferase 110 U/L (0-40); Albumin Level 4.6 g/dL (3.5-5.0); Alkaline Phosphatase 81 U/L (39-117); Anion Gap 15 (12-20); Aspartate Amino Transferase 58 U/L (5-37); Bilirubin Total 0.6 mg/dL (0.0-1.0); Blood Urea Nitrogen 12 mg/dL (9-16); Calcium 9.9 mg/dL (8.4-10.2); Carbon Dioxide 26 mmol/L (22-29); Chloride 104 mmol/L (96-108); Creatinine Clr Calc Pharmacy 80.3; Estimated Glomerular Filt Rate > 60; Glucose Random 127 mg/dL (60-115); Lipase 21 U/L (8-78); Lymphocytes Absolute Manual 34.1 X10*3/uL (1.2-4.9); Lymphocytes Percent Manual 84 % (20-40); Magnesium 2.1 mg/dL (1.6-2.6); Neutrophils Percent Manual 16 % (45-73); Platelet Estimate NORMAL (NORMAL); Platelet Morphology Comment NORMAL; Potassium 4.7 mmol/L (3.3-5.1); RBC Morphology NORMAL; Smudge Cells PRESENT; Sodium 140 mmol/L (135-145); Total Protein 8.1 g/dL (6.5-8.0)
[2024-04-16 14:17] LABS: Band Neutrophils Percent 0 % (3-5); Neutrophils Absolute Manual 6.5 X10*3/uL (2.0-8.3)
[2024-04-16 14:36] LABS: Influenza A PCR NEGATIVE (Negative); Influenza B PCR NEGATIVE (Negative); Resp Syncy Virus RNA Qual PCR NEGATIVE (Negative); SARS COV2 PCR INHOUSE NEGATIVE (Negative)
--- OUTSIDE RECORDS SUMMARY | 2024-04-16 14:56 | XMS_ITS | Clinical Summary ---
Author Organization [employer] Address 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 Name Role Phone Unavailable Primary Care Provider Unavailabl e Social History Tobacco Use Types Packs/Day Years Used Date Smoking Tobacco: Never Assessed Sex and Gender Information Value Date Recorded Sex Assigned at Male 12/22/2021 10:27 AM EDT Legal Sex Male 10:27 AM EDT Gender Identity Not on file Sexual Orientation Not on file Plan of Treatment Health Maintenance Due Date Last Done Comments CT Colonography 1960 Colonoscopy 1960 Colorectal Cancer Screening 1960 Depression Screening 1960 FIT DNA/Cologuard 1960 FIT 1960 FOBT 1960 Lipid Panel 1960 Sigmoidoscopy 1960 Alcohol/Substance Use Screening 1972 Tobacco Screening 1972 DTaP/Tdap/Td Vaccines (1 - Tdap) 01/18/1979 Pneumococcal Vaccine: 50+ Ye ars (1 of 1 - PCV) 01/18/2010 Zoster Vaccines (1 of 2) 01/18/2010 COVID-19 Vaccine (1 - 2023-2 5 season) 2023 Influenza Vaccine (#1) 2023 RSV Patients and Pa tients Aged 60 years or older (1 - 1-dose 75+ series) 01/18/2035 HIB Vaccines Aged Out No longer eligi ble based on patient's age to complete this topic HPV Vaccines Aged Out No longer eligi ble based on patient's age to complete this topic Hepatitis A Vaccines Aged Out No long er eligible based on patient's age to complete this topic Hepatitis B Vaccines Aged Out No long er eligible based on patient's age to complete this topic IPV Vaccines Aged Out No longer eligi ble based on patient's age to complete this topic Meningococcal Vaccine Aged Out No ayad maribell eligible based on patient's age to complete this topic Pneumococcal Vaccine: Pediat rics (0 to 5 Years) and At-Risk Patients (6 to 49) Years) Aged Out No longer eligible b ased on patient's age to complete this topic RSV under 20 months Aged Out No longe r eligible based on patient's age to complete this topic Rotavirus Vaccines Aged Out No longer eligible based on patient's age to complete this topic
[2024-04-16 15:26] VITALS: BP 165/79; PULSE 68; RESP 16; TEMP 36.9; O2SAT 98
[2024-04-16 15:41] LABS: Lactic Acid 1.1 mmol/L (0.5-2.0)
[2024-04-16 15:54] LABS: Appearance Urine Clear; Color Urine Yellow; Glucose Urine UA Negative (Negative); Leukocyte Esterase Urine Negative (Negative); Nitrite Urine Negative (Negative); PH 5.5 (5.0-9.0); Specific Gravity - Urine 1.015 (1.005-1.025); Urine Blood Negative (Negative); Urine Ketones Negative (Negative); Urine Protein Negative (Neg-Trace)
[2024-04-16] MEDS: Ampicillin Sodium/Sulbactam Na 3 GM in 0.9 % Sodium Chloride 100 ML IV (16:11)
[2024-04-16] MEDS: 0.9 % Sodium Chloride 1,000 ML 999 ML IV (16:11)
--- NOTE | 2024-04-16 16:25 | ED_ITS ---
HPI - Abdominal Pain General Chief Complaint: Abdominal Pain Stated Complaint: stomach pain Time Seen by Provider: 04/16/24 14:52 History of Present Illness HPI narrative: Patient is a 64-year-old male with a history of diverticulitis. Was on Augmentin in the past. Has a history of CLL. Currently being followed by Oncology. Presented with having left-sided abdominal pain that is been ongoing for the last few days. There is no fever no chills. There is no vomiting. There is some mild nausea. Patient is from home. No coughing or congestion. No pain on urination. No difficulty with bowel movement. No abdominal surgery done in the past. Previous episodes of diverticulitis with treated with antibiotics. Related Data Home Medications ?Medication ?Instructions ?Recorded ?Confirmed cholecalciferol (vitamin D3) 25 25 mcg PO DAILY 05/28/22 02/10/24 mcg (1,000 unit) tablet tizanidine 2 mg tablet 2 mg PO Q8H PRN muscle spasm 05/28/22 02/10/24 vitamin B complex 1 cap PO DAILY 05/28/22 02/10/24 fluticasone propionate 50 1 spray intranasal BID PRN Allergy 07/07/23 02/10/24 mcg/actuation nasal Symptoms spray,suspension (Flonase Allergy Relief) multivitamin 1 tab PO DAILY 07/07/23 02/10/24 Previous Rx's ?Medication ?Instructions ?Recorded leg brace (Knee Support Brace) #1 ea 06/29/22 miscellaneous medical supply #1 ea 06/29/22 (Blood Pressure Cuff) bath tub seat #1 ea 11/27/22 shower wand #1 ea 11/27/22 cetirizine 10 mg tablet 10 mg PO DAILY 30 days #30 tabs 04/30/23 oxycodone 5 mg tablet 5 mg PO BID PRN pain #7 tabs 11/04/23 cyclobenzaprine 5 mg tablet 5 mg PO TID PRN muscle spasm #14 11/16/23 tabs alfuzosin 10 mg tablet,extended 10 mg PO DAILY #90 tabs 02/07/24 release 24 hr hydroxyzine HCl 25 mg tablet 25 mg PO BEDTIME PRN for itch #90 02/10/24 tabs lisinopril 20 mg tablet 20 mg PO DAILY 90 days #90 tabs 02/10/24 ibuprofen 600 mg tablet 600 mg PO TID PRN pain #20 tabs 03/13/24 magnesium 250 mg tablet 250 mg PO DAILY 90 days #90 tabs 04/03/24 Allergies Allergy/AdvReac Type Severity Reaction Status Date / Time Sulfa (Sulfonamide Allergy Unknown RASH Verified 04/16/24 13:20 Antibiotics) [Sulfa (Sulfonamides)] sulfacetamide Allergy Unknown Hives Verified 04/16/24 13:20 [From Sulfacet-R] sulfur [From Sulfacet-R] Allergy Unknown Hives Verified 04/16/24 13:20 Review of Systems Review of Systems Positive abdominal pain Yes all other systems are reviewed and are negative PMFSH Past Medical History Attestation statement: The following information was validated with the patient. Source: unable to obtain Medical History Multiple sclerosis Colitis HTN (hypertension) AAA (abdominal aortic aneurysm) Dysuria BPH (benign prostatic hyperplasia) HTN (hypertension) Hyperlipidemia Diabetes mellitus Bladder outlet obstruction Weak urinary stream Nocturia Stress incontinence, male Surgical History History of dental surgery History of removal of cyst History of appendectomy History of hernia repair Family History Family History Father Diabetes Mother No problems noted. Maternal Uncle Myocardial infarction Sister No problems noted. Son No problems noted. Son No problems noted. Daughter No problems noted. Brother No problems noted. Brother No problems noted. Brother No problems noted. 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 Cognitive needs: No Hearing needs: No Vision needs: No Physical Exam ED Vital Signs: Vital Signs - 24 hr 04/16/24 13:18 04/16/24 15:26 04/16/24 18:08 Temperature 98.2 F 98.4 F 98.2 F Pulse Rate 89 68 68 Respiratory Rate 18 16 16 Blood Pressure 144/99 H 165/79 H 177/85 H Pulse Oximetry 97 98 98 Oxygen Delivery Method Room Air Room Air Room Air BMI result Body Mass Index 31.6 Appearance: Alert. Oriented X3. No acute distress. Eyes: Pupils equal, round and reactive to light. ENT: Pharynx normal. Neck: Normal inspection. Neck supple. No lymph nodes noted. No crepitus CVS: Normal heart rate and rhythm. Pulses normal. Normal S1 and S2 Respiratory: No respiratory distress. Breath sounds normal. No Wheezing. No rales Abdomen: Soft and nontender. No rigidity. No distention. good BS x4 Skin: Skin warm and dry. Normal skin color. Normal skin turgor. Extremities: No lower extremity edema. Neurovascular intact to all extremities. No Lacerations. No Rash Neuro: Oriented X 3. No motor deficit. No sensory deficit. Moving all extermities. No slurred speech Medical Decision Making Medical Decision Making [facility] Narrative: Well-appearing no acute distress. Patient's white count is significantly elevated but it is predominantly lymphocytes consistent with a previous diagnosis of CLL. White count was 40.7 which is approximately baseline. Patient is electrolytes are unremarkable lactate is 1.1 there is no evidence for severe sepsis CT scan of the abdomen pelvis was done. There is no evidence for diverticulitis is no abscess no perforation no kidney stone. Patient's urine was negative for any signs of infection. Will discharge patient home close follow-up on an outpatient basis. In stable condition. Differential Diagnosis Differential Diagnoses: The differential diagnosis associated with the presentation includes Diverticulitis, kidney stone, obstruction, abscess Admission/Observation Consideration of admission/observation: Escalation of care including admission/observation considered No need to admit for observation as patient can be discharged home Lab Data [facility] Lab Attestation statement: I reviewed the patient's lab results. 04/16/24 13:54 04/16/24 13:54 Labs: Lab Results 04/16/24 04/16/24 04/16/24 Range/Units 13:54 15:10 15:33 WBC 40.6 H* (4.8-10.8) X10*3/uL RBC 5.11 (4.60-5.80) X10*6/uL Hgb 14.8 (14.0-18.0) g/dl Hct 43.2 (42.0-52.0) % MCV 84.5 (80.0-98.0) fL MCH 29.0 (27.0-33.0) pg MCHC 34.3 (31.0-36.0) g/dl RDW 12.3 (11.0-16.0) % Plt Count 178 (160-400) X10*3/uL MPV 9.8 (9.4-12.4) fL Immature Gran % (Auto) Cancelled Neut % (Auto) Cancelled Lymph % (Auto) Cancelled [place] % (Auto) Cancelled Eos % (Auto) Cancelled Baso % (Auto) Cancelled Lymph # (Auto) Cancelled [place] # (Auto) Cancelled Eos # (Auto) Cancelled Baso # (Auto) Cancelled Abs Immat Gran (auto) Cancelled Absolute Neuts (auto) Cancelled Absolute Nucleated RBC 0.000 (0.0-0.012) X10*3/uL Nucleated RBC % (auto) 0.0 (0.0-0.2) /100WBC Neutrophils % (Manual) 16 L (45-73) % Band Neutrophils % 0 L (3-5) % Lymphocytes % (Manual) 84 H (20-40) % Abs Neuts (Manual) 6.5 (2.0-8.3) X10*3/uL Lymphocytes # (Manual) 34.1 H (1.2-4.9) X10*3/uL [place] Cells PRESENT Platelet Estimate NORMAL (NORMAL) Plt Morphology Comment NORMAL RBC Morphology NORMAL Sodium 140 (135-145) mmol/L Potassium 4.7 (3.3-5.1) mmol/L Chloride 104 (96-108) mmol/L Carbon Dioxide 26 (22-29) mmol/L Anion Gap 15 (12-20) BUN 12 (9-16) mg/dL Creatinine 0.97 (0.5-1.4) mg/dL Estim Creat Clear Calc 80.3 Estimated GFR > 60 Random Glucose 127 H (60-115) mg/dL Lactic Acid 1.1 (0.5-2.0) mmol/L Calcium 9.9 (8.4-10.2) mg/dL Magnesium 2.1 (1.6-2.6) mg/dL Total Bilirubin 0.6 (0.0-1.0) mg/dL AST 58 H (5-37) U/L ALT 110 H (0-40) U/L Alkaline Phosphatase 81 (39-117) U/L Total Protein 8.1 H (6.5-8.0) g/dL Albumin 4.6 (3.5-5.0) g/dL Lipase 21 (8-78) U/L Urine Color Yellow Urine Appearance Clear Urine pH 5.5 (5.0-9.0) Ur Specific [place] 1.015 (1.005-1.025) Urine Protein Negative (Neg-Trace) mg/dL Urine Glucose (UA) Negative (Negative) mg/dL Urine Ketones Negative (Negative) mg/dL Urine Blood Negative (Negative) Urine Nitrite Negative (Negative) Ur Leukocyte Esterase Negative (Negative) Influenza Type A (PCR) NEGATIVE (Negative) Influenza Type B (PCR) NEGATIVE (Negative) RSV RNA Qual (PCR) NEGATIVE (Negative) SARS-CoV-2 RNA (RT-PCR) NEGATIVE (Negative) Independent Interpretation I performed an independent interpretation of an: CT Scan (Grossly negative CT abdomen) Radiology Impression Discussion of test interpretation with radiology: I have reviewed the radiologist's reading. (CT abdomen pelvis grossly negative for any acute evidence of obstruction abscess perforation) External Record Review External record reviewed: Inpatient record Chronic Conditions CLL Social Determinants Patient?s care significantly limited by Social Determinants of Health including: Problems related to primary support group Medications Administered Discontinued Medications Generic Name Dose Route Start Last Admin Trade Name Freq PRN Reason Stop Dose Admin Sodium Chloride 1,000 mls @ 999 mls/hr 04/16/24 16:00 04/16/24 16:11 Ns IV 04/16/24 17:00 999 mls/hr .Q1H1M BRANDO Administration Ampicillin Sodium/Sulbactam 100 mls @ 200 mls/hr 04/16/24 15:59 04/16/24 16:11 Sodium 3 gm/ Sodium Chloride IV 04/16/24 16:28 200 mls/hr ONCE ONE Administration Iohexol 100 ml 04/16/24 16:41 04/16/24 16:41 Iohexol 350 Mg/Ml 100 Ml Infus..Btl IV 04/16/24 16:42 85 ml ONCE ONE Administration Discharge Plan Discharge Clinical Impression: Abdominal pain Patient Disposition: Home, Self-Care Instructions: Abdominal Pain (ED) Prescriptions: No Action (DME) bath tub seat See Rx Instructions .Route .MEDSUPPLY Qty: 1 0RF Rx Instructions: As directed (DME) shower wand See Rx Instructions .Route .MEDSUPPLY Qty: 1 0RF Rx Instructions: As directed cetirizine 10 mg tablet 10 mg PO DAILY 30 Days Qty: 30 6RF ibuprofen 600 mg tablet 600 mg PO TID PRN (Reason: pain) Qty: 20 0RF magnesium 250 mg tablet 250 mg PO DAILY 90 Days Qty: 90 3RF multivitamin Tablet 1 tab PO DAILY fluticasone propionate [Flonase Allergy Relief] 50 mcg/actuation spray,suspension 1 spray intranasal BID PRN (Reason: Allergy Symptoms) Rx Instructions: administer into each nostril oxycodone 5 mg tablet 5 mg PO BID PRN (Reason: pain) Qty: 7 0RF Rx Instructions: Partial Fill upon patient request. tizanidine 2 mg tablet 2 mg PO Q8H PRN (Reason: muscle spasm) vitamin B complex Capsule 1 cap PO DAILY cholecalciferol (vitamin D3) 25 mcg (1,000 unit) Tablet 25 mcg PO DAILY (DME) Blood Pressure Cuff Misc See Rx Instructions .ROUTE .MEDSUPPLY Qty: 1 0RF Rx Instructions: As directed (DME) Knee Support Brace Misc See Rx Instructions .Route Qty: 1 0RF Rx Instructions: As directed hydroxyzine HCl 25 mg tablet 25 mg PO BEDTIME PRN (Reason: for itch) Qty: 90 1RF lisinopril 20 mg tablet 20 mg PO DAILY 90 Days Qty: 90 1RF alfuzosin 10 mg tablet extended release 24 hr 10 mg PO DAILY Qty: 90 2RF Rx Instructions: administer after the same meal each day cyclobenzaprine 5 mg tablet 5 mg PO TID PRN (Reason: muscle spasm) Qty: 14 0RF Referrals: Simeon Sarkar PA-C [Primary Care Provider] - 04/18/24 Print Language: Lao
[2024-04-16] MEDS: iohexoL 350 MG/ML 100 ML INFUS..BTL IV (16:41)
[2024-04-16 18:08] VITALS: BP 177/85; PULSE 68; RESP 16; TEMP 36.8; O2SAT 98
[2024-04-16 19:03] VITALS: BP 177/85; PULSE 68; RESP 16; TEMP 36.8; O2SAT 98
== END 2024-04-16 19:04 | disposition home or self-care (01) ==
PROVIDERS: Nurse Practitioner Family; Emergency Provider Emergency Medicine Emergency Medical Services; PCP Physician Assistant
DX: R10.812 Left upper quadrant abdominal tenderness (principal); R10.2 Pelvic and perineal pain; R11.0 Nausea; C91.10 Chronic lymphocytic leukemia of B-cell type not having achieved remission; Z79.899 Other long term (current) drug therapy; Z03.818 Encounter for observation for suspected exposure to other biological agents ruled out
CPT/HCPCS: 0241U; 36415; 74177; 80053; 81003; 83605; 83690; 83735; 85007; 85025; 85027; 87040; 96361; 96374; 99284; J0295; Q9967

== ENCOUNTER → 2024-04-16 16:22 | Outpatient (BNV) | payer OTHER, SELFPAY | PROVIDERS: Emergency Provider Emergency Medicine Emergency Medical Services; PCP Physician Assistant; Visit Provider Radiology Diagnostic Radiology | DX: K57.30 Diverticulosis of large intestine without perforation or abscess without bleeding (principal); K76.0 Fatty (change of) liver, not elsewhere classified; I71.43 Infrarenal abdominal aortic aneurysm, without rupture | CPT/HCPCS: 74177 ==

== ENCOUNTER 2024-05-16 07:54 | Outpatient (REF) | payer OTHER, SELFPAY ==
[2024-05-16 08:57] LABS: Hematocrit 43.8 % (42.0-52.0); Hemoglobin 14.8 g/dl (14.0-18.0); Mean Corpuscular HGB Conc 33.8 g/dl (31.0-36.0); Mean Corpuscular Hemoglobin 29.2 pg (27.0-33.0); Mean Corpuscular Volume 86.4 fL (80.0-98.0); Mean Platelet Volume 9.7 fL (9.4-12.4); Platelet Count 169 X10*3/uL (160-400); Red Blood Count 5.07 X10*6/uL (4.60-5.80); Red Cell Distribution Width 12.4 % (11.0-16.0)
[2024-05-16 09:07] LABS: White Blood Count 40.5 X10*3/uL (4.8-10.8)
[2024-05-16 09:26] LABS: Estimated Average Glucose 148 mg/dL; Hemoglobin A1c % 6.8 % (<6.0)
[2024-05-16 09:41] LABS: Alanine Aminotransferase 108 U/L (0-40); Albumin Level 4.6 g/dL (3.5-5.0); Alkaline Phosphatase 84 U/L (39-117); Anion Gap 11 (12-20); Aspartate Amino Transferase 49 U/L (5-37); Bilirubin Total 0.3 mg/dL (0.0-1.0); Blood Urea Nitrogen 15 mg/dL (9-16); Calcium 9.5 mg/dL (8.4-10.2); Carbon Dioxide 28 mmol/L (22-29); Chloride 108 mmol/L (96-108); Cholesterol 220 mg/dL (<200); Estimated Glomerular Filt Rate > 60; Glucose Fasting 131 mg/dL (60-99); HDL Cholesterol 30 mg/dL (>40); LDL Cholesterol Calculated 148 mg/dL (<100); Sodium 142 mmol/L (135-145); Total Protein 7.5 g/dL (6.5-8.0); Triglycerides 214 mg/dL (<150)
== END 2024-05-16 07:55 | disposition home or self-care (01) ==
LOC: HO.LAB 07:54
PROVIDERS: PCP Physician Assistant; Visit Provider Physician Assistant
DX: K52.9 Noninfective gastroenteritis and colitis, unspecified (principal); E11.65 Type 2 diabetes mellitus with hyperglycemia; E78.9 Disorder of lipoprotein metabolism, unspecified
CPT/HCPCS: 36415; 80053; 80061; 83036; 85027

== ENCOUNTER → 2024-06-21 09:29 | Outpatient (BNVA) | payer SELFPAY | PROVIDERS: PCP Physician Assistant; Visit Provider Physician Assistant | DX: Z02.79 Encounter for issue of other medical certificate (principal) ==

== ENCOUNTER 2024-07-06 13:48 | Emergency (ER) | payer OTHER, SELFPAY ==
--- NOTE | ~2024-07-06 | XR_ITS ---
EXAMINATION: XR HAND 3 OR MORE VIEWS RIGHT HISTORY: pain COMPARISON: There are no prior studies available for comparison. FINDINGS: Three views of the right hand are submitted. Osseous mineralization is normal. There is a curvilinear density at the ulnar aspect of the 3rd MCP joint. This could represent a tiny avulsion fracture if there is a history of trauma. The bones are otherwise intact. The joint spaces are preserved. The soft tissues are unremarkable. XR/XR hand RT min 3V IMPRESSION: Possible avulsion fracture fragment adjacent to the MCP joint of the middle finger. Clinical correlation with respect to trauma history is required. Electronically signed by: Kam Michaels MD 07/06/2024 02:24 PM EDT
[2024-07-06 13:59] VITALS: BP 142/70; PULSE 68; RESP 18; TEMP 37; O2SAT 99; BMI 29.7
--- NOTE | 2024-07-06 14:19 | ED.GENADULT ---
HPI - General Adult General Chief complaint: General Medical Stated complaint: r hand issue Time Seen by Provider: 07/06/24 15:59 Source: patient, RN notes reviewed and old records reviewed Mode of arrival: ambulatory History of Present Illness ED Provider: Sugar Sears PA-C HPI narrative: 64-year-old male with a past medical history of CLL, MS, colitis, HTN, BPH, HLD, diabetes, presenting to the ED complaining of atraumatic right hand pain x few days. Denies known injury, trauma, fall, numbness, tingling, weakness, fever, chills, history of gout Related Data Home Medications ?Medication ?Instructions ?Recorded ?Confirmed cholecalciferol (vitamin D3) 25 25 mcg PO DAILY 05/28/22 06/16/24 mcg (1,000 unit) tablet tizanidine 2 mg tablet 2 mg PO Q8H PRN muscle spasm 05/28/22 06/16/24 vitamin B complex 1 cap PO DAILY 05/28/22 06/16/24 fluticasone propionate 50 1 spray intranasal BID PRN Allergy 07/07/23 06/16/24 mcg/actuation nasal Symptoms spray,suspension (Flonase Allergy Relief) multivitamin 1 tab PO DAILY 07/07/23 06/16/24 Previous Rx's ?Medication ?Instructions ?Recorded leg brace (Knee Support Brace) #1 ea 06/29/22 miscellaneous medical supply #1 ea 06/29/22 (Blood Pressure Cuff) bath tub seat #1 ea 11/27/22 shower wand #1 ea 11/27/22 cetirizine 10 mg tablet 10 mg PO DAILY 30 days #30 tabs 04/30/23 cyclobenzaprine 5 mg tablet 5 mg PO TID PRN muscle spasm #14 11/16/23 tabs alfuzosin 10 mg tablet,extended 10 mg PO DAILY #90 tabs 02/07/24 release 24 hr hydroxyzine HCl 25 mg tablet 25 mg PO BEDTIME PRN for itch #90 02/10/24 tabs lisinopril 20 mg tablet 20 mg PO DAILY 90 days #90 tabs 02/10/24 magnesium 250 mg tablet 250 mg PO DAILY 90 days #90 tabs 04/03/24 prednisone 20 mg tablet 40 mg (2 x 20 mg) PO DAILY 5 days 07/06/24 #10 tabs Allergies Allergy/AdvReac Type Severity Reaction Status Date / Time Sulfa (Sulfonamide Allergy Unknown RASH Verified 07/06/24 14:00 Antibiotics) [Sulfa (Sulfonamides)] sulfacetamide Allergy Unknown Hives Verified 07/06/24 14:00 [From Sulfacet-R] sulfur [From Sulfacet-R] Allergy Unknown Hives Verified 07/06/24 14:00 Review of Systems Review of Systems: Yes all other systems are reviewed and are negative Constitutional: Constitutional: Reports as per [facility] Past Medical History Attestation statement: The following information was validated with the patient. Source: old records reviewed Medical History Multiple sclerosis Colitis HTN (hypertension) AAA (abdominal aortic aneurysm) Dysuria BPH (benign prostatic hyperplasia) HTN (hypertension) Hyperlipidemia Diabetes mellitus Bladder outlet obstruction Weak urinary stream Nocturia Stress incontinence, male Surgical History History of dental surgery History of removal of cyst History of appendectomy History of hernia repair Family History Family History Father Diabetes Mother No problems noted. Maternal Uncle Myocardial infarction Sister No problems noted. Son No problems noted. Son No problems noted. Daughter No problems noted. Brother No problems noted. Brother No problems noted. Brother No problems noted. 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 Cognitive needs: No Hearing needs: No Vision needs: No Physical Exam ED Vital Signs: Vital Signs - 24 hr 07/06/24 13:59 Temperature 98.6 F Pulse Rate 68 Respiratory Rate 18 Blood Pressure 142/70 H Pulse Oximetry 99 Oxygen Delivery Method Room Air BMI result Body Mass Index 29.7 Const General: cooperative, healthy appearing and no acute distress Orientation/consciousness: patient oriented x3 Limitations: no limitations HENMT Head: Yes normal to inspection and Yes atraumatic Ears: hearing grossly normal bilaterally General nose exam: Normal external nose present Face and sinus: Yes normal facial exam Eyes General: appearance normal, both eyes and all related structures EOM: EOMs intact bilaterally Neck Neck: Yes normal visual inspection and Yes no meningeal signs Resp Effort & Inspection: normal respiratory effort and no respiratory distress Cardio Rate: regular rate Skin Rashes: no rashes Wounds: no wounds Neuro General: patient oriented x3, tone normal and no meningeal signs Cranial nerves: Yes CN's II-XII intact bilaterally Gait exam (Neuro): Normal gait present Extrem Other: Right hand without noted deformity. No overt swelling. No erythema or warmth. No reproducible tenderness to palpation. Tenderness elicited with ROM. FROM intact. [id number] opposition intact. Neurovascularly intact. No crepitus. Wrist nontender. No snuffbox tenderness Course Course Course Narrative: RME, this is a rapid medical exam performed by Luis Armando Mera please refer to primary provider for complete H&P- 64-year-old male presents for evaluation of right hand pain. He denies any recent injury. He reports swelling to the entire right hand with pain. Denies any known history of gout. There are no open wounds or skin changes. Plan for labs, inflammatory markers and x-ray -1630- leukocytosis of 36.4 > stable/chronic for patient with known CLL. Low suspicion for severe sepsis. No evidence of infection at this time. -ESR/CRP WNL. Labs otherwise reassuring. XR hand RT min 3V IMPRESSION: Possible avulsion fracture fragment adjacent to the MCP joint of the middle finger. Clinical correlation with respect to trauma history is required. > XR reviewed with ED Attending Dr. Patel, do not suspect acute fracture. Patient without point tenderness or trauma. Will not require immobilization at this time. -1706--cleared with patient's oncologist, Dr. Chavez prior to initiating 40 mg of prednisone x5 days for suspected arthritic flare Results discussed with patient including worrisome signs and symptoms and strict return precautions, and when to return to the emergency department. They verbalized understanding and feel safe for discharge at this time. Medical Decision Making Medical Decision Making MDM Narrative: 64-year-old male with a past medical history of CLL, MS, colitis, HTN, BPH, HLD, diabetes, presenting to the ED complaining of atraumatic right hand pain x few days. On exam vital signs stable, NAD, nontoxic appearing, physical exam as noted above. No focal tenderness, no snuffbox tenderness. No evidence of cellulitis/overt deformity or crepitus. ROM intact with some discomfort. Neurovascularly intact. No open wounds. Concern for arthritic flare vs MSK pain/strain. Low suspicion for septic joint/arthritis or tenosynovitis or DVT. Unlikely fracture without trauma Plan: X-ray, labs Please refer to course for remaining clinical decision making, interpretation of labs/imaging results, and discussions with consultants and/or family members. Differential Diagnosis Differential Diagnoses: The differential diagnosis associated with the presentation includes As above Consult Healthcare Provider Management of the patient was discussed with: Integrated Logistics Operations Manager (Oncology) ED attending Dr. Patel Lab Data MDM Lab Attestation statement: I reviewed the patient's lab results. 07/06/24 14:31 07/06/24 14:31 Labs: Lab Results 07/06/24 Range/Units 14:31 WBC 36.4 H* (4.8-10.8) X10*3/uL RBC 4.82 (4.60-5.80) X10*6/uL Hgb 14.1 (14.0-18.0) g/dl Hct 41.4 L (42.0-52.0) % MCV 85.9 (80.0-98.0) fL MCH 29.3 (27.0-33.0) pg MCHC 34.1 (31.0-36.0) g/dl RDW 12.1 (11.0-16.0) % Plt Count 171 (160-400) X10*3/uL MPV 9.9 (9.4-12.4) fL Immature Gran % (Auto) Cancelled Neut % (Auto) Cancelled Lymph % (Auto) Cancelled [place] % (Auto) Cancelled Eos % (Auto) Cancelled Baso % (Auto) Cancelled Lymph # (Auto) Cancelled [place] # (Auto) Cancelled Eos # (Auto) Cancelled Baso # (Auto) Cancelled Abs Immat Gran (auto) Cancelled Absolute Neuts (auto) Cancelled Absolute Nucleated RBC 0.000 (0.0-0.012) X10*3/uL Nucleated RBC % (auto) 0.0 (0.0-0.2) /100WBC Neutrophils % (Manual) 16 L (45-73) % Band Neutrophils % 0 L (3-5) % Lymphocytes % (Manual) 79 H (20-40) % Atypical Lymphs % (Man) 5 (0-6) % Abs Neuts (Manual) 5.8 (2.0-8.3) X10*3/uL Lymphocytes # (Manual) 28.8 H (1.2-4.9) X10*3/uL Atyp Lymphs # (Manual) 1.8 x10*3/uL Platelet Estimate NORMAL (NORMAL) Plt Morphology Comment NORMAL RBC Morphology NORMAL ESR 4 (0-15) MM/HR Sodium 138 (135-145) mmol/L Potassium 4.1 (3.3-5.1) mmol/L Chloride 106 (96-108) mmol/L Carbon Dioxide 25 (22-29) mmol/L Anion Gap 11 L (12-20) BUN 15 (9-16) mg/dL Creatinine 0.97 (0.5-1.4) mg/dL Estim Creat Clear Calc 77.9 Estimated GFR > 60 Random Glucose 144 H (60-115) mg/dL Calcium 8.8 D (8.4-10.2) mg/dL C-Reactive Protein 0.10 (< or = 0.50) mg/dL Independent Interpretation I performed an independent interpretation of an: Plain X-Ray Radiology Impression Discussion of test interpretation with radiology: I have reviewed the radiologist's reading. Independent Historian Clinical information obtained from an independent historian. History obtained from or confirmed by: Other External Record Review External record reviewed: Inpatient record, Office record, Outpatient record, Prior outpatient labs, Prior outpatient radiology, Primary care record and Outside ED record Tests considered The following testing was considered but not selected: As above Prescription Management I considered prescription management with: Pain Medication and Other Chronic Conditions Patient?s care impacted by: Cancer and Other Social Determinants Patient?s care significantly limited by Social Determinants of Health including: Other Social Determinant of Health Discharge Plan Discharge Clinical Impression: Pain of right hand Patient Disposition: Home, Self-Care Instructions: Arthralgia (ED) Additional Instructions: Your blood work is reassuring Your x-ray shows a possible fracture although we do not think you have an acute fracture. Prednisone as a steroid which will help with inflammation and pain, take as prescribed Continue home prescribed medications and follow up with her doctors Take Tylenol and ibuprofen for pain If symptoms persist or worsen her pain is unbearable or area begins to look infected, is red, you are unable to move and return to the ED Prescriptions: New prednisone 20 mg tablet 40 mg PO DAILY 5 Days Qty: 10 0RF No Action (DME) bath tub seat See Rx Instructions .Route .MEDSUPPLY Qty: 1 0RF Rx Instructions: As directed (DME) shower wand See Rx Instructions .Route .MEDSUPPLY Qty: 1 0RF Rx Instructions: As directed cetirizine 10 mg tablet 10 mg PO DAILY 30 Days Qty: 30 6RF magnesium 250 mg tablet 250 mg PO DAILY 90 Days Qty: 90 3RF multivitamin Tablet 1 tab PO DAILY fluticasone propionate [Flonase Allergy Relief] 50 mcg/actuation spray,suspension 1 spray intranasal BID PRN (Reason: Allergy Symptoms) Rx Instructions: administer into each nostril tizanidine 2 mg tablet 2 mg PO Q8H PRN (Reason: muscle spasm) vitamin B complex Capsule 1 cap PO DAILY cholecalciferol (vitamin D3) 25 mcg (1,000 unit) Tablet 25 mcg PO DAILY (DME) Blood Pressure Cuff Misc See Rx Instructions .ROUTE .MEDSUPPLY Qty: 1 0RF Rx Instructions: As directed (DME) Knee Support Brace Misc See Rx Instructions .Route Qty: 1 0RF Rx Instructions: As directed hydroxyzine HCl 25 mg tablet 25 mg PO BEDTIME PRN (Reason: for itch) Qty: 90 1RF lisinopril 20 mg tablet 20 mg PO DAILY 90 Days Qty: 90 1RF alfuzosin 10 mg tablet extended release 24 hr 10 mg PO DAILY Qty: 90 2RF Rx Instructions: administer after the same meal each day cyclobenzaprine 5 mg tablet 5 mg PO TID PRN (Reason: muscle spasm) Qty: 14 0RF Referrals: Simeon Sarkar PA-C [Primary Care Provider] - 3 days Print Language: Danish
[2024-07-06 14:37] LABS: Hematocrit 41.4 % (42.0-52.0); Hemoglobin 14.1 g/dl (14.0-18.0); Mean Corpuscular HGB Conc 34.1 g/dl (31.0-36.0); Mean Corpuscular Hemoglobin 29.3 pg (27.0-33.0); Mean Corpuscular Volume 85.9 fL (80.0-98.0); Mean Platelet Volume 9.9 fL (9.4-12.4); Platelet Count 171 X10*3/uL (160-400); Red Blood Count 4.82 X10*6/uL (4.60-5.80); Red Cell Distribution Width 12.1 % (11.0-16.0)
[2024-07-06 14:38] LABS: WBC ABN SCTR FOR CBC 1
[2024-07-06 14:40] LABS: White Blood Count 36.4 X10*3/uL (4.8-10.8)
[2024-07-06 14:52] LABS: Anion Gap 11 (12-20); Blood Urea Nitrogen 15 mg/dL (9-16); Calcium 8.8 mg/dL (8.4-10.2); Carbon Dioxide 25 mmol/L (22-29); Chloride 106 mmol/L (96-108); Creatinine Clr Calc Pharmacy 77.9; Estimated Glomerular Filt Rate > 60; Glucose Random 144 mg/dL (60-115); Potassium 4.1 mmol/L (3.3-5.1); Sodium 138 mmol/L (135-145)
[2024-07-06 15:14] LABS: Erythrocyte Sedimentation Rate 4 MM/HR (0-15)
[2024-07-06 16:01] LABS: Atypical Lymph Absolute Manual 1.8 x10*3/uL; Atypical Lymphs Percent Manual 5 % (0-6); Lymphocytes Absolute Manual 28.8 X10*3/uL (1.2-4.9); Lymphocytes Percent Manual 79 % (20-40); Neutrophils Percent Manual 16 % (45-73)
[2024-07-06 16:03] LABS: Band Neutrophils Percent 0 % (3-5); Neutrophils Absolute Manual 5.8 X10*3/uL (2.0-8.3); Platelet Estimate NORMAL (NORMAL); Platelet Morphology Comment NORMAL; RBC Morphology NORMAL
--- OUTSIDE RECORDS SUMMARY | 2024-07-06 16:24 | XMS_ITS | Encounter Summary ---
Author Organization [employer] Address [address] [place] [address] 7 [place] [address] Care Team Providers Care Coil Strapper Name Role Phone Unavailable Primary Care Provider Unavailabl e Encounter Details Date Type Department Care Team (Late st Contact Info) Description 11/20/2022 Abstract [facility] [address] [place] [address] Carleen Mcghee Social History Tobacco Use Types Packs/Day Years Used Date Smoking Tobacco: Never Assessed Sex and Gender Information Value Date Recorded Sex Assigned at Male 12/22/2021 10:27 AM EDT Legal Sex Male 10:27 AM EDT Gender Identity Not on file Sexual Orientation Not on file documented as of this encounter Plan of Treatment Not on file documented as of this encounter Visit Diagnoses Not on filedocumented in this encounter
--- OUTSIDE RECORDS SUMMARY | 2024-07-06 16:24 | XMS_ITS | Clinical Summary ---
Author Organization [employer] Address [address] [facility] [address] [place] [address] Care Team Providers Care Superintendent Building Name Role Phone Unavailable Primary Care Provider [...] patient's age to complete this topic Meningococcal B Vaccine Aged Out No l onger eligible based on patient's age to complete [...]
[2024-07-06 17:48] VITALS: BP 142/70; PULSE 68; RESP 18; TEMP 37; O2SAT 99
== END 2024-07-06 17:49 | disposition home or self-care (01) ==
PROVIDERS: Physician Assistant; Emergency Provider Emergency Medicine; PCP Physician Assistant
DX: M79.641 Pain in right hand (principal); C91.10 Chronic lymphocytic leukemia of B-cell type not having achieved remission; G35 Multiple sclerosis; I10 Essential (primary) hypertension; E11.9 Type 2 diabetes mellitus without complications; E78.5 Hyperlipidemia, unspecified; Z79.899 Other long term (current) drug therapy
CPT/HCPCS: 36415; 73130; 80048; 85007; 85027; 85652; 86140; 99282; 99283

== ENCOUNTER → 2024-07-06 14:06 | Outpatient (BNV) | payer MEDICARE, MEDICAID, SELFPAY | PROVIDERS: PCP Physician Assistant; Visit Provider Radiology Diagnostic Radiology | DX: M79.641 Pain in right hand (principal) | CPT/HCPCS: 73130 ==

== ENCOUNTER → 2024-08-07 11:35 | Outpatient (BNVA) | payer OTHER, SELFPAY | PROVIDERS: PCP Physician Assistant; Visit Provider Urology ==

== ENCOUNTER 2024-08-10 08:18 | Outpatient (REF) | payer OTHER, SELFPAY ==
--- OUTSIDE RECORDS SUMMARY | 2024-08-10 08:29 | XMS_ITS | Encounter Summary ---
Author Organization [employer] Address [address] [place] [address] 7 [place] [address] Care Team Providers Care Inspector Paper Products Name Role Phone Unavailable Primary Care Provider Unavailabl e Encounter Details Date Type Department Care Team (Late st Contact Info) Description 11/20/2022 Abstract [facility] [address] [place] [address] Carleen Mcghee Social History Tobacco Use Types [...]
== END 2024-08-10 08:19 | disposition home or self-care (01) ==
LOC: HO.LAB 08:18
PROVIDERS: PCP Physician Assistant; Visit Provider Urology
DX: E78.2 Mixed hyperlipidemia (principal); E11.65 Type 2 diabetes mellitus with hyperglycemia; C91.10 Chronic lymphocytic leukemia of B-cell type not having achieved remission; G35 Multiple sclerosis; I10 Essential (primary) hypertension; N40.1 Benign prostatic hyperplasia with lower urinary tract symptoms; N13.8 Other obstructive and reflux uropathy; Z79.899 Other long term (current) drug therapy; Z12.5 Encounter for screening for malignant neoplasm of prostate
CPT/HCPCS: 36415; 83036; 84153; 96127; 99212

== ENCOUNTER 2024-08-10 09:16 | Outpatient (AMB) | payer OTHER, SELFPAY ==
--- NOTE | 2024-08-10 09:24 | MHC.PC.OV ---
Vital Signs 08/10/24 09:35 08/10/24 09:52 Weight 185 lb BP 152/72 H 145/80 H Blood Pressure Location Rt brachial Position Sitting Pulse 74 Pulse Source Pulse Oximeter Temp 97.1 F Temp Source Temporal Artery Scan Pulse Oximetry (%) 97 Oxygen Delivery Method Room Air Intake Visit Reasons: f/u DMII/ MS Powerhouse Operator Required: No Accompanied by: Self / Same As Patient Allergies Sulfa (Sulfonamide Antibiotics) (Sulfa (Sulfonamides)) Allergy (Unknown, Verified 08/10/24 09:40) RASH sulfacetamide (From Sulfacet-R) Allergy (Unknown, Verified 08/10/24 09:40) Hives sulfur (From Sulfacet-R) Allergy (Unknown, Verified 08/10/24 09:40) Hives Medication List - Last Reconciled 08/10/24 by Simeon Sarkar PA-C alfuzosin ER 10 mg PO DAILY [bath tub seat As directed] cetirizine 10 mg PO DAILY 30 days cholecalciferol (vitamin D3) 25 mcg PO DAILY cyclobenzaprine 5 mg PO TID PRN fluticasone propionate 50 mcg/actuation (Flonase Allergy Relief) 1 spray intranasal BID PRN hydroxyzine HCl 25 mg PO BEDTIME PRN leg brace (Knee Support Brace) As directed lisinopril 20 mg PO DAILY 90 days magnesium 250 mg PO DAILY 90 days miscellaneous medical supply (Blood Pressure Cuff) As directed multivitamin 1 tab PO DAILY [shower wand As directed] tizanidine 2 mg PO Q8H PRN vitamin B complex 1 cap PO DAILY Tobacco use date assessed: 08/10/24 Fall risk assessment: No Falls in past year Last assessed Fall Risk: 08/10/24 Dental Screening Dental Screen Date: 08/10/24 Did you have a dental visit in the last 12 months?: Yes Did you have a dental problem in the last 6 months where you did not have access to dental care?: No Was dental information given to patient?: Patient has dentist HPI f/u DMII/ MS HPI Details Chavo is 64-year-old male here today for an annual physical.. Patient has a past medical history significant for MS, , essential hypertension, BPH, type 2 diabetes, CLL .. CLL: Recent diagnosis of CLL now followed by Hematology. CBC has been recently stable. HTN: Blood pressure elevated today in office. We discussed increasing his lisinopril to 30 mg for better blood pressure control though patient declines. ? He reports home readings have been 110s to 120 systolic.?? He reports he continues to be physically active jogging 3 times per week. Reports at home at home his blood pressure have been 120- 130s systolic. ?? . ? .. ? Diabetes type 2: Today's A1c at 5.7 from 7.1. . Patient has been trying to control his diabetes with lifestyle and dietary modifications. ? . ? .. ? M.S : Is followed by Neurology at [facility] (Dr. Hagen) , gets a MRI- Brain q 6 month , patient does report having frustrations over at times having to work find and not being able to pronounce words. He believes this is secondary to his MS. Also reports having pain down his bilateral arms which he feels is muscular related to his MS.?? Was on MS medication though had intolerable side effects. Laboratory Tests 05/16/24 06/16/24 07/06/24 08:27 09:21 14:31 WBC 40.5 H* 36.0 H* 36.4 H* [facility] Medical History (Updated 08/10/24 @ 09:54 by Simeon Sarkar PA-C) HTN (hypertension) Multiple sclerosis Colitis AAA (abdominal aortic aneurysm) Dysuria BPH (benign prostatic hyperplasia) HTN (hypertension) Hyperlipidemia Diabetes mellitus Bladder outlet obstruction Weak urinary stream Nocturia Stress incontinence, male Surgical History History of dental surgery History of removal of cyst History of appendectomy History of hernia repair Family History Father Diabetes Mother No problems noted. Maternal Uncle Myocardial infarction Sister No problems noted. Son No problems noted. Son No problems noted. Daughter No problems noted. Brother No problems noted. Brother No problems noted. Brother No problems noted. 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 Cognitive needs: No Hearing needs: No Vision needs: No Questionnaire PHQ-9 Over the last 2 weeks, how often have you been bothered by any of the following problems? 1. Little interest or pleasure in doing things: not at all 2. Feeling down, depressed, or hopeless: not at all 3. Trouble falling or staying asleep, or sleeping too much: not at all 4. Feeling tired or having little energy: not at all 5. Poor appetite or overeating: not at all 6. Feeling bad about yourself - or that you are a failure or have let yourself or your family down: not at all 7. Trouble concentrating on things, such as reading the newspaper or watching television: not at all 8. Moving or speaking so slowly that other people could have noticed. Or the opposite - being so fidgety or restless that you have been moving around a lot more than usual: not at all 9. Thoughts that you would be better off or of hurting yourself in some way: not at all Total score: 0 Depression Screening Interpretation: Negative Depression Screening Done: Yes 22771 - PHQ-9 Billing: Yes Source: Developed by Drs. Kam Becker, Lucille Marsh, Trae Roy and colleagues, with an educational catalina from [employer]. Thrive Questionnaire Date Thrive assessed: 08/10/24 I am a: Patient What is your living situation today?: I have a steady place to live Within the past 12 months, did the food you bought not last and you didn't have the money to get more?: Never true Within the past 12 months, did you worry whether your food would run out before you got money to buy more?: Never true Do you have trouble paying for medicines?: No Do you have trouble getting transportation to medical appointments?: No Do you have trouble paying your heating and electricity bill?: No Do you have trouble taking care of your child, family member or friend?: No Do you have trouble with day-to-day activities such as bathing, preparing meals, shopping, managing finances, etc.?: No Are you currently unemployed and looking for a job?: No Are you interested in more education?: No Please select the resources that you would like help with: None Currently or been in a relationship where the following occur: No concerns reported THRIVE Score: 0 AUDIT C Alcohol Use Questionnaire (AUDIT-C) 1. How often do you have a drink containing alcohol?: Never 3. How often do you have six or more drinks on one occasion?: Never Total Score: 0 Score Reviewed/Action Taken: No ADRIEN-7 AMB Questionnaire ADRIEN-7 Date ADRIEN - 7 assessed: 08/10/24 Feeling nervous, anxious, or on edge: 0 = Not at all Not being able to stop or control worryin = Not at all Worrying too much about different things: 0 = Not at all Trouble relaxin = Not at all Being so restless that it is hard to sit still: 0 = Not at all Becoming easily annoyed or irritable: 0 = Not at all Feeling afraid as if something awful might happen: 0 = Not at all Total ADRIEN-7 score (0-4 normal; 5-9 mild; 10-14 moderate; 15-21 severe): 0 Source: Developed by Drs. Kam Becker, Lucille Marsh, Trae Roy and colleagues, with an educational catalina from [employer]. ADRIEN-7 Assessment Billing ADRIEN-7 Assessment Tool: ADRIEN-7 Assessment 59102 Review of Systems Const Denies headache(s) Eyes Denies loss of vision ENT Denies vertigo, Denies dizziness, Denies headache(s) and Denies sore throat Card Denies chest pain, Denies leg edema and Denies lightheadedness Resp Denies cough, Denies hemoptysis and Denies wheezing GI Denies abdominal pain, Denies melena, Denies constipation, Denies diarrhea and Denies vomiting Denies dysuria, Denies urinary frequency and Denies urinary urgency Musc Denies arthralgias, Denies joint swelling, Denies numbness and Denies tingling Neuro Denies Abnormal speech present, Denies behavioral changes, Denies vertigo, Denies dizziness, Denies headache(s), Denies loss of vision, Denies memory loss, Denies numbness and Denies tingling Psych Denies anxiety, Denies behavioral changes, Denies depression, Denies memory loss and Denies panic attacks Benjamin/Lymph Denies easy bleeding and Denies easy bruising Aller/Immun Denies wheezing Physical exam (Primary Care) Vital Signs: Last Vital Signs Temp 97.1 F 08/10/24 09:35 Pulse 74 08/10/24 09:35 BP 145/80 H 08/10/24 09:52 Pulse Ox 97 08/10/24 09:35 Oxygen Delivery Method Room Air 08/10/24 09:35 Tobacco/Smoking Status: Tobacco use Status Tobacco use date assessed 08/10/24 08/10/24 09:40 Patient Tobacco Use Status Never used Tobacco 08/10/24 09:25 e-Cigarette/Vaping Use Never Used 08/10/24 09:25 PHQ-9: PHQ-9 Score PHQ-9: Total score 0 08/10/24 09:50 Depression Screening Interpretation: Negative Thrive Assessment: Date of Thrive Assessment Date Thrive assessed 08/10/24 08/10/24 09:25 Currently or been in a relationship where the following occur: No concerns reported Const General: healthy appearing, no acute distress, alert and awake Nutritional Appearance: well nourished Orientation/consciousness: oriented to person, oriented to place and oriented to time HENMT Ears: TM's normal bilaterally General nose exam: Normal nasal mucous membranes and turbinates present Eyes Conjunctivae: conjunctivae normal Sclerae: sclerae normal Pupils: Equal, round and reactive pupils present Neck Neck: Yes no lymphadenopathy and Yes no JVD Thyroid: Thyroid normal Carotids: no bruits Resp Effort & Inspection: normal respiratory effort and not tachypneic Auscultation: no crackles, no rales, no rhonchi and no wheezes Cardio Rate: regular rate Rhythm: regular rhythm Heart sounds: no murmurs and normal S1 and S2 GI Palpation (GI): Soft to palpation, nontender, no hepatomegaly and no splenomegaly Auscultation: normal bowel sounds Skin General skin exam: no rashes or lesions noted and dry skin Neuro General: oriented to person, oriented to place and oriented to time Cranial nerves: Yes Equal, round and reactive pupils present Speech: No Abnormal speech present Gait exam (Neuro): Normal gait present Motor exam (neuro): no tremor noted Extrem Right upper extremity: full ROM Left upper extremity: full ROM Right lower extremity: full ROM; no edema Left lower extremity: full ROM; no edema Psych Mental Status: mental status grossly normal Speech and movement: Normal speech and movement present Affect: normal affect Attitude: cooperative Thought process: Normal thought process present Results AMB Hemoglobin A1c AMB Hemoglobin A1c 6.6 % Last Edit by ANASTASIA Edward on 08/10/24 09:51 Results Reviewed Results Reviewed: Laboratory Last Values Hgb A1c (Clinic) 6.6 % (4.0-6.0) H 08/10/24 09:21 Coding Level of Care Code Est Pt Level 4 (70876) Diagnoses Mixed hyperlipidemia E78.2 Hyperlipidemia type: mixed hyperlipidemia Type 2 diabetes mellitus with hyperglycemia, without long-term current use of insulin E11.65 Diabetes mellitus complication status: with hyperglycemia Diabetes mellitus prison insulin use: without prison use CLL (chronic lymphocytic leukemia) C91.10 Multiple sclerosis G35 Essential hypertension I10 Hypertension type: essential hypertension Additional Codes ADRIEN-7 Assessment Billing - ADRIEN-7 Assessment Tool: ADRIEN-7 Assessment 05159 ([id number]) PHQ-9 - 20978 - PHQ-9 Billing: Yes ([id number]) Assessment & Plan Assessment & Plan (1) Hyperlipidemia: Code(s): E78.5 - Hyperlipidemia, unspecified Category: Medical Qualifiers: Hyperlipidemia type: mixed hyperlipidemia Qualified Code(s): E78.2 - Mixed hyperlipidemia Plan: Most recent lipid panel showing elevated total cholesterol and LDL. He is open to to starting lipid lowering medication with goal LDL to be below 100 (2) DMII (diabetes mellitus, type 2): Code(s): E11.9 - Type 2 diabetes mellitus without complications Category: Medical Qualifiers: Diabetes mellitus complication status: with hyperglycemia Diabetes mellitus prison insulin use: without prison use Qualified Code(s): E11.65 - Type 2 diabetes mellitus with hyperglycemia Plan: Patient's type 2 diabetes has been well controlled with lifestyle and dietary modifications. A1c is to remain below 7.0. (3) CLL (chronic lymphocytic leukemia): Code(s): C91.10 - Chronic lymphocytic leukemia of B-cell type not having achieved remission Category: Medical Plan: Patient continues to follow Hematology, most recent white blood cell count at 35 (4) Multiple sclerosis: Code(s): G35 - Multiple sclerosis Category: Medical Plan: Patient followed by a neurologist in [place]. Was on MS treatment though was unable to tolerate the side effects of the medication. He continues to have some body pain and some difficulty with his speech related to his MS. (5) HTN (hypertension): Code(s): I10 - Essential (primary) hypertension Category: Medical Qualifiers: Hypertension type: essential hypertension Qualified Code(s): I10 - Essential (primary) hypertension Plan: Patient's blood pressure elevated today in office, advised to increase his lisinopril dose to 30 mg though he declines at this time and will like to work on lifestyle modifications to reduce his blood pressure. Goal blood pressures to be below 140/90. Will supply patient with paper Rx for blood pressure monitor to to do home blood pressure monitoring Orders: Orders Comprehensive [place]. Panel Fast 08/10/24 E78.5 - Hyperlipidemia, unspecified Lipid Panel 08/10/24 E78.5 - Hyperlipidemia, unspecified AMB Hemoglobin A1c 08/10/24 E11.65 - Type 2 diabetes mellitus with hyperglycemia Complete Blood Count no Diff 08/10/24 E78.5 - Hyperlipidemia, unspecified Medications: New atorvastatin (Lipitor) 10 mg PO DAILY 90 tabs 1RF 90 days E78.5 - Hyperlipidemia, unspecified blood pressure monitor As directed 1 ea 0RF I10 - Essential (primary) hypertension Refilled lisinopril 20 mg PO DAILY 90 tabs 1RF 90 days I10 - Essential (primary) hypertension hydroxyzine HCl 25 mg PO BEDTIME PRN 90 tabs 1RF for itch F41.1 - Generalized anxiety disorder
[2024-08-10 09:35] VITALS: BP 152/72; PULSE 74; TEMP 36.2; O2SAT 97
[2024-08-10 09:52] VITALS: BP 145/80
== END 2024-08-10 10:01 | disposition home or self-care (01) ==
PROVIDERS: PCP Physician Assistant; Visit Provider Physician Assistant
DX: E11.65 Type 2 diabetes mellitus with hyperglycemia (principal)

== ENCOUNTER 2024-09-04 11:49 | Outpatient (AMB) | payer OTHER, SELFPAY ==
--- NOTE | 2024-09-03 22:43 | A.OFFVIS_ITS ---
Intake Visit Reasons: follow up/PSA Intake Note: Patient is present for follow up/PSA * 08/10 PSA:0.50 Urology Med: Tamsulosin Antibiotic Allergy: Sulfa Blood Thinner: None PVR:75ml Technical Services Assistant Required: No Allergies Sulfa (Sulfonamide Antibiotics) (Sulfa (Sulfonamides)) Allergy (Unknown, Verified 09/04/24 12:03) RASH sulfacetamide (From Sulfacet-R) Allergy (Unknown, Verified 09/04/24 12:03) Hives sulfur (From Sulfacet-R) Allergy (Unknown, Verified 09/04/24 12:03) Hives Medication List - Last Reconciled 09/04/24 by Nelda Mills MD atorvastatin (Lipitor) 10 mg PO DAILY 90 days [bath tub seat As directed] blood pressure monitor As directed cetirizine 10 mg PO DAILY 30 days cholecalciferol (vitamin D3) 25 mcg PO DAILY cyclobenzaprine 5 mg PO TID PRN fluticasone propionate 50 mcg/actuation (Flonase Allergy Relief) 1 spray intranasal BID PRN hydroxyzine HCl 25 mg PO BEDTIME PRN leg brace (Knee Support Brace) As directed lisinopril 20 mg PO DAILY 90 days magnesium 250 mg PO DAILY 90 days miscellaneous medical supply (Blood Pressure Cuff) As directed multivitamin 1 tab PO DAILY [shower wand As directed] tadalafil (Cialis) 5 mg PO DAILY tizanidine 2 mg PO Q8H PRN vitamin B complex 1 cap PO DAILY HPI Comments Details: 09/04/24--Lynn is followed for BPH on alfuzosin 02/03/2024--Chavo is here for follow-up, He was seen last on 08/02/23 he is prescribed tamsulosin to replace alfuzosin or obstructive lower urinary tract symptoms. Significant past medical history multiple sclerosis (2012) and diabetes. He states the tamsulosin does not help. He states the alfuzosin worked better. PSA screening. FU in 6 months. 08/02/23--Chavo is a 63-year-old male who presents today to the office for a follow-up. He is here for 6 month follow-up. He was last seen by me in the office 01/29/2023. He is prescribed alfuzosin for obstructive lower urinary tract symptoms. Significant past medical history multiple sclerosis (2012) and diabetes. He states he was recently in the hospital at [facility] and treated for diverticulitis. A CT scan abdomen and pelvis with IV contrast was done during that time on , which I reviewed urinary tract was within normal limits. The patient states sometimes he has trouble urinating he feels like his bladder is full and it takes a while for the urine to come out. He denies dysuria or gross hematuria. Urinalysis-leukocytes negative, blood negative. Bladder scan PVR 35 mL. Review of lab work, PSA 03/09/23--0.81. Will trial Flomax to replace alfuzosin. 01/29/2023--He was seen by me Dr. Wong on 10/31/2021 for LUTS. Patient has had an intermittent testicular pain. He states that his PCP has ordered a scrotal US. I have reviewed the scrotal US results from 11/10/2022 revealed a small 3 mm left testicle cyst and no testicular masses noted. 01/29/2023: Evaluation today--UA--Leukocytes: negative; blood: negative; bladder scan PVR: 176 mL. Plan: Ordered alfusozin 10 mg. PSA screening test was ordered. Follow-up in 6 months. 10/31/21--Seen by Dr. 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 Prostate Symptom Score Moderate (9-19), Bother 3. Symptoms include weak stream, nocturia (>2), and are progressing. Results from testing include renal/bladder us-- date 02/21/2019 Associated conditions - multiple sclerosis, [facility] Medical History HTN (hypertension) Multiple sclerosis Colitis AAA (abdominal aortic aneurysm) Dysuria BPH (benign prostatic hyperplasia) HTN (hypertension) Hyperlipidemia Diabetes mellitus Bladder outlet obstruction Weak urinary stream Nocturia Stress incontinence, male Surgical History History of dental surgery History of removal of cyst History of appendectomy History of hernia repair Family History Father Diabetes Mother No problems noted. Maternal Uncle Myocardial infarction Sister No problems noted. Son No problems noted. Son No problems noted. Daughter No problems noted. Brother No problems noted. Brother No problems noted. Brother No problems noted. 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 Cognitive needs: No Hearing needs: No Vision needs: No Office Procedures Post Void Residual Post Residual Void Post Void Residual (PVR): 75 [id number] Void Residual by ultrasound Results AMB Urinalysis, Automated UA Leukoctes 0 Franco/uL Last Edit by Chayito Keller on 09/04/24 16:26 UA Nitrite Negative Last Edit by Chayito Keller on 09/04/24 16:26 UA Urobilinogen 3.5 mg/dL Last Edit by Chayito Keller on 09/04/24 16:26 UA Protein 0 mg/dL Last Edit by Chayito Keller on 09/04/24 16:26 UA pH 5.5 Last Edit by Chayito Keller on 09/04/24 16:26 UA Blood 0 Obinna/uL Last Edit by Chayito Keller on 09/04/24 16:26 UA Specific [place] 1.020 Last Edit by Chayito Keller on 09/04/24 16:26 UA Ketone Negative Last Edit by Chayito Keller on 09/04/24 16:26 UA Bilirubin 0 mg/dL Last Edit by Chayito Keller on 09/04/24 16:26 UA Glucose 0 mg/dL Last Edit by Chayito Keller on 09/04/24 16:26 Assessment & Plan Assessment & Plan (1) BPH loc w urin obs/LUTS: Code(s): N40.1 - Benign prostatic hyperplasia with lower urinary tract symptoms Category: Medical Orders: Orders AMB Urinalysis Automated Today Z13.9 - Encounter for screening, unspecified AMB Post Void Residual by ultrasound Today N40.1 - Benign prostatic hyperplasia with lower urinary tract symptoms Medications: New tadalafil (Cialis) 5 mg PO DAILY 90 tabs 3RF N40.1 - Benign prostatic hyperplasia with lower urinary tract symptoms Discontinued alfuzosin ER administer after the same meal each day Discontinued Reason: Doctor's Order 10 mg PO DAILY 90 tabs 2RF Coding Diagnoses BPH loc w urin obs/LUTS N40.1 CPT Codes Post Residual Void - PVR CPT Code: 95923-[id number] Void Residual by ultrasound ([id number])
--- OUTSIDE RECORDS SUMMARY | 2024-09-04 12:55 | XMS_ITS | Encounter Summary ---
Author Organization [employer] Address [address] [place] [address] [address] [place] [address] Care Team Providers Care Trust Advisor Name Role Phone Unavailable Primary Care Provider Unavailabl e Encounter Details Date Type Department Care Team (Late st Contact Info) Description 11/20/2022 Abstract [facility] [address] [place] [address] Carleen Mcghee Social History Tobacco Use Types [...]
== END 2024-09-04 12:27 | disposition home or self-care (01) ==
LOC: HO.HUSH 11:49
PROVIDERS: PCP Physician Assistant; Visit Provider Urology
DX: Z13.9 Encounter for screening, unspecified (principal)

== ENCOUNTER → 2024-09-04 11:49 | Outpatient (BNVA) | payer OTHER, SELFPAY | PROVIDERS: PCP Physician Assistant; Visit Provider Urology | DX: N40.1 Benign prostatic hyperplasia with lower urinary tract symptoms (principal) | CPT/HCPCS: 51798; 81003 ==

== ENCOUNTER 2024-12-10 16:03 | Emergency (ER) | payer OTHER, SELFPAY ==
[2024-12-10 16:09] VITALS: BP 200/88; PULSE 66; RESP 16; TEMP 36.6; O2SAT 97; BMI 29.0
--- NOTE | 2024-12-10 16:09 | ED_ITS ---
HPI - General Adult General Chief complaint: Abdominal Pain Stated complaint: abdominal pain Related Data Home Medications ?Medication ?Instructions ?Recorded ?Confirmed cholecalciferol (vitamin D3) 25 25 mcg PO DAILY 09/04/24 mcg (1,000 unit) tablet tizanidine 2 mg tablet 2 mg PO Q8H PRN muscle spasm 05/28/22 09/04/24 vitamin B complex 1 cap PO DAILY 05/28/2208/22 fluticasone propionate 50 1 spray intranasal BID PRN A llergy 07/07/23 09/04/24 mcg/actuation nasal Symptoms spray,suspension (Flonase Allergy Relief) multivitamin 1 tab PO DAILY 07/07/2308/22 Previous Rx's ?Medication ?Instructions ?Recorded leg brace (Knee Support Brace) #1 ea 06/29/22 miscellaneous medical supply #1 ea 06/29/22 (Blood Pressure Cuff) bath tub seat #1 ea 11/27/22 shower wand #1 ea 11/27/22 cetirizine 10 mg tablet 10 mg PO DAILY 30 days #30 t abs 04/30/23 cyclobenzaprine 5 mg tablet 5 mg PO TID PRN muscle spa sm #14 11/16/23 tabs magnesium 250 mg tablet 250 mg PO DAILY 90 days #90 tabs 04/03/24 blood pressure monitor #1 ea 08/10/24 hydroxyzine HCl 25 mg tablet 25 mg PO BEDTIME PRN for itch #90 08/10/24 tabs lisinopril 20 mg tablet 20 mg PO DAILY 90 days #90 t abs 08/10/24 Blood pressure Machine #1 ea 12/12/24 amoxicillin 875 mg-potassium 1 tab PO BID 10 days #20 tabs 12/12/24 clavulanate 125 mg tablet hydrochlorothiazide 12.5 mg tablet 12.5 mg PO DAILY #3 0 tabs 12/12/24 alfuzosin 10 mg tablet,extended 10 mg PO DAILY #90 tab s 12/13/24 release 24 hr Allergies Allergy/AdvReac Type Severity Reaction Status Date / Time Sulfa (Sulfonamide Allergy Unknown RASH Verified 12/13/24 07:34 Antibiotics) (Sulfa (Sulfonamides)) sulfacetamide (From Allergy Unknown Hives Verified 12/13/24 07:34 Sulfacet-R) sulfur (From Sulfacet-R) Allergy Unknown Hives Verified 12/13/24 07:34 COUNT INCLUDES THE [facility] Past Medical History Medical History HTN (hypertension) Multiple sclerosis Colitis AAA (abdominal aortic aneurysm) Dysuria BPH (benign prostatic hyperplasia) HTN (hypertension) Hyperlipidemia Diabetes mellitus Bladder outlet obstruction Weak urinary stream Nocturia Stress incontinence, male Surgical History History of dental surgery History of removal of cyst History of appendectomy History of hernia repair Family History Family History Father Diabetes Mother No problems noted. Maternal Uncle Myocardial infarction Sister No problems noted. Son No problems noted. Son No problems noted. Daughter No problems noted. Brother No problems noted. Brother No problems noted. Brother No problems noted. 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 Cognitive needs: No Hearing needs: No Vision needs: No Physical Exam ED Vital Signs: BMI result Body Mass Index 29.0 Course Course Course Narrative: This is a rapid medical exam performed by Jorge Parra NP: Additional HPI, ROS, PE not included below will be deferred to primary provider. Patient is a 64y/o M with history of colostomy, leukemia, MS presenting to the ED with complaint of mid abdominal pain x 3 days. Today has nausea. Denies vomiting or diarrhea. Last BM was one hour ago, reports was normal. Plan: Labs, UA Patient left the emergency department before myself or any of the other clinicians could review or explain physical exam findings, test results, need or lack there of for additional testing, treatment options, or a treatment plan. Medical Decision Making Lab Data 12/10/24 16:21 12/10/24 16:21 Labs: Lab Results 12/10/24 Range/Units 16:21 WBC 51.2 H* (4.8-10.8) X10*3/uL RBC 5.13 (4.60-5.80) X10*6/uL Hgb 14.5 (14.0-18.0) g/dl Hct 43.6 (42.0-52.0) % MCV 85.0 (80.0-98.0) fL MCH 28.3 (27.0-33.0) pg MCHC 33.3 (31.0-36.0) g/dl RDW 11.9 (11.0-16.0) % Plt Count 206 (160-400) X10*3/uL MPV 9.8 (9.4-12.4) fL Immature Gran % (Auto) Cancelled Neut % (Auto) Cancelled Lymph % (Auto) Cancelled Christian % (Auto) Cancelled Eos % (Auto) Cancelled Baso % (Auto) Cancelled Lymph # (Auto) Cancelled Christian # (Auto) Cancelled Eos # (Auto) Cancelled Baso # (Auto) Cancelled Abs Immat Gran (auto) Cancelled Absolute Neuts (auto) Cancelled Absolute Nucleated RBC 0.000 (0.0-0.012) X10*3/uL Nucleated RBC % (auto) 0.0 (0.0-0.2) /100WBC Neutrophils % (Manual) 12 L (45-73) % Band Neutrophils % 0 L (3-5) % Lymphocytes % (Manual) 85 H (20-40) % Monocytes % (Manual) 2 (2-11) % Basophils % (Manual) 1 (0-2) % Abs Neuts (Manual) 6.1 (2.0-8.3) X10*3/uL Lymphocytes # (Manual) 43.5 H (1.2-4.9) X10*3/uL Monocytes # (Manual) 1.0 (0.1-1.2) X10*3/uL Basophils # (Manual) 0.5 H (0.0-0.2) X10*3/uL Platelet Estimate NORMAL (NORMAL) Plt Morphology Comment NORMAL RBC Morphology NORMAL Sodium 139 (135-145) mmol/L Potassium 4.5 (3.3-5.1) mmol/L Chloride 104 (96-108) mmol/L Carbon Dioxide 28 (22-29) mmol/L Anion Gap 12 (12-20) BUN 14 (9-16) mg/dL Creatinine 1.01 (0.5-1.4) mg/dL Estim Creat Clear Calc 74.1 Estimated GFR > 60 Random Glucose 104 (60-115) mg/dL Calcium 9.5 D (8.4-10.2) mg/dL Magnesium 2.2 (1.6-2.6) mg/dL Total Bilirubin 0.4 (0.0-1.0) mg/dL AST 57 H (5-37) U/L ALT 89 H (0-40) U/L Alkaline Phosphatase 91 (39-117) U/L Total Protein 7.5 (6.5-8.0) g/dL Albumin 4.9 (3.5-5.0) g/dL Lipase 27 (8-78) U/L Discharge Plan Discharge Clinical Impression: Abdominal pain Patient Disposition: Left W/O Completing Treatment Prescriptions: No Action (DME) bath tub seat See Rx Instructions .Route .MEDSUPPLY Qty: 1 0RF Rx Instructions: As directed (DME) shower wand See Rx Instructions .Route .MEDSUPPLY Qty: 1 0RF Rx Instructions: As directed cetirizine 10 mg tablet 10 mg PO DAILY 30 Days Qty: 30 6RF magnesium 250 mg tablet 250 mg PO DAILY 90 Days Qty: 90 3RF multivitamin Tablet 1 tab PO DAILY fluticasone propionate [Flonase Allergy Relief] 50 mcg/actuation spray,suspension 1 spray intranasal BID PRN (Reason: Allergy Symptoms) Rx Instructions: administer into each nostril tizanidine 2 mg tablet 2 mg PO Q8H PRN (Reason: muscle spasm) vitamin B complex Capsule 1 cap PO DAILY cholecalciferol (vitamin D3) 25 mcg (1,000 unit) Tablet 25 mcg PO DAILY (DME) Blood Pressure Cuff Misc See Rx Instructions .ROUTE .MEDSUPPLY Qty: 1 0RF Rx Instructions: As directed (DME) Knee Support Brace Misc See Rx Instructions .Route Qty: 1 0RF Rx Instructions: As directed (DME) blood pressure monitor Kit See Rx Instructions .Route Qty: 1 0RF Rx Instructions: As directed lisinopril 20 mg tablet 20 mg PO DAILY 90 Days Qty: 90 1RF hydroxyzine HCl 25 mg tablet 25 mg PO BEDTIME PRN (Reason: for itch) Qty: 90 1RF alfuzosin 10 mg tablet extended release 24 hr 10 mg PO DAILY Qty: 90 2RF Rx Instructions: administer after the same meal each day amoxicillin-pot clavulanate 875-125 mg tablet 1 tab PO BID 10 Days Qty: 20 0RF hydrochlorothiazide 12.5 mg tablet 12.5 mg PO DAILY Qty: 30 3RF (DME) Blood pressure Machine See Rx Instructions .Route .MEDSUPPLY Qty: 1 0RF Rx Instructions: As directed cyclobenzaprine 5 mg tablet 5 mg PO TID PRN (Reason: muscle spasm) Qty: 14 0RF Discharge Date/Time: 12/10/24 20:24
[2024-12-10 16:40] LABS: Hematocrit 43.6 % (42.0-52.0); Hemoglobin 14.5 g/dl (14.0-18.0); Mean Corpuscular HGB Conc 33.3 g/dl (31.0-36.0); Mean Corpuscular Hemoglobin 28.3 pg (27.0-33.0); Mean Corpuscular Volume 85.0 fL (80.0-98.0); NRBC Abs Auto 0.000 X10*3/uL (0.0-0.012); NRBC Pct Auto 0.0 /100WBC (0.0-0.2); Platelet Count 206 X10*3/uL (160-400); Red Blood Count 5.13 X10*6/uL (4.60-5.80)
[2024-12-10 16:41] LABS: WBC ABN SCTR FOR CBC 1
[2024-12-10 16:48] VITALS: BP 169/90; PULSE 68; RESP 16; TEMP 36.8; O2SAT 97
[2024-12-10 16:54] LABS: Alanine Aminotransferase 89 U/L (0-40); Albumin Level 4.9 g/dL (3.5-5.0); Alkaline Phosphatase 91 U/L (39-117); Anion Gap 12 (12-20); Aspartate Amino Transferase 57 U/L (5-37); Blood Urea Nitrogen 14 mg/dL (9-16); Calcium 9.5 mg/dL (8.4-10.2); Carbon Dioxide 28 mmol/L (22-29); Chloride 104 mmol/L (96-108); Creatinine Clr Calc Pharmacy 74.1; Estimated Glomerular Filt Rate > 60; Lipase 27 U/L (8-78); Magnesium 2.2 mg/dL (1.6-2.6); Potassium 4.5 mmol/L (3.3-5.1); Sodium 139 mmol/L (135-145); Total Protein 7.5 g/dL (6.5-8.0)
[2024-12-10 18:53] LABS: Basophils Percent Manual 1 % (0-2); Lymphocytes Percent Manual 85 % (20-40); Monocytes Percent Manual 2 % (2-11); Neutrophils Percent Manual 12 % (45-73)
[2024-12-10 18:54] LABS: Band Neutrophils Percent 0 % (3-5); RBC Morphology NORMAL
[2024-12-10 18:55] LABS: Basophils Abs Manual 0.5 X10*3/uL (0.0-0.2); Lymphocytes Absolute Manual 43.5 X10*3/uL (1.2-4.9); Monocytes Absolute Manual 1.0 X10*3/uL (0.1-1.2); Neutrophils Absolute Manual 6.1 X10*3/uL (2.0-8.3)
[2024-12-10 18:57] LABS: White Blood Count 51.2 X10*3/uL (4.8-10.8)
--- NOTE | 2024-12-10 19:35 | PC.NURSE ---
Addendum entered by Miriam Perez RN 12/10/24 19:42: returning call, states pt is feeling better and does not wish to return to the ED. Per , if he is unwell in the morning, he will come back in. HX of Leukemia, WBC noted to be elevated at baseline. Original Note: WBC noted to be elevated. Pt called multiple times, unable to contact patient however I spoke to pts son and HCP, advising him to return his father to the ED. T/w calling pt's cell phone and pt's wifes cell phone, no answer on either line.
--- OUTSIDE RECORDS SUMMARY | 2024-12-10 20:18 | XMS_ITS | Encounter Summary ---
Author Organization [facility] Address [address] [place] [address] Phone Care Team Providers Care Quality System Manager Name Role Phone Simeon Sarkar Primary Care Provider + Russell, Anup Martinez MD Unavailable [phone] Encounter Details Date Type Department Care Team (Late st Contact Info) Description 07/29/2021 Procedure Pass [facility], Ct Scan - [facility] [address] [place] [address] Social History Tobacco Use Types Packs/Day Years Used Date Smoking Tobacco: Former Cigarettes Q uit: 2010 Smokeless Tobacco: Never Alcohol Use Standard Drinks/Week Comments No 0 (1 standard drink = 0.6 oz pur e alcohol) Quit 2009 Sex and Gender Information Value Date Recorded Sex Assigned at Male 07/29/2021 8:26 AM EDT Legal Sex Male 9:48 PM EDT Gender Identity Male 07/29/2021 8:26 AM EDT Sexual Orientation Not on file documented as of this encounter Functional Status * Calculated C-SSRS Risk Score (Lifetime/Recent) Answer Date of Assessment Author Low Risk 07/29/2021 8:26 AM EDT Ksasi Cowan RN * [place] Suicide Severity Rating Scale (Screener/Recent Self-Report) Question Answer Date of Assessment Author 1. Wish to be (Past 1 Month) Yes 07/29/2021 8:26 AM EDT Juan Forrest, RN 2. Non-Specific Active Suicidal Thoughts (Past 1 Month) No 07/29/2021 8:26 AM EDT Juan Forrest RN 6. Suicidal Behavior (Lifetime) No 07/29/2021 8:26 AM EDT Juan Forrest RN documented as of this encounter Plan of Treatment Not on file documented as of this encounter Visit Diagnoses Not on filedocumented in this encounter Care Teams Quality System Manager Relationship Specialty Start Date End Date Simeon Srakar PA [address] [place] [id number] PCP - General 07/29/21 Anup Russell MD [address] [place] [id number] Neurology 07/29/21 documented as of this encounter Additional Source Comments The information contained in this document represents components of the legal health record. It is not the complete legal health record.[facility]
--- OUTSIDE RECORDS SUMMARY | 2024-12-10 20:18 | XMS_ITS | Encounter Summary ---
Author Organization [facility] Address [address] [place] [address] [address] [place] [address] Care Team Providers Care Oven Dauber Name Role Phone Unavailable Primary Care Provider Unavailabl e Encounter Details Date Type Department Care Team (Late st Contact Info) Description 11/20/2022 Abstract [facility] [address] [place] [address] Carleen Mcghee Social History Tobacco Use Types [...]
--- OUTSIDE RECORDS SUMMARY | 2024-12-10 20:18 | XMS_ITS | Encounter Summary ---
Author Organization [facility] Address [address] [place] [address] Phone Care Team Providers Care Screen Making Supervisor Name Role Phone Ailyn Hernandez MD Primary Care Provider [phone] Unknown, Unknown Primary Care Provider Simeon Estrada Primary Care Provider + RussellAnup MD Unavailable [phone] Encounter Details Date Type Department Care Team (Late st Contact Info) Description 03/30/2017 Procedure Pass [facility], Ct Scan - [address] [address] Social History Tobacco Use Types Packs/Day Years Used Date Smoking Tobacco: Never Smokeless Tobacco: Never Alcohol Use Standard Drinks/Week Comments No 0 (1 standard drink = 0.6 oz pur e alcohol) Sex and Gender Information Value Date Recorded Sex Assigned at Male 07/29/2021 8:26 AM EDT Legal Sex Male 9:48 PM EDT Gender Identity Male 07/29/2021 8:26 AM EDT Sexual Orientation Not on file documented as of this encounter Plan of Treatment Not on file documented as of this encounter Visit Diagnoses Not on filedocumented in this encounter Care Teams Screen Making Supervisor Relationship Specialty Start Date End Date Ailyn Hernandez MD [address] [place] [address] [address] [place] [address] [email or web address] PCP - General 02/25/17 08/19/20 Unknown, Mateusz, PCP - General 08/20/20 07/28/21 Simeon Sarkar PA [address] [place] [id number] PCP - General 07/29/21 Anup uRssell MD [address] [place] [phone] Neurology 07/29/21 documented as of this encounter Additional Source Comments The information contained in this document represents components of the legal health record. It is not the complete legal health record.[facility]
--- OUTSIDE RECORDS SUMMARY | 2024-12-10 20:18 | XMS_ITS | Encounter Summary ---
Author Organization [facility] Address [address] [place] [address] Phone Care Team Providers Care Solar Site Assessment Specialist Name Role Phone Simeon Sarkar Primary Care Provider + Russell, Anup Martinez MD Unavailable [phone] Encounter Details Date Type Department Care Team (Late st Contact Info) Description 07/29/2021 Procedure Pass [facility], [facility] [address] [place], [place] [id number] Social History Tobacco Use Types Packs/Day Years [...] Author Low Risk 07/29/2021 8:26 AM EDT Kassi Cowan RN * [place] Suicide Severity Rating Scale (Screener/Recent Self-Report) Question [...] on filedocumented in this encounter Care Teams Solar Site Assessment Specialist Relationship Specialty Start Date End Date Simeon Sarkar PA [facility] [place] [address] PCP - General 07/29/21 RussellAnup dowling MD [address] [place] [phone] Neurology 07/29/21 documented as of this encounter Additional Source Comments The information contained in this document represents components of the legal health record. It is not the complete legal health record.[facility]
--- OUTSIDE RECORDS SUMMARY | 2024-12-10 20:18 | XMS_ITS | Clinical Summary ---
Author Organization [facility] Address [address] [place] [address] [address] [place] [address] Care Team Providers Care Driveway Sealer Name Role Phone Unavailable Primary Care Provider [...] FOBT 1960 Lipid Panel 1960 Sigmoidoscopy 1960 Disability Screening 1960 Alcohol/Substance Use Screening 1972 Tobacco Screening 1972 DTaP/Tdap/Td Vaccines (1 - Tdap) 01/18/1979 Pneumococcal Vaccine: 50+ Ye ars (1 of 1 - PCV) 01/18/2010 Zoster Vaccines (1 of 2) 01/18/2010 COVID-19 Vaccine (1 - 2023-2 5 season) 2024 Influenza Vaccine (#1) 2024 RSV Patients and Pa tients Aged 60 [...]
--- OUTSIDE RECORDS SUMMARY | 2024-12-10 20:18 | XMS_ITS | Clinical Summary ---
Author Organization [facility] Address [address] [place] [address] Phone Care Team Providers Care Audio Visual Collections Coordinator Name Role Phone Simeon Sarkar Primary Care Provider + Russell, Anup Martinez MD Unavailable [phone] Allergies Active Allergy Reactions Criticality Noted Date Comments Sulfa (Sulfonamide Antibiotics) 07/2017 Medications melatonin 3 mg Tab 1 tablet at bedtime as needed with food Orally Once a day Active lisinopril (PRINIVIL,ZESTRI L) 20 MG tablet Take 20 mg by mouth daily. TAKE 1 TABLET BY MOUTH EVERY DAY Active alfuzosin (UROXATRAL) 10 mg 24 hr tablet Take 10 mg by mouth nightly at bedtime. Active hydrOXYzine (ATARAX) 25 MG tablet Take 25 mg by mouth 3 (three) times a day as needed for itching or anxiety. Active meclizine (ANTIVERT) 25 mg tablet Take 1 tablet (25 mg total) by mouth 3 (three) times a day as needed for dizziness. 15 tablet 2 Active Additional Information Patient not taking.Reported on 11/11/2022 glatiramer (COPAXONE) 40 mg/mL Syrg subcutaneous syringe Wednesday, Wednesday and Wednesday 3 Active tiZANidine (ZANAFLEX) 2 MG tablet Take 2 mg by mouth every 8 (eight) hours as needed. 3 Active Active Problems Problem Noted Date Diagnosed Date Vertigo 07/29/2021 Assessment & Plan (07/29/2021 4:32 PM EDT): The patient has persistent vertigo symptoms and mild horizontal nystagmus on exam in the emergency room. No other focal neurologic deficits with NIHSS score 0. He is afebrile and hemodynamically stable. Metabolic work-up unremarkable. Head CT without acute pathology and CT angiogram without focal vessel stenosis or retrievable thrombus. Differential diagnosis includes peripheral vertigo, reaction to THC containing product, and posterior circulation CVA. 1. Observation on the medical floor, continuous EKG monitoring, neurochecks every 4 hours 2. MRI of the brain to evaluate for acute ischemia 3. Echocardiogram with bubble study to evaluate for valvular disease, cardiomyopathy, thrombus, or PFO, if MRI brain positive for ischemia 4. Check orthostatic vital signs 5. Check ESR/CRP, TSH, and hemoglobin A1c 6. Meclizine 25 mg orally three times daily 7. Start aspirin 81 mg daily 8. Check lipid panel and consider statin medication if MRI positive for ischemia 9. Permissive hypertension over the first 48 hours (SBP goal: <200, hold antihypertensives while SBP within goal); plan to gradually lower to long-term goal <140/90 after initial 48 hours 10. Teleneurology consultation after above studies are resulted 11. PT/OT evaluations 12. He has passed a nursing bedside swallow evaluation and will be allowed to have a cardiac prudent diet MS (multiple sclerosis) 02/23/2012 Overview (07/29/2021): [facility] Neurology Assessment & Plan (07/29/2021 4:27 PM EDT): MRI will be ordered as outlined. Continue Copaxone 3 times weekly as prescribed; if he remains in the hospital past tomorrow evening, this will need to be brought in from home. BPH (benign prostatic hyperplasia) Assessment & Plan (07/29/2021 4:28 PM EDT): Resume alfuzosin at discharge. Check orthostatic vital signs as outlined. HTN (hypertension) Assessment & Plan (07/29/2021 4:27 PM EDT): Permissive hypertension as outlined. Resume lisinopril at discharge. Family History Medical History Relation Comments Heart disease Mother Relation Status Comments Mother Social History Tobacco Use Types Packs/Day Years Used Date Smoking Tobacco: Former Cigarettes Q uit: 2009 Smokeless Tobacco: Never Alcohol Use Standard Drinks/Week Comments No 0 (1 standard drink = 0.6 oz pur e alcohol) Quit 2009 Education Answer Date Recorded Are you interested in more education? Not on cuco e 06/19/2022 Are you concerned about learning? Not on file 06/19/2022 No 06/19/2022 No 06/19/2022 Digital Access Answer Date Recorded No 07/17/2022 No 07/17/2022 Reliable internet access at home? Not on file 07/17/2022 Device with a working camera? Not on file Intimate Partner Violence Answer Date R ecorded Are you denied basic needs s uch as food, clothing, or medical care? No 11/11/2022 In the past 12 months have y ou been in a relationship with a person who hurts, threatens, or tries to control you? No 11/11/2022 Are you denied basic needs s uch as food, clothing, or medical care? No 11/11/2022 In the past 12 months have y ou been in a relationship with a person who hurts, threatens, or tries to control you? No 11/11/2022 Sex and Gender Information Value Date Recorded Sex Assigned at Male 07/29/2021 8:26 AM EDT Legal Sex Male 9:48 PM EDT Gender Identity Male 07/29/2021 8:26 AM EDT Sexual Orientation Not on file Last Filed Vital Signs Vital Sign Reading Time Taken Comments Blood Pressure 155/71 11/11/2022 12:00 PM EDT Pulse 70 11/11/2022 9:18 AM EDT Temperature 36.5 C (97.7 F) 11/11/2022 9:18 AM EDT Respiratory Rate 18 11/11/2022 9:18 AM EDT Oxygen Saturation 99% 11/11/2022 11:30 AM EDT Inhaled Oxygen Concentration - - Weight 81.6 kg (180 lb) 11/11/2022 9:18 AM EDT Height 167.6 cm (5' 6 ) 11/11/2022 9:18 AM EDT Body Mass Index 29.05 11/11/2022 9:18 AM EDT Plan of Treatment Health Maintenance Due Date Last Done Comments BLOOD PRESSURE 1960 DEPRESSION SCREENING 1972 SMOKING Hx and SMOKELESS TOBACCO SCREENING 01/18/1973 HEPATITIS C SCREENING 01/18/1978 HIV ONE-TIME SCREENING (18-65 YEARS) 01/18/1978 COLOGUARD 01/18/2005 COLONOSCOPY 01/18/2005 COLORECTAL CANCER SCREENING 01/18/2005 FIT TEST 01/18/2005 FOBT 01/18/2005 SIGMOIDOSCOPY 01/18/2005 VIRTUAL COLONOSCOPY 01/18/2005 PNEUMOCOCCAL VACCINES (50+ years) (1 of 1 - PCV) 01/18/2010 ZOSTER VACCINES (1 of 2) 01/18/2010 Adult Td,Tdap Booster 05/26/2022 05/26/2012, 013 CREATININE LEVEL 11/12/2023 11/11/2022, 07/29/2021 POTASSIUM LEVEL 11/12/2023 11/11/2022, 07/29/2021 INFLUENZA VACCINE (#1) 2024 , 12/27/2018, 11/04/2017, Additional history exists COVID-19 VACCINE (2024- season) 2024 07/09/2020, 06/26/2020, 06/17/2020, Additional history exists SCREENING FOR DIABETES 11/11/2025 11/11/2022, 2016 LIPID PANEL 07/30/2026 07/30/2021, 05/07/2016 RSV VACCINE (1 - 1-dose 75+ series) 01/18/2035 HEPATITIS A VACCINES Aged Out No long er eligible based on patient's age to complete this topic HIB VACCINES Aged Out No longer eligi ble based on patient's age to complete this topic MENINGOCOCCAL VACCINES (ACWY) Aged Out No longer eligible based on patient's age to complete this topic MENINGOCOCCAL VACCINES (B) Aged Out N o longer eligible based on patient's age to complete this topic Medical Devices Not on file Procedures Procedure Name Priority Date/Time Associated Diagnosis Comments BASIC METABOLIC PANEL STAT 11/11/2022 9:55 AM EDT LIPID PANEL Routine 07/30/2021 6:31 AM EDT from Last 3 Months or Most Recently Relevant to Health Maintenance Results * (ABNORMAL) Basic metabolic panel (11/11/2022 9:55 AM EDT) SODIUM 139 133 - 146 mmol/L [facility] CHLORIDE 104 96 - 108 mmol/L [facility] POTASSIUM 4.5 3.3 - 5.1 mmol/L [facility] CO2 27 21 - 35 mmol/L [facility] BUN 12 6 - 19 mg/dL [facility] CREATININE 1.00 0.5 - 1.5 mg/dL [facility] GLUCOSE 110(H) 70 - 99 mg/dL [facility] CALCIUM 9.4 8.4 - 10.3 mg/dL [facility] EGFR 85 >59 mL/min/1.7 3m2 [facility] Comment:Estimated glomerular filtration rate calculated using the CKD-EPI refit equation. ANION GAP 13 10 - 20 mmol/L [facility] Blood 11/11/2022 9:55 AM EDT 11/11/2022 9:57 AM EDT us Tristan Page MD LAB BLOOD ORDERABL ES Final Result [address] [address] * (ABNORMAL) Lipid panel (07/30/2021 6:31 AM EDT) HDL 28 mg/dL [facility] Comment: Interpretation <40 mg/dL: Low HDL cholesterol (major risk factor for CHD) Greater than or equal to 60 mg/dL: High HDL cholesterol ( negative risk factor for CHD) HDL - cholesterol is affected by a number of factors, e.g. smoking, excerise, hormones, sex and age. CHOLESTEROL 184 0 - 240 mg/dL [facility] TRIGLYCERIDES 206(H) 30 - 160 mg/dL [facility] LDL 115 50 - 129 mg/dL [facility] Comment: LDL levels in terms of risk for coronary heart disease: <100 mg/dL: Optimal 100-129 mg/dL: Near or above optimal 130-159 mg/dL: Borderline high 160-189 mg/dL: High >190 mg/dL: Very High CARDIAC RISK RATIO 6.6(H) 3.4 - 5.0 [facility] Blood 07/30/2021 6:31 AM EDT 07/30/2021 6:39 AM EDT us Campbell Mak MD LAB BLOOD ORDERABLES Fin al Result [facility] [address] [place] [address] from Last 3 Months or Most Recently Relevant to Health Maintenance Insurance [facility] MEDIC[facility] REPLAC[place] [id number] [facility] MEDICARE REPLACEMENT [place] [id number] [facility] MEDICARE REPLACEMENT [facility] MEDICARE [facility]PLACEMENT [facility] MEDICARE REPLACEMENT [facility] MEDICARE REPLACEMENT [facility] MEDICARE REPLACEMENT [facility] MEDICARE REPLACEMENT [facility] MEDICARE REPLACEMENT [place] [id number] Advance Directives For more information, please contact: [phone] (9AM - 5PM [facility], Wednesday-Wednesday) Documents on File Type Date Recorded Patient Merchandise Handler Expl anation Healthcare Proxy 08/01/2021 5:05 PM * Full Code (Latest Code Status on File) Date Activated Date Inactivated Comments 07/29/2021 4:37 PM Question Answer Comments Code Status Confirmed With: Patient Care Teams Audio Visual Collections Coordinator Relationship Specialty Start Date End Date Simeon Sarkar PA [address] [place] [id number] PCP - General 07/29/21 Anup Russell MD [address] [place] [id number] Neurology 07/29/21 Additional Source Comments The information contained in this document represents components of the legal health record. It is not the complete legal health record.[facility]
--- OUTSIDE RECORDS SUMMARY | 2024-12-10 20:18 | XMS_ITS | Encounter Summary ---
Author Organization [facility] Address [address] [place] [address] Phone Care Team Providers Care Shuttle Operator Name Role Phone Ailyn Hernandez MD Primary Care Provider [phone] Unknown, Unknown Primary Care Provider Simeon Estrada Primary Care Provider + RussellAnup MD Unavailable [phone] Encounter Details Date Type Department Care Team (Late st Contact Info) Description 03/30/2017 Procedure Pass [facility], Ct Scan - [address] [id number] Social History Tobacco Use Types Packs/Day Years [...] on filedocumented in this encounter Care Teams Shuttle Operator Relationship Specialty Start Date End Date Ailyn Hernandez MD [address] [place] [address] [address] [place] [address] [email or web address] PCP - General 02/25/17 08/19/20 Unknown, Mateusz, PCP - General 08/20/20 07/28/21 Simeon Sarkar PA [address] [place] [id number] PCP - General 07/29/21 Anup Russell MD [address] [place] [id number] Neurology 07/29/21 documented as of this encounter Additional Source Comments The information contained in this document represents components of the legal health record. It is not the complete legal health record.[facility]
== END 2024-12-10 20:24 | disposition left against medical advice (07) ==
PROVIDERS: Registered Nurse Emergency; Emergency Provider Emergency Medicine; PCP Physician Assistant
DX: R10.9 Unspecified abdominal pain (principal); Z53.29 Procedure and treatment not carried out because of patient's decision for other reasons
CPT/HCPCS: 36415; 80053; 83690; 83735; 85007; 85027; 99281; 99283

== ENCOUNTER 2024-12-11 07:26 | Emergency (ER) | payer OTHER, SELFPAY ==
--- NOTE | ~2024-12-11 | CT_ITS ---
EXAMINATION: CT ABDOMEN AND PELVIS WITH CONTRAST CLINICAL INFORMATION: Abdominal pain. COMPARISON: 04/16/2024, 07/06/2023. TECHNIQUE: Multidetector volumetric images were obtained from the superior aspect of the liver through the pubic symphysis following administration 85 mL of Omnipaque 350 intravenous contrast. Sagittal and coronal reformatted images were obtained on the technologist's workstation. Oral contrast: No This CT examination was performed using dose optimization techniques as appropriate, variously including the following: *Automated exposure control *Adjustment of mA and/or kV according to patient size (this includes techniques or standardized protocols for targeted exams where dose is matched to indication/reason for exam; i.e. extremities or head) *Use of iterative reconstruction technique FINDINGS: LUNG BASES: Lung bases appear clear aside from minor dependent atelectasis. The heart size is normal. There are no effusions. Normal GE junction. LIVER, GALLBLADDER, AND BILIARY TREE: Liver is normal in size and contour. There is diffuse fatty infiltration. There is no suspicious focal lesion. There is no intra or extrahepatic biliary dilatation present. The gallbladder is unremarkable with no evidence of radiopaque gallstones, gallbladder wall thickening, or obvious pericholecystic inflammatory changes. PANCREAS: Unremarkable. SPLEEN: Normal in appearance. There is a small splenule in the anteroinferior hilum. ADRENAL GLANDS: There is left hyperplasia. The right is normal. KIDNEYS AND URETERS: The kidneys are normal in size, shape, and attenuation. No hydronephrosis, hydroureter, or calculi seen. No perinephric stranding. BLADDER: Partially distended. Minimal wall thickening present diffusely. Otherwise normal. GASTROINTESTINAL TRACT: The stomach is decompressed. The duodenal sweep appears normal. The small bowel is normal in caliber, course, and appearance without evidence of wall thickening or inflammation. The appendix is surgically absent. The colon demonstrates moderate to severe diverticulosis of the descending and sigmoid regions . There is no evidence of acute diverticulitis or wall thickening. The rectum appears normal. ABDOMINAL WALL: There is no significant hernia present. LYMPH NODES: There is no abnormal lymphadenopathy present. VASCULAR: Heavy atheromatous calcification of the aorta and iliac arteries and their branches. There is a small fusiform infrarenal abdominal aortic aneurysm measuring a maximal axial diameter of 3.4 x 2.7 cm (series 3, image 35). This is unchanged from the prior examination when measured similarly. PELVIC VISCERA: Mild prostate enlargement present. Seminal vesicles appear normal. OSSEOUS STRUCTURES: No suspicious lytic or blastic bone lesions evident. No acute finding. Mild to moderate degenerative changes throughout the spine with features of DISH. Mild to moderate degenerative changes in both hip joints. CT/CT abdomen pelvis w IV con IMPRESSION: 1. There are no acute findings in the abdomen or pelvis. 2. There is extensive diverticulosis of the descending and sigmoid colon. There is no evidence of acute diverticulitis. 3. There is mild diffuse fatty infiltration of the liver. 4. There is extensive calcific atheromatous disease of the arterial vasculature. There is a stable fusiform aneurysm of the infrarenal aorta measuring 3.4 x 2.7 cm axial diameter, unchanged. Follow-up in 3 years recommended as per white paper guidelines. Electronically signed by: Chris Bueno MD 12/11/2024 09:26 AM EDT
--- NOTE | ~2024-12-11 | XR_ITS ---
EXAMINATION: XR CHEST CLINICAL INFORMATION: epigastric pain COMPARISON: December 21, 2018. TECHNIQUE: PA and lateral views FINDINGS: No consolidation, pleural effusion or pneumothorax. Cardiomediastinal silhouette size is normal. Calcified plaque aortic arch. Multilevel thoracic and upper lumbar spondylosis. Degenerative changes in the acromioclavicular joint. XR/XR chest 2V IMPRESSION: No acute airspace disease. Electronically signed by: Grant Cooper MD 12/11/2024 10:46 AM EDT
--- NOTE | 2024-12-11 07:41 | ED_ITS ---
HPI - General Adult General Chief complaint: Abdominal Pain Stated complaint: Stomach pain, was told to come back Time Seen by Provider: 12/11/24 07:41 Source: patient Mode of arrival: ambulatory Limitations: no limitations History of Present Illness ED Provider: Elba Bacon PA-C HPI narrative: Patient is a 64 year old assigned male at with a history of HTN, BPH, MS, HLD, CLL, AAA, DM, and ADRIEN presenting to the emergency department today with abdominal pain. Patient states that over the last 4 days he has had abdominal pain. Patient states that he was here yesterday and left secondary to the wait time but the pain persisted today so he returned. Patient denies any other complaints at this time. Patient states that he would not like anything for pain at this time. Related Data Home Medications ?Medication ?Instructions ?Recorded ?Confirmed cholecalciferol (vitamin D3) 25 25 mcg PO DAILY 09/04/24 mcg (1,000 unit) tablet tizanidine 2 mg tablet 2 mg PO Q8H PRN muscle spasm 05/28/22 09/04/24 vitamin B complex 1 cap PO DAILY 05/28/2208/22 fluticasone propionate 50 1 spray intranasal BID PRN A llergy 07/07/23 09/04/24 mcg/actuation nasal Symptoms spray,suspension (Flonase Allergy Relief) multivitamin 1 tab PO DAILY 07/07/2308/22 Previous Rx's ?Medication ?Instructions ?Recorded leg brace (Knee Support Brace) #1 ea 06/29/22 miscellaneous medical supply #1 ea 06/29/22 (Blood Pressure Cuff) bath tub seat #1 ea 11/27/22 shower wand #1 ea 11/27/22 cetirizine 10 mg tablet 10 mg PO DAILY 30 days #30 t abs 04/30/23 cyclobenzaprine 5 mg tablet 5 mg PO TID PRN muscle spa sm #14 11/16/23 tabs magnesium 250 mg tablet 250 mg PO DAILY 90 days #90 tabs 04/03/24 atorvastatin 10 mg tablet (Lipitor) 10 mg PO DAILY 90 days #90 tabs 08/10/24 blood pressure monitor #1 ea 08/10/24 hydroxyzine HCl 25 mg tablet 25 mg PO BEDTIME PRN for itch #90 08/10/24 tabs lisinopril 20 mg tablet 20 mg PO DAILY 90 days #90 t abs 08/10/24 tadalafil 5 mg tablet (Cialis) 5 mg PO DAILY #90 tabs 09/06/24 Allergies Allergy/AdvReac Type Severity Reaction Status Date / Time Sulfa (Sulfonamide Allergy Unknown RASH Verified 12/11/24 07:48 Antibiotics) (Sulfa (Sulfonamides)) sulfacetamide (From Allergy Unknown Hives Verified 12/11/24 07:48 Sulfacet-R) sulfur (From Sulfacet-R) Allergy Unknown Hives Verified 12/11/24 07:48 Review of Systems 2 Constitutional: Constitutional: Reports as per HPI Eyes: Eyes: Reports as per HPI ENT: Reports as per HPI Cardiovascular: Cardiovascular: Reports as per HPI Respiratory: Respiratory: Reports as per HPI Gastrointestinal: Gastrointestinal: Reports as per HPI Genitourinary: Genitourinary: Reports as per HPI Musculoskeletal: Musculoskeletal: Reports as per HPI Integumentary/Breasts: Skin/Breast: Reports as per HPI Neurologic: Reports as per HPI Psychiatric: Psychiatric: Reports as per HPI Endocrine: Endocrine: Reports as per HPI Hematologic/Lymphatic: Hematologic/Lymphatic: Reports as per HPI Allergic/Immunologic: Allergic/Immunologic: Reports as per HPI [facility] Past Medical History Attestation statement: The following information was validated with the patient. Source: old records reviewed and nursing notes reviewed Medical History HTN (hypertension) Multiple sclerosis Colitis AAA (abdominal aortic aneurysm) Dysuria BPH (benign prostatic hyperplasia) HTN (hypertension) Hyperlipidemia Diabetes mellitus Bladder outlet obstruction Weak urinary stream Nocturia Stress incontinence, male Surgical History History of dental surgery History of removal of cyst History of appendectomy History of hernia repair Family History Family History Father Diabetes Mother No problems noted. Maternal Uncle Myocardial infarction Sister No problems noted. Son No problems noted. Son No problems noted. Daughter No problems noted. Brother No problems noted. Brother No problems noted. Brother No problems noted. 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 Cognitive needs: No Hearing needs: No Vision needs: No Physical Exam ED Vital Signs: Vital Signs - 24 hr 12/11/24 07:47 12/11/24 08:04 12/11/24 08:55 Temperature 98.4 F 98.4 F 98.4 F Pulse Rate 62 62 57 Respiratory Rate 14 14 16 Blood Pressure 150/71 H 150/71 H 139/66 Pulse Oximetry 95 95 97 Oxygen Delivery Method Room Air Room Air Room Air 12/11/24 12:03 Temperature 98.4 F Pulse Rate 57 Respiratory Rate 16 Blood Pressure 139/66 Pulse Oximetry 97 Oxygen Delivery Method Room Air BMI result Body Mass Index 31.0 Const General: cooperative, no acute distress, alert and awake Nutritional Appearance: well nourished Orientation/consciousness: patient oriented x3 HENMT Head: Yes normal to inspection and Yes atraumatic Ears: hearing grossly normal bilaterally and external ears normal General nose exam: Normal external nose present, no nasal discharge noted and no epistaxis Face and sinus: Yes normal facial exam, No abrasion and No laceration Mouth: Normal oral and palatal mucosa present, no drooling and no muffled voice Eyes General: appearance normal, both eyes and all related structures Periorbital: periorbital findings normal Eyelids: Yes eyelids normal Conjunctivae: conjunctivae normal Pupils: Equal, round and reactive pupils present EOM: EOMs intact bilaterally Neck Neck: Yes normal visual inspection and Yes full ROM Resp Effort & Inspection: normal respiratory effort and able to speak in complete sentences GI Palpation (GI): Soft to palpation, not firm, Tenderness to palpation present (GI), no guarding and not rigid Neuro General: patient oriented x3, moves all extremities and CN's II-XI intact bilaterally Cranial nerves: Yes Equal, round and reactive pupils present Cognition (Neuro): normal cognition Extrem General: Yes normal to inspection, Yes full ROM and Yes capillary refill normal Psych Appearance: grossly normal Mental Status: mental status grossly normal Affect: normal affect Attitude: cooperative Thought process: Normal thought process present Thought content: Normal thought content present Insight: Good insight present (Psych) Medications Administered Discontinued Medications Generic Name Dose Route Start Last Admin Trade Name Vik PRN Reason Stop Dose Admin Iohexol 100 ml 12/11/24 08:42 12/11/24 08:43 Iohexol 350 Mg/Ml 100 Ml Infus..Btl IV 12/11/24 08:43 85 ml ONCE ONE Administration Medical Decision Making Medical Decision Making MDM Narrative: Patient is a 64 year old assigned male at with a history of HTN, BPH, MS, HLD, CLL, AAA, DM, and ADRIEN presenting to the emergency department today with abdominal pain. Patient's physical exam was as noted in the physical exam portion of this note. Patient's blood work showed his chronically elevated WBC of 50.2 with elevated LFTs AST 58 and ALT 84. Patient's elevated WBC count is secondary to his CLL. Patient's urine showed no acute process. Patient's EKG was unremarkable. Patient's CT showed no acute process but did show a chronic / incidental finding of a stable fusiform aneurysm of the infrarenal aorta measuring 3.4 x 2.7cm that are unchanged since his previous. Patient's chest XR showed no acute process. I explained my physical exam findings as well as all test results to the patient. I answered all questions asked by the patient. Patient declined any medication for his pain. Patient's clinical presentation is most consistent with abdominal pain / epigastric pain without known etiology but no evidence of an emergent process. I stressed the importance of the patient taking his medication as directed (either prescribed or as the over the counter packaging recommends). I stressed the importance of the patient following up with his primary care provider. I stressed the importance of the patient returning to the emergency department immediately if his symptoms were to worsen or if he were to develop any dizziness, shortness of breath, difficulty breathing, chest pain, blurry vision, loss of vision, nausea, vomiting, abdominal pain, fever, chills, back pain, or any other complaints. Patient verbalized agreement and understanding with this treatment plan and discharge. Differential Diagnosis Differential Diagnoses: The differential diagnosis associated with the presentation includes Epigastric pain Abdominal pain Gastroenteritis Peptic ulcer Admission/Observation Consideration of admission/observation: Escalation of care including admission/observation considered Patient would have been admitted to the hospital had his work up had any findings where hospital admission was appropriate and his clinical presentation warranted hospital admission. Lab Data [facility] Lab Attestation statement: I reviewed the patient's lab results. My interpretation of these results are in the [facility] Rationale portion of this note. 12/11/24 08:03 12/11/24 08:03 Labs: Lab Results 12/11/24 12/11/24 12/11/24 Range/Units 08:03 08:41 09:45 WBC 50.2 H* (4.8-10.8) X10*3/uL RBC 5.11 (4.60-5.80) X10*6/uL Hgb 14.8 (14.0-18.0) g/dl Hct 44.3 (42.0-52.0) % MCV 86.7 (80.0-98.0) fL MCH 29.0 (27.0-33.0) pg MCHC 33.4 (31.0-36.0) g/dl RDW 11.9 (11.0-16.0) % Plt Count 201 (160-400) X10*3/uL MPV 9.7 (9.4-12.4) fL Immature Gran % (Auto) Cancelled Neut % (Auto) Cancelled Lymph % (Auto) Cancelled [place] % (Auto) Cancelled Eos % (Auto) Cancelled Baso % (Auto) Cancelled Lymph # (Auto) Cancelled [place] # (Auto) Cancelled Eos # (Auto) Cancelled Baso # (Auto) Cancelled Abs Immat Gran (auto) Cancelled Absolute Neuts (auto) Cancelled Absolute Nucleated RBC 0.000 (0.0-0.012) X10*3/uL Nucleated RBC % (auto) 0.0 (0.0-0.2) /100WBC Neutrophils % (Manual) 10 L (45-73) % Band Neutrophils % 0 L (3-5) % Lymphocytes % (Manual) 87 H (20-40) % Atypical Lymphs % (Man) 1 (0-6) % Eosinophils % (Manual) 2 (0-4) % Abs Neuts (Manual) 5.0 (2.0-8.3) X10*3/uL Lymphocytes # (Manual) 43.7 H (1.2-4.9) X10*3/uL Atyp Lymphs # (Manual) 0.5 x10*3/uL Eosinophils # (Manual) 1.0 H (0.0-0.4) X10*3/uL Nucleated RBCs 2 H (0-0) /100WBC Smudge Cells PRESENT Platelet Estimate NORMAL (NORMAL) Plt Morphology Comment NORMAL RBC Morphology NORMAL Smear Path Review SEE NOTE Sodium 138 (135-145) mmol/L Potassium 4.4 (3.3-5.1) mmol/L Chloride 102 (96-108) mmol/L Carbon Dioxide 24 (22-29) mmol/L Anion Gap 16 (12-20) BUN 16 (9-16) mg/dL Creatinine 1.06 (0.5-1.4) mg/dL Estim Creat Clear Calc 72.7 Estimated GFR > 60 Random Glucose 150 H (60-115) mg/dL Lactic Acid 0.8 (0.5-2.0) mmol/L Calcium 9.1 (8.4-10.2) mg/dL Magnesium 2.1 (1.6-2.6) mg/dL Total Bilirubin 0.5 (0.0-1.0) mg/dL AST 58 H (5-37) U/L ALT 84 H (0-40) U/L Alkaline Phosphatase 85 (39-117) U/L Troponin I High Sens 4.2 (<3.5-35.0) ng/L Total Protein 7.4 (6.5-8.0) g/dL Albumin 4.8 (3.5-5.0) g/dL Lipase 21 (8-78) U/L Urine Color Yellow Urine Appearance Clear Urine pH 5.5 (5.0-9.0) Ur Specific [place] 1.010 (1.005-1.025) Urine Protein Negative (Neg-Trace) mg/dL Urine Glucose (UA) Negative (Negative) mg/dL Urine Ketones Negative (Negative) mg/dL Urine Blood Negative (Negative) Urine Nitrite Negative (Negative) Ur Leukocyte Esterase Negative (Negative) 12/11/24 Range/Units 11:02 WBC (4.8-10.8) X10*3/uL RBC (4.60-5.80) X10*6/uL Hgb (14.0-18.0) g/dl Hct (42.0-52.0) % MCV (80.0-98.0) fL MCH (27.0-33.0) pg MCHC (31.0-36.0) g/dl RDW (11.0-16.0) % Plt Count (160-400) X10*3/uL MPV (9.4-12.4) fL Immature Gran % (Auto) Neut % (Auto) Lymph % (Auto) [place] % (Auto) Eos % (Auto) Baso % (Auto) Lymph # (Auto) [place] # (Auto) Eos # (Auto) Baso # (Auto) Abs Immat Gran (auto) Absolute Neuts (auto) Absolute Nucleated RBC (0.0-0.012) X10*3/uL Nucleated RBC % (auto) (0.0-0.2) /100WBC Neutrophils % (Manual) (45-73) % Band Neutrophils % (3-5) % Lymphocytes % (Manual) (20-40) % Atypical Lymphs % (Man) (0-6) % Eosinophils % (Manual) (0-4) % Abs Neuts (Manual) (2.0-8.3) X10*3/uL Lymphocytes # (Manual) (1.2-4.9) X10*3/uL Atyp Lymphs # (Manual) x10*3/uL Eosinophils # (Manual) (0.0-0.4) X10*3/uL Nucleated RBCs (0-0) /100WBC Smudge Cells Platelet Estimate (NORMAL) Plt Morphology Comment RBC Morphology Smear Path Review Sodium (135-145) mmol/L Potassium (3.3-5.1) mmol/L Chloride (96-108) mmol/L Carbon Dioxide (22-29) mmol/L Anion Gap (12-20) BUN (9-16) mg/dL Creatinine (0.5-1.4) mg/dL Estim Creat Clear Calc Estimated GFR Random Glucose (60-115) mg/dL Lactic Acid (0.5-2.0) mmol/L Calcium (8.4-10.2) mg/dL Magnesium (1.6-2.6) mg/dL Total Bilirubin (0.0-1.0) mg/dL AST (5-37) U/L ALT (0-40) U/L Alkaline Phosphatase (39-117) U/L Troponin I High Sens 3.7 (<3.5-35.0) ng/L Total Protein (6.5-8.0) g/dL Albumin (3.5-5.0) g/dL Lipase (8-78) U/L Urine Color Urine Appearance Urine pH (5.0-9.0) Ur Specific [place] (1.005-1.025) Urine Protein (Neg-Trace) mg/dL Urine Glucose (UA) (Negative) mg/dL Urine Ketones (Negative) mg/dL Urine Blood (Negative) Urine Nitrite (Negative) Ur Leukocyte Esterase (Negative) Independent Interpretation I performed an independent interpretation of an: EKG, Plain X-Ray and CT Scan Interpretation: My interpretation is in agreement with the radiologist's impression of these imaging studies. L Report Number: [id number]: Total DLP = 496.00 mGy-cm Reason for Exam: abd pain EXAMINATION: CT ABDOMEN AND PELVIS WITH CONTRAST CLINICAL INFORMATION: Abdominal pain. COMPARISON: 04/16/2024, 07/06/2023. TECHNIQUE: Multidetector volumetric images were obtained from the superior aspect of the liver through the pubic symphysis following administration 85 mL of Omnipaque 350 intravenous contrast. Sagittal and coronal reformatted images were obtained on the technologist's workstation. Oral contrast: No This CT examination was performed using dose optimization techniques as appropriate, variously including the following: *Automated exposure control *Adjustment of mA and/or kV according to patient size (this includes techniques or standardized protocols for targeted exams where dose is matched to indication/reason for exam; i.e. extremities or head) *Use of iterative reconstruction technique FINDINGS: LUNG BASES: Lung bases appear clear aside from minor dependent atelectasis. The heart size is normal. There are no effusions. Normal GE junction. LIVER, GALLBLADDER, AND BILIARY TREE: Liver is normal in size and contour. There is diffuse fatty infiltration. There is no suspicious focal lesion. There is no intra or extrahepatic biliary dilatation present. The gallbladder is unremarkable with no evidence of radiopaque gallstones, gallbladder wall thickening, or obvious pericholecystic inflammatory changes. PANCREAS: Unremarkable. SPLEEN: Normal in appearance. There is a small splenule in the anteroinferior hilum. ADRENAL GLANDS: There is left hyperplasia. The right is normal. KIDNEYS AND URETERS: The kidneys are normal in size, shape, and attenuation. No hydronephrosis, hydroureter, or calculi seen. No perinephric stranding. BLADDER: Partially distended. Minimal wall thickening present diffusely. Otherwise normal. GASTROINTESTINAL TRACT: The stomach is decompressed. The duodenal sweep appears normal. The small bowel is normal in caliber, course, and appearance without evidence of wall thickening or inflammation. The appendix is surgically absent. The colon demonstrates moderate to severe diverticulosis of the descending and sigmoid regions . There is no evidence of acute diverticulitis or wall thickening. The rectum appears normal. ABDOMINAL WALL: There is no significant hernia present. LYMPH NODES: There is no abnormal lymphadenopathy present. VASCULAR: Heavy atheromatous calcification of the aorta and iliac arteries and their branches. There is a small fusiform infrarenal abdominal aortic aneurysm measuring a maximal axial diameter of 3.4 x 2.7 cm (series 3, image 35). This is unchanged from the prior examination when measured similarly. PELVIC VISCERA: Mild prostate enlargement present. Seminal vesicles appear normal. OSSEOUS STRUCTURES: No suspicious lytic or blastic bone lesions evident. No acute finding. Mild to moderate degenerative changes throughout the spine with features of DISH. Mild to moderate degenerative changes in both hip joints. CT/CT abdomen pelvis w IV con IMPRESSION: 1. There are no acute findings in the abdomen or pelvis. 2. There is extensive diverticulosis of the descending and sigmoid colon. There is no evidence of acute diverticulitis. 3. There is mild diffuse fatty infiltration of the liver. 4. There is extensive calcific atheromatous disease of the arterial vasculature. There is a stable fusiform aneurysm of the infrarenal aorta measuring 3.4 x 2.7 cm axial diameter, unchanged. Follow-up in 3 years recommended as per white paper guidelines. Electronically signed by: Chris Bueno MD 12/11/2024 09:26 AM EDT Dictated By: Chris Bueno MD Signed By: Electronically signed by Chris Bueno MD 12/11/24 0926 Reason for Exam: epigastric pain EXAMINATION: XR CHEST CLINICAL INFORMATION: epigastric pain COMPARISON: December 21, 2018. TECHNIQUE: PA and lateral views FINDINGS: No consolidation, pleural effusion or pneumothorax. Cardiomediastinal silhouette size is normal. Calcified plaque aortic arch. Multilevel thoracic and upper lumbar spondylosis. Degenerative changes in the acromioclavicular joint. XR/XR chest 2V IMPRESSION: No acute airspace disease. Electronically signed by: Grant Cooper MD 12/11/2024 10:46 AM EDT RP Dictated By: Grant Braxton MD Signed By: Electronically signed by Grant Ambrosio MD 12/11/24 1046 I independently interpreted this EKG and am in agreement with the below findings: Vent. Rate: 58 BPM Atrial Rate: 58 BPM P-R Int: 188 ms QRS Dur: 70 ms QT Int: 384 ms P-R-T Axes: 34 10 15 degrees QTcB Int: 376 ms Sinus bradycardia Cannot rule out Inferior infarct (cited on or before 24-Feb-2018) When compared with ECG of 17-Aug-2022 21:41, QRS axis Shifted right T wave inversion less evident in Inferior leads Referred By: Elba Bacon Electronically Signed By: JIGAR GODINEZ MD Dictated By: Jigar Godinez MD Signed By: Electronically signed by Jigar Godinez MD 12/11/24 1055 Radiology Impression Discussion of test interpretation with radiology: I have reviewed the radiologist's reading. Discharge Plan Discharge Clinical Impression: Abdominal pain, CLL (chronic lymphocytic leukemia) Patient Disposition: Home, Self-Care Instructions: Abdominal Pain (ED) Additional Instructions: Your work up today was reassuring there is no EMERGENT cause for your symptoms. Your CT scan of the abdomen pelvis showed an incidental finding of a stable fusiform aneurysm of the infrarenal aorta measuring 3.4 x 2.7 cm axial diameter that is unchanged from your previous imaging. It is CRUCIAL you follow up on this with your primary care provider. Your chest x-ray was unremarkable. Your EKG showed no evidence of a heart attack. Your lab work showed your chronically elevated WBC count and liver function tests but otherwise unremarkable. You should follow up with a GI specialist. IF you are prescribed home medications and/or you are taking over the counter medications at home - it is very important you continue to do so as prescribed / directed unless told otherwise. Follow up with your primary care provider. Return to the emergency department immediately if your symptoms worsen or if you develop any numbness, tingling, dizziness, shortness of breath, difficulty breathing, chest pain, blurry vision, loss of vision, nausea, vomiting, abdominal pain, fever, chills, back pain, or any other complaints. Please see the information below about our Patient Portal. If you are not yet enrolled in the [facility] Patient Portal, you will receive an enrollment email invitation following your visit to any [facility] setting. You may also self-enroll in the Patient Portal by visiting our website: [email or web address] The following information is required to access the Patient Portal: - Your [facility] Medical Record Number - Your personal home email address (must match what is in your electronic medical record, Registration staff can assist with this) - Name - Date of Capabilities of the Patient Portal: - Message some providers - View upcoming appointments - Access your health summary, medical history, and visit history - View current conditions and allergies - View procedure and lab results - View your medications, including guidelines, side effects, and precautions - Complete pre-appointment questionnaires requested by your provider - Ready summary reports of your office visits and procedures To access the Patient Portal Mobile [employer], follow these directions: - Search Zimory in the [employer] Store or LineHop Store - Download the [employer] - Search for [facility] - Enter your login/password Prescriptions: No Action (DME) bath tub seat See Rx Instructions .Route .MEDSUPPLY Qty: 1 0RF Rx Instructions: As directed (DME) shower wand See Rx Instructions .Route .MEDSUPPLY Qty: 1 0RF Rx Instructions: As directed cetirizine 10 mg tablet 10 mg PO DAILY 30 Days Qty: 30 6RF magnesium 250 mg tablet 250 mg PO DAILY 90 Days Qty: 90 3RF tadalafil [Cialis] 5 mg tablet 5 mg PO DAILY Qty: 90 3RF Rx Instructions: Please use [employer] RX coupon attached [id number] [facility] GroupGDRX Member [id number] multivitamin Tablet 1 tab PO DAILY fluticasone propionate [Flonase Allergy Relief] 50 mcg/actuation spray,suspension 1 spray intranasal BID PRN (Reason: Allergy Symptoms) Rx Instructions: administer into each nostril tizanidine 2 mg tablet 2 mg PO Q8H PRN (Reason: muscle spasm) vitamin B complex Capsule 1 cap PO DAILY cholecalciferol (vitamin D3) 25 mcg (1,000 unit) Tablet 25 mcg PO DAILY (DME) Blood Pressure Cuff Misc See Rx Instructions .ROUTE .MEDSUPPLY Qty: 1 0RF Rx Instructions: As directed (DME) Knee Support Brace Misc See Rx Instructions .Route Qty: 1 0RF Rx Instructions: As directed atorvastatin [Lipitor] 10 mg tablet 10 mg PO DAILY 90 Days Qty: 90 1RF (DME) blood pressure monitor Kit See Rx Instructions .Route Qty: 1 0RF Rx Instructions: As directed lisinopril 20 mg tablet 20 mg PO DAILY 90 Days Qty: 90 1RF hydroxyzine HCl 25 mg tablet 25 mg PO BEDTIME PRN (Reason: for itch) Qty: 90 1RF cyclobenzaprine 5 mg tablet 5 mg PO TID PRN (Reason: muscle spasm) Qty: 14 0RF Referrals: [facility] [Provider Group, Gastroenterology] Referral Note: Call to establish and follow up with a GI specialist. Simeon Sarkar PA-C [Primary Care Provider, Internal Medicine] Interventions: ED Discharge Assessment Last Done: 12/11/24 12:03 Discharge Date/Time: 12/11/24 12:04 Print Language: Moldovan
[2024-12-11 07:47] VITALS: BP 150/71; PULSE 62; RESP 14; TEMP 36.9; O2SAT 95; BMI 31.0
[2024-12-11 08:04] VITALS: BP 150/71; PULSE 62; RESP 14; TEMP 36.9; O2SAT 95
--- NOTE | 2024-12-11 08:09 | PC.NURSE ---
Patient presents to Ed c/o ABD pain, non radiating rated 5/10 for the last 4 days Denies injury, n/v, thinners, sob Patient SBP 150 but all other VSS and up to date IV 20 G right forearm Blood collected/ sent Provider in to see patient Patient awaiting ABD CT Plan of care on going
[2024-12-11 08:18] LABS: Hematocrit 44.3 % (42.0-52.0); Hemoglobin 14.8 g/dl (14.0-18.0); Mean Corpuscular HGB Conc 33.4 g/dl (31.0-36.0); Mean Corpuscular Hemoglobin 29.0 pg (27.0-33.0); Mean Corpuscular Volume 86.7 fL (80.0-98.0); NRBC Abs Auto 0.000 X10*3/uL (0.0-0.012); NRBC Pct Auto 0.0 /100WBC (0.0-0.2); Platelet Count 201 X10*3/uL (160-400); Red Blood Count 5.11 X10*6/uL (4.60-5.80)
--- OUTSIDE RECORDS SUMMARY | 2024-12-11 08:20 | XMS_ITS | Encounter Summary ---
Author Organization [facility] Address [address] [facility] [address] [place] [address] Phone Care Team Providers Care Emergency Room Technician Name Role Phone Ailyn Hernandez MD Primary Care Provider [phone] Unknown, Unknown Primary Care Provider Simeon Estrada Primary Care Provider + RussellAnup MD Unavailable [phone] Encounter Details Date Type Department Care Team (Late st Contact Info) Description 03/30/2017 Procedure Pass [facility], Ct Scan - [address] [address] Social History Tobacco Use Types Packs/Day Years [...] on filedocumented in this encounter Care Teams Emergency Room Technician Relationship Specialty Start Date End Date Ailyn Hernandez MD [address] [place] [address] [address] [place] [address] [email or web address] PCP - General 02/25/17 08/19/20 Unknown, Mateusz, PCP - General 08/20/20 07/28/21 Simeon Sarkar PA [address] [place] [address] PCP - General 07/29/21 Anup Russell MD [address] [place] [address] Neurology 07/29/21 documented as of this encounter Additional Source Comments The information contained in this document represents components of the legal health record. It is not the complete legal health record.[facility]
--- OUTSIDE RECORDS SUMMARY | 2024-12-11 08:20 | XMS_ITS | Encounter Summary ---
Author Organization [facility] Address [address] [facility] [address] [place] [address] Phone Care Team Providers Care Shoulder Boner Name Role Phone Ailyn Hernandez MD Primary Care Provider [phone] Unknown, Unknown Primary Care Provider Simeon Estrada Primary Care Provider + RussellAnup MD Unavailable [phone] Encounter Details Date Type Department Care Team (Late st Contact Info) Description 03/30/2017 Procedure Pass [facility], Ct Scan - [address] [address] Social History Tobacco Use Types Packs/Day Years [...] on filedocumented in this encounter Care Teams Shoulder Boner Relationship Specialty Start Date End Date Ailyn Hernandez MD [address] [place] [address] [address] [place] [address] [email or web address] PCP - General 02/25/17 08/19/20 Unknown, Mateusz, PCP - General 08/20/20 07/28/21 Simeon Sarkar PA [address] [place] [address] PCP - General 07/29/21 Anup Russell MD [address] [place] [address] Neurology 07/29/21 documented as of this encounter Additional Source Comments The information contained in this document represents components of the legal health record. It is not the complete legal health record.[facility]
--- OUTSIDE RECORDS SUMMARY | 2024-12-11 08:21 | XMS_ITS | Encounter Summary ---
Author Organization [email or web address] Address [address] [place] [address] 7 [place] [address] Care Team Providers Care Therapist Phys Name Role Phone Unavailable Primary Care Provider Unavailabl e Encounter Details Date Type Department Care Team (Late st Contact Info) Description 11/20/2022 Abstract [facility] MEDICINE [address] [place] [address] Carleen Mcghee Social History Tobacco Use Types [...]
--- OUTSIDE RECORDS SUMMARY | 2024-12-11 08:21 | XMS_ITS | Clinical Summary ---
Author Organization [facility] Address [address] [facility] [place] [address] Phone Care Team Providers Care Cut Off Worker Name Role Phone Simeon Sarkar Primary Care Provider + Russell, Anup Martinez MD Unavailable [phone] Allergies Active Allergy Reactions Criticality Noted Date [...] diet MS (multiple sclerosis) 02/23/2012 Overview (07/29/2021): [facility] Neurology Assessment & Plan (07/29/2021 4:27 PM [...] EDT) SODIUM 139 133 - 146 mmol/L [facility] CHLORIDE 104 96 - 108 mmol/L [facility] POTASSIUM 4.5 3.3 - 5.1 mmol/L [facility] CO2 27 21 - 35 mmol/L [facility] BUN 12 6 - 19 mg/dL [facility] CREATININE 1.00 0.5 - 1.5 mg/dL [facility] GLUCOSE 110(H) 70 - 99 mg/dL [facility] CALCIUM 9.4 8.4 - 10.3 mg/dL [facility] EGFR 85 >59 mL/min/1.7 3m2 [facility] Comment:Estimated glomerular filtration rate calculated using the CKD-EPI refit equation. ANION GAP 13 10 - 20 mmol/L [facility] Blood 11/11/2022 9:55 AM EDT 11/11/2022 9:57 AM EDT us Tristan Page MD LAB BLOOD ORDERABL ES Final Result [address] [address] * (ABNORMAL) Lipid panel (07/30/2021 6:31 AM EDT) HDL 28 mg/dL [facility] Comment: Interpretation <40 mg/dL: Low HDL cholesterol (major risk factor for CHD) Greater than or equal to 60 mg/dL: High HDL cholesterol ( negative risk factor for CHD) HDL - cholesterol is affected by a number of factors, e.g. smoking, excerise, hormones, sex and age. CHOLESTEROL 184 0 - 240 mg/dL [facility] TRIGLYCERIDES 206(H) 30 - 160 mg/dL [facility] LDL 115 50 - 129 mg/dL [facility] Comment: LDL levels in terms of risk for coronary heart disease: <100 mg/dL: Optimal 100-129 mg/dL: Near or above optimal 130-159 mg/dL: Borderline high 160-189 mg/dL: High >190 mg/dL: Very High CARDIAC RISK RATIO 6.6(H) 3.4 - 5.0 [facility] Blood 07/30/2021 6:31 AM EDT 07/30/2021 6:39 AM EDT us Campbell Mak MD LAB BLOOD ORDERABLES Fin al Result [facility] [address] [place] [address] from Last 3 Months or Most Recently Relevant to Health Maintenance Insurance [facility] MEDICARE REPLACEMENT [place] [id number] [facility] REPLACEMENT [place] [id number] [facility] REPLACEMENT [facility] MEDICARE REPLACEMENT [facility] MEDICARE REPLACEMENT [facility] MEDICARE REPLACEMENT [facility] MEDIC[facility] REPLACEMENT [place] [id number] Advance Directives For more information, please contact: [phone] (9AM - 5PM [facility], Wednesday-Wednesday) Documents on File Type Date Recorded Patient Graphic Coordinator Expl anation Healthcare Proxy 08/01/2021 5:05 PM * Full Code (Latest Code Status on File) Date Activated Date Inactivated Comments 07/29/2021 4:37 PM Question Answer Comments Code Status Confirmed With: Patient Care Teams Cut Off Worker Relationship Specialty Start Date End Date Simeon Sarkar PA [address] [place] [address] PCP - General 07/29/21 Anup Russell MD [address] [place] [address] Neurology 07/29/21 Additional Source Comments The information contained in this document represents components of the legal health record. It is not the complete legal health record.[facility]
--- OUTSIDE RECORDS SUMMARY | 2024-12-11 08:21 | XMS_ITS | Clinical Summary ---
Author Organization [employer] Address [address] [place] [address] 7t [place] [address] Care Team Providers Care Metal Sprayer Name Role Phone Unavailable Primary Care Provider [...]
--- OUTSIDE RECORDS SUMMARY | 2024-12-11 08:21 | XMS_ITS | Encounter Summary ---
Author Organization [facility] Address [address] [place] [address] Phone Care Team Providers Care Grader Patrol Name Role Phone Simeon Sarkar Primary Care Provider + Russell, Anup Martinez MD Unavailable [phone] Encounter Details Date Type Department Care Team (Late st Contact Info) Description 07/29/2021 Procedure Pass [facility], Ct Scan - [facility] [address] [place] [address] Social History Tobacco Use Types Packs/Day Years [...] 8:26 AM EDT Kassi Cowan RN * [place] Suicide Severity Rating Scale (Screener/Recent Self-Report) Question [...] on filedocumented in this encounter Care Teams Grader Patrol Relationship Specialty Start Date End Date Simeon Sarkar PA [address] [place] [address] PCP - General 07/29/21 Anup Russell MD [address] [place] [address] Neurology 07/29/21 documented as of this encounter Additional Source Comments The information contained in this document represents components of the legal health record. It is not the complete legal health record.[facility]
--- OUTSIDE RECORDS SUMMARY | 2024-12-11 08:21 | XMS_ITS | Encounter Summary ---
Author Organization [facility] Address [address] [place] [address] Phone Care Team Providers Care Sap Ppm Consultant Name Role Phone Simeon Sarkar Primary Care Provider + Russell, Anup Martinez MD Unavailable [phone] Encounter Details Date Type Department Care Team (Late st Contact Info) Description 07/29/2021 Procedure Pass [facility] [address] [place], [place] [id number] Social History Tobacco Use Types Packs/Day Years [...] 8:26 AM EDT Kassi Cowan RN * [place] Suicide Severity Rating Scale (Screener/Recent Self-Report) Question [...] on filedocumented in this encounter Care Teams Sap Ppm Consultant Relationship Specialty Start Date End Date Simeon Sarkar PA [facility] [place] [address] PCP - General 07/29/21 RussellAnup dowling MD [address] [place] [address] Neurology 07/29/21 documented as of this encounter Additional Source Comments The information contained in this document represents components of the legal health record. It is not the complete legal health record.[facility]
[2024-12-11 08:24] LABS: Alanine Aminotransferase 84 U/L (0-40); Albumin Level 4.8 g/dL (3.5-5.0); Alkaline Phosphatase 85 U/L (39-117); Anion Gap 16 (12-20); Aspartate Amino Transferase 58 U/L (5-37); Blood Urea Nitrogen 16 mg/dL (9-16); Calcium 9.1 mg/dL (8.4-10.2); Carbon Dioxide 24 mmol/L (22-29); Chloride 102 mmol/L (96-108); Creatinine Clr Calc Pharmacy 72.7; Estimated Glomerular Filt Rate > 60; Magnesium 2.1 mg/dL (1.6-2.6); Potassium 4.4 mmol/L (3.3-5.1); Sodium 138 mmol/L (135-145); Total Protein 7.4 g/dL (6.5-8.0); WBC ABN SCTR FOR CBC 1
[2024-12-11 08:26] LABS: White Blood Count 50.2 X10*3/uL (4.8-10.8)
[2024-12-11] MEDS: iohexoL 350 MG/ML 100 ML INFUS..BTL IV (08:43)
[2024-12-11 08:47] LABS: Appearance Urine Clear; Glucose Urine UA Negative (Negative); PH 5.5 (5.0-9.0); Specific Gravity - Urine 1.010 (1.005-1.025)
[2024-12-11 08:55] VITALS: BP 139/66; PULSE 57; RESP 16; TEMP 36.9; O2SAT 97
[2024-12-11 09:25] LABS: Atypical Lymph Absolute Manual 0.5 x10*3/uL; Atypical Lymphs Percent Manual 1 % (0-6); Band Neutrophils Percent 0 % (3-5); Eosinophils Absolute Manual 1.0 X10*3/uL (0.0-0.4); Eosinophils Percent Manual 2 % (0-4); Lymphocytes Absolute Manual 43.7 X10*3/uL (1.2-4.9); Lymphocytes Percent Manual 87 % (20-40); Neutrophils Absolute Manual 5.0 X10*3/uL (2.0-8.3); Neutrophils Percent Manual 10 % (45-73)
[2024-12-11 09:26] LABS: RBC Morphology NORMAL; Smudge Cells PRESENT
--- NOTE | 2024-12-11 09:53 | ECG_ITS ---
Test Reason : ABD PAIN Blood Pressure : */* mmHG Vent. Rate : 58 BPM Atrial Rate : 58 BPM P-R Int : 188 ms QRS Dur : 70 ms QT Int : 384 ms P-R-T Axes : 34 10 15 degrees QTcB Int : 376 ms Sinus bradycardia Cannot rule out Inferior infarct (cited on or before 24-Feb-2018) Abnormal ECG When compared with ECG of 17-Aug-2022 21:41, QRS axis Shifted right T wave inversion less evident in Inferior leads Referred By: Elba Bacon Electronically Signed By: DESMOND GODINEZ MD
[2024-12-11 09:57] LABS: Lipase 21 U/L (8-78)
[2024-12-11 10:20] LABS: Troponin-I High Sensitivity 4.2 ng/L (<3.5-35.0)
[2024-12-11 11:26] LABS: Troponin-I High Sensitivity 3.7 ng/L (<3.5-35.0)
[2024-12-11 12:03] VITALS: BP 139/66; PULSE 57; RESP 16; TEMP 36.9; O2SAT 97
== END 2024-12-11 12:04 | disposition home or self-care (01) ==
PROVIDERS: Physician Assistant Medical; Emergency Provider Emergency Medicine; PCP Physician Assistant
DX: R10.9 Unspecified abdominal pain (principal); C91.10 Chronic lymphocytic leukemia of B-cell type not having achieved remission; R00.1 Bradycardia, unspecified; R94.31 Abnormal electrocardiogram [ECG] [EKG]; Z79.899 Other long term (current) drug therapy
CPT/HCPCS: 36415; 71046; 74177; 80053; 81003; 83605; 83690; 83735; 84484; 85007; 85027; 93005; 99285; Q9967

== ENCOUNTER → 2024-12-11 07:48 | Outpatient (BNV) | payer OTHER, SELFPAY | PROVIDERS: PCP Physician Assistant; Visit Provider Radiology Diagnostic Radiology | DX: K57.30 Diverticulosis of large intestine without perforation or abscess without bleeding (principal); K76.0 Fatty (change of) liver, not elsewhere classified; R10.13 Epigastric pain | CPT/HCPCS: 71046; 74177 ==

== ENCOUNTER → 2024-12-11 09:53 | Outpatient (BNV) | payer OTHER, SELFPAY | PROVIDERS: PCP Physician Assistant; Visit Provider Internal Medicine Cardiovascular Disease | DX: R00.1 Bradycardia, unspecified (principal) | CPT/HCPCS: 93010 ==

== ENCOUNTER 2024-12-12 09:11 | Outpatient (AMB) | payer OTHER, SELFPAY ==
--- NOTE | 2024-12-12 09:27 | A.OFFPC_ITS ---
Vital Signs 12/12/24 09:29 12/12/24 10:45 Height 5 ft 6 in Weight 178 lb BMI 28.7 BP 158/64 H 162/84 H Blood Pressure Location Lt brachial Lt brachial Position Sitting Sitting Respiration 18 Pulse 70 Pulse Source Pulse Oximeter Temp 97.3 F Temp Source Temporal Artery Scan Pulse Oximetry (%) 96 Oxygen Delivery Method Room Air Intake Visit Reasons: ABD pain/CLL System Designer Required: No Accompanied by: Self / Same As Patient Allergies Sulfa (Sulfonamide Antibiotics) (Sulfa (Sulfonamides)) Allergy (Unknown, Verified 12/11/24 07:48) RASH sulfacetamide (From Sulfacet-R) Allergy (Unknown, Verified 12/11/24 07:48) Hives sulfur (From Sulfacet-R) Allergy (Unknown, Verified 12/11/24 07:48) Hives Tobacco use date assessed: 12/12/24 Fall risk assessment: No Falls in past year Last assessed Fall Risk: 12/12/24 Dental Screening Dental Screen Date: 12/12/24 Did you have a dental visit in the last 12 months?: No Did you have a dental problem in the last 6 months where you did not have access to dental care?: No Was dental information given to patient?: No HPI ABD pain/CLL HPI Details The patientis 64 year old male with HTN, BPOH, MS, HLD, CLL, AAA, DM, and ADRIEN. Recently been to the ER for abdominal pain The patient is a 64-year-old male presenting for follow appoint post hospital visit for abdominal pain and concerns regarding hypertension management. The patient reports experiencing abdominal pain, which prompted a visit to the emergency department. The pain is located in the middle of the abdomen and has been persistent for five days. He suspects an infection and has a history of diverticulosis, which he believes may be related to his current symptoms. No active infection was noted on CT of abdominal and pelvis. However, the patient is concern that this might be an infection and we are not able to detect it because his WBC is always elevated due to CLL. The patient has a history of leukemia, which complicates his meadical management and may contribute to his susceptibility to infections. He was hospitalized for three to four days due to abdominal pain and potential infection. The patient has a known abdominal aortic aneurysm measuring 3.5 cm, which has remained stable over time. This aneurysm is being monitored with periodic imaging, and no intervention is currently planned. The patient has a history of hypertension, which has been difficult to control. His blood pressure readings have been consistently high, with recent measurements of 162/84 mmHg. He is currently taking lisinopril 20 mg but may require additional medication to achieve better control. The patient does not have a blood pressure machine at home. Blood pressure machine ordered and the patient took the script to bring to [facility]. The patient is requesting referrals to cardiology and gastroenterology ordered bp, EDMUNDO CleaningP-CARDILOGY ghislaine Burgos MD [facility] Medical History HTN (hypertension) Multiple sclerosis Colitis AAA (abdominal aortic aneurysm) Dysuria BPH (benign prostatic hyperplasia) HTN (hypertension) Hyperlipidemia Diabetes mellitus Bladder outlet obstruction Weak urinary stream Nocturia Stress incontinence, male Surgical History History of dental surgery History of removal of cyst History of appendectomy History of hernia repair Family History Father Diabetes Mother No problems noted. Maternal Uncle Myocardial infarction Sister No problems noted. Son No problems noted. Son No problems noted. Daughter No problems noted. Brother No problems noted. Brother No problems noted. Brother No problems noted. 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 Cognitive needs: No Hearing needs: No Vision needs: No Questionnaire Thrive Questionnaire Date Thrive assessed: 08/10/24 ADRIEN-7 AMB Questionnaire ADRIEN-7 Date ADRIEN - 7 assessed: 08/10/24 Source: Developed by Drs. Kam Becker, Lucille Marsh, Trae Roy and colleagues, with an educational catalina from [employer]. Review of Systems Const Denies body aches, Denies chills, Denies fever(s), Denies headache(s) and Denies poor appetite Eyes Reports no additional complaints ENT Denies dysphagia, Denies dizziness, Denies headache(s) and Denies odynophagia Card Denies chest pain, Denies syncope, Denies edema, Denies irregular heart rhythm, Denies lightheadedness and Denies dyspnea Resp Denies cough and Denies dyspnea GI Reports abdominal pain (mid-abdomen and radiates into right groin area), Denies constipation, Denies dysphagia, Denies diarrhea, Denies nausea, Denies odynophagia and Denies vomiting Reports no additional complaints Musc Reports no additional complaints and Denies abnormal gait Skin/Breast Reports system reviewed and no additional complaints, except as documented Neuro Denies abnormal gait, Denies dizziness, Denies syncope and Denies headache(s) Psych Reports no additional complaints Physical exam (Primary Care) Vital Signs: Last Vital Signs Temp 97.3 F 12/12/24 09:29 Pulse 70 12/12/24 09:29 Resp 18 12/12/24 09:29 BP 158/64 H 12/12/24 09:29 Pulse Ox 96 12/12/24 09:29 Oxygen Delivery Method Room Air 12/12/24 09:29 BMI result Body Mass Index 28.7 Tobacco/Smoking Status: Tobacco use Status Tobacco use date assessed 12/12/24 12/12/24 09:46 Patient Tobacco Use Status Never used Tobacco 12/12/24 09:28 e-Cigarette/Vaping Use Never Used 12/12/24 09:28 Thrive Assessment: Date of Thrive Assessment Date Thrive assessed 08/10/24 12/12/24 09:28 Const General: cooperative, healthy appearing, comfortable and no acute distress Orientation/consciousness: patient oriented x3 HENMT Head: Yes normocephalic Ears: hearing grossly normal bilaterally General nose exam: Normal external nose present Eyes General: appearance normal, both eyes and all related structures Conjunctivae: conjunctivae normal Neck Neck: Yes full ROM and Yes no lymphadenopathy Resp Effort & Inspection: normal respiratory effort Auscultation: clear to auscultation bilaterally, no crackles, no rales, no rhonchi and no wheezes Cardio Rate: regular rate Rhythm: regular rhythm GI Inspection: Yes distended and Yes obesity Palpation (GI): Soft to palpation and Tenderness to palpation present (GI) periumbilically and suprapubicly Skin General skin exam: no rashes or lesions noted Neuro General: patient oriented x3 Gait exam (Neuro): Normal gait present Extrem General: Yes normal to inspection, Yes full ROM and No edema Psych Affect: normal affect Attitude: cooperative Insight: Good insight present (Psych) Judgement: Good judgement present (Psych) Results AMB Hemoglobin A1c AMB Hemoglobin A1c 7.0 % Last Edit by CIARA Headley on 12/12/24 10:03 Coding Assessment & Plan Assessment & Plan Orders: Orders AMB Hemoglobin A1c Today E11.65 - Type 2 diabetes mellitus with hyperglycemia, Z13.9 - Encounter for screening, unspecified Medications: New [Blood pressure Machine] As directed 1 ea 0RF I10 - Essential (primary) hypertension, I71.40 - Abdominal aortic aneurysm, without rupture, unspecified amoxicillin-pot clavulanate 875-125 mg 1 tab PO BID 20 tabs 0RF 10 days hydrochlorothiazide 12.5 mg PO DAILY 30 tabs 3RF
[2024-12-12 09:29] VITALS: BP 158/64; PULSE 70; RESP 18; TEMP 36.3; O2SAT 96; BMI 28.7
--- OUTSIDE RECORDS SUMMARY | 2024-12-12 10:04 | XMS_ITS | Encounter Summary ---
Author Organization [employer] Address [address] [place] [address] 7 [place] [address] Care Team Providers Care Mine Deputy Name Role Phone Unavailable Primary Care Provider Unavailabl e Encounter Details Date Type Department Care Team (Late st Contact Info) Description 11/20/2022 Abstract [facility] MEDICINE [address] [place] [address] Carleen Mcghee Social History Tobacco Use Types [...]
--- OUTSIDE RECORDS SUMMARY | 2024-12-12 10:04 | XMS_ITS | Clinical Summary ---
Author Organization [facility] Address [address] [place] [address] Phone Care Team Providers Care Curber Name Role Phone Simeon Sarkar Primary Care Provider + Russell, Anup Martinez MD Unavailable [phone] Allergies Active Allergy Reactions Criticality Noted Date [...] diet MS (multiple sclerosis) 02/23/2012 Overview (07/29/2021): [facility] Neurology Assessment & Plan (07/29/2021 4:27 [...] EDT) SODIUM 139 133 - 146 mmol/L [facility] CHLORIDE 104 96 - 108 mmol/L [facility] POTASSIUM 4.5 3.3 - 5.1 mmol/L [facility] CO2 27 21 - 35 mmol/L [facility] BUN 12 6 - 19 mg/dL [facility] CREATININE 1.00 0.5 - 1.5 mg/dL [facility] GLUCOSE 110(H) 70 - 99 mg/dL [facility] CALCIUM 9.4 8.4 - 10.3 mg/dL [facility] EGFR 85 >59 mL/min/1.7 3m2 [facility] Comment:Estimated glomerular filtration rate calculated using the CKD-EPI refit equation. ANION GAP 13 10 - 20 mmol/L [facility] Blood 11/11/2022 9:55 AM EDT 11/11/2022 9:57 AM EDT us Tristan Page MD LAB BLOOD ORDERABL ES Final Result [address] [address] * (ABNORMAL) Lipid panel (07/30/2021 6:31 AM EDT) HDL 28 mg/dL [facility] Comment: Interpretation <40 mg/dL: Low HDL cholesterol (major risk factor for CHD) Greater than or equal to 60 mg/dL: High HDL cholesterol ( negative risk factor for CHD) HDL - cholesterol is affected by a number of factors, e.g. smoking, excerise, hormones, sex and age. CHOLESTEROL 184 0 - 240 mg/dL [facility] TRIGLYCERIDES 206(H) 30 - 160 mg/dL [facility] LDL 115 50 - 129 mg/dL [facility] Comment: LDL levels in terms of risk for coronary heart disease: <100 mg/dL: Optimal 100-129 mg/dL: Near or above optimal 130-159 mg/dL: Borderline high 160-189 mg/dL: High >190 mg/dL: Very High CARDIAC RISK RATIO 6.6(H) 3.4 - 5.0 [facility] Blood 07/30/2021 6:31 AM EDT 07/30/2021 6:39 AM EDT us Campbell Mak MD LAB BLOOD ORDERABLES Fin al Result [facility] [address] [place] [address] from Last 3 Months or Most Recently Relevant to Health Maintenance Insurance [facility] MEDICARE REPLACEMENT [place] [id number] [facility] MEDICARE REPLACEMENT [place] [id number] [facility] MEDIC[facility] REPLACEMENT [facility] MEDIC[facility] REPLACEMENT [facility] MEDIC[facility] REPLACEMENT [facility] MEDICARE REPLACEMENT [facility] MEDICARE REPLACEMENT [facility] MEDICARE REPLACEMENT [facility] MEDICARE REPLACEMENT [place] [id number] Advance Directives For more information, please contact: [phone] (9AM - 5PM [facility], Wednesday-Wednesday) Documents on File Type Date Recorded Patient Metal Melter Expl anation Healthcare Proxy 08/01/2021 5:05 PM * Full Code (Latest Code Status on File) Date Activated Date Inactivated Comments 07/29/2021 4:37 PM Question Answer Comments Code Status Confirmed With: Patient Care Teams Curber Relationship Specialty Start Date End Date Simeon Sarkar PA [address] [place] [address] PCP - General 07/29/21 Anup Russell MD [address] [place] [address] Neurology 07/29/21 Additional Source Comments The information contained in this document represents components of the legal health record. It is not the complete legal health record.[facility]
--- OUTSIDE RECORDS SUMMARY | 2024-12-12 10:04 | XMS_ITS | Encounter Summary ---
Author Organization [facility] Address [address] [place] [address] Phone Care Team Providers Care Chief Analytics Officer Name Role Phone Ailyn Hernandez MD Primary Care Provider [phone] Unknown, Unknown Primary Care Provider Simeon Estrada Primary Care Provider + RussellAnup MD Unavailable [phone] Encounter Details Date Type Department Care Team (Late st Contact Info) Description 03/30/2017 Procedure Pass [facility], Ct Scan - [address] [address] Social History Tobacco Use Types Packs/Day Years [...] on filedocumented in this encounter Care Teams Chief Analytics Officer Relationship Specialty Start Date End Date Ailyn Hernandez MD [address] [place] [address] [address] [place] [address] [email or web address] PCP - General 02/25/17 08/19/20 Unknown, Mateusz, PCP - General 08/20/20 07/28/21 Simeon Sarkar PA [address] [place] [address] PCP - General 07/29/21 Anup Russell MD [address] [place] [address] Neurology 07/29/21 documented as of this encounter Additional Source Comments The information contained in this document represents components of the legal health record. It is not the complete legal health record.[facility]
--- OUTSIDE RECORDS SUMMARY | 2024-12-12 10:04 | XMS_ITS | Clinical Summary ---
Author Organization [employer] Address [address] [place] [address] [address] [place] [address] Care Team Providers Care Freezer Assistant Name Role Phone Unavailable Primary Care Provider [...]
--- OUTSIDE RECORDS SUMMARY | 2024-12-12 10:04 | XMS_ITS | Encounter Summary ---
Author Organization [facility] Address [address] [place] [address] Phone Care Team Providers Care Application Designer Name Role Phone Simeon Sarkar Primary Care Provider + Russell, Anup Martinez MD Unavailable [phone] Encounter Details Date Type Department Care Team (Late st Contact Info) Description 07/29/2021 Procedure Pass [facility], Ct Scan - [facility] [address] [place] [address] Social History Tobacco Use Types Packs/Day Years [...] 8:26 AM EDT Kassi Cowan RN * [place] Suicide Severity Rating Scale (Screener/Recent Self-Report) Question [...] on filedocumented in this encounter Care Teams Application Designer Relationship Specialty Start Date End Date Simeon Sarkar PA [address] [place] [address] PCP - General 07/29/21 Anup Russell MD [address] [place] [address] Neurology 07/29/21 documented as of this encounter Additional Source Comments The information contained in this document represents components of the legal health record. It is not the complete legal health record.[facility]
--- OUTSIDE RECORDS SUMMARY | 2024-12-12 10:04 | XMS_ITS | Encounter Summary ---
Author Organization [facility] Address [address] [place] [address] Phone Care Team Providers Care Acoustical [place] Name Role Phone Simeon Sarkar Primary Care Provider + Russell, Anup Martinez MD Unavailable [phone] Encounter Details Date Type Department Care Team (Late st Contact Info) Description 07/29/2021 Procedure Pass [facility] [address] [place], [place] [id number] Social History Tobacco Use Types Packs/Day Years [...] 8:26 AM EDT Kassi Cowan RN * [place] Suicide Severity Rating Scale (Screener/Recent Self-Report) Question [...] on filedocumented in this encounter Care Teams Acoustical [place] Relationship Specialty Start Date End Date Simeon Sarkar PA [facility] [place] [address] PCP - General 07/29/21 RussellAnup dowling MD [address] [place] [address] Neurology 07/29/21 documented as of this encounter Additional Source Comments The information contained in this document represents components of the legal health record. It is not the complete legal health record.[facility]
--- OUTSIDE RECORDS SUMMARY | 2024-12-12 10:04 | XMS_ITS | Encounter Summary ---
Author Organization [facility] Address [address] [facility] [address] [facility] [address] [place] [address] Phone Care Team Providers Care Fast Food Supervisor Name Role Phone Ailyn Hernandez MD Primary Care Provider [phone] Unknown, Unknown Primary Care Provider Simeon Estrada Primary Care Provider + RussellAnup MD Unavailable [phone] Encounter Details Date Type Department Care Team (Late st Contact Info) Description 03/30/2017 Procedure Pass [facility], Ct Scan - [address] [address] Social History Tobacco Use Types Packs/Day Years [...] on filedocumented in this encounter Care Teams Fast Food Supervisor Relationship Specialty Start Date End Date Ailyn Hernandez MD [address] [place] [address] [address] [place] [address] [email or web address] PCP - General 02/25/17 08/19/20 Unknown, Mateusz, PCP - General 08/20/20 07/28/21 Simeon Sarkar PA [address] [place] [address] PCP - General 07/29/21 Anup Russell MD [address] [place] [address] Neurology 07/29/21 documented as of this encounter Additional Source Comments The information contained in this document represents components of the legal health record. It is not the complete legal health record.[facility]
[2024-12-12 10:45] VITALS: BP 162/84
== END 2024-12-12 10:42 | disposition home or self-care (01) ==
LOC: HO.HMCH 09:12
PROVIDERS: PCP Physician Assistant
DX: Z13.9 Encounter for screening, unspecified (principal); E11.65 Type 2 diabetes mellitus with hyperglycemia

== ENCOUNTER → 2024-12-12 09:11 | Outpatient (BNVA) | payer OTHER, SELFPAY | PROVIDERS: PCP Physician Assistant | DX: I10 Essential (primary) hypertension (principal); R10.9 Unspecified abdominal pain; I71.40 Abdominal aortic aneurysm, without rupture, unspecified; C91.10 Chronic lymphocytic leukemia of B-cell type not having achieved remission; E11.65 Type 2 diabetes mellitus with hyperglycemia; K57.90 Diverticulosis of intestine, part unspecified, without perforation or abscess without bleeding | CPT/HCPCS: 83036; 99212 ==

== ENCOUNTER 2024-12-13 07:31 | Outpatient (AMB) | payer OTHER, SELFPAY ==
--- NOTE | 2024-12-13 07:32 | MHC.OFFVIS ---
Intake Visit Reasons: 3m/med review Intake Note: Patient is present for 3 mo follow up Medication review Urology Med: Tadlalafil VIT B complex Antibiotic Allergy: Sulfa Blood Thinner: None LAST PVR:75ml Reimbursement Specialist Required: Yes Reimbursement Specialist Name: Marc Accompanied by: Self / Same As Patient Allergies Sulfa (Sulfonamide Antibiotics) (Sulfa (Sulfonamides)) Allergy (Unknown, Verified 12/13/24 07:34) RASH sulfacetamide (From Sulfacet-R) Allergy (Unknown, Verified 12/13/24 07:34) Hives sulfur (From Sulfacet-R) Allergy (Unknown, Verified 12/13/24 07:34) Hives HPI Comments Details: 12/13/2024-Lynn is followed for BPH , he was last evaluated on 09/04/2024 at that time discussion to change medication from alfuzosin to Cialis 5 mg daily for BPH management and potential erectile dysfunction benefits. Patient has a history of leukemia. Last PSA level on 08/10/24 was 0.50, within normal range. History of Present Illness The patient is a 64-year-old male presenting for medication management related to Benign Prostatic Hyperplasia (BPH). Previously, the patient was on alfuzosin for BPH management, which was changed to tadalafil during a visit in August. The patient reports that he prefers to return to alfuzosin. Plan 1. Benign Prostatic Hyperplasia (Bph) - Medication adjustment: Discontinue tadalafil and resume alfuzosin. - Follow-up: Schedule a check-in in two months to assess the patient's response to the medication change. 09/04/24--Lynn is followed for BPH on alfuzosin, Patient has a history of leukemia, which is not managed by the current provider. History of Present Illness - The patient is a 64-year-old male presenting with follow-up for Benign Prostatic Hyperplasia (BPH) management. - History of BPH, currently managed with alfuzosin. - Last PSA level on 08/10/24 was 0.50, within normal range. - Discussion about switching from alfuzosin to tadalafil (Cialis) for BPH management and potential erectile dysfunction benefits. Results - PSA level: 0.50 (08/10/24) - Urinalysis: Negative - Bladder scan: Post-void residual of 75 mL Plan - Switch medication from alfuzosin to Cialis 5 mg daily for BPH management and potential erectile dysfunction benefits. - Monitor PSA levels regularly to assess prostate health. - Follow-up in three months to evaluate the effectiveness of the new medication regimen. 02/03/2024--Chavo is here for follow-up, He was seen last on 08/02/23 he is prescribed tamsulosin to replace alfuzosin or obstructive lower urinary tract symptoms. Significant past medical history multiple sclerosis (2012) and diabetes. He states the tamsulosin does not help. He states the alfuzosin worked better. PSA screening. FU in 6 months. 08/02/23--Chavo is a 63-year-old male who presents today to the office for a follow-up. He is here for 6 month follow-up. He was last seen by me in the office 01/29/2023. He is prescribed alfuzosin for obstructive lower urinary tract symptoms. Significant past medical history multiple sclerosis (2012) and diabetes. He states he was recently in the hospital at [facility] and treated for diverticulitis. A CT scan abdomen and pelvis with IV contrast was done during that time on , which I reviewed urinary tract was within normal limits. The patient states sometimes he has trouble urinating he feels like his bladder is full and it takes a while for the urine to come out. He denies dysuria or gross hematuria. Urinalysis-leukocytes negative, blood negative. Bladder scan PVR 35 mL. Review of lab work, PSA 03/09/23--0.81. Will trial Flomax to replace alfuzosin. 01/29/2023--He was seen by me Dr. Wong on 10/31/2021 for LUTS. Patient has had an intermittent testicular pain. He states that his PCP has ordered a scrotal US. I have reviewed the scrotal US results from 11/10/2022 revealed a small 3 mm left testicle cyst and no testicular masses noted. 01/29/2023: Evaluation today--UA--Leukocytes: negative; blood: negative; bladder scan PVR: 176 mL. Plan: Ordered alfusozin 10 mg. PSA screening test was ordered. Follow-up in 6 months. 10/31/21--Seen by Dr. 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 Prostate Symptom Score Moderate (9-19), Bother 3. Symptoms include weak stream, nocturia (>2), and are progressing. Results from testing include renal/bladder us-- date 02/21/2019 Associated conditions - multiple sclerosis, DM PFSH Medical History Diverticulosis HTN (hypertension) Multiple sclerosis Colitis AAA (abdominal aortic aneurysm) Dysuria BPH (benign prostatic hyperplasia) HTN (hypertension) Hyperlipidemia Diabetes mellitus Bladder outlet obstruction Weak urinary stream Nocturia Stress incontinence, male Surgical History History of dental surgery History of removal of cyst History of appendectomy History of hernia repair Family History Father Diabetes Mother No problems noted. Maternal Uncle Myocardial infarction Sister No problems noted. Son No problems noted. Son No problems noted. Daughter No problems noted. Brother No problems noted. Brother No problems noted. Brother No problems noted. 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 Cognitive needs: No Hearing needs: No Vision needs: No Review of Systems Const All systems reviewed & are unremarkable except as noted in HPI and below Reports no additional complaints Eyes Reports no additional complaints ENT Reports no additional complaints Card Reports no additional complaints Resp Reports no additional complaints GI Reports no additional complaints Reports as per HPI Musc Reports no additional complaints Skin/Breast Reports system reviewed and no additional complaints, except as documented Neuro Reports no additional complaints Psych Reports no additional complaints Endo Reports no additional complaints Benjamin/Lymph Reports no additional complaints Aller/Immun Reports no additional complaints Telehealth Telehealth Telehealth Platform: Telephone Location of provider rendering services: practice address Location of patient: address on file Patient Identification confirmed using: Name, : Yes Telehealth method: voice only Patient verbally consented to treatment: Yes Patient verbally consented to billing insurance company: Yes Patient informed of any privacy concerns related to visit: Yes Minutes spent on Phone/Video with Pt.: 14 Assessment & Plan Assessment & Plan (1) BPH loc w urin obs/LUTS: Code(s): N40.1 - Benign prostatic hyperplasia with lower urinary tract symptoms Category: Medical (2) Erectile dysfunction associated with type 2 diabetes mellitus: Code(s): E11.69 - Type 2 diabetes mellitus with other specified complication; N52.1 - Erectile dysfunction due to diseases classified elsewhere Category: Medical Plan Plan 1. Benign Prostatic Hyperplasia (Bph) - Medication adjustment: Discontinue tadalafil and resume alfuzosin. - Follow-up: Schedule a check-in in two months to assess the patient's response to the medication change. Medications: New alfuzosin ER administer after the same meal each day 10 mg PO DAILY 90 tabs 2RF Discontinued tadalafil Please use [employer] coupon attached [id number] [facility] GroupGDRX Member [id number] Discontinued Reason: Doctor's Order 5 mg PO DAILY 90 tabs 3RF N40.1 - Benign prostatic hyperplasia with lower urinary tract symptoms Patient Instructions: The patient had an opportunity to ask questions regarding treatment plan. The patient expressed understanding and agreement with the above treatment plan. The patient is aware they should contact our office by phone for worsening of their current condition or the appearance of new symptoms. Compliance is encouraged with any medications and followup testing that is ordered. It is a privilege to be allowed the opportunity to participate in the urologic care of your patient. If you have any questions or concerns regarding treatment for the above conditions please do not hesitate to contact me. The office telephone contact is [phone]. This note is constructed in part using voice recognition software. While every effort has been made to ensure accuracy sand filler errors may have been included. Yours sincerely, Nelda Mills MD Scribe Plan - Not visible on output: Patient was informed and verbally consented to the use of an ambient scribe for clinic note documentation during this visit. Coding Level of Care Code Tele Est Pt Level 3 (55552) Diagnoses BPH loc w urin obs/LUTS N40.1 Erectile dysfunction associated with type 2 diabetes mellitus E11.69; N52.1
--- OUTSIDE RECORDS SUMMARY | 2024-12-13 07:33 | XMS_ITS | Encounter Summary ---
Author Organization [facility] Address [address] [place] [address] Phone Care Team Providers Care Dairy Chemist Name Role Phone Simeon Sarkar Primary Care Provider + Russell, Anup Martinez MD Unavailable [phone] Encounter Details Date Type Department Care Team (Late st Contact Info) Description 07/29/2021 Procedure Pass [facility] [address] [place], [place] [id number] Social History Tobacco Use Types Packs/Day Years [...] 8:26 AM EDT Kassi Cowan RN * [place] Suicide Severity Rating Scale (Screener/Recent Self-Report) Question [...] on filedocumented in this encounter Care Teams Dairy Chemist Relationship Specialty Start Date End Date Simeon Sarkar PA [facility] [place] [address] PCP - General 07/29/21 RussellAnup dowling MD [address] [place] [address] Neurology 07/29/21 documented as of this encounter Additional Source Comments The information contained in this document represents components of the legal health record. It is not the complete legal health record.[facility]
--- OUTSIDE RECORDS SUMMARY | 2024-12-13 07:33 | XMS_ITS | Encounter Summary ---
Author Organization [facility] Address [address] [place] [address] Phone Care Team Providers Care Allergy Specialist Name Role Phone Simeon Sarkar Primary Care Provider + Russell, Anup Martinez MD Unavailable [phone] Encounter Details Date Type Department Care Team (Late st Contact Info) Description 07/29/2021 Procedure Pass [facility], Ct Scan - [facility] [address] [place] [address] Social History Tobacco Use Types Packs/Day Years [...] 8:26 AM EDT Kassi Cowan RN * [place] Suicide Severity Rating Scale (Screener/Recent Self-Report) Question [...] on filedocumented in this encounter Care Teams Allergy Specialist Relationship Specialty Start Date End Date Simeon Sarkar PA [address] [place] [address] PCP - General 07/29/21 Anup Russell MD [address] [place] [address] Neurology 07/29/21 documented as of this encounter Additional Source Comments The information contained in this document represents components of the legal health record. It is not the complete legal health record.[facility]
--- OUTSIDE RECORDS SUMMARY | 2024-12-13 07:33 | XMS_ITS | Clinical Summary ---
Author Organization [facility] Address [address] [place] [address] Phone Care Team Providers Care Warehouse Operator Name Role Phone Simeon Sarkar Primary Care Provider + Russell, Anup Martinez MD Unavailable [phone] Allergies Active Allergy Reactions Criticality Noted Date [...] diet MS (multiple sclerosis) 02/23/2012 Overview (07/29/2021): [facility] Neurology Assessment & Plan (07/29/2021 4:27 [...] EDT) SODIUM 139 133 - 146 mmol/L [facility] CHLORIDE 104 96 - 108 mmol/L [facility] POTASSIUM 4.5 3.3 - 5.1 mmol/L [facility] CO2 27 21 - 35 mmol/L [facility] BUN 12 6 - 19 mg/dL [facility] CREATININE 1.00 0.5 - 1.5 mg/dL [facility] GLUCOSE 110(H) 70 - 99 mg/dL [facility] CALCIUM 9.4 8.4 - 10.3 mg/dL [facility] EGFR 85 >59 mL/min/1.7 3m2 [facility] Comment:Estimated glomerular filtration rate calculated using the CKD-EPI refit equation. ANION GAP 13 10 - 20 mmol/L [facility] Blood 11/11/2022 9:55 AM EDT 11/11/2022 9:57 AM EDT us Tristan Page MD LAB BLOOD ORDERABL ES Final Result [address] [address] * (ABNORMAL) Lipid panel (07/30/2021 6:31 AM EDT) HDL 28 mg/dL [facility] Comment: Interpretation <40 mg/dL: Low HDL cholesterol (major risk factor for CHD) Greater than or equal to 60 mg/dL: High HDL cholesterol ( negative risk factor for CHD) HDL - cholesterol is affected by a number of factors, e.g. smoking, excerise, hormones, sex and age. CHOLESTEROL 184 0 - 240 mg/dL [facility] TRIGLYCERIDES 206(H) 30 - 160 mg/dL [facility] LDL 115 50 - 129 mg/dL [facility] Comment: LDL levels in terms of risk for coronary heart disease: <100 mg/dL: Optimal 100-129 mg/dL: Near or above optimal 130-159 mg/dL: Borderline high 160-189 mg/dL: High >190 mg/dL: Very High CARDIAC RISK RATIO 6.6(H) 3.4 - 5.0 C [facility] Blood 07/30/2021 6:31 AM EDT 07/30/2021 6:39 AM EDT us Campbell Mak MD LAB BLOOD ORDERABLES Fin al Result [facility] [address] [place] [address] from Last 3 Months or Most Recently Relevant to Health Maintenance Insurance [facility] MEDICARE REPLACEMENT [place] [id number] [facility] MEDICARE REPLACEMENT [place] [id number] [facility] MED[facility]ARE REPLACEMENT [facility] MEDICARE REPLACEMENT [facility] MEDICARE REPLACEMENT [facility] MEDICARE [facility]PLACEMENT [facility] MEDICARE REPLACEMENT [facility] MEDICARE REPLACEMENT [facility] MEDICARE REPLACEMENT [place] [id number] Advance Directives For more information, please contact: [phone] (9AM - 5PM [facility], Wednesday-Wednesday) Documents on File Type Date Recorded Patient Periodontal Assistant Expl anation Healthcare Proxy 08/01/2021 5:05 PM * Full Code (Latest Code Status on File) Date Activated Date Inactivated Comments 07/29/2021 4:37 PM Question Answer Comments Code Status Confirmed With: Patient Care Teams Warehouse Operator Relationship Specialty Start Date End Date Simeon Sarkar PA [address] [place] [address] PCP - General 07/29/21 Anup Russell MD [address] [place] [address] Neurology 07/29/21 Additional Source Comments The information contained in this document represents components of the legal health record. It is not the complete legal health record.[facility]
--- OUTSIDE RECORDS SUMMARY | 2024-12-13 07:33 | XMS_ITS | Encounter Summary ---
Author Organization [facility] Address [address] [facility] [address] [place] [address] Phone Care Team Providers Care Landscape Photographer Name Role Phone Ailyn Hernandez MD Primary Care Provider [phone] Unknown, Unknown Primary Care Provider Simeon Estrada Primary Care Provider + RussellAnup MD Unavailable [phone] Encounter Details Date Type Department Care Team (Late st Contact Info) Description 03/30/2017 Procedure Pass [facility], Ct Scan - [address] [address] Social History Tobacco Use Types Packs/Day Years [...] on filedocumented in this encounter Care Teams Landscape Photographer Relationship Specialty Start Date End Date Ailyn Hernandez MD [address] [place] [address] [address] [place] [address] [email or web address] PCP - General 02/25/17 08/19/20 Unknown, Mateusz, PCP - General 08/20/20 07/28/21 Simeon Sarkar PA [address] [place] [address] PCP - General 07/29/21 Anup Russell MD [address] [place] [address] Neurology 07/29/21 documented as of this encounter Additional Source Comments The information contained in this document represents components of the legal health record. It is not the complete legal health record.[facility]
--- OUTSIDE RECORDS SUMMARY | 2024-12-13 07:33 | XMS_ITS | Encounter Summary ---
Author Organization [employer] Address [address] [place] [address] 7 [place] [address] Care Team Providers Care Polisher Eyeglass Frames Name Role Phone Unavailable Primary Care Provider Unavailabl e Encounter Details Date Type Department Care Team (Late st Contact Info) Description 11/20/2022 Abstract [facility] MEDICINE [address] [place] [address] Carleen Mcghee Social History Tobacco Use Types [...]
--- OUTSIDE RECORDS SUMMARY | 2024-12-13 07:33 | XMS_ITS | Clinical Summary ---
Author Organization [employer] Address [address] [place] [address] 7t [place] [address] Care Team Providers Care Cream Dumper Name Role Phone Unavailable Primary Care Provider [...]
--- OUTSIDE RECORDS SUMMARY | 2024-12-13 07:33 | XMS_ITS | Encounter Summary ---
Author Organization [facility] Address [address] [facility] [address] [place] [address] Phone Care Team Providers Care Tubular Riveter Name Role Phone Ailyn Hernandez MD Primary Care Provider [phone] Unknown, Unknown Primary Care Provider Simeon Estrada Primary Care Provider + RussellAnup MD Unavailable [phone] Encounter Details Date Type Department Care Team (Late st Contact Info) Description 03/30/2017 Procedure Pass [facility], Ct Scan - [address] [address] Social History Tobacco Use Types Packs/Day Years [...] on filedocumented in this encounter Care Teams Tubular Riveter Relationship Specialty Start Date End Date Ailyn Hernandez MD [address] [place] [address] [address] [place] [address] [email or web address] PCP - General 02/25/17 08/19/20 Unknown, Mateusz, PCP - General 08/20/20 07/28/21 Simeon Sarkar PA [address] [place] [address] PCP - General 07/29/21 Anup Russell MD [address] [place] [address] Neurology 07/29/21 documented as of this encounter Additional Source Comments The information contained in this document represents components of the legal health record. It is not the complete legal health record.[facility]
== END 2024-12-13 15:18 | disposition home or self-care (01) ==
LOC: HO.HUSH 07:31
PROVIDERS: PCP Physician Assistant; Visit Provider Urology
DX: E11.69 Type 2 diabetes mellitus with other specified complication (principal); N40.1 Benign prostatic hyperplasia with lower urinary tract symptoms; N52.1 Erectile dysfunction due to diseases classified elsewhere
CPT/HCPCS: 99214

== ENCOUNTER 2025-02-13 07:15 | Outpatient (REF) | payer OTHER, SELFPAY ==
--- OUTSIDE RECORDS SUMMARY | 2025-02-13 07:18 | XMS_ITS | Clinical Summary ---
Author Organization [employer] Address [address] [facility] 7t [place] [address] Care Team Providers Care Knurling Machine Tender Name Role Phone Unavailable Primary Care Provider [...] of 2) 01/18/2010 COVID-19 Vaccine (1 - 2024-2 6 season) 2024 Influenza Vaccine (#1) 2024 RSV [...]
--- OUTSIDE RECORDS SUMMARY | 2025-02-13 07:18 | XMS_ITS | Encounter Summary ---
Author Organization [facility] Address [address] [place] [address] Phone Care Team Providers Care Air Commodore Name Role Phone Simeon Sarkar Primary Care Provider + Anup Russell MD Unavailable [phone] Encounter Details Date Type Department Care Team (Late st Contact Info) Description 07/29/2021 Procedure Pass [facility], [address] [address] Social History Tobacco Use Types Packs/Day Years [...] on filedocumented in this encounter Care Teams Air Commodore Relationship Specialty Start Date End Date Simeon Sarkar PA [address] [place] [address] PCP - General 07/29/21 Anup Russell MD [address] [place] [address] Neurology 07/29/21 documented as of this encounter Additional Source Comments The information contained in this document represents components of the legal health record. It is not the complete legal health record.[facility]
--- OUTSIDE RECORDS SUMMARY | 2025-02-13 07:18 | XMS_ITS | Encounter Summary ---
Author Organization [employer] Address [address] [place] [address] 7 [place] [address] Care Team Providers Care Coke Crane Operator Name Role Phone Unavailable Primary Care Provider Unavailabl e Encounter Details Date Type Department Care Team (Late st Contact Info) Description 11/20/2022 Abstract [facility] MEDICINE [address] [place] [address] Carleen Mcghee Social History Tobacco Use Types [...]
--- OUTSIDE RECORDS SUMMARY | 2025-02-13 07:19 | XMS_ITS | Encounter Summary ---
Author Organization [facility] Address [address] [facility] [address] [facility] [address] [place] [address] Phone Care Team Providers Care Ladle Watcher Name Role Phone Ailyn Hernandez MD Primary Care Provider [phone] Unknown, Unknown Primary Care Provider Simeon Estrada Primary Care Provider + [facility], Anup Martinez MD Unavailable [phone] Encounter Details Date Type Department Care Team (Late st Contact Info) Description 03/30/2017 Procedure Pass [facility], Ct Scan - [address] [address] Social History Tobacco Use Types Packs/Day Years [...] on filedocumented in this encounter Care Teams Ladle Watcher Relationship Specialty Start Date End Date Ailyn Hernandez MD [address] [place] [address] [address] [place] [address] [email or web address] PCP - General 02/25/17 08/19/20 Unknown, Unknown, PCP - General 08/20/20 07/28/21 Simeon Sarkar PA [address] [place] [address] PCP - General 07/29/21 Anup Russell MD [address] [place] [address] Neurology 07/29/21 documented as of this encounter Additional Source Comments The information contained in this document represents components of the legal health record. It is not the complete legal health record.[facility]
--- OUTSIDE RECORDS SUMMARY | 2025-02-13 07:19 | XMS_ITS | Clinical Summary ---
Author Organization [facility] Address [address] [place] [address] Phone Care Team Providers Care Brickmason Helper Name Role Phone Simeon Sarkar Primary Care Provider + Russell, Anup Martinez MD Unavailable [phone] Allergies Active Allergy Reactions Criticality Noted Date [...] diet MS (multiple sclerosis) 02/23/2012 Overview (07/29/2021): [facility] Neurology Assessment & Plan (07/29/2021 4:27 [...] hypertension as outlined. Resume lisinopril at discharge. Encounters Date Type Department Care Team Description 01/04/2025 11:00 PM EST - 01/05/2025 1:41 AM EST Emergency [facility] [address] [place] [address] Isaías Clark DO Chapin, Ethan Adair, MD Discharge Disposition: Home or Self Care from Last 3 Months Family History Medical History Relation Comments Heart [...] on file 06/19/2022 No 06/19/2022 No 06/19/2022 Food Answer Date Recorded Within the past 6 months we worried whether our food would run out before we got money to buy more. Never True 01/04/2025 Within the past 6 months the food we bought just didn't last and we didn't have enough money to get more. Never True Residential Stability Answer Date Recor ded What is your housing situation today? I have britany sing 01/04/2025 How many times have you move d in the past 12 months? Zero (I did not move) 01/04/2025 Paying for Meds Answer Date Recorded Do you have trouble paying for medicines? No 01/04/2025 Paying Utility Bills Answer Date Record ed Do you have trouble paying your heating or elect ricity bill? No 01/04/2025 Transportation Answer Date Recorded Has the lack of transportati on kept you from medical appointments or from getting medications? No 01/04/2025 Digital Access Answer Date Recorded No 01/04/2025 Yes 01/04/2025 Do you have reliable internet access at home? Ye s 01/04/2025 Do you have a device (e.g., phone, tablet, computer) with a working camera? Yes 01/04/2025 Intimate Partner Violence Answer Date R ecorded Are you denied basic needs s uch as food, clothing, or medical care? No 01/04/2025 In the past 12 months have y ou been in a relationship with a person who hurts, threatens, or tries to control you? No 01/04/2025 Are you denied basic needs s uch as food, clothing, or medical care? No 01/04/2025 In the past 12 months have y ou been in a relationship with a person who hurts, threatens, or tries to control you? No 01/04/2025 Sex and Gender Information Value Date Recorded Sex Assigned at Male 07/29/2021 8:26 AM EDT Legal Sex Male 9:48 PM EDT Gender Identity Male 07/29/2021 8:26 AM EDT Sexual Orientation Not on file Last Filed Vital Signs Vital Sign Reading Time Taken Comments Blood Pressure 157/64 01/05/2025 1:35 AM EST Pulse 75 01/05/2025 1:35 AM EST Temperature 36.4 C (97.5 F) 01/05/2025 1:35 AM EST Respiratory Rate 18 01/05/2025 1:35 AM EST Oxygen Saturation 95% 01/05/2025 1:35 AM EST Inhaled Oxygen Concentration - - Weight 81.6 kg (180 lb) 01/04/2025 10:34 PM EST Height 167.6 cm (5' 6 ) 01/04/2025 10:34 PM EST Body Mass Index 29.05 01/04/2025 10:34 PM EST Plan of Treatment Health Maintenance Due Date [...] 01/18/2010 Adult Td,Tdap Booster 05/26/2022 05/26/2012, 013 INFLUENZA VACCINE (#1) 2024 0, 12/27/2018, 11/04/2017, Additional history exists COVID-19 VACCINE ( season) 2024 07/09/2020, 06/26/2020, 06/17/2020, Additional history exists ABDOMINAL AORTIC ANEURYSM (AAA) SCREENING 01/18/2025 SCREENING FOR DIABETES 11/11/2025 11/11/2022, 2016 CREATININE LEVEL 01/04/2026 01/04/2025, , 07/29/2021 POTASSIUM LEVEL 01/04/2026 01/04/2025, 10/24, 07/29/2021 LIPID PANEL 07/30/2026 07/30/2021, 05/07/2016 RSV VACCINE [...] Procedure Name Priority Date/Time Associated Diagnosis Comments TROPONIN STAT 01/05/2025 12:45 AM EST TROPONIN STAT 01/04/2025 11:43 PM EST BASIC METABOLIC PANEL (BMP) STAT 01/04/2025 11:43 PM EST RED BLOOD CELL (RBC) MORPHOLOGY STAT 01/04/2025 11:42 PM EST DIFFERENTIAL, MANUAL (SYSMEX) STAT 01/04/2025 11:42 PM EST CBC AND DIFFERENTIAL STAT 01/04/2025 11:42 PM EST CBC AND DIFFERENTIAL STAT 01/04/2025 11:42 PM EST ECG 12-LEAD STAT 01/04/2025 11:27 PM EST ECG 12-LEAD STAT 01/04/2025 10:31 PM EST LIPID PANEL Routine 07/30/2021 6:31 AM EDT from Last 3 Months or Most Recently Relevant to Health Maintenance Results * Troponin (01/05/2025 12:45 AM EST) Only the most recent of2 resultswithin the time period is included. [facility] Troponin-T HS Gen5 9 0 - 14 ng/L 01/05/2025 1:12 AM [facility] Blood (Blood) Venipuncture / Unknown 01/05/2025 12:45 AM EST 01/05/2025 12:49 AM EST us Isaías Clark DO LAB BLOOD BKR ORDERABLES Janay l Result Performing Organization Address City/State/[facility] Co de Phone Number [address] [address] * (ABNORMAL) Basic Metabolic Panel (BMP) (01/04/2025 11:43 PM EST) [facility] Sodium 139 136 - 145 mmol/L 01/05/2025 12:16 AM [facility] Potassium 4.3 3.4 - 5.1 mmol/L 01/05/2025 12:16 AM [facility] Comment:NOTE: Specimen hemol yzed. Results may be falsely increased. Chloride 102 98 - 107 mmol/L 01/05/2025 12:16 AM [facility] CO2 24 20 - 31 mmol/L 01/05/2025 12:16 AM [facility] Anion Gap 13 3 - 17 mmol/L 01/05/2025 12:16 AM [facility] BUN 14 6 - 23 mg/dL 01/05/2025 12:16 AM [facility] Creatinine 1.00 0.60 - 1.30 mg/dL 01/05/2025 12:16 AM [facility] eGFR 84 >59 mL/min/1.7 3m2 01/05/2025 12:16 AM [facility] Comment:Estimated glomerular filtration rate calculated using the CKD-EPI refit equation. Glucose 198(H) 70 - 99 mg/dL 01/05/2025 12:16 AM [facility] Calcium 8.9 8.5 - 10.5 mg/dL 01/05/2025 12:16 AM [facility] Blood (Blood) Venipuncture / Unknown 01/04/2025 11:43 PM EST 01/04/2025 11:51 PM EST us Isaías G Clark DO LAB BLOOD BKR ORDERABLES Janay l Result [address] [address] * DIFFERENTIAL, MANUAL (SYSMEX) (01/04/2025 11:42 PM EST) Neutrophils 12.0 % 01/05/2025 1:00 AM [facility] Lymphocytes 85.0 % 01/05/2025 1:00 AM [facility] Monocytes 3.0 % 01/05/2025 1:00 AM [facility] Eosinophils 0.0 % 01/05/2025 1:00 AM [facility] Basophils 0.0 % 01/05/2025 1:00 AM [facility] Diff Type Manual 01/05/2025 1:00 AM [facility] Blood (Blood) Venipuncture / Unknown 01/04/2025 11:42 PM EST 01/04/2025 11:51 PM EST us L-3 GCS Clark DO LAB BLOOD BKR ORDERABLES Janay l Result [address] [address] * (ABNORMAL) CBC and Differential (01/04/2025 11:42 PM EST) WBC 43.17(H) 4.00 - 11.00 K/uL 01/05/2025 12:54 AM [facility] RBC 4.51 4.50 - 5.90 M/uL 01/05/2025 12:54 AM [facility] Hemoglobin 13.2(L) 13.5 - 17.5 g/dL 01/05/2025 12:54 AM [facility] Hematocrit 39.6(L) 41.0 - 53.0 % 01/05/2025 12:54 AM [facility] MCV 87.8 80.0 - 100.0 fL 01/05/2025 12:54 AM [facility] MCH 29.3 27.0 - 31.0 pg 01/05/2025 12:54 AM [facility] MCHC 33.3 32.0 - 36.0 g/dL 01/05/2025 12:54 AM [facility] MPV 9.9 8.4 - 12.0 fL 01/05/2025 12:54 AM [facility] RDW-CV 12.3 11.5 - 14.5 % 01/05/2025 12:54 AM [facility] PLT 151 150 - 450 K/uL 01/05/2025 12:54 AM [facility] NRBC 0.0 <=0.0 /100 WBCs 01/05/2025 12:54 AM [facility] Absolute NRBC 0.00 <=0.00 K cells/uL 01/05/2025 12:54 AM [facility] Absolute Neutrophils 3.75 1.92 - 7.60 K/uL 01/05/2025 12:54 AM [facility] Comment:Automated cell count . Manual ANC may differ if performed. Diff Type Manual 01/05/2025 12:54 AM [facility] Blood (Blood) Venipuncture / Unknown 01/04/2025 11:42 PM EST 01/04/2025 11:51 PM EST us Isaías Clark DO LAB BLOOD BKR ORDERABLES Janay l Result [facility] [address] [place] [address] * Red Blood Cell (RBC) Morphology (01/04/2025 11:42 PM EST) RBC Morphology Reviewed 01/05/2025 12:55 AM EST [facility] Blood (Blood) Venipuncture / Unknown 01/04/2025 11:42 PM EST 01/04/2025 11:51 PM EST us Isaías Clark DO LAB BLOOD BKR ORDERABLES Janay l Result [facility] [address] [place] [address] * ECG 12-LEAD (01/04/2025 11:27 PM EST) Only the most recent of2 resultswithin the time period is included. Ventricular Rate EKG/MIN 99 BPM [facility] Atrial Rate 99 BPM [facility] NE Interval 176 ms [facility] QRS Duration 74 ms [facility] QT Interval 322 ms [facility] QTC Interval 413 ms [facility] P Dixon 53 degrees [facility] R Wave Dixon 7 degrees [facility] T Wave Dixon 35 degrees [facility] 01/04/2025 11:2 7 PM EST 01/05/2025 8:20 AM EST Narrative [facility] - 01/05/2025 8:20 AM EST Normal sinus rhythm Cannot rule out Anterior infarct (cited on or before 04-Jan-2025) Abnormal ECG When compared with ECG of 04-Jan-2025 22:31, No significant change was found Confirmed by Dallas Azevedo ([id number]) on 01/05/2025 8:20:16 AM us Isaías Carolina Clark DO ECG ORDERABLES Final Result Performing Organization Address City/[facility]/ZIP Co de Phone Number [facility] * (ABNORMAL) Lipid panel (07/30/2021 6:31 AM EDT) HDL 28 mg/dL [facility] Comment: Interpretation <40 mg/dL: Low HDL cholesterol (major risk factor for CHD) Greater than or equal to 60 mg/dL: High HDL cholesterol ( negative risk factor for CHD) HDL - cholesterol is affected by a number of factors, e.g. smoking, excerise, hormones, sex and age. CHOLESTEROL 184 0 - 240 mg/dL [facility] TRIGLYCERIDES 206(H) 30 - 160 mg/dL [facility] LDL 115 50 - 129 mg/dL [facility] Comment: LDL levels in terms of risk for coronary heart disease: <100 mg/dL: Optimal 100-129 mg/dL: Near or above optimal 130-159 mg/dL: Borderline high 160-189 mg/dL: High >190 mg/dL: Very High CARDIAC RISK RATIO 6.6(H) 3.4 - 5.0 C [facility] Blood 07/30/2021 6:31 AM EDT 07/30/2021 6:39 AM EDT Campbell Mak MD LAB BLOOD BKR ORDERABLES Final Result Performing Organization Address City/State/[facility] Co de Phone Number [address] [address] from Last 3 Months or Most Recently Relevant to Health Maintenance Insurance [address] [facility] [place] [id number] [facility] MEDICARE REPLACEMENT [facility] MEDICARE REPLACEMENT [facility] MEDICARE REPLACEMENT [address] [facility] MEDICARE [facility]PLACEMENT [facility] MEDICARE REPLACEMENT [facility] MEDICARE [facility]PLACEMENT [facility] MEDICARE REPLACEMENT [facility] MEDICARE REPLACEMENT [facility] MEDICARE REPLACEMENT Advance Directives For more information, please contact: [phone] (9AM - 5PM [facility], Wednesday-Wednesday) Documents on File Type Date Recorded Patient Manager Chinese Expl anation Healthcare Proxy 08/01/2021 5:05 PM * Full Code (Latest Code Status on File) Date Activated Date Inactivated Comments 07/29/2021 4:37 PM Question Answer Comments Code Status Confirmed With: Patient Care Teams Brickmason Helper Relationship Specialty Start Date End Date Simeon Sarkar PA [address] [place] [address] PCP - General 07/29/21 Anup Russell MD [address] [place] [address] Neurology 07/29/21 Additional Source Comments The information contained in this document represents components of the legal health record. It is not the complete legal health record.[facility]
--- OUTSIDE RECORDS SUMMARY | 2025-02-13 07:19 | XMS_ITS | Encounter Summary ---
Author Organization [facility] Address [address] [place] [address] Phone Care Team Providers Care Photography Sales Associate Name Role Phone Ailyn Hernandez MD Primary Care Provider [phone] Unknown, Unknown Primary Care Provider Simeon Estrada Primary Care Provider + [facility], Anup Martinez MD Unavailable [phone] Encounter Details Date Type Department Care Team (Late st Contact Info) Description 03/30/2017 Procedure Pass [facility], Ct Scan - [address] [address] Social History Tobacco Use Types Packs/Day Years [...] on filedocumented in this encounter Care Teams Photography Sales Associate Relationship Specialty Start Date End Date Ailyn Hernandez MD [address] [place] [address] [address] [place] [address] [email or web address] PCP - General 02/25/17 08/19/20 Unknown, Unknown, PCP - General 08/20/20 07/28/21 Simeon Sarkar PA [address] [place] [address] PCP - General 07/29/21 Aunp Russell MD [address] [place] [address] Neurology 07/29/21 documented as of this encounter Additional Source Comments The information contained in this document represents components of the legal health record. It is not the complete legal health record.[facility]
--- OUTSIDE RECORDS SUMMARY | 2025-02-13 07:19 | XMS_ITS | Encounter Summary ---
Author Organization [facility] Address [address] [place] [address] Phone Care Team Providers Care Ball Winder Name Role Phone Simeon Sarkar Primary Care Provider + Anup Russell MD Unavailable [phone] Encounter Details Date Type Department Care Team (Late st Contact Info) Description 07/29/2021 Procedure Pass [facility], Ct Scan - [address] [address] Social History Tobacco Use Types Packs/Day Years [...] on filedocumented in this encounter Care Teams Ball Winder Relationship Specialty Start Date End Date Simeon Sarkar PA [address] [place] [id number] PCP - General 07/29/21 Anup Russell MD [address] [place] [id number] Neurology 07/29/21 documented as of this encounter Additional Source Comments The information contained in this document represents components of the legal health record. It is not the complete legal health record.[facility]
[2025-02-13 07:51] LABS: Hematocrit 45.9 % (42.0-52.0); Hemoglobin 15.0 g/dl (14.0-18.0); Mean Corpuscular HGB Conc 32.7 g/dl (31.0-36.0); Mean Corpuscular Hemoglobin 29.0 pg (27.0-33.0); Mean Corpuscular Volume 88.6 fL (80.0-98.0); NRBC Abs Auto 0.000 X10*3/uL (0.0-0.012); NRBC Pct Auto 0.0 /100WBC (0.0-0.2); Platelet Count 180 X10*3/uL (160-400); Red Blood Count 5.18 X10*6/uL (4.60-5.80)
[2025-02-13 08:14] LABS: Alanine Aminotransferase 68 U/L (0-40); Albumin Level 4.8 g/dL (3.5-5.0); Alkaline Phosphatase 77 U/L (39-117); Anion Gap 13 (12-20); Aspartate Amino Transferase 53 U/L (5-37); Blood Urea Nitrogen 15 mg/dL (9-16); Calcium 9.7 mg/dL (8.4-10.2); Carbon Dioxide 29 mmol/L (22-29); Chloride 106 mmol/L (96-108); Cholesterol 217 mg/dL (<200); Estimated Glomerular Filt Rate > 60; HDL Cholesterol 31 mg/dL (>40); Potassium 4.5 mmol/L (3.3-5.1); Sodium 143 mmol/L (135-145); Total Protein 7.3 g/dL (6.5-8.0); Triglycerides 254 mg/dL (<150)
[2025-02-13 09:35] LABS: White Blood Count 46.1 X10*3/uL (4.8-10.8)
== END 2025-02-13 07:16 | disposition home or self-care (01) ==
LOC: HO.LAB 07:15
PROVIDERS: PCP Physician Assistant; Visit Provider Physician Assistant
DX: E11.65 Type 2 diabetes mellitus with hyperglycemia (principal); E78.5 Hyperlipidemia, unspecified
CPT/HCPCS: 36415; 80053; 80061; 85027

== ENCOUNTER 2025-02-13 09:21 | Outpatient (AMB) | payer OTHER, SELFPAY ==
--- NOTE | 2025-02-13 09:28 | MHC.PC.OV ---
Vital Signs 02/13/25 09:29 Height 5 ft 6 in Weight 185 lb BMI 29.9 BP 112/68 Blood Pressure Location Lt brachial Position Sitting Pulse 4 L Pulse Source Pulse Oximeter Temp 96.9 F Temp Source Temporal Artery Scan Pulse Oximetry (%) 97 Oxygen Delivery Method Room Air Intake Visit Reasons: Annual Exam- A1C needed. Intake Note: Patient is here today for a physical. [employer] Social Worker Required: No Glost Tile Sorter: Not Required per policy Accompanied by: Self / Same As Patient Allergies Sulfa (Sulfonamide Antibiotics) (Sulfa (Sulfonamides)) Allergy (Unknown, Verified 02/13/25 09:46) RASH sulfacetamide (From Sulfacet-R) Allergy (Unknown, Verified 02/13/25 09:46) Hives sulfur (From Sulfacet-R) Allergy (Unknown, Verified 02/13/25 09:46) Hives Medication List - Last Reconciled 02/13/25 by Simeon Sarkar PA-C alfuzosin ER 10 mg PO DAILY [bath tub seat As directed] [Blood pressure Machine As directed] blood pressure monitor As directed cetirizine 10 mg PO DAILY 30 days cholecalciferol (vitamin D3) 25 mcg PO DAILY cyclobenzaprine 5 mg PO TID PRN fluticasone propionate 50 mcg/actuation (Flonase Allergy Relief) 1 spray intranasal BID PRN hydrochlorothiazide 12.5 mg PO DAILY hydroxyzine HCl 25 mg PO BEDTIME PRN leg brace (Knee Support Brace) As directed lisinopril 20 mg PO DAILY 90 days magnesium 250 mg PO DAILY 90 days miscellaneous medical supply (Blood Pressure Cuff) As directed multivitamin 1 tab PO DAILY [shower wand As directed] tizanidine 2 mg PO Q8H PRN vitamin B complex 1 cap PO DAILY Tobacco use date assessed: 02/13/25 Fall risk assessment: No Falls in past year Last assessed Fall Risk: 02/13/25 Dental Screening Dental Screen Date: 12/12/24 HPI Annual Exam- A1C needed. HPI Details Chavo is 65-year-old male here today for an annual physical.. Patient has a past medical history significant for MS, , essential hypertension, BPH, type 2 diabetes, CLL .. CLL: Recent diagnosis of CLL now followed by Hematology. CBC has been recently stable. HTN: Blood pressure acceptable today in office. We discussed increasing his lisinopril to 30 mg for better blood pressure control though patient declines. ? He reports home readings have been 110s to 120 systolic.?? Reports at home at home his blood pressure have been 120- 130s systolic. .. Aoritic anurysm : There is a stable fusiform aneurysm of the infrarenal aorta measuring 3.4 x 2.7 cm axial diameter, unchanged. Follow-up in 3 years recommended as per white paper guidelines. Has upcoming appointment with Cardiology. Likely needs surveillance. Noted to have hyperlipidemia-- > Will start statin therapy to help reduce his LDL below 100 ?? . ? .. ? Diabetes type 2: Most recent A1c is 7.0. . Patient has been trying to control his diabetes with lifestyle and dietary modifications. ? . ? .. ? M.S : Is followed by Neurology at [facility] (Dr. Hagen) , gets a MRI- Brain q 6 month , patient does report having frustrations over at times having to work find and not being able to pronounce words. He believes this is secondary to his MS..?? Was on MS medication though had intolerable side effects. Vaccines:? Up-to-date with COVID vaccine, up-to-date with flu vaccine, needs tetanus vaccine, considering Shingrex Colonoscopy:? Patient had colonoscopy 2016 showing 2 hyperplastic polyps repeat 10 years. Laboratory Tests 12/10/24 12/11/24 02/13/25 16:21 08:03 07:24 WBC 51.2 H* 50.2 H* 46.1 H* Creatinine 1.08 AST 58 H 53 H ALT 84 H 68 H Cholesterol 217 H LDL Cholesterol, C alc 136 H [facility] Medical History Diverticulosis HTN (hypertension) Multiple sclerosis Colitis AAA (abdominal aortic aneurysm) Dysuria BPH (benign prostatic hyperplasia) HTN (hypertension) Hyperlipidemia Diabetes mellitus Bladder outlet obstruction Weak urinary stream Nocturia Stress incontinence, male Surgical History History of dental surgery History of removal of cyst History of appendectomy History of hernia repair Family History Father Diabetes Mother No problems noted. Maternal Uncle Myocardial infarction Sister No problems noted. Son No problems noted. Son No problems noted. Daughter No problems noted. Brother No problems noted. Brother No problems noted. Brother No problems noted. 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 Cognitive needs: No Hearing needs: No Vision needs: Yes (reading glasses) Questionnaire Thrive Questionnaire Date Thrive assessed: 08/10/24 ADRIEN-7 AMB Questionnaire ADRIEN-7 Date ADRIEN - 7 assessed: 08/10/24 Source: Developed by Drs. Kam Becker, Lucille Marsh, Trae Roy and colleagues, with an educational catalina from [employer]. Review of Systems Const Denies headache(s) Eyes Denies loss of vision ENT Denies vertigo, Denies dizziness, Denies headache(s) and Denies sore throat Card Denies chest pain, Denies leg edema and Denies lightheadedness Resp Denies cough, Denies hemoptysis and Denies wheezing GI Denies abdominal pain, Denies melena, Denies constipation, Denies diarrhea and Denies vomiting Denies dysuria, Denies urinary frequency and Denies urinary urgency Musc Denies arthralgias, Denies joint swelling, Denies numbness and Denies tingling Neuro Denies Abnormal speech present, Denies behavioral changes, Denies vertigo, Denies dizziness, Denies headache(s), Denies loss of vision, Denies memory loss, Denies numbness and Denies tingling Psych Denies anxiety, Denies behavioral changes, Denies depression, Denies memory loss and Denies panic attacks Benjamin/Lymph Denies easy bleeding and Denies easy bruising Aller/Immun Denies wheezing Physical exam (Primary Care) Vital Signs: Last Vital Signs Temp 96.9 F 02/13/25 09:29 Pulse 4 L 02/13/25 09:29 BP 112/68 02/13/25 09:29 Pulse Ox 97 02/13/25 09:29 Oxygen Delivery Method Room Air 02/13/25 09:29 BMI result Body Mass Index 29.9 Tobacco/Smoking Status: Tobacco use Status Tobacco use date assessed 02/13/25 02/13/25 09:44 Patient Tobacco Use Status Never used Tobacco 02/13/25 09:28 e-Cigarette/Vaping Use Never Used 02/13/25 09:28 Thrive Assessment: Date of Thrive Assessment Date Thrive assessed 08/10/24 02/13/25 09:28 Const General: healthy appearing, no acute distress, alert and awake Nutritional Appearance: well nourished Orientation/consciousness: oriented to person, oriented to place and oriented to time HENMT Ears: TM's normal bilaterally General nose exam: Normal nasal mucous membranes and turbinates present Eyes Conjunctivae: conjunctivae normal Sclerae: sclerae normal Pupils: Equal, round and reactive pupils present Neck Neck: Yes no lymphadenopathy and Yes no JVD Thyroid: Thyroid normal Carotids: no bruits Resp Effort & Inspection: normal respiratory effort and not tachypneic Auscultation: no crackles, no rales, no rhonchi and no wheezes Cardio Rate: regular rate Rhythm: regular rhythm Heart sounds: no murmurs and normal S1 and S2 GI Palpation (GI): Soft to palpation, nontender, no hepatomegaly and no splenomegaly Auscultation: normal bowel sounds Skin General skin exam: no rashes or lesions noted and dry skin Neuro General: oriented to person, oriented to place and oriented to time Cranial nerves: Yes Equal, round and reactive pupils present Speech: No Abnormal speech present Gait exam (Neuro): Normal gait present Motor exam (neuro): no tremor noted Extrem Right upper extremity: full ROM Left upper extremity: full ROM Right lower extremity: full ROM; no edema Left lower extremity: full ROM; no edema Psych Mental Status: mental status grossly normal Speech and movement: Normal speech and movement present Affect: normal affect Attitude: cooperative Thought process: Normal thought process present Coding Level of Care Code Est Pt Level 4 (39264) Diagnoses Annual physical exam Z00.00 Mixed hyperlipidemia E78.2 Hyperlipidemia type: mixed hyperlipidemia Type 2 diabetes mellitus with hyperglycemia, without long-term current use of insulin E11.65 Diabetes mellitus complication status: with hyperglycemia Diabetes mellitus penitentiary insulin use: without penitentiary use CLL (chronic lymphocytic leukemia) C91.10 Multiple sclerosis G35 Essential hypertension I10 Hypertension type: essential hypertension Abdominal aortic aneurysm (AAA) without rupture, unspecified part I71.40 Abdominal aorta location: unspecified Presence of rupture: without rupture Assessment & Plan Assessment & Plan (1) Annual physical exam: Code(s): Z00.00 - Encounter for general adult medical examination without abnormal findings Category: Medical Plan: As per HPI (2) Hyperlipidemia: Code(s): E78.5 - Hyperlipidemia, unspecified Category: Medical Qualifiers: Hyperlipidemia type: mixed hyperlipidemia Qualified Code(s): E78.2 - Mixed hyperlipidemia Plan: Most recent lipid panel showing elevated total cholesterol and LDL. He is open to starting lipid lowering medication with goal LDL to be below 100 (3) DMII (diabetes mellitus, type 2): Code(s): E11.9 - Type 2 diabetes mellitus without complications Category: Medical Qualifiers: Diabetes mellitus complication status: with hyperglycemia Diabetes mellitus terminal computer operator insulin use: without terminal computer operator use Qualified Code(s): E11.65 - Type 2 diabetes mellitus with hyperglycemia Plan: Patient's type 2 diabetes has been well controlled with lifestyle and dietary modifications. A1c is to remain below 7.0. (4) CLL (chronic lymphocytic leukemia): Code(s): C91.10 - Chronic lymphocytic leukemia of B-cell type not having achieved remission Category: Medical Plan: Patient continues to follow Hematology, most recent white blood cell count at 35 (5) Multiple sclerosis: Code(s): G35 - Multiple sclerosis Category: Medical Plan: Patient followed by a neurologist in [place]. Was on MS treatment though was unable to tolerate the side effects of the medication. He continues to have some body pain and some difficulty with his speech related to his MS. (6) HTN (hypertension): Code(s): I10 - Essential (primary) hypertension Category: Medical Qualifiers: Hypertension type: essential hypertension Qualified Code(s): I10 - Essential (primary) hypertension Plan: Patient's blood pressure acceptable today in office. He will continue his current dose of lisinopril. Goal blood pressures to be below 140/90. Will supply patient with paper Rx for blood pressure monitor to to do home blood pressure monitoring (7) AAA (abdominal aortic aneurysm): Comment: 3.5 cm, needs follow up CT in 1-2 years Code(s): I71.40 - Abdominal aortic aneurysm, without rupture, unspecified Category: Medical Qualifiers: Abdominal aorta location: unspecified Presence of rupture: without rupture Qualified Code(s): I71.40 - Abdominal aortic aneurysm, without rupture, unspecified Plan: Patient has an infrarenal abdominal aortic aneurysm at 3.4 cm. Will continue surveillance Orders: Orders Lipid Panel 3 Months E78.2 - Mixed hyperlipidemia Comprehensive [place]. Panel Fast 3 Months E78.2 - Mixed hyperlipidemia Complete Blood Count no Diff 3 Months E78.2 - Mixed hyperlipidemia Hemoglobin A1c 3 Months E11.65 - Type 2 diabetes mellitus with hyperglycemia Prostate Specific Antigen Scr 3 Months E11.65 - Type 2 diabetes mellitus with hyperglycemia, Z12.5 - Encounter for screening for malignant neoplasm of prostate Microalbumin, Random (w Creat) 3 Months E11.65 - Type 2 diabetes mellitus with hyperglycemia Medications: New atorvastatin (Lipitor) 10 mg PO DAILY 90 tabs 1RF 90 days E78.2 - Mixed hyperlipidemia acetaminophen 500 mg PO Q6H PRN 120 caps 0RF fever 30 days M54.50 - Low back pain, unspecified lorazepam (Ativan) To take 30 minutes prior to procedure 1 mg PO ONCE PRN 1 tab 0RF anxiety 1 day Changed From fluticasone propionate 50 mcg/actuation administer into each nostril 1 spray intranasal BID PRN Allergy Symptoms To fluticasone propionate 50 mcg/actuation (Flonase Allergy Relief) administer into each nostril 1 spray intranasal BID PRN 16 grams 1RF Allergy Symptoms 30 days Refilled cyclobenzaprine 5 mg PO TID PRN 14 tabs 0RF muscle spasm lisinopril 20 mg PO DAILY 90 days 90 tabs 1RF I10 - Essential (primary) hypertension magnesium 250 mg PO DAILY 90 tabs 3RF 90 days S76.112A - Strain of left quadriceps muscle, fascia and tendon, initial encounter cetirizine 10 mg PO DAILY 30 tabs 6RF 30 days J01.10 - Acute frontal sinusitis, unspecified hydroxyzine HCl 25 mg PO BEDTIME PRN 90 tabs 1RF for itch F41.1 - Generalized anxiety disorder
[2025-02-13 09:29] VITALS: BP 112/68; PULSE 4; TEMP 36.1; O2SAT 97; BMI 29.9
== END 2025-02-13 10:18 | disposition home or self-care (01) ==
LOC: HO.HMCH 09:21
PROVIDERS: PCP Physician Assistant; Visit Provider Physician Assistant
DX: Z00.00 Encounter for general adult medical examination without abnormal findings (principal); E78.2 Mixed hyperlipidemia; E11.65 Type 2 diabetes mellitus with hyperglycemia; C91.10 Chronic lymphocytic leukemia of B-cell type not having achieved remission; G35.D Multiple sclerosis, unspecified; I10 Essential (primary) hypertension; I71.40 Abdominal aortic aneurysm, without rupture, unspecified